=== PATIENT | male | born 1970 | race Two or more races ===

== ENCOUNTER 2020-05-27 14:30 | Outpatient (REF) | payer OTHER, SELFPAY | END 2020-05-27 14:31 | disposition home or self-care (01) | LOC: HO.LAB 14:30 | PROVIDERS: PCP Internal Medicine; Visit Provider Internal Medicine | DX: Z20.828 Contact with and (suspected) exposure to other viral communicable diseases (principal) | CPT/HCPCS: 87635 ==

== ENCOUNTER 2020-06-11 09:21 | Outpatient (REF) | payer OTHER, SELFPAY ==
[2020-06-11 11:00] LABS: Anion Gap 12 (12-20); Blood Urea Nitrogen 12 mg/dL (9-16); Calcium 9.4 mg/dL (8.4-10.2); Carbon Dioxide 33 mmol/L (22-29); Chloride 97 mmol/L (96-108); Estimated Glomerular Filt Rate > 60; Potassium 4.1 mmol/l (3.3-5.1); Sodium 138 mmol/L (135-145)
== END 2020-06-11 09:22 | disposition home or self-care (01) ==
LOC: HO.10HDL 09:21
PROVIDERS: Visit Provider Internal Medicine Hypertension Specialist
DX: I10 Essential (primary) hypertension (principal)
CPT/HCPCS: 80051; 82310; 82565; 84520

== ENCOUNTER 2020-08-17 10:57 | Outpatient (REF) | payer OTHER, SELFPAY | END 2020-08-17 10:58 | disposition home or self-care (01) | LOC: HO.LAB 10:57 | PROVIDERS: PCP Internal Medicine; Visit Provider Internal Medicine | DX: Z20.822 Contact with and (suspected) exposure to COVID-19 (principal) | CPT/HCPCS: 36415; C9803; U0003 ==

== ENCOUNTER 2020-08-29 10:18 | Outpatient (REF) | payer OTHER, SELFPAY | END 2020-08-29 10:19 | disposition home or self-care (01) | LOC: HO.LAB 10:18 | PROVIDERS: Visit Provider Internal Medicine | DX: Z20.822 Contact with and (suspected) exposure to COVID-19 (principal) | CPT/HCPCS: 36415; C9803; U0003 ==

== ENCOUNTER → 2020-10-30 13:47 | Outpatient (BNVA) | payer OTHER, SELFPAY | PROVIDERS: PCP Internal Medicine; Visit Provider Internal Medicine Cardiovascular Disease | DX: I25.10 Atherosclerotic heart disease of native coronary artery without angina pectoris (principal); R07.9 Chest pain, unspecified | CPT/HCPCS: 93005; 99212 ==

== ENCOUNTER 2020-11-08 14:46 | Outpatient (REF) | payer OTHER, SELFPAY ==
--- NOTE | 2020-11-08 16:58 | PFT_ITS ---
Forced vital capacity is slightly decreased. FEV1 also slightly decreased, but FEV1/FVC ratio is normal. [id number] normal. MVV also normal. post-bronchodilator therapy, there is slight improvement in [id number]. No other change. Total lung capacity and residual volume normal. Diffusion capacity normal. CONCLUSION: Normal pulmonary function test. No evidence of obstructive restrictive pulmonary disorder. MD SONJA Chavez/MODL / [id number]
== END 2020-11-08 14:47 | disposition home or self-care (01) ==
LOC: HO.RESP 14:46
PROVIDERS: PCP Internal Medicine; Visit Provider Internal Medicine Cardiovascular Disease
DX: R07.9 Chest pain, unspecified (principal); R05 Cough; R06.2 Wheezing
CPT/HCPCS: 94060; 94727; 94729

== ENCOUNTER → 2020-11-11 10:47 | Outpatient (REF) | payer OTHER, SELFPAY ==
--- NOTE | 2020-11-11 10:50 | CA_ITS ---
Acquisition Time: 2020-11-11 11:01:10 Total Exercise Time: 00:09:05 Test Indications: CP Medications: SEE CHART Protocol: DENI Max HR: 151 BPM 87% of Pred: 172 BPM Max BP: 170/076 mmHG Max Work Load: 10.4 METS Exercise stress ECHO using Deni protocol, total of 9 min 5 sec. METS 10.40and TAPHR up to 87 %. Pt tolerated well, denies any anginal sx. EKG without any arrhythmias, no ischemic changes seen during exercise or in recovery. ECHO images taken at rest and immediately after peak exercise HR achieved. Definity contrast used. Normotensive response to exercise. Test reviewed with Dr. Burns. Exercise echocardiogram was reviewed. At rest, there is normal LVEF and wall motion. With peak exercise, there is appropriate augmentation of wall thickening and contractility. There is normal decrease in end-systolic volumes. Overall, this is a normal study. Referred By: Markus Morrison Overread By: NANETTE BURNS
== END ==
LOC: HO.CARD 10:47
PROVIDERS: Visit Provider Internal Medicine Cardiovascular Disease
DX: I25.10 Atherosclerotic heart disease of native coronary artery without angina pectoris (principal)
CPT/HCPCS: 93350; Q9957

== ENCOUNTER → 2020-11-25 12:39 | Outpatient (BNVA) | payer OTHER, SELFPAY | PROVIDERS: PCP Internal Medicine; Visit Provider Internal Medicine Cardiovascular Disease | DX: I25.10 Atherosclerotic heart disease of native coronary artery without angina pectoris (principal); R07.9 Chest pain, unspecified | CPT/HCPCS: 99212 ==

== ENCOUNTER → 2021-02-17 12:35 | Outpatient (BNVA) | payer OTHER, SELFPAY | PROVIDERS: PCP Internal Medicine; Referring Provider Internal Medicine; Visit Provider Internal Medicine Cardiovascular Disease | DX: I25.10 Atherosclerotic heart disease of native coronary artery without angina pectoris (principal) | CPT/HCPCS: 99212 ==

== ENCOUNTER 2021-04-28 10:18 | Outpatient (REF) | payer OTHER, SELFPAY ==
[2021-04-28 12:24] LABS: Hematocrit 43.7 % (42-52); Hemoglobin 14.7 g/dl (14.0-18.0); Mean Corpuscular HGB Conc 33.6 g/dl (31.0-36.0); Mean Corpuscular Hemoglobin 29.6 pg (27.0-33.0); Mean Corpuscular Volume 88.1 fL (80-98); Mean Platelet Volume 10.9 fL (9.4-12.4); Platelet Count 253 X10*3/uL (160-400); Red Blood Count 4.96 X10*6/uL (4.60-5.80); Red Cell Distribution Width 12.1 % (11.0-16.0); White Blood Count 7.5 X10*3/uL (4.8-10.8)
[2021-04-28 12:31] LABS: Estimated Average Glucose 180 mg/dL; Hemoglobin A1c % 7.9 %
[2021-04-28 12:44] LABS: Alanine Aminotransferase 71 U/L (0-40); Albumin Level 4.5 g/dL (3.5-5.0); Alkaline Phosphatase 65 U/L (39-117); Anion Gap 15 (12-20); Aspartate Amino Transferase 32 U/L (5-37); Bilirubin Total 0.6 mg/dL (0.0-1.0); Blood Urea Nitrogen 13 mg/dL (9-16); Calcium 10.1 mg/dL (8.4-10.2); Carbon Dioxide 30 mmol/L (22-29); Chloride 97 mmol/L (96-108); Estimated Glomerular Filt Rate > 60; Glucose Random 197 mg/dL (60-115); Potassium 4.1 mmol/L (3.3-5.1); Sodium 138 mmol/L (135-145)
[2021-05-07 11:22] LABS: Transglutaminase Ab IgG <1.0 U/mL; Transglutaminase IgA <1.0 U/mL
== END 2021-04-28 10:19 | disposition home or self-care (01) ==
LOC: HO.LAB 10:18
PROVIDERS: PCP Internal Medicine; Referring Provider Internal Medicine; Visit Provider Nurse Practitioner Family
DX: Z12.11 Encounter for screening for malignant neoplasm of colon (principal); R10.11 Right upper quadrant pain; R14.0 Abdominal distension (gaseous); E11.9 Type 2 diabetes mellitus without complications; K59.04 Chronic idiopathic constipation; K21.9 Gastro-esophageal reflux disease without esophagitis
CPT/HCPCS: 36415; 80053; 83036; 83516; 85027; 99202

== ENCOUNTER → 2021-05-27 10:15 | Outpatient (BNVA) | payer OTHER, SELFPAY | PROVIDERS: PCP Internal Medicine; Visit Provider Nurse Practitioner Family | DX: K21.9 Gastro-esophageal reflux disease without esophagitis (principal); K59.04 Chronic idiopathic constipation | CPT/HCPCS: 99212 ==

== ENCOUNTER 2021-05-30 10:26 | Outpatient (REF) | payer OTHER, SELFPAY | END 2021-05-30 10:27 | disposition home or self-care (01) | LOC: HO.LNP 10:26 | PROVIDERS: Visit Provider Nurse Practitioner Family | DX: K21.9 Gastro-esophageal reflux disease without esophagitis (principal) | CPT/HCPCS: 87338 ==

== ENCOUNTER 2021-06-02 10:00 | Outpatient (REF) | payer OTHER, SELFPAY ==
[2021-06-02 10:49] LABS: Alanine Aminotransferase 54 U/L (0-40); Albumin Level 4.5 g/dL (3.5-5.0); Alkaline Phosphatase 75 U/L (39-117); Anion Gap 16 (12-20); Aspartate Amino Transferase 30 U/L (5-37); Bilirubin Total 0.5 mg/dL (0.0-1.0); Blood Urea Nitrogen 14 mg/dL (9-16); Calcium 9.5 mg/dL (8.4-10.2); Carbon Dioxide 30 mmol/L (22-29); Chloride 100 mmol/L (96-108); Estimated Glomerular Filt Rate > 60; Glucose Random 140 mg/dL (60-115); Potassium 4.2 mmol/L (3.3-5.1); Sodium 142 mmol/L (135-145); Total Protein 6.9 g/dL (6.5-8.0)
== END 2021-06-02 10:01 | disposition home or self-care (01) ==
LOC: HO.10HDL 10:00
PROVIDERS: Visit Provider Internal Medicine Hypertension Specialist
DX: I10 Essential (primary) hypertension (principal)
CPT/HCPCS: 36415; 80053

== ENCOUNTER → 2021-07-08 09:18 | Outpatient (BNVA) | payer OTHER, SELFPAY | PROVIDERS: PCP Internal Medicine; Referring Provider Internal Medicine; Visit Provider Nurse Practitioner Family | DX: Z12.11 Encounter for screening for malignant neoplasm of colon (principal); K21.9 Gastro-esophageal reflux disease without esophagitis; K59.04 Chronic idiopathic constipation | CPT/HCPCS: 99212 ==

== ENCOUNTER → 2021-08-18 12:14 | Outpatient (BNVA) | payer OTHER, SELFPAY | PROVIDERS: PCP Internal Medicine; Referring Provider Internal Medicine; Visit Provider Internal Medicine Cardiovascular Disease | DX: Z01.810 Encounter for preprocedural cardiovascular examination (principal); I25.10 Atherosclerotic heart disease of native coronary artery without angina pectoris | CPT/HCPCS: 93005; 99212 ==

== ENCOUNTER → 2021-10-27 10:33 | Outpatient (BNVA) | payer OTHER, SELFPAY | PROVIDERS: PCP Internal Medicine; Visit Provider Nurse Practitioner Family | DX: G47.33 Obstructive sleep apnea (adult) (pediatric) (principal) | CPT/HCPCS: 99202 ==

== ENCOUNTER → 2021-12-15 13:01 | Outpatient (BNVA) | payer OTHER, SELFPAY | PROVIDERS: PCP Internal Medicine; Referring Provider Internal Medicine; Visit Provider Internal Medicine Cardiovascular Disease | DX: I20.8 Other forms of angina pectoris (principal) | CPT/HCPCS: 99212 ==

== ENCOUNTER 2021-12-18 09:14 | Outpatient (REF) | payer OTHER, SELFPAY ==
[2021-12-18 10:18] LABS: Anion Gap 13 (12-20); Blood Urea Nitrogen 14 mg/dL (9-16); Calcium 9.8 mg/dL (8.4-10.2); Carbon Dioxide 30 mmol/L (22-29); Chloride 101 mmol/L (96-108); Estimated Glomerular Filt Rate > 60; Glucose Random 213 mg/dL (60-115); Potassium 4.2 mmol/L (3.3-5.1); Sodium 140 mmol/L (135-145)
[2021-12-18 12:06] LABS: Creatinine Urine 102.74 mg/dL; Protein/Creatinine Ratio, Ur 0.12 (<0.2); Total Protein Urine Random 12 mg/dL (<12)
== END 2021-12-18 09:15 | disposition home or self-care (01) ==
LOC: HO.LAB 09:14
PROVIDERS: PCP Internal Medicine; Visit Provider Internal Medicine Hypertension Specialist
DX: I10 Essential (primary) hypertension (principal)
CPT/HCPCS: 36415; 80048; 84156

== ENCOUNTER → 2022-01-26 09:49 | Outpatient (BNVA) | payer OTHER, MEDICAID, SELFPAY | PROVIDERS: PCP Internal Medicine; Visit Provider Nurse Practitioner Family | DX: G47.33 Obstructive sleep apnea (adult) (pediatric) (principal) | CPT/HCPCS: 99212 ==

== ENCOUNTER 2022-06-19 10:47 | Outpatient (REF) | payer OTHER, MEDICAID, SELFPAY ==
[2022-06-19 13:52] LABS: Anion Gap 15 (12-20); Blood Urea Nitrogen 13 mg/dL (9-16); Calcium 9.7 mg/dL (8.4-10.2); Carbon Dioxide 30 mmol/L (22-29); Chloride 101 mmol/L (96-108); Estimated Glomerular Filt Rate > 60; Potassium 4.2 mmol/L (3.3-5.1); Sodium 142 mmol/L (135-145)
== END 2022-06-19 10:48 | disposition home or self-care (01) ==
LOC: HO.10HDL 10:47
PROVIDERS: Visit Provider Internal Medicine Hypertension Specialist
DX: I10 Essential (primary) hypertension (principal)
CPT/HCPCS: 36415; 80051; 82310; 82565; 84520

== ENCOUNTER → 2022-07-01 13:38 | Outpatient (BNVA) | payer OTHER, MEDICAID, SELFPAY | PROVIDERS: PCP Internal Medicine; Visit Provider Internal Medicine Cardiovascular Disease | DX: I20.8 Other forms of angina pectoris (principal) | CPT/HCPCS: 93005; 99212 ==

== ENCOUNTER → 2022-08-05 10:46 | Outpatient (BNVA) | payer OTHER, SELFPAY | PROVIDERS: PCP Internal Medicine; Visit Provider Nurse Practitioner Family | DX: G47.33 Obstructive sleep apnea (adult) (pediatric) (principal); Z99.89 Dependence on other enabling machines and devices | CPT/HCPCS: 99212 ==

== ENCOUNTER 2022-08-15 10:30 | Emergency (ER) | payer OTHER, SELFPAY ==
--- NOTE | ~2022-08-15 | XR_ITS ---
EXAMINATION: XR CHEST CLINICAL INFORMATION: Shortness of breath COMPARISON: 09/23/2019 TECHNIQUE: 2 views of the chest were obtained. FINDINGS: Lungs are well-inflated and without evidence of acute disease compared to 09/23/2019. There appears to be minimal linear opacity of atelectasis of the inferior lingula. No airspace disease or pleural effusion. Cardiac silhouette is normal in size. Pulmonary vascular pattern is normal. Multilevel osteophyte formation of the spine. XR/XR chest 2V IMPRESSION: No acute pulmonary disease.
[2022-08-15 10:32] VITALS: BP 152/83; PULSE 58; RESP 18; TEMP 35.8; O2SAT 98; BMI 38.0
--- NOTE | 2022-08-15 10:43 | ED.GENADULT ---
HPI - General Adult General Chief complaint: General Medical Stated complaint: not feeling well Time Seen by Provider: 08/15/22 10:42 Source: patient Mode of arrival: ambulatory Limitations: no limitations History of Present Illness HPI narrative: Patient is a 52 year old assigned male at with a history of CAD presenting to the emergency department today with sinus pain, body aches, and fatigue. Patient states that over the last 4 days he has had sinus pain, body aches, and fatigue. Patient denies any dizziness, lightheadedness, abdominal pain, nausea, vomiting, fever, chills, blurry vision, double vision, loss of vision, chest pain, difficulty breathing, shortness of breath, back pain, night sweats, pain with urination, increased urinary frequency, increased urinary urgency, blood in his urine or stool, syncope or a near syncopal episode, recent trauma or falls, bowel incontinence, bladder incontinence, bowel retention, bladder retention, or any other complaints at this time. Onset (ago): day(s) (4) Location: face Radiation: non-radiation Severity: mild Severity scale (1-10): 2 Relieving factors: none Exacerbating factors: none Associated symptoms: denies other symptoms Treatments prior to arrival: none Related Data Home Medications Medication Instructions Recorded Confirmed amlodipine 10 mg tablet 10 mg PO DAILY 10/30/20 07/01/22 atenolol 100 mg tablet 100 mg PO DAILY 10/30/20 07/01/22 atorvastatin 80 mg tablet 80 mg PO DAILY 10/30/20 07/01/22 clopidogrel 75 mg tablet 75 mg PO DAILY 10/30/20 07/01/22 glipizide 2.5 mg tablet, extended 2.5 mg PO DAILY 10/30/20 07/01/22 release 24 hr lisinopril 40 mg tablet 40 mg PO DAILY 10/30/20 07/01/22 metformin 1,000 mg tablet 1,000 mg PO DAILY 10/30/20 07/01/22 oxcarbazepine 150 mg tablet 150 mg PO BID 10/30/20 07/01/22 spironolactone 25 1 tab PO DAILY 10/30/20 07/01/22 mg-hydrochlorothiazide 25 mg tablet [id number]-yjlhbasekujxn-gurymusq 250 1 tab PO Q8H PRN 08/18/21 07/01/22 mg-250 mg-65 mg tablet (Migraine Relief) hydralazine 25 mg tablet 25 mg PO QID 08/18/21 07/01/22 acetaminophen 325 mg capsule 650 mg PO Q6H PRN 10/27/21 07/01/22 omeprazole 20 mg capsule,delayed 20 mg PO BID 10/27/21 07/01/22 release Previous Rx's Medication Instructions Recorded linaclotide 145 mcg capsule 145 mcg PO DAILY #30 caps 05/27/21 (Linzess) methylcellulose (laxative) 500 mg 500 mg PO DAILY #30 tabs 05/27/21 tablet (Citrucel) pantoprazole 40 mg tablet,delayed 40 mg PO DAILY #30 tabs 05/27/21 release bisacodyl 5 mg tablet,delayed 10 mg PO ONCE 1 day #2 tabs 07/08/21 release (Dulcolax (bisacodyl)) ondansetron 4 mg disintegrating 4 mg PO Q8H PRN nausea and 07/08/21 tablet vomiting #30 tabs aspirin 81 mg tablet,delayed 81 mg PO DAILY #90 tabs 08/25/21 release (Adult Low Dose Aspirin) docusate sodium 100 mg capsule 100 mg PO BEDTIME #30 caps 01/13/22 sennosides 8.6 mg tablet (Natural 8.6 mg PO BEDTIME constipation #30 01/13/22 Senna Laxative) tabs isosorbide mononitrate 30 mg 30 mg PO DAILY #90 tabs 02/16/22 tablet,extended release 24 hr doxycycline hyclate 100 mg tablet 100 mg PO BID 7 days #14 tabs 08/15/22 Allergies Allergy/AdvReac Type Severity Reaction Status Date / Time No Known Allergies Allergy Verified 08/05/22 11:14 Review of Systems Constitutional: Constitutional: Reports no additional constitutional complaints, Reports body ache(s), Denies chills, Reports fatigue, Denies fever(s) and Denies night sweats Eyes: Eyes: Reports no additional eye complaints, Denies blurry vision, Denies change in vision, Denies diplopia, Denies eye discharge, Denies loss of vision and Denies eye pain ENT: Denies dizziness and Reports sinus pressure Cardiovascular: Cardiovascular: Reports no additional cardiovascular complaints, Denies chest pain, Denies lightheadedness, Denies Loss of Consciousness and Denies dyspnea Respiratory: Respiratory: Reports no additional respiratory complaints and Denies dyspnea Gastrointestinal: Gastrointestinal: Reports no additional gastrointestinal complaints, Denies abdominal pain, Denies melena, Denies hematochezia, Denies change in bowel habits and Denies change in stool character Genitourinary: Genitourinary: Reports no additional male genitourinary complaints, Denies hematuria, Denies oliguria, Denies difficulty urinating, Denies dysuria, Denies urinary frequency, Denies urinary hesitancy, Denies urinary incontinence and Denies urinary urgency Musculoskeletal: Musculoskeletal: Reports no additional musculoskeletal complaints, Denies numbness and Denies tingling Neurologic: Denies dizziness, Denies loss of vision, Denies numbness and Denies tingling Psychiatric: Psychiatric: Reports no additional psychiatric complaints Endocrine: Endocrine: Reports no additional endocrine complaints and Reports fatigue Hematologic/Lymphatic: Hematologic/Lymphatic: Reports no additional hematologic/lymphatic complaints Allergic/Immunologic: Allergic/Immunologic: Reports no additional allergic/immunologic complaints PMFSH Past Medical History Attestation statement: The following information was validated with the patient. Source: old records reviewed and nursing notes reviewed Surgical History H/O: knee surgery History of cardiac cath History of cataract surgery Family History Family History Father CAD (coronary artery disease) HTN (hypertension) Diabetes Hypercholesteremia Mother CAD (coronary artery disease) Lung disease Diabetes HTN (hypertension) Hypercholesteremia Social History Social History Alcohol intake: never Patient Tobacco Use Status: Never used Tobacco Advance Directives: No Advance Directives Information Provided: Yes Physical Exam ED Vital Signs: Vital Signs - 24 hr 08/15/22 10:32 Temperature 96.5 F L Pulse Rate 58 Respiratory Rate 18 Blood Pressure 152/83 H Pulse Oximetry 98 Oxygen Delivery Method Room Air BMI result Body Mass Index 38.0 Const General: cooperative, no acute distress, alert and awake Nutritional Appearance: well nourished Orientation/consciousness: patient oriented x3 Limitations: no limitations HENMT Head: Yes normal to inspection and Yes atraumatic Ears: hearing grossly normal bilaterally and external ears normal General nose exam: Normal external nose present, no nasal discharge noted and no epistaxis Face and sinus: Yes normal facial exam, No abrasion and No laceration Mouth: Normal oral and palatal mucosa present, no drooling and no muffled voice Eyes General: appearance normal, both eyes and all related structures Periorbital: periorbital findings normal Eyelids: Yes eyelids normal Conjunctivae: conjunctivae normal Pupils: Equal, round and reactive pupils present EOM: EOMs intact bilaterally Neck Neck: Yes normal visual inspection, Yes full ROM and Yes no lymphadenopathy Chest Chest palpation & inspection: normal inspection of the chest Resp Effort & Inspection: normal respiratory effort and able to speak in complete sentences Auscultation: clear to auscultation bilaterally Cardio Rate: regular rate Rhythm: regular rhythm GI Inspection: Yes normal to inspection Palpation (GI): Soft to palpation, not firm, nontender, no guarding and not rigid Neuro General: patient oriented x3 and moves all extremities Cranial nerves: Yes Equal, round and reactive pupils present Cognition (Neuro): normal cognition Motor exam (neuro): 5/5 motor strength present throughout Sensory Exam: Normal double simultaneous stimulation for sensation Coordination: [id number]-ords test normal Extrem General: Yes normal to inspection, Yes full ROM and Yes capillary refill normal Psych Appearance: grossly normal Mental Status: mental status grossly normal Affect: normal affect Attitude: cooperative Thought process: Normal thought process present Thought content: Normal thought content present Insight: Good insight present (Psych) Medical Decision Making Medical Decision Making MDM Narrative: Patient is a 52 year old assigned male at with a history of CAD presenting to the emergency department today with sinus pain, body aches, and fatigue. Patient's physical exam was unremarkable.Patient's chest x-ray showed no acute process. Patient's COVID/RSV/Influenza swab was negative. I explained my physical exam findings as well as all test results to the patient. I answered all questions asked by the patient. I stressed the importance of the patient taking his medication as prescribed. I stressed the importance of the patient following up with his primary care provider. I stressed the importance of the patient returning to the emergency department immediately if his symptoms were to worsen or if he were to develop any dizziness, shortness of breath, difficulty breathing, chest pain, blurry vision, loss of vision, nausea, vomiting, abdominal pain, fever, chills, back pain, or any other complaints. Patient verbalized agreement and understanding with this treatment plan and discharge. Differential Diagnosis Differential Diagnoses: The differential diagnosis associated with the presentation includes sinusitis Lab Data MDM Lab Attestation statement: I reviewed the patient's lab results. Labs: Lab Results 08/15/22 Range/Units 10:54 Influenza Type A (PCR) NEGATIVE (Negative) Influenza Type B (PCR) NEGATIVE (Negative) RSV RNA Qual (PCR) NEGATIVE (Negative) SARS-CoV-2 RNA (RT-PCR) NEGATIVE (Negative) Discharge Plan Discharge Clinical Impression: Sinusitis Patient Disposition: Home, Self-Care Instructions: Sinusitis (ED) Additional Instructions: Follow up with your primary care provider. Return to the emergency department immediately if your symptoms worsen or if you develop any dizziness, shortness of breath, difficulty breathing, chest pain, blurry vision, loss of vision, nausea, vomiting, abdominal pain, fever, chills, back pain, or any other complaints. Prescriptions: New doxycycline hyclate 100 mg tablet 100 mg PO BID 7 Days Qty: 14 0RF No Action aspirin [Adult Low Dose Aspirin] 81 mg tablet,delayed release (DR/EC) 81 mg PO DAILY Qty: 90 3RF docusate sodium 100 mg capsule 100 mg PO BEDTIME Qty: 30 3RF sennosides [Natural Senna Laxative] 8.6 mg tablet 8.6 mg PO BEDTIME Qty: 30 3RF isosorbide mononitrate 30 mg tablet extended release 24 hr 30 mg PO DAILY Qty: 90 3RF metformin 1,000 mg tablet 1,000 mg PO DAILY lisinopril 40 mg tablet 40 mg PO DAILY amlodipine 10 mg tablet 10 mg PO DAILY glipizide 2.5 mg tablet extended release 24hr 2.5 mg PO DAILY atenolol 100 mg tablet 100 mg PO DAILY spironolacton-hydrochlorothiaz 25-25 mg tablet 1 tab PO DAILY atorvastatin 80 mg tablet 80 mg PO DAILY oxcarbazepine 150 mg tablet 150 mg PO BID clopidogrel 75 mg tablet 75 mg PO DAILY Migraine Relief 250-250-65 mg tablet 1 tab PO Q8H PRN hydralazine 25 mg tablet 25 mg PO QID bisacodyl [Dulcolax (bisacodyl)] 5 mg tablet,delayed release (DR/EC) 10 mg PO ONCE 1 Days Qty: 2 0RF Rx Instructions: take 2 tabs at noon the day before your colonoscopy ondansetron 4 mg tablet,disintegrating 4 mg PO Q8H PRN (Reason: nausea and vomiting) Qty: 30 0RF pantoprazole 40 mg tablet,delayed release (DR/EC) 40 mg PO DAILY Qty: 30 3RF Rx Instructions: take one tablet half an hour before breakfast Citrucel 500 mg tablet 500 mg PO DAILY Qty: 30 3RF Rx Instructions: take it with full glass of water Linzess 145 mcg capsule 145 mcg PO DAILY Qty: 30 2RF omeprazole 20 mg capsule,delayed release(DR/EC) 20 mg PO BID acetaminophen 325 mg capsule 650 mg PO Q6H PRN Referrals: Mary Ellen Montague MD [Primary Care Provider] - Interventions: ED Discharge Assessment Last Done: 08/15/22 12:28 Discharge Date/Time: 08/15/22 12:29 Print Language: Bulgarian
--- NOTE | 2022-08-15 11:05 | PC.NURSE ---
patient a&ox3, pt states he hasnt felt well for a few days but worsened this morning, pt also c/o dental pain-notified provider, nasal swab performed, call oh within reach, will continue to monitor.
[2022-08-15 11:36] LABS: Influenza A PCR NEGATIVE (Negative); Influenza B PCR NEGATIVE (Negative); Resp Syncy Virus RNA Qual PCR NEGATIVE (Negative); SARS COV2 PCR INHOUSE NEGATIVE (Negative)
== END 2022-08-15 12:29 | disposition home or self-care (01) ==
PROVIDERS: Physician Assistant Medical; Emergency Provider Emergency Medicine; PCP Internal Medicine
DX: J32.9 Chronic sinusitis, unspecified (principal); M79.10 Myalgia, unspecified site; Z20.822 Contact with and (suspected) exposure to COVID-19; Z20.828 Contact with and (suspected) exposure to other viral communicable diseases; Z79.84 Long term (current) use of oral hypoglycemic drugs; Z79.899 Other long term (current) drug therapy; Z79.02 Long term (current) use of antithrombotics/antiplatelets; Z79.82 Long term (current) use of aspirin
CPT/HCPCS: 0241U; 71046; 99282; 99283

== ENCOUNTER 2022-08-27 09:48 | Emergency (ER) | payer OTHER, SELFPAY ==
[2022-08-27 09:52] VITALS: BP 146/85; PULSE 61; RESP 16; TEMP 36.9; O2SAT 98; BMI 38.0
--- NOTE | 2022-08-27 10:06 | ED_ITS ---
HPI - General Adult General Chief complaint: General Medical Stated complaint: medication refill Time Seen by Provider: 08/27/22 10:05 Source: patient Mode of arrival: ambulatory Limitations: no limitations History of Present Illness HPI narrative: 52 yo male with history of CAD, RADHA, CAD, stable angina who presents to the ER for evaluation of ongoing sinus pressure and headaches for the last couple of weeks. He states he has been on doxycycline for the last 2 weeks with no relief. He reports increased sinus pressure in his frontal and maxillary sinuses along with headache, nasal congestion. He states his headache is pounding and head feels very heavy. He has been taking nlvb-viv-[id number] decongestants with no relief. He denies any history of allergies. He does endorse watery eyes and some eye swelling when he wakes up in the morning. No vision changes or discharge. No fever or chills. No chest pain, shortness of breath, cough, nausea, vomiting, abdominal pain. MD complaint: Sinus pressure & pain Onset (ago): week(s) (2) Location: head and face Radiation: non-radiation Severity: moderate Quality: aching and other (throbbing) Pain Consistency: constant Relieving factors: medication and rest Exacerbating factors: movement Associated symptoms: headaches Treatments prior to arrival: none Related Data Home Medications Medication Instructions Recorded Confirmed amlodipine 10 mg tablet 10 mg PO DAILY 10/30/20 07/01/22 atenolol 100 mg tablet 100 mg PO DAILY 10/30/20 07/01/22 atorvastatin 80 mg tablet 80 mg PO DAILY 10/30/20 07/01/22 clopidogrel 75 mg tablet 75 mg PO DAILY 10/30/20 07/01/22 glipizide 2.5 mg tablet, extended 2.5 mg PO DAILY 10/30/20 07/01/22 release 24 hr lisinopril 40 mg tablet 40 mg PO DAILY 10/30/20 07/01/22 metformin 1,000 mg tablet 1,000 mg PO DAILY 10/30/20 07/01/22 oxcarbazepine 150 mg tablet 150 mg PO BID 10/30/20 07/01/22 spironolactone 25 1 tab PO DAILY 10/30/20 07/01/22 mg-hydrochlorothiazide 25 mg tablet qrctrnx-vxiknosfqznxa-psldnhrc 250 1 tab PO Q8H PRN 08/18/21 07/01/22 mg-250 mg-65 mg tablet (Migraine Relief) hydralazine 25 mg tablet 25 mg PO QID 08/18/21 07/01/22 acetaminophen 325 mg capsule 650 mg PO Q6H PRN 10/27/21 07/01/22 omeprazole 20 mg capsule,delayed 20 mg PO BID 10/27/21 07/01/22 release Previous Rx's Medication Instructions Recorded linaclotide 145 mcg capsule 145 mcg PO DAILY #30 caps 05/27/21 (Linzess) methylcellulose (laxative) 500 mg 500 mg PO DAILY #30 tabs 05/27/21 tablet (Citrucel) pantoprazole 40 mg tablet,delayed 40 mg PO DAILY #30 tabs 05/27/21 release bisacodyl 5 mg tablet,delayed 10 mg PO ONCE 1 day #2 tabs 07/08/21 release (Dulcolax (bisacodyl)) ondansetron 4 mg disintegrating 4 mg PO Q8H PRN nausea and 07/08/21 tablet vomiting #30 tabs aspirin 81 mg tablet,delayed 81 mg PO DAILY #90 tabs 08/25/21 release (Adult Low Dose Aspirin) docusate sodium 100 mg capsule 100 mg PO BEDTIME #30 caps 01/13/22 sennosides 8.6 mg tablet (Natural 8.6 mg PO BEDTIME constipation #30 01/13/22 Senna Laxative) tabs isosorbide mononitrate 30 mg 30 mg PO DAILY #90 tabs 02/16/22 tablet,extended release 24 hr doxycycline hyclate 100 mg tablet 100 mg PO BID 7 days #14 tabs 08/15/22 cetirizine 10 mg capsule (Zyrtec) 10 mg PO DAILY #30 caps 08/27/22 levofloxacin 500 mg tablet 500 mg PO DAILY #10 tabs 08/27/22 triamcinolone acetonide 55 mcg 2 spray intranasal DAILY #16.9 mL 08/27/22 nasal spray aerosol (24 Hour Nasal Allergy) Allergies Allergy/AdvReac Type Severity Reaction Status Date / Time No Known Allergies Allergy Verified 08/05/22 11:14 Review of Systems Review of Systems: Yes all other systems are reviewed and are negative PMFSH Past Medical History Surgical History H/O: knee surgery History of cardiac cath History of cataract surgery Family History Family History Father CAD (coronary artery disease) HTN (hypertension) Diabetes Hypercholesteremia Mother CAD (coronary artery disease) Lung disease Diabetes HTN (hypertension) Hypercholesteremia Social History Social History Alcohol intake: never Patient Tobacco Use Status: Never used Tobacco Advance Directives: No Physical Exam ED Vital Signs: Vital Signs - 24 hr 08/27/22 09:52 Temperature 98.4 F Pulse Rate 61 Respiratory Rate 16 Blood Pressure 146/85 H Pulse Oximetry 98 Oxygen Delivery Method Room Air BMI result Body Mass Index 38.0 Appearance: Alert. Oriented X3. No acute distress. Head/face: Tenderness of the bilateral maxillary and frontal sinuses. Eyes: Pupils equal, round and reactive to light. ENT: Pharynx normal. Nasal turbinates with erythema and bogginess, clear nasal discharge. Septum midline. Normal tympanic membranes bilaterally. Neck: Normal inspection. Neck supple. CVS: Normal heart rate and rhythm. Pulses normal. Respiratory: No respiratory distress. Breath sounds normal. Abdomen: Soft and nontender. +BS x4 Skin: Skin warm and dry. Normal skin color. Normal skin turgor. No rashes. Extremities: Normal inspection x4, normal range of motion. Neuro: Oriented X 3. No motor deficit. No sensory deficit. Cranial nerves 2- 12 intact Course Course Course Narrative: 52-year-old male presenting with ongoing sinus pressure and pain along with headaches for the last 2 weeks, no relief with doxycycline. His viral swab today were negative. Will stop the doxycycline and increased coverage with L evaquin. Will also start intranasal steroid and Zyrtec. Patient was encouraged follow-up with ENT if he has ongoing symptoms, no resolution of his pain. He was also encouraged follow up with his PCP. Patient agrees with plan. Stable for discharge home. Medical Decision Making Differential Diagnosis Differential Diagnoses: The differential diagnosis associated with the presentation includes Sinusitis, migraine headache, tension headache, cluster headache, viral syndrome, COVID, flu, ear infection Lab Data MDM Lab Attestation statement: I reviewed the patient's lab results. Viral swab is negative Labs: Lab Results 08/27/22 Range/Units 10:03 Influenza Type A (PCR) NEGATIVE (Negative) Influenza Type B (PCR) NEGATIVE (Negative) RSV RNA Qual (PCR) NEGATIVE (Negative) SARS-CoV-2 RNA (RT-PCR) NEGATIVE (Negative) External Record Review External record reviewed: Outpatient record, Prior outpatient labs and Prior outpatient radiology Prescription Management I considered prescription management with: Pain Medication and Antibiotic Will treat with new antibiotic, decongestant and Zyrtec. Encouraged Tylenol and Motrin for pain control Critical Care Time Critical Care Time Critical Care Time: No Discharge Plan Discharge Clinical Impression: Sinusitis Patient Disposition: Home, Self-Care Instructions: Sinusitis (ED) Additional Instructions: You tested negative for COVID, flu, RSV. Stop taking the previously prescribed antibiotic. Start taking the new antibiotic, start this today. Use the nasal spray as directed. Take the prescribed allergy medication for at least to the next 2 weeks. Follow-up with your doctor. If you continue having sinus problems, recommend following up with planer offbearer named number below. Call for an appointment. Prescriptions: New levofloxacin 500 mg tablet 500 mg PO DAILY Qty: 10 0RF triamcinolone acetonide [24 Hour Nasal Allergy] 55 mcg aerosol,spray 2 spray intranasal DAILY Qty: 16.9 0RF Rx Instructions: administer into each nostril Zyrtec 10 mg capsule 10 mg PO DAILY Qty: 30 0RF No Action aspirin [Adult Low Dose Aspirin] 81 mg tablet,delayed release (DR/EC) 81 mg PO DAILY Qty: 90 3RF docusate sodium 100 mg capsule 100 mg PO BEDTIME Qty: 30 3RF sennosides [Natural Senna Laxative] 8.6 mg tablet 8.6 mg PO BEDTIME Qty: 30 3RF isosorbide mononitrate 30 mg tablet extended release 24 hr 30 mg PO DAILY Qty: 90 3RF doxycycline hyclate 100 mg tablet 100 mg PO BID 7 Days Qty: 14 0RF metformin 1,000 mg tablet 1,000 mg PO DAILY lisinopril 40 mg tablet 40 mg PO DAILY amlodipine 10 mg tablet 10 mg PO DAILY glipizide 2.5 mg tablet extended release 24hr 2.5 mg PO DAILY atenolol 100 mg tablet 100 mg PO DAILY spironolacton-hydrochlorothiaz 25-25 mg tablet 1 tab PO DAILY atorvastatin 80 mg tablet 80 mg PO DAILY oxcarbazepine 150 mg tablet 150 mg PO BID clopidogrel 75 mg tablet 75 mg PO DAILY Migraine Relief 250-250-65 mg tablet 1 tab PO Q8H PRN hydralazine 25 mg tablet 25 mg PO QID bisacodyl [Dulcolax (bisacodyl)] 5 mg tablet,delayed release (DR/EC) 10 mg PO ONCE 1 Days Qty: 2 0RF Rx Instructions: take 2 tabs at noon the day before your colonoscopy ondansetron 4 mg tablet,disintegrating 4 mg PO Q8H PRN (Reason: nausea and vomiting) Qty: 30 0RF pantoprazole 40 mg tablet,delayed release (DR/EC) 40 mg PO DAILY Qty: 30 3RF Rx Instructions: take one tablet half an hour before breakfast Citrucel 500 mg tablet 500 mg PO DAILY Qty: 30 3RF Rx Instructions: take it with full glass of water Linzess 145 mcg capsule 145 mcg PO DAILY Qty: 30 2RF omeprazole 20 mg capsule,delayed release(DR/EC) 20 mg PO BID acetaminophen 325 mg capsule 650 mg PO Q6H PRN Referrals: Jorge Beltrán [Physician] -
[2022-08-27 10:51] LABS: Influenza A PCR NEGATIVE (Negative); Influenza B PCR NEGATIVE (Negative); Resp Syncy Virus RNA Qual PCR NEGATIVE (Negative); SARS COV2 PCR INHOUSE NEGATIVE (Negative)
== END 2022-08-27 11:22 | disposition home or self-care (01) ==
PROVIDERS: Emergency Provider Student in an Organized Health Care Education/Training Program; PCP Internal Medicine
DX: J32.9 Chronic sinusitis, unspecified (principal); R51.9 Headache, unspecified; Z20.822 Contact with and (suspected) exposure to COVID-19; Z20.828 Contact with and (suspected) exposure to other viral communicable diseases; Z79.899 Other long term (current) drug therapy
CPT/HCPCS: 0241U; 99282; 99283

== ENCOUNTER 2022-09-26 14:07 | Emergency (ER) | payer OTHER, SELFPAY ==
--- NOTE | ~2022-09-26 | CT_ITS ---
EXAMINATION: CT ABDOMEN AND PELVIS WITHOUT CONTRAST CLINICAL INFORMATION: Abdominal pain and diarrhea with question of colitis COMPARISON: CT abdomen pelvis 07/27/2019 TECHNIQUE: Multidetector volumetric imaging was performed from the superior aspect of the liver through the pubic symphysis. Sagittal and coronal reformatted images were obtained on the technologist's workstation. This CT examination was performed using dose optimization techniques as appropriate, variously including the following: *Automated exposure control *Adjustment of mA and/or kV according to patient size (this includes techniques or standardized protocols for targeted exams where dose is matched to indication/reason for exam; i.e. extremities or head) *Use of iterative reconstruction technique DLP: 964 mGy-cm FINDINGS: LUNG BASES: The visualized lung bases are unremarkable. Coronary calcium is present LIVER, GALLBLADDER, AND BILIARY TREE: The liver is enlarged measuring 18.9 cm in cephalocaudad dimension and demonstrates decreased attenuation consistent with hepatic steatosis. Focal fatty sparing is present around the gallbladder. No focal hepatic lesion or biliary ductal dilatation is present. The gallbladder is unremarkable with no evidence of radiopaque gallstones, gallbladder wall thickening, or obvious pericholecystic inflammatory changes. PANCREAS: Unremarkable. SPLEEN: Unremarkable. ADRENAL GLANDS: Unremarkable. KIDNEYS AND URETERS: The kidneys are normal in size, shape, and attenuation. No hydronephrosis, hydroureter, or calculi seen. No perinephric stranding. BLADDER: Unremarkable. GASTROINTESTINAL TRACT: The small and large bowel are unremarkable. The appendix is unremarkable. ABDOMINAL WALL: No significant hernia is appreciated. Small bilateral inguinal hernias are present containing only fat. LYMPH NODES: No retroperitoneal lymphadenopathy. VASCULAR: Calcific atherosclerotic changes are seen in the aorta and iliac. No aneurysm. PELVIC VISCERA: There is mild BPH. Seminal vesicles appear normal. OSSEOUS STRUCTURES: Mild degenerative changes are present in the spine. CT/CT abdomen pelvis wo IV con IMPRESSION: 1. A cause for the patient's abdominal pain and diarrhea has not been found. 2. Incidental note made of an enlarged fatty liver, mild BPH and other findings described above. Fleischner guidelines were followed.
[2022-09-26 14:10] VITALS: BP 136/92; PULSE 82; RESP 20; TEMP 36.1; O2SAT 98; BMI 38.0
--- NOTE | 2022-09-26 14:12 | ED.GENADULT ---
HPI - General Adult General Chief complaint: Abdominal Pain <STEPHANE Rodríguez - Last Filed: 09/26/22 14:12> Stated complaint: Abd pain/bloated/Dizzy <STEPHANE Rodríguez - Last Filed: 09/26/22 14:12> Time Seen by Provider: 09/26/22 16:36 <STEPHANE Rodríguez - Last Filed: 09/26/22 14:12> Source: patient <STEPHANE Haile - Last Filed: 09/27/22 01:21> Mode of arrival: ambulatory <STEPHANE Haile - Last Filed: 09/27/22 01:21> Limitations: no limitations <STEPHANE Haile Last Filed: 09/27/22 01:21> History of Present Illness HPI narrative: 52-year-old male past med history of diabetes, coronary artery disease, presents to the ED for abdominal pain, diarrhea since last night, and vomiting this morning. Patient states epigastric mid abdominal pain with acid burning sensation also some left lower quadrant abdominal pain. Patient states no fever, chills, night sweats, chest pain, or shortness of breath. Patient denies any leg swelling, calf pain, pleurisy, patient will travel, recent surgery, recent surgery, recent trauma, or any history of blood clots. Denies any history of estrogen use. <STEPHANE Haile - Last Filed: 09/27/22 01:21> Related Data Home medications: Home Medications Medication Instructions Recorded Confirmed amlodipine 10 mg tablet 10 mg PO DAILY 10/30/20 07/01/22 atenolol 100 mg tablet 100 mg PO DAILY 10/30/20 07/01/22 atorvastatin 80 mg tablet 80 mg PO DAILY 10/30/20 07/01/22 clopidogrel 75 mg tablet 75 mg PO DAILY 10/30/20 07/01/22 glipizide 2.5 mg tablet, extended 2.5 mg PO DAILY 10/30/20 07/01/22 release 24 hr lisinopril 40 mg tablet 40 mg PO DAILY 10/30/20 07/01/22 metformin 1,000 mg tablet 1,000 mg PO DAILY 10/30/20 07/01/22 oxcarbazepine 150 mg tablet 150 mg PO BID 10/30/20 07/01/22 spironolactone 25 1 tab PO DAILY 10/30/20 07/01/22 mg-hydrochlorothiazide 25 mg tablet zmbedui-oreemjbeotros-njlhyydr 250 1 tab PO Q8H PRN 08/18/21 07/01/22 mg-250 mg-65 mg tablet (Migraine Relief) hydralazine 25 mg tablet 25 mg PO QID 08/18/21 07/01/22 acetaminophen 325 mg capsule 650 mg PO Q6H PRN 10/27/21 07/01/22 omeprazole 20 mg capsule,delayed 20 mg PO BID 10/27/21 07/01/22 release Previous Rx's Medication Instructions Recorded linaclotide 145 mcg capsule 145 mcg PO DAILY #30 caps 05/27/21 (Linzess) methylcellulose (laxative) 500 mg 500 mg PO DAILY #30 tabs 05/27/21 tablet (Citrucel) pantoprazole 40 mg tablet,delayed 40 mg PO DAILY #30 tabs 05/27/21 release bisacodyl 5 mg tablet,delayed 10 mg PO ONCE 1 day #2 tabs 07/08/21 release (Dulcolax (bisacodyl)) ondansetron 4 mg disintegrating 4 mg PO Q8H PRN nausea and 07/08/21 tablet vomiting #30 tabs aspirin 81 mg tablet,delayed 81 mg PO DAILY #90 tabs 08/25/21 release (Adult Low Dose Aspirin) docusate sodium 100 mg capsule 100 mg PO BEDTIME #30 caps 01/13/22 sennosides 8.6 mg tablet (Natural 8.6 mg PO BEDTIME constipation #30 01/13/22 Senna Laxative) tabs isosorbide mononitrate 30 mg 30 mg PO DAILY #90 tabs 02/16/22 tablet,extended release 24 hr doxycycline hyclate 100 mg tablet 100 mg PO BID 7 days #14 tabs 08/15/22 cetirizine 10 mg capsule (Zyrtec) 10 mg PO DAILY #30 caps 08/27/22 levofloxacin 500 mg tablet 500 mg PO DAILY #10 tabs 08/27/22 triamcinolone acetonide 55 mcg 2 spray intranasal DAILY #16.9 mL 08/27/22 nasal spray aerosol (24 Hour Nasal Allergy) famotidine 20 mg tablet (Pepcid) 20 mg PO BID 10 days #20 tabs 09/26/22 <STEPHANE Rodríguez - Last Filed: 09/26/22 14:12> Allergies/adverse reactions: Allergies Allergy/AdvReac Type Severity Reaction Status Date / Time No Known Allergies Allergy Verified 08/05/22 11:14 <STEPHANE Rodríguez - Last Filed: 09/26/22 14:12> Review of Systems Review of Systems: Abdominal pain, diarrhea, vomitting, <STEPHANE Haile - Last Filed: 09/27/22 01:21> [facility] Past Medical History Surgical History: Surgical History H/O: knee surgery History of cardiac cath History of cataract surgery <STEPHANE Rodríguez - Last Filed: 09/26/22 14:12> Family History Family History: Family History Father CAD (coronary artery disease) HTN (hypertension) Diabetes Hypercholesteremia Mother CAD (coronary artery disease) Lung disease Diabetes HTN (hypertension) Hypercholesteremia <STEPHANE Rodríguez - Last Filed: 09/26/22 14:12> Social History Social History: Social History Alcohol intake: never Patient Tobacco Use Status: Never used Tobacco Advance Directives: No Advance Directives Information Provided: Yes <STEPHANE Rodríguez - Last Filed: 09/26/22 14:12> Physical Exam ED Vital Signs: Vital Signs - 24 hr 09/26/22 14:10 09/26/22 17:33 09/26/22 21:33 Temperature 97 F 97.7 F Pulse Rate 82 89 88 Respiratory Rate 20 16 16 Blood Pressure 136/92 H 143/85 H 130/74 Pulse Oximetry 98 98 96 Oxygen Delivery Method Room Air Room Air Nasal Cannula Oxygen Flow Rate 6 BMI result Body Mass Index 38.0 <STEPHANE Rodríguez - Last Filed: 09/26/22 14:12> Vital Signs - 24 hr 09/26/22 14:10 09/26/22 17:33 09/26/22 21:33 Temperature 97 F 97.7 F Pulse Rate 82 89 88 Respiratory Rate 20 16 16 Blood Pressure 136/92 H 143/85 H 130/74 Pulse Oximetry 98 98 96 Oxygen Delivery Method Room Air Room Air Nasal Cannula Oxygen Flow Rate 6 BMI result Body Mass Index 38.0 <STEPHANE Haile Last Filed: 09/27/22 01:21> Const General: cooperative, healthy appearing, comfortable, no acute distress, well developed, alert and awake <STEPHANE Haile Last Filed: 09/27/22 01:21> Orientation/consciousness: oriented to person, oriented to place, oriented to time and patient oriented x3 <STEPHANE Haile Kathleen Last Filed: 09/27/22 01:21> HENMA Head: Yes normal to inspection, Yes No palpable skull fracture present, Yes normocephalic, Yes atraumatic and No abrasion <STEPHANE Haile Last Filed: 09/27/22 01:21> Eyes General: appearance normal, both eyes and all related structures <STEPHANE Haile Kathleen Last Filed: 09/27/22 01:21> Neck Neck: Yes normal visual inspection, Yes full ROM, Yes no lymphadenopathy, Yes no meningeal signs, Yes trachea midline, Yes supple, No anterior neck swelling and No tender <STEPHANE Haile Kathleen Last Filed: 09/27/22 01:21> Chest Chest palpation & inspection: normal inspection of the chest and normal palpation of entire chest wall <STEPHANE Haile Kathleen Last Filed: 09/27/22 01:21> Resp Effort & Inspection: normal respiratory effort and able to speak in complete sentences <STEPHANE Haile Kathleen Last Filed: 09/27/22 01:21> Cardio Jugular venous distension: no JVD <STEPHANE Haile Kathleen Last Filed: 09/27/22 01:21> Heart sounds: S1 normal heart sound present and S2 normal heart sound present <STEPHANE Haile Kathleen Last Filed: 09/27/22 01:21> GI Inspection: Yes normal to inspection and No abdominal wall ecchymosis <STEPHANE Haile Kathleen Last Filed: 09/27/22 01:21> Palpation (GI): Soft to palpation, not firm, Tenderness to palpation present (GI) in the epigastrum and in the LLQ, no guarding and not rigid <STEPHANE Haile Kathleen Last Filed: 09/27/22 01:21> General: No CVA tenderness and Yes no CVA tenderness <STEPHANE Haile Last Filed: 09/27/22 01:21> Back/Spine/Pelvis Back: no CVA tenderness, No CVA tenderness and No back tenderness <STEPHANE Haile Last Filed: 09/27/22 01:21> Skin General skin exam: no rashes or lesions noted and elasticity normal <STEPHANE Haile Last Filed: 09/27/22 01:21> Neuro General: oriented to person, oriented to place, oriented to time, patient oriented x3, gait normal, moves all extremities, no meningeal signs, no focal motor deficits, CN's II-XI intact bilaterally and normal sensation to monofilament <STEPHANE Haile Last Filed: 09/27/22 01:21> Extrem Other: Bilateral lower extremities negative for any swelling, pitting edema, or calf tenderness <STEPHANE Haile Last Filed: 09/27/22 01:21> Psych Appearance: grossly normal, well kempt and not disheveled <STEPHANE Haile Last Filed: 09/27/22 01:21> Course Course Course Narrative: RME performed by Bhavna Domínguez PA-C. Patient is a 52 year old male presenting to the emergency department with abdominal pain. Labs ordered. Patient placed back in the waiting room pending results and room availability. <STEPHANE Rodríguez Last Filed: 09/26/22 14:12> Reevaluation(s) Reevaluation #1: Due to patient history of diabetes and coronary artery disease obesity and epigastric tenderness we will do EKG and 1 troponin. GI cocktail added. Rapid COVID flu ordered. <STEPHANE Haile Last Filed: 09/27/22 01:21> Time: 17:04 <STEPHANE Haile Last Filed: 09/27/22 01:21> Reevaluation #2: EKG negative STEMI. Troponin negative. COVID influenza negative. Labs are normal. Urine negative for UTI. Diagnosis GERD gastroenteritis. Patient is safe for discharge <STEPHANE Haile Last Filed: 09/27/22 01:21> Time: 21:17 <STEPHANE Haile Last Filed: 09/27/22 01:21> Medications Administered Discontinued Medications Generic Name Dose Route Start Last Admin Trade Name Freq PRN Reason Stop Dose Admin Al Hydroxide/Mg Hydroxide 30 ml 09/26/22 16:50 09/26/22 18:07 Magnesium Hydrox/Alum Hydrox 30 Ml Oral.Susp PO 09/26/22 16:51 30 ml ONCE ONE Administration Belladonna Alkaloids/Phenobarbital 10 ml 09/26/22 16:50 09/26/22 18:07 Phenobarb/Hyoscy/Atropine/Scop 10 Ml Elixir PO 09/26/22 16:51 10 ml ONCE ONE Administration Lidocaine HCl 15 ml 09/26/22 16:50 09/26/22 18:07 Lidocaine Hcl Viscous 2 % 15 Ml Solution MUCOUS MEM 09/26/22 16:51 15 ml ONCE ONE Administration Ondansetron HCl 4 mg 09/26/22 16:50 09/26/22 18:07 Ondansetron Odt 4 Mg Tab.Rapdis TRANSLINGU 09/26/22 16:51 4 mg ONCE ONE Administration <STEPHANE Rodríguez - Last Filed: 09/26/22 14:12> Medications Administered Discontinued Medications Generic Name Dose Route Start Last Admin Trade Name Freq PRN Reason Stop Dose Admin Al Hydroxide/Mg Hydroxide 30 ml 09/26/22 16:50 09/26/22 18:07 Magnesium Hydrox/Alum Hydrox 30 Ml Oral.Susp PO 09/26/22 16:51 30 ml ONCE ONE Administration Belladonna Alkaloids/Phenobarbital 10 ml 09/26/22 16:50 09/26/22 18:07 Phenobarb/Hyoscy/Atropine/Scop 10 Ml Elixir PO 09/26/22 16:51 10 ml ONCE ONE Administration Lidocaine HCl 15 ml 09/26/22 16:50 09/26/22 18:07 Lidocaine Hcl Viscous 2 % 15 Ml Solution MUCOUS MEM 09/26/22 16:51 15 ml ONCE ONE Administration Ondansetron HCl 4 mg 09/26/22 16:50 09/26/22 18:07 Ondansetron Odt 4 Mg Tab.Rapdis TRANSLINGU 09/26/22 16:51 4 mg ONCE ONE Administration <STEPHANE Haile - Last Filed: 09/27/22 01:21> Medical Decision Making Medical Decision Making MDM Narrative: 52-year-old male with epigastric and left lower quadrant abdominal pain. Patient had a medical workup which included cardiac labs, basic labs, urine, COVID, SARS, and imaging of abdomen. Everything was negative. Patient improved with GI cocktail and fluids. <STEPHANE Haile - Last Filed: 09/27/22 01:21> Differential Diagnosis Differential Diagnoses: The differential diagnosis associated with the presentation includes (TX, pancreatitis, colitis, small-bowel obstruction, gallstones, appendicitis,) <STEPHANE Haile - Last Filed: 09/27/22 01:21> Admission/Observation Consideration of admission/observation: Escalation of care including admission/observation considered <STEPHANE Haile - Last Filed: 09/27/22 01:21> Lab Data MDM Lab Attestation statement: I reviewed the patient's lab results. <STEPHANE Haile - Last Filed: 09/27/22 01:21> Result Diagrams: 09/26/22 14:21 09/26/22 14:21 <STEPHANE Rodríguez - Last Filed: 09/26/22 14:12> Labs: Lab Results 09/26/22 09/26/22 09/26/22 Range/Units 14:21 14:21 17:49 WBC 8.4 (4.8-10.8) X10*3/uL RBC 5.34 (4.60-5.80) X10*6/uL Hgb 16.1 (14.0-18.0) g/dl Hct 48.8 (42.0-52.0) % MCV 91.4 (80.0-98.0) fL MCH 30.1 (27.0-33.0) pg MCHC 33.0 (31.0-36.0) g/dl RDW 12.3 (11.0-16.0) % Plt Count 249 (160-400) X10*3/uL MPV 10.4 (9.4-12.4) fL Immature Gran % (Auto) 0.2 (0.0-0.4) % Neut % (Auto) 83.9 H (45-73) % Lymph % (Auto) 10.0 L (20-40) % [place] % (Auto) 5.3 (2-11) % Eos % (Auto) 0.5 (0-4) % Baso % (Auto) 0.1 (0-2) % Lymph # (Auto) 0.8 L (1.2-4.9) X10*3/uL [place] # (Auto) 0.4 (0.1-1.2) X10*3/uL Eos # (Auto) 0.0 (0.0-0.4) X10*3/uL Baso # (Auto) 0.0 (0.0-0.2) X10*3/uL Abs Immat Gran (auto) 0.02 (0.00-0.03) X10*3/uL Absolute Neuts (auto) 7.0 (2.0-8.3) x10*3/uL Absolute Nucleated RBC 0.000 (0.0-0.012) X10*3/uL Nucleated RBC % (auto) 0.0 (0.0-0.2) /100WBC PT 12.8 (10.0-13.1) SEC INR 1.1 (0.9-1.1) APTT 31.9 (26.0-36.4) SEC Sodium 143 (135-145) mmol/L Potassium 4.2 (3.3-5.1) mmol/L Chloride 104 (96-108) mmol/L Carbon Dioxide 29 (22-29) mmol/L Anion Gap 14 (12-20) BUN 20 H (9-16) mg/dL Creatinine 0.91 (0.5-1.4) mg/dL Estim Creat Clear Calc 126.2 Estimated GFR > 60 Random Glucose 143 H (60-115) mg/dL Calcium 9.0 D (8.4-10.2) mg/dL Magnesium 1.9 (1.6-2.6) mg/dL Total Bilirubin 0.6 (0.0-1.0) mg/dL AST 32 (5-37) U/L ALT 69 H (0-40) U/L Alkaline Phosphatase 55 (39-117) U/L Troponin I High Sens (<3.5-35.0) ng/L Total Protein 6.6 (6.5-8.0) g/dL Albumin 4.3 (3.5-5.0) g/dL Lipase 16 (8-78) U/L Urine Color Urine Appearance Urine pH (5.0-9.0) Ur Specific [place] (1.005-1.025) Urine Protein (Neg-Trace) mg/dL Urine Glucose (UA) (Negative) mg/dL Urine Ketones (Negative) mg/dL Urine Blood (Negative) Urine Nitrite (Negative) Ur Leukocyte Esterase (Negative) COVID-19 (ALEKS) (Negative) COVID-19 Clin Com Influenza Type A (LAZARA) (Negative) Influenza Type B (LAZARA) (Negative) Influenza A & B Note 09/26/22 09/26/22 09/26/22 Range/Units 17:49 17:50 17:50 WBC (4.8-10.8) X10*3/uL RBC (4.60-5.80) X10*6/uL Hgb (14.0-18.0) g/dl Hct (42.0-52.0) % MCV (80.0-98.0) fL MCH (27.0-33.0) pg MCHC (31.0-36.0) g/dl RDW (11.0-16.0) % Plt Count (160-400) X10*3/uL MPV (9.4-12.4) fL Immature Gran % (Auto) (0.0-0.4) % Neut % (Auto) (45-73) % Lymph % (Auto) (20-40) % [place] % (Auto) (2-11) % Eos % (Auto) (0-4) % Baso % (Auto) (0-2) % Lymph # (Auto) (1.2-4.9) X10*3/uL [place] # (Auto) (0.1-1.2) X10*3/uL Eos # (Auto) (0.0-0.4) X10*3/uL Baso # (Auto) (0.0-0.2) X10*3/uL Abs Immat Gran (auto) (0.00-0.03) X10*3/uL Absolute Neuts (auto) (2.0-8.3) x10*3/uL Absolute Nucleated RBC (0.0-0.012) X10*3/uL Nucleated RBC % (auto) (0.0-0.2) /100WBC PT (10.0-13.1) SEC INR (0.9-1.1) APTT (26.0-36.4) SEC Sodium (135-145) mmol/L Potassium (3.3-5.1) mmol/L Chloride (96-108) mmol/L Carbon Dioxide (22-29) mmol/L Anion Gap (12-20) BUN (9-16) mg/dL Creatinine (0.5-1.4) mg/dL Estim Creat Clear Calc Estimated GFR Random Glucose (60-115) mg/dL Calcium (8.4-10.2) mg/dL Magnesium (1.6-2.6) mg/dL Total Bilirubin (0.0-1.0) mg/dL AST (5-37) U/L ALT (0-40) U/L Alkaline Phosphatase (39-117) U/L Troponin I High Sens < 3.5 (<3.5-35.0) ng/L Total Protein (6.5-8.0) g/dL Albumin (3.5-5.0) g/dL Lipase (8-78) U/L Urine Color Urine Appearance Urine pH (5.0-9.0) Ur Specific [place] (1.005-1.025) Urine Protein (Neg-Trace) mg/dL Urine Glucose (UA) (Negative) mg/dL Urine Ketones (Negative) mg/dL Urine Blood (Negative) Urine Nitrite (Negative) Ur Leukocyte Esterase (Negative) COVID-19 (ALEKS) Negative (Negative) COVID-19 Clin Com See Note Influenza Type A (LAZARA) Negative (Negative) Influenza Type B (LAZARA) Negative (Negative) Influenza A & B Note See Note 09/26/22 Range/Units 18:06 WBC (4.8-10.8) X10*3/uL RBC (4.60-5.80) X10*6/uL Hgb (14.0-18.0) g/dl Hct (42.0-52.0) % MCV (80.0-98.0) fL MCH (27.0-33.0) pg MCHC (31.0-36.0) g/dl RDW (11.0-16.0) % Plt Count (160-400) X10*3/uL MPV (9.4-12.4) fL Immature Gran % (Auto) (0.0-0.4) % Neut % (Auto) (45-73) % Lymph % (Auto) (20-40) % [place] % (Auto) (2-11) % Eos % (Auto) (0-4) % Baso % (Auto) (0-2) % Lymph # (Auto) (1.2-4.9) X10*3/uL [place] # (Auto) (0.1-1.2) X10*3/uL Eos # (Auto) (0.0-0.4) X10*3/uL Baso # (Auto) (0.0-0.2) X10*3/uL Abs Immat Gran (auto) (0.00-0.03) X10*3/uL Absolute Neuts (auto) (2.0-8.3) x10*3/uL Absolute Nucleated RBC (0.0-0.012) X10*3/uL Nucleated RBC % (auto) (0.0-0.2) /100WBC PT (10.0-13.1) SEC INR (0.9-1.1) APTT (26.0-36.4) SEC Sodium (135-145) mmol/L Potassium (3.3-5.1) mmol/L Chloride (96-108) mmol/L Carbon Dioxide (22-29) mmol/L Anion Gap (12-20) BUN (9-16) mg/dL Creatinine (0.5-1.4) mg/dL Estim Creat Clear Calc Estimated GFR Random Glucose (60-115) mg/dL Calcium (8.4-10.2) mg/dL Magnesium (1.6-2.6) mg/dL Total Bilirubin (0.0-1.0) mg/dL AST (5-37) U/L ALT (0-40) U/L Alkaline Phosphatase (39-117) U/L Troponin I High Sens (<3.5-35.0) ng/L Total Protein (6.5-8.0) g/dL Albumin (3.5-5.0) g/dL Lipase (8-78) U/L Urine Color Yellow Urine Appearance Clear Urine pH 5.0 (5.0-9.0) Ur Specific [place] >= 1.030 H (1.005-1.025) Urine Protein Negative (Neg-Trace) mg/dL Urine Glucose (UA) Negative (Negative) mg/dL Urine Ketones Trace (Negative) mg/dL Urine Blood Negative (Negative) Urine Nitrite Negative (Negative) Ur Leukocyte Esterase Negative (Negative) COVID-19 ([facility]KS) (Negative) COVID-19 Clin Com Influenza Type A (LAZARA) (Negative) Influenza Type B (LAZARA) (Negative) Influenza A & B Note <STEPHANE Rodríguez - Last Filed: 09/26/22 14:12> Lab Results 09/26/22 09/26/22 09/26/22 Range/Units 14:21 14:21 17:49 WBC 8.4 (4.8-10.8) X10*3/uL RBC 5.34 (4.60-5.80) X10*6/uL Hgb 16.1 (14.0-18.0) g/dl Hct 48.8 (42.0-52.0) % MCV 91.4 (80.0-98.0) fL MCH 30.1 (27.0-33.0) pg MCHC 33.0 (31.0-36.0) g/dl RDW 12.3 (11.0-16.0) % Plt Count 249 (160-400) X10*3/uL MPV 10.4 (9.4-12.4) fL Immature Gran % (Auto) 0.2 (0.0-0.4) % Neut % (Auto) 83.9 H (45-73) % Lymph % (Auto) 10.0 L (20-40) % [place] % (Auto) 5.3 (2-11) % Eos % (Auto) 0.5 (0-4) % Baso % (Auto) 0.1 (0-2) % Lymph # (Auto) 0.8 L (1.2-4.9) X10*3/uL [place] # (Auto) 0.4 (0.1-1.2) X10*3/uL Eos # (Auto) 0.0 (0.0-0.4) X10*3/uL Baso # (Auto) 0.0 (0.0-0.2) X10*3/uL Abs Immat Gran (auto) 0.02 (0.00-0.03) X10*3/uL Absolute Neuts (auto) 7.0 (2.0-8.3) x10*3/uL Absolute Nucleated RBC 0.000 (0.0-0.012) X10*3/uL Nucleated RBC % (auto) 0.0 (0.0-0.2) /100WBC PT 12.8 (10.0-13.1) SEC INR 1.1 (0.9-1.1) APTT 31.9 (26.0-36.4) SEC Sodium 143 (135-145) mmol/L Potassium 4.2 (3.3-5.1) mmol/L Chloride 104 (96-108) mmol/L Carbon Dioxide 29 (22-29) mmol/L Anion Gap 14 (12-20) BUN 20 H (9-16) mg/dL Creatinine 0.91 (0.5-1.4) mg/dL Estim Creat Clear Calc 126.2 Estimated GFR > 60 Random Glucose 143 H (60-115) mg/dL Calcium 9.0 D (8.4-10.2) mg/dL Magnesium 1.9 (1.6-2.6) mg/dL Total Bilirubin 0.6 (0.0-1.0) mg/dL AST 32 (5-37) U/L ALT 69 H (0-40) U/L Alkaline Phosphatase 55 (39-117) U/L Troponin I High Sens (<3.5-35.0) ng/L Total Protein 6.6 (6.5-8.0) g/dL Albumin 4.3 (3.5-5.0) g/dL Lipase 16 (8-78) U/L Urine Color Urine Appearance Urine pH (5.0-9.0) Ur Specific [place] (1.005-1.025) Urine Protein (Neg-Trace) mg/dL Urine Glucose (UA) (Negative) mg/dL Urine Ketones (Negative) mg/dL Urine Blood (Negative) Urine Nitrite (Negative) Ur Leukocyte Esterase (Negative) COVID-19 ([facility]KS) (Negative) COVID-19 Clin Com Influenza Type A ([facility]ARA) (Negative) Influenza Type B ([facility]ARA) (Negative) Influenza A & B Note 09/26/22 09/26/2209/26/23 Range/Units 17:49 17:50 17:50 WBC (4.8-10.8) X10*3/uL RBC (4.60-5.80) X10*6/uL Hgb (14.0-18.0) g/dl Hct (42.0-52.0) % MCV (80.0-98.0) fL MCH (27.0-33.0) pg MCHC (31.0-36.0) g/dl RDW (11.0-16.0) % Plt Count (160-400) X10*3/uL MPV (9.4-12.4) fL Immature Gran % (Auto) (0.0-0.4) % Neut % (Auto) (45-73) % Lymph % (Auto) (20-40) % [place] % (Auto) (2-11) % Eos % (Auto) (0-4) % Baso % (Auto) (0-2) % Lymph # (Auto) (1.2-4.9) X10*3/uL [place] # (Auto) (0.1-1.2) X10*3/uL Eos # (Auto) (0.0-0.4) X10*3/uL Baso # (Auto) (0.0-0.2) X10*3/uL Abs Immat Gran (auto) (0.00-0.03) X10*3/uL Absolute Neuts (auto) (2.0-8.3) x10*3/uL Absolute Nucleated RBC (0.0-0.012) X10*3/uL Nucleated RBC % (auto) (0.0-0.2) /100WBC PT (10.0-13.1) SEC INR (0.9-1.1) APTT (26.0-36.4) SEC Sodium (135-145) mmol/L Potassium (3.3-5.1) mmol/L Chloride (96-108) mmol/L Carbon Dioxide (22-29) mmol/L Anion Gap (12-20) BUN (9-16) mg/dL Creatinine (0.5-1.4) mg/dL Estim Creat Clear Calc Estimated GFR Random Glucose (60-115) mg/dL Calcium (8.4-10.2) mg/dL Magnesium (1.6-2.6) mg/dL Total Bilirubin (0.0-1.0) mg/dL AST (5-37) U/L ALT (0-40) U/L Alkaline Phosphatase (39-117) U/L Troponin I High Sens < 3.5 (<3.5-35.0) ng/L Total Protein (6.5-8.0) g/dL Albumin (3.5-5.0) g/dL Lipase (8-78) U/L Urine Color Urine Appearance Urine pH (5.0-9.0) Ur Specific [place] (1.005-1.025) Urine Protein (Neg-Trace) mg/dL Urine Glucose (UA) (Negative) mg/dL Urine Ketones (Negative) mg/dL Urine Blood (Negative) Urine Nitrite (Negative) Ur Leukocyte Esterase (Negative) COVID-19 ([facility]KS) Negative (Negative) COVID-19 Clin Com See Note Influenza Type A (LAZARA) Negative (Negative) Influenza Type B ([facility]ZARA) Negative (Negative) Influenza A & B Note See Note 09/26/22 Range/Units 18:06 WBC (4.8-10.8) X10*3/uL RBC (4.60-5.80) X10*6/uL Hgb (14.0-18.0) g/dl Hct (42.0-52.0) % MCV (80.0-98.0) fL MCH (27.0-33.0) pg MCHC (31.0-36.0) g/dl RDW (11.0-16.0) % Plt Count (160-400) X10*3/uL MPV (9.4-12.4) fL Immature Gran % (Auto) (0.0-0.4) % Neut % (Auto) (45-73) % Lymph % (Auto) (20-40) % [place] % (Auto) (2-11) % Eos % (Auto) (0-4) % Baso % (Auto) (0-2) % Lymph # (Auto) (1.2-4.9) X10*3/uL [place] # (Auto) (0.1-1.2) X10*3/uL Eos # (Auto) (0.0-0.4) X10*3/uL Baso # (Auto) (0.0-0.2) X10*3/uL Abs Immat Gran (auto) (0.00-0.03) X10*3/uL Absolute Neuts (auto) (2.0-8.3) x10*3/uL Absolute Nucleated RBC (0.0-0.012) X10*3/uL Nucleated RBC % (auto) (0.0-0.2) /100WBC PT (10.0-13.1) SEC INR (0.9-1.1) APTT (26.0-36.4) SEC Sodium (135-145) mmol/L Potassium (3.3-5.1) mmol/L Chloride (96-108) mmol/L Carbon Dioxide (22-29) mmol/L Anion Gap (12-20) BUN (9-16) mg/dL Creatinine (0.5-1.4) mg/dL Estim Creat Clear Calc Estimated GFR Random Glucose (60-115) mg/dL Calcium (8.4-10.2) mg/dL Magnesium (1.6-2.6) mg/dL Total Bilirubin (0.0-1.0) mg/dL AST (5-37) U/L ALT (0-40) U/L Alkaline Phosphatase (39-117) U/L Troponin I High Sens (<3.5-35.0) ng/L Total Protein (6.5-8.0) g/dL Albumin (3.5-5.0) g/dL Lipase (8-78) U/L Urine Color Yellow Urine Appearance Clear Urine pH 5.0 (5.0-9.0) Ur Specific [place] >= 1.030 H (1.005-1.025) Urine Protein Negative (Neg-Trace) mg/dL Urine Glucose (UA) Negative (Negative) mg/dL Urine Ketones Trace (Negative) mg/dL Urine Blood Negative (Negative) Urine Nitrite Negative (Negative) Ur Leukocyte Esterase Negative (Negative) COVID-19 (ALEKS) (Negative) COVID-19 Clin Com Influenza Type A (LAZARA) (Negative) Influenza Type B (LAZARA) (Negative) Influenza A & B Note <STEPHANE Haile - Last Filed: 09/27/22 01:21> Independent Interpretation I performed an independent interpretation of an: EKG and CT Scan <STEPHANE Halie - Last Filed: 09/27/22 01:21> Interpretation: Normal sinus rhythm. Ventricular rate 86. Pr interval 148. QRS 84. QTC 442. Negative STEMI <STEPHANE Haile - Last Filed: 09/27/22 01:21> Radiology Impression Discussion of test interpretation with radiology: I have reviewed the radiologist's reading. <STEPHANE Haile - Last Filed: 09/27/22 01:21> Radiologist Impression: [address] [address] [address] Scan Report Signed Patient: Rodrick Mayen MR#: [id number] : 1970 Acct:[id number] Age/Sex: 52 / M ADM Date: 09/26/22 Loc: .ED Attending Dr: Ordering Physician: Donis Ng Date of Service: 09/26/22 Procedure(s): CT abdomen pelvis wo IV con Accession Number(s): [id number] cc: Donis Ng~ EXAMINATION: CT ABDOMEN AND PELVIS WITHOUT CONTRAST? CLINICAL INFORMATION: Abdominal pain and diarrhea with question of colitis? COMPARISON: CT abdomen pelvis 07/27/2019? TECHNIQUE: Multidetector volumetric imaging was performed from the superior aspect of the liver through the pubic symphysis. Sagittal and coronal reformatted images were obtained on the technologist's workstation.? This CT examination was performed using dose optimization techniques as appropriate, variously including the following: *Automated exposure control *Adjustment of mA and/or kV according to patient size (this includes techniques or standardized protocols for targeted exams where dose is matched to indication/reason for exam; i.e. extremities or head) *Use of iterative reconstruction technique DLP: 964 mGy-cm FINDINGS: LUNG BASES: The visualized lung bases are unremarkable. Coronary calcium is present LIVER, GALLBLADDER, AND BILIARY TREE: The liver is enlarged measuring 18.9 cm in cephalocaudad dimension and demonstrates decreased attenuation consistent with hepatic steatosis. Focal fatty sparing is present around the gallbladder. No focal hepatic lesion or biliary ductal dilatation is present. The gallbladder is unremarkable with no evidence of radiopaque gallstones, gallbladder wall thickening, or obvious pericholecystic inflammatory changes.? PANCREAS: Unremarkable.? SPLEEN: Unremarkable.? ADRENAL GLANDS: Unremarkable.? KIDNEYS AND URETERS: The kidneys are normal in size, shape, and attenuation. No hydronephrosis, hydroureter, or calculi seen. No perinephric stranding. ? BLADDER: Unremarkable.? GASTROINTESTINAL TRACT: The small and large bowel are unremarkable. The appendix is unremarkable.? ABDOMINAL WALL: No significant hernia is appreciated. Small bilateral inguinal hernias are present containing only fat. LYMPH NODES: No retroperitoneal lymphadenopathy. VASCULAR: Calcific atherosclerotic changes are seen in the aorta and iliac. No aneurysm. PELVIC VISCERA: There is mild BPH. Seminal vesicles appear normal.? OSSEOUS STRUCTURES: Mild degenerative changes are present in the spine. ? CT/CT abdomen pelvis wo IV con IMPRESSION: 1.? A cause for the patient's abdominal pain and diarrhea has not been found. 2.? Incidental note made of an enlarged fatty liver, mild BPH and other findings described above. ? Fleischner guidelines were followed. Dictated By: Wagner Pinto MD Signed By: <Electronically signed by Wagner Pinto MD in OV> 09/26/22 1836 DD/ 1809 TD/TT:? Safety Compliance Specialist: SS <STEPHANE Haile - Last Filed: 09/27/22 01:21> Prescription Management I considered prescription management with: Other (GI cocktail) <STEPHANE Haile - Last Filed: 09/27/22 01:21> Discharge Plan Discharge Clinical Impression: GERD (gastroesophageal reflux disease), Gastroenteritis <STEPHANE Rodríguez - Last Filed: 09/26/22 14:12> Patient Disposition: Home, Self-Care <STEPHANE Rodríguez - Last Filed: 09/26/22 14:12> Instructions: Gastroenteritis (ED), Gastroesophageal Reflux Disease (ED) <STEPHANE Rodríguez - Last Filed: 09/26/22 14:12> Additional Instructions: Blood work, imaging, and EKG and urine came back normal. You will be discharged with antacid medication. Recommend oral hydration and BRAT diet ( Bananna, Rice, Apple sauce, and toast). Return to the ED for any chest pain, shortness of breath, abdominal pain, diarrhea with blood, fever, chills, vomiting blood, rash, or any other concerning symptoms. <STEPHANE Rodríguez - Last Filed: 09/26/22 14:12> Prescriptions: New famotidine [Pepcid] 20 mg tablet 20 mg PO BID 10 Days Qty: 20 0RF No Action aspirin [Adult Low Dose Aspirin] 81 mg tablet,delayed release (DR/EC) 81 mg PO DAILY Qty: 90 3RF docusate sodium 100 mg capsule 100 mg PO BEDTIME Qty: 30 3RF sennosides [Natural Senna Laxative] 8.6 mg tablet 8.6 mg PO BEDTIME Qty: 30 3RF isosorbide mononitrate 30 mg tablet extended release 24 hr 30 mg PO DAILY Qty: 90 3RF doxycycline hyclate 100 mg tablet 100 mg PO BID 7 Days Qty: 14 0RF levofloxacin 500 mg tablet 500 mg PO DAILY Qty: 10 0RF triamcinolone acetonide [24 Hour Nasal Allergy] 55 mcg aerosol,spray 2 spray intranasal DAILY Qty: 16.9 0RF Rx Instructions: administer into each nostril Zyrtec 10 mg capsule 10 mg PO DAILY Qty: 30 0RF metformin 1,000 mg tablet 1,000 mg PO DAILY lisinopril 40 mg tablet 40 mg PO DAILY amlodipine 10 mg tablet 10 mg PO DAILY glipizide 2.5 mg tablet extended release 24hr 2.5 mg PO DAILY atenolol 100 mg tablet 100 mg PO DAILY spironolacton-hydrochlorothiaz 25-25 mg tablet 1 tab PO DAILY atorvastatin 80 mg tablet 80 mg PO DAILY oxcarbazepine 150 mg tablet 150 mg PO BID clopidogrel 75 mg tablet 75 mg PO DAILY Migraine Relief 250-250-65 mg tablet 1 tab PO Q8H PRN hydralazine 25 mg tablet 25 mg PO QID bisacodyl [Dulcolax (bisacodyl)] 5 mg tablet,delayed release (DR/EC) 10 mg PO ONCE 1 Days Qty: 2 0RF Rx Instructions: take 2 tabs at noon the day before your colonoscopy ondansetron 4 mg tablet,disintegrating 4 mg PO Q8H PRN (Reason: nausea and vomiting) Qty: 30 0RF pantoprazole 40 mg tablet,delayed release (DR/EC) 40 mg PO DAILY Qty: 30 3RF Rx Instructions: take one tablet half an hour before breakfast Citrucel 500 mg tablet 500 mg PO DAILY Qty: 30 3RF Rx Instructions: take it with full glass of water Linzess 145 mcg capsule 145 mcg PO DAILY Qty: 30 2RF omeprazole 20 mg capsule,delayed release(DR/EC) 20 mg PO BID acetaminophen 325 mg capsule 650 mg PO Q6H PRN <STEPHANE Rodríguez - Last Filed: 09/26/22 14:12> Stand Alone Forms: Work/School Release <STEPHANE Rodríguez - Last Filed: 09/26/22 14:12> Interventions: ED Discharge Assessment Last Done: 09/26/22 21:40 <STEPHANE Rodríguez - Last Filed: 09/26/22 14:12> Discharge Date/Time: 09/26/22 21:45 <STEPHANE Rodríguez - Last Filed: 09/26/22 14:12> Print Language: Citizen Of [place] <STEPHANE Rodríguez - Last Filed: 09/26/22 14:12>
[2022-09-26 14:29] LABS: MANUAL DIFF FLAG NO
[2022-09-26 14:30] LABS: Basophils Percent Auto 0.1 % (0-2); Eosinophils Percent Auto 0.5 % (0-4); Hematocrit 48.8 % (42.0-52.0); Hemoglobin 16.1 g/dl (14.0-18.0); Imm Gran Abs Auto 0.02 X10*3/uL (0.00-0.03); Imm Gran Pct Auto 0.2 % (0.0-0.4); Lymphocytes Absolute Auto 0.8 X10*3/uL (1.2-4.9); Mean Corpuscular Hemoglobin 30.1 pg (27.0-33.0); Mean Corpuscular Volume 91.4 fL (80.0-98.0); Mean Platelet Volume 10.4 fL (9.4-12.4); Monocytes Absolute Auto 0.4 X10*3/uL (0.1-1.2); Monocytes Percent Auto 5.3 % (2-11); Neutrophils Percent Auto 83.9 % (45-73); Platelet Count 249 X10*3/uL (160-400); Red Blood Count 5.34 X10*6/uL (4.60-5.80); Red Cell Distribution Width 12.3 % (11.0-16.0); White Blood Count 8.4 X10*3/uL (4.8-10.8)
[2022-09-26 14:46] LABS: Alanine Aminotransferase 69 U/L (0-40); Albumin Level 4.3 g/dL (3.5-5.0); Alkaline Phosphatase 55 U/L (39-117); Anion Gap 14 (12-20); Aspartate Amino Transferase 32 U/L (5-37); Bilirubin Total 0.6 mg/dL (0.0-1.0); Blood Urea Nitrogen 20 mg/dL (9-16); Carbon Dioxide 29 mmol/L (22-29); Chloride 104 mmol/L (96-108); Creatinine Clr Calc Pharmacy 126.2; Estimated Glomerular Filt Rate > 60; Glucose Random 143 mg/dL (60-115); Lipase 16 U/L (8-78); Magnesium 1.9 mg/dL (1.6-2.6); Potassium 4.2 mmol/L (3.3-5.1); Sodium 143 mmol/L (135-145); Total Protein 6.6 g/dL (6.5-8.0)
--- NOTE | 2022-09-26 16:40 | PC.NURSE ---
52 y/o M pw abdominal pain, nausea and diarrhea. all labs drawn and sent, awaiting final plan. VSS
--- NOTE | 2022-09-26 16:50 | ECG_ITS ---
Test Reason : ABD PAIN Blood Pressure : / mmHG Vent. Rate : 086 BPM Atrial Rate : 086 BPM P-R Int : 148 ms QRS Dur : 084 ms QT Int : 370 ms P-R-T Axes : 057 057 032 degrees QTc Int : 442 ms Normal sinus rhythm Nonspecific T wave abnormality Abnormal ECG When compared with ECG of 23-SEP-2019 10:45, Nonspecific T wave abnormality now evident in Inferior leads Referred By: Donis Ng Electronically Signed By:NANETTE BRANTLEY
[2022-09-26 17:33] VITALS: BP 143/85; PULSE 89; RESP 16; TEMP 36.5; O2SAT 98
--- NOTE | 2022-09-26 18:02 | MHC.EDTECH ---
pt 1800 rounding done ,vitals sign taken ,pt blood work drawn ,covid and flu swab collected all sent to lab ,ekg done ,urine sample collected and sent to lab .
[2022-09-26 18:03] LABS: INTERNATIONAL NORM RATIO 1.1 (0.9-1.1); Prothrombin Time 12.8 SEC (10.0-13.1)
[2022-09-26 18:05] LABS: Partial Thromboplastin Time 31.9 SEC (26.0-36.4)
[2022-09-26] MEDS: Magnesium Hydrox/Alum Hydrox 30 ML ORAL.SUSP PO (18:07)
[2022-09-26] MEDS: Lidocaine HCl Viscous 2 % 15 ML SOLUTION MUCOUS MEM (18:07)
[2022-09-26] MEDS: PHENobarb/Hyoscy/Atropine/Scop 10 ML ELIXIR PO (18:07)
[2022-09-26] MEDS: Ondansetron ODT 4 MG TAB.RAPDIS TRANSLINGU (18:07)
[2022-09-26 18:15] LABS: Appearance Urine Clear; Color Urine Yellow; Glucose Urine UA Negative (Negative); Leukocyte Esterase Urine Negative (Negative); Nitrite Urine Negative (Negative); Specific Gravity - Urine >= 1.030 (1.005-1.025); Urine Blood Negative (Negative); Urine Ketones Trace mg/dL (Negative); Urine Protein Negative (Neg-Trace)
[2022-09-26 18:16] LABS: Troponin-I High Sensitivity < 3.5 ng/L (<3.5-35.0)
[2022-09-26 18:23] LABS: COVID-19 Test Negative (Negative); IDNOW Serial# 16C4AD1C; IDNOW Serial# BCCEAD1C; Influenza A Negative (Negative); Influenza B2 Negative (Negative)
--- NOTE | 2022-09-26 20:29 | PC.NURSE ---
pt resting on stretcher reports decreased pain since drinking GI cocktail. Awaiting new MD orders at this time
[2022-09-26 21:33] VITALS: BP 130/74; PULSE 88; RESP 16; O2SAT 96
== END 2022-09-26 21:45 | disposition home or self-care (01) ==
PROVIDERS: Physician Assistant; Physician Assistant Medical; Emergency Provider Emergency Medicine Emergency Medical Services
DX: K52.9 Noninfective gastroenteritis and colitis, unspecified (principal); K21.9 Gastro-esophageal reflux disease without esophagitis; Z20.822 Contact with and (suspected) exposure to COVID-19; E11.9 Type 2 diabetes mellitus without complications; Z79.02 Long term (current) use of antithrombotics/antiplatelets; Z79.84 Long term (current) use of oral hypoglycemic drugs; Z79.82 Long term (current) use of aspirin
CPT/HCPCS: 36415; 74176; 80053; 81003; 83690; 83735; 84484; 85025; 85610; 85730; 87502; 87635; 93005; 99284; 99285

== ENCOUNTER 2022-09-30 23:58 | Emergency (ER) | payer OTHER, SELFPAY ==
[2022-10-01 00:27] VITALS: BP 120/75; PULSE 80; O2SAT 95
[2022-10-01 00:29] VITALS: BP 116/71; PULSE 94; RESP 16; TEMP 36.4; O2SAT 93; BMI 37.3
[2022-10-01 01:15] VITALS: BP 96/72; PULSE 99; RESP 16; TEMP 36.4; O2SAT 97
[2022-10-01 01:16] LABS: MANUAL DIFF FLAG NO
--- NOTE | 2022-10-01 01:16 | MHC.EDTECH ---
pt was called back to [facility] to draw labs and re check vitals sign .
[2022-10-01 01:17] LABS: Basophils Percent Auto 0.1 % (0-2); Eosinophils Absolute Auto 0.2 X10*3/uL (0.0-0.4); Eosinophils Percent Auto 1.5 % (0-4); Hematocrit 51.5 % (42.0-52.0); Hemoglobin 17.3 g/dl (14.0-18.0); Imm Gran Abs Auto 0.11 X10*3/uL (0.00-0.03); Imm Gran Pct Auto 0.7 % (0.0-0.4); Lymphocytes Absolute Auto 1.8 X10*3/uL (1.2-4.9); Lymphocytes Percent Auto 11.4 % (20-40); Mean Corpuscular HGB Conc 33.6 g/dl (31.0-36.0); Mean Corpuscular Hemoglobin 29.8 pg (27.0-33.0); Mean Corpuscular Volume 88.8 fL (80.0-98.0); Mean Platelet Volume 10.1 fL (9.4-12.4); Monocytes Absolute Auto 1.1 X10*3/uL (0.1-1.2); Monocytes Percent Auto 7.1 % (2-11); Neutrophils Absolute Auto 12.6 x10*3/uL (2.0-8.3); Neutrophils Percent Auto 79.2 % (45-73); Platelet Count 320 X10*3/uL (160-400); Red Cell Distribution Width 12.2 % (11.0-16.0)
[2022-10-01 01:50] LABS: Alanine Aminotransferase 46 U/L (0-40); Albumin Level 3.7 g/dL (3.5-5.0); Alkaline Phosphatase 50 U/L (39-117); Anion Gap 16 (12-20); Aspartate Amino Transferase 23 U/L (5-37); Bilirubin Total 0.7 mg/dL (0.0-1.0); Blood Urea Nitrogen 16 mg/dL (9-16); Calcium 8.7 mg/dL (8.4-10.2); Carbon Dioxide 29 mmol/L (22-29); Chloride 99 mmol/L (96-108); Creatinine Clr Calc Pharmacy 106.2; Estimated Glomerular Filt Rate > 60; Glucose Random 250 mg/dL (60-115); Lipase 15 U/L (8-78); Potassium 4.2 mmol/L (3.3-5.1); Sodium 140 mmol/L (135-145); Total Protein 5.9 g/dL (6.5-8.0)
[2022-10-01 01:54] LABS: Influenza A PCR NEGATIVE (Negative); Influenza B PCR NEGATIVE (Negative); Resp Syncy Virus RNA Qual PCR NEGATIVE (Negative); SARS COV2 PCR INHOUSE NEGATIVE (Negative)
--- NOTE | 2022-10-01 02:26 | ED_ITS ---
HPI - Nausea/Vomiting/Diarrhea General Chief complaint: Nausea/Vomiting/Diarrhea Stated complaint: stomach flu/vomiting Time Seen by Provider: 10/01/22 02:26 Source: patient Mode of arrival: ambulatory Limitations: no limitations History of Present Illness HPI Narrative: Patient history of achalasia with history of multiple episodes of choking and vomiting had the chicken nuggets few days ago since then patient has been vomiting with epigastric pain patient was seen here on 09/26 CT scan of the abdomen was negative feel abdomen bloated patient able to drink liquids as such Related Data Home Medications Medication Instructions Recorded Confirmed amlodipine 10 mg tablet 10 mg PO DAILY 10/30/20 07/01/22 atenolol 100 mg tablet 100 mg PO DAILY 10/30/20 07/01/22 atorvastatin 80 mg tablet 80 mg PO DAILY 10/30/20 07/01/22 clopidogrel 75 mg tablet 75 mg PO DAILY 10/30/20 07/01/22 glipizide 2.5 mg tablet, extended 2.5 mg PO DAILY 10/30/20 07/01/22 release 24 hr lisinopril 40 mg tablet 40 mg PO DAILY 10/30/20 07/01/22 metformin 1,000 mg tablet 1,000 mg PO DAILY 10/30/20 07/01/22 oxcarbazepine 150 mg tablet 150 mg PO BID 10/30/20 07/01/22 spironolactone 25 1 tab PO DAILY 10/30/20 07/01/22 mg-hydrochlorothiazide 25 mg tablet twzpora-naprcnhupikab-cbupgclg 250 1 tab PO Q8H PRN 08/18/21 07/01/22 mg-250 mg-65 mg tablet (Migraine Relief) hydralazine 25 mg tablet 25 mg PO QID 08/18/21 07/01/22 acetaminophen 325 mg capsule 650 mg PO Q6H PRN 10/27/21 07/01/22 omeprazole 20 mg capsule,delayed 20 mg PO BID 10/27/21 07/01/22 release Previous Rx's Medication Instructions Recorded linaclotide 145 mcg capsule 145 mcg PO DAILY #30 caps 05/27/21 (Linzess) methylcellulose (laxative) 500 mg 500 mg PO DAILY #30 tabs 05/27/21 tablet (Citrucel) pantoprazole 40 mg tablet,delayed 40 mg PO DAILY #30 tabs 05/27/21 release bisacodyl 5 mg tablet,delayed 10 mg PO ONCE 1 day #2 tabs 07/08/21 release (Dulcolax (bisacodyl)) ondansetron 4 mg disintegrating 4 mg PO Q8H PRN nausea and 07/08/21 tablet vomiting #30 tabs aspirin 81 mg tablet,delayed 81 mg PO DAILY #90 tabs 08/25/21 release (Adult Low Dose Aspirin) docusate sodium 100 mg capsule 100 mg PO BEDTIME #30 caps 01/13/22 sennosides 8.6 mg tablet (Natural 8.6 mg PO BEDTIME constipation #30 01/13/22 Senna Laxative) tabs isosorbide mononitrate 30 mg 30 mg PO DAILY #90 tabs 02/16/22 tablet,extended release 24 hr doxycycline hyclate 100 mg tablet 100 mg PO BID 7 days #14 tabs 08/15/22 cetirizine 10 mg capsule (Zyrtec) 10 mg PO DAILY #30 caps 08/27/22 levofloxacin 500 mg tablet 500 mg PO DAILY #10 tabs 08/27/22 triamcinolone acetonide 55 mcg 2 spray intranasal DAILY #16.9 mL 08/27/22 nasal spray aerosol (24 Hour Nasal Allergy) famotidine 20 mg tablet (Pepcid) 20 mg PO BID 10 days #20 tabs 09/26/22 ondansetron 4 mg disintegrating 4 mg PO Q6-8H PRN nausea and 10/01/22 tablet vomiting #14 tabs pantoprazole 40 mg tablet,delayed 40 mg PO DAILY #30 tabs 10/01/22 release (Protonix) Allergies Allergy/AdvReac Type Severity Reaction Status Date / Time No Known Allergies Allergy Verified 08/05/22 11:14 Review of Systems Review of Systems: Yes all other systems are reviewed and are negative COUNTS INCLUDE 234 BEDS AT THE [facility] Past Medical History Surgical History H/O: knee surgery History of cardiac cath History of cataract surgery Family History Family History Father CAD (coronary artery disease) HTN (hypertension) Diabetes Hypercholesteremia Mother CAD (coronary artery disease) Lung disease Diabetes HTN (hypertension) Hypercholesteremia Social History Social History Alcohol intake: never Patient Tobacco Use Status: Never used Tobacco Advance Directives: No Physical Exam Vital Signs: Vital Signs: Last Vital Signs Temp 97.8 F 10/01/22 04:25 Pulse 90 10/01/22 04:25 Resp 18 10/01/22 04:25 BP 105/69 10/01/22 04:25 Pulse Ox 95 10/01/22 04:25 O2 Del Method 10/01/22 04:25 BMI result Body Mass Index 37.3 ENT: Pharynx normal. Oral Mucosa moist Neck: Normal inspection. Neck supple. CVS: Normal heart rate and rhythm. Pulses normal. Respiratory: No respiratory distress. Equal air entry bilateral, no wheezing/rales/rhonchi Abdomen: Soft and epigastric tenderness+ Bowel sounds are present, no mass palpable, no CVA tenderness Skin: Skin warm and dry. Normal skin color. Normal skin turgor. Extremities: No lower extremity edema. No calf tenderness Neuro: Oriented X 3. No motor deficit. No sensory deficit.No cerebellar signs , cranial nerves II-XII intact Medications Administered Discontinued Medications Generic Name Dose Route Start Last Admin Trade Name Freq PRN Reason Stop Dose Admin Glucagon 1 mg 10/01/22 02:50 10/01/22 04:13 Glucagon,Human Recombinant 1 Mg/Ml Vial IVPUSH 10/01/22 02:51 1 mg ONCE ONE Administration Sodium Chloride 1,000 mls @ 999 mls/hr 10/01/22 02:50 10/01/22 04:10 Ns IV 10/01/22 03:50 999 mls/hr .Q1H1M ONE Administration Metoclopramide HCl 10 mg 10/01/22 02:50 10/01/22 04:13 Metoclopramide Hcl 10 Mg/2 Ml Vial IVPUSH 10/01/22 02:51 10 mg ONCE ONE Administration Ondansetron HCl 4 mg 10/01/22 00:17 10/01/22 04:12 Ondansetron Odt 4 Mg Tab.Rapdis TRANSLINGU 10/01/22 00:18 4 mg ONCE ONE Administration Pantoprazole Sodium 40 mg 10/01/22 02:50 10/01/22 04:13 Pantoprazole Sodium 40 Mg/10 Ml Vial IVPUSH 10/01/22 02:51 40 mg ONCE ONE Administration Medical Decision Making Differential Diagnosis Patient likely is ER/dysphagia improved after glucagon PPI feeling much better now advised to follow with rotary drum dyer have small meals Lab Data MDM Lab Attestation statement: I reviewed the patient's lab results. 10/01/22 01:11 10/01/22 01:11 Labs: Lab Results 10/01/22 10/01/22 10/01/22 Range/Units 01:05 01:11 01:11 WBC 16.0 H (4.8-10.8) X10*3/uL RBC 5.80 (4.60-5.80) X10*6/uL Hgb 17.3 (14.0-18.0) g/dl Hct 51.5 (42.0-52.0) % MCV 88.8 (80.0-98.0) fL MCH 29.8 (27.0-33.0) pg MCHC 33.6 (31.0-36.0) g/dl RDW 12.2 (11.0-16.0) % Plt Count 320 D (160-400) X10*3/uL MPV 10.1 (9.4-12.4) fL Immature Gran % (Auto) 0.7 H (0.0-0.4) % Neut % (Auto) 79.2 H (45-73) % Lymph % (Auto) 11.4 L (20-40) % [place] % (Auto) 7.1 (2-11) % Eos % (Auto) 1.5 (0-4) % Baso % (Auto) 0.1 (0-2) % Lymph # (Auto) 1.8 (1.2-4.9) X10*3/uL [place] # (Auto) 1.1 (0.1-1.2) X10*3/uL Eos # (Auto) 0.2 (0.0-0.4) X10*3/uL Baso # (Auto) 0.0 (0.0-0.2) X10*3/uL Abs Immat Gran (auto) 0.11 H (0.00-0.03) X10*3/uL Absolute Neuts (auto) 12.6 H (2.0-8.3) x10*3/uL Absolute Nucleated RBC 0.000 (0.0-0.012) X10*3/uL Nucleated RBC % (auto) 0.0 (0.0-0.2) /100WBC Sodium 140 (135-145) mmol/L Potassium 4.2 (3.3-5.1) mmol/L Chloride 99 (96-108) mmol/L Carbon Dioxide 29 (22-29) mmol/L Anion Gap 16 (12-20) BUN 16 (9-16) mg/dL Creatinine 1.07 (0.5-1.4) mg/dL Estim Creat Clear Calc 106.2 Estimated GFR > 60 Random Glucose 250 H (60-115) mg/dL Calcium 8.7 (8.4-10.2) mg/dL Total Bilirubin 0.7 (0.0-1.0) mg/dL AST 23 (5-37) U/L ALT 46 H (0-40) U/L Alkaline Phosphatase 50 (39-117) U/L Total Protein 5.9 L (6.5-8.0) g/dL Albumin 3.7 (3.5-5.0) g/dL Lipase 15 (8-78) U/L Influenza Type A (PCR) NEGATIVE (Negative) Influenza Type B (PCR) NEGATIVE (Negative) RSV RNA Qual (PCR) NEGATIVE (Negative) SARS-CoV-2 RNA (RT-PCR) NEGATIVE (Negative) Discharge Plan Discharge Clinical Impression: Achalasia of esophagus Patient Disposition: Home, Self-Care Instructions: Esophageal Spasm (ED), Dysphagia (ED) Additional Instructions: Have frequent small amount of meals with lot of fluid Do not eat big pieces of meat, chew well when you eat Follow-up with your rotary drum dyer as scheduled Prescriptions: New ondansetron 4 mg tablet,disintegrating 4 mg PO Q6-8H PRN (Reason: nausea and vomiting) Qty: 14 0RF pantoprazole [Protonix] 40 mg tablet,delayed release (DR/EC) 40 mg PO DAILY Qty: 30 0RF No Action aspirin [Adult Low Dose Aspirin] 81 mg tablet,delayed release (DR/EC) 81 mg PO DAILY Qty: 90 3RF docusate sodium 100 mg capsule 100 mg PO BEDTIME Qty: 30 3RF sennosides [Natural Senna Laxative] 8.6 mg tablet 8.6 mg PO BEDTIME Qty: 30 3RF isosorbide mononitrate 30 mg tablet extended release 24 hr 30 mg PO DAILY Qty: 90 3RF famotidine [Pepcid] 20 mg tablet 20 mg PO BID 10 Days Qty: 20 0RF doxycycline hyclate 100 mg tablet 100 mg PO BID 7 Days Qty: 14 0RF levofloxacin 500 mg tablet 500 mg PO DAILY Qty: 10 0RF triamcinolone acetonide [24 Hour Nasal Allergy] 55 mcg aerosol,spray 2 spray intranasal DAILY Qty: 16.9 0RF Rx Instructions: administer into each nostril Zyrtec 10 mg capsule 10 mg PO DAILY Qty: 30 0RF metformin 1,000 mg tablet 1,000 mg PO DAILY lisinopril 40 mg tablet 40 mg PO DAILY amlodipine 10 mg tablet 10 mg PO DAILY glipizide 2.5 mg tablet extended release 24hr 2.5 mg PO DAILY atenolol 100 mg tablet 100 mg PO DAILY spironolacton-hydrochlorothiaz 25-25 mg tablet 1 tab PO DAILY atorvastatin 80 mg tablet 80 mg PO DAILY oxcarbazepine 150 mg tablet 150 mg PO BID clopidogrel 75 mg tablet 75 mg PO DAILY Migraine Relief 250-250-65 mg tablet 1 tab PO Q8H PRN hydralazine 25 mg tablet 25 mg PO QID bisacodyl [Dulcolax (bisacodyl)] 5 mg tablet,delayed release (DR/EC) 10 mg PO ONCE 1 Days Qty: 2 0RF Rx Instructions: take 2 tabs at noon the day before your colonoscopy ondansetron 4 mg tablet,disintegrating 4 mg PO Q8H PRN (Reason: nausea and vomiting) Qty: 30 0RF pantoprazole 40 mg tablet,delayed release (DR/EC) 40 mg PO DAILY Qty: 30 3RF Rx Instructions: take one tablet half an hour before breakfast Citrucel 500 mg tablet 500 mg PO DAILY Qty: 30 3RF Rx Instructions: take it with full glass of water Linzess 145 mcg capsule 145 mcg PO DAILY Qty: 30 2RF omeprazole 20 mg capsule,delayed release(DR/EC) 20 mg PO BID acetaminophen 325 mg capsule 650 mg PO Q6H PRN
[2022-10-01] MEDS: 0.9 % Sodium Chloride 1,000 ML 999 ML IV (04:10)
[2022-10-01] MEDS: Ondansetron ODT 4 MG TAB.RAPDIS TRANSLINGU (04:12)
[2022-10-01] MEDS: Pantoprazole Sodium 40 MG/10 ML VIAL IVPUSH (04:13)
[2022-10-01] MEDS: Metoclopramide HCl 10 MG/2 ML VIAL IVPUSH (04:13)
[2022-10-01 04:25] VITALS: BP 105/69; PULSE 90; RESP 18; TEMP 36.6; O2SAT 95
== END 2022-10-01 06:50 | disposition home or self-care (01) ==
PROVIDERS: Emergency Provider Internal Medicine; PCP Internal Medicine
DX: K22.0 Achalasia of cardia (principal); R11.2 Nausea with vomiting, unspecified; Z20.822 Contact with and (suspected) exposure to COVID-19; Z20.828 Contact with and (suspected) exposure to other viral communicable diseases; Z79.899 Other long term (current) drug therapy
CPT/HCPCS: 0241U; 36415; 80053; 83690; 85025; 96374; 96375; 99284; J1610; J2765

== ENCOUNTER 2022-10-14 09:05 | Day surgery (SDC) | payer OTHER, SELFPAY ==
[2022-10-08 21:42] VITALS: BMI 38.0
--- NOTE | 2022-10-13 12:20 | P.CONAN_ITS ---
Documented by User: Karen Hebert NP 10/13/22 12:22 HPI - Anesthesia Eval Consult details Narrative: 52yo M for Colonoscopy Stable at 06/2022 cardiology office visit [facility] Active Problems Active Problems: All Active Problems (Updated 10/09/22 @ 09:55 by Pita Flores RN) CAD (coronary artery disease) (Acute) Chest pain (Acute) Preop cardiovascular exam (Acute) RADHA (obstructive sleep apnea) (Acute) Stable angina (Acute) Past Medical History Medical History (Updated 10/09/22 @ 09:55 by Pita Flores RN) CAD (coronary artery disease) Diabetes GERD (gastroesophageal reflux disease) History of COVID-19 Hyperlipidemia Hypertension Sleep apnea treated with continuous positive airway pressure (CPAP) Family History Family History Father CAD (coronary artery disease) HTN (hypertension) Diabetes Hypercholesteremia Mother CAD (coronary artery disease) Lung disease Diabetes HTN (hypertension) Hypercholesteremia Surgical History Surgical History (Updated 10/09/22 @ 09:50 by Pita Flores RN) H/O: knee surgery History of cardiac cath History of cataract surgery History of colonoscopy Social History Social History Alcohol intake: never Patient Tobacco Use Status: Never used Tobacco Meds Allergies Allergy/AdvReac Type Severity Reaction Status Date / Time No Known Allergies Allergy Verified 08/05/22 11:14 Home Medications Medication Instructions Recorded Confirmed Last Taken Type amlodipine 10 mg tablet 10 mg PO DAILY 10/30/20 10/08/22 Unknown History atenolol 100 mg tablet 100 mg PO DAILY 10/30/20 10/08/22 Unknown History atorvastatin 80 mg tablet 80 mg PO DAILY 10/30/20 10/08/22 Unknown History clopidogrel 75 mg tablet 75 mg PO DAILY 10/30/20 10/08/22 Unknown History glipizide 2.5 mg tablet, extended 2.5 mg PO DAILY 10/30/20 10/08/22 Unknown History release 24 hr lisinopril 40 mg tablet 40 mg PO DAILY 10/30/20 10/08/22 Unknown History metformin 1,000 mg tablet 1,000 mg PO DAILY 10/30/20 10/08/22 Unknown History spironolactone 25 1 tab PO DAILY 10/30/20 10/08/22 Unknown History mg-hydrochlorothiazide 25 mg tablet vucqngs-fehevzlgnkjxp-hzvxbduf 250 1 tab PO Q8H PRN Pain (Scale Score 08/18/21 10/08/22 Unknown History mg-250 mg-65 mg tablet (Migraine 4-6) Relief) hydralazine 25 mg tablet 25 mg PO QID 08/18/21 10/08/22 Unknown History acetaminophen 325 mg capsule 650 mg PO Q6H PRN Pain 10/27/21 10/08/22 Unknown History omeprazole 20 mg capsule,delayed 20 mg PO BID 10/27/21 10/08/22 Unknown History release dulaglutide 0.75 mg/0.5 mL 0.75 mg subcut QWEEK 10/08/22 10/08/22 Unknown History subcutaneous pen injector (Trulicity) Exam Exam Date and Time: October 13, 2022 1220 Height,Weight and Vital Signs: Height 5 ft 10 in Weight 120.202 kg Pertinent Lab Results Pertinent Lab Results: Laboratory Tests 10/01/22 10/01/22 01:11 01:11 WBC 16.0 H Hgb 17.3 Hct 51.5 Plt Count 320 D Sodium 140 Potassium 4.2 Chloride 99 Carbon Dioxide 29 BUN 16 Creatinine 1.07 Narrative Narrative: EKG 09/2022 Vent. Rate : 086 BPM ? ? Atrial Rate : 086 BPM ?? P-R Int : 148 ms? QRS Dur : 084 ms ? ? QT Int : 370 ms ? ? ? P-R-T Axes : 057 057 032 degrees ?? QTc Int : 442 ms ? Normal sinus rhythm Nonspecific T wave abnormality Abnormal ECG When compared with ECG of 23-SEP-2019 10:45, Nonspecific T wave abnormality now evident in Inferior leads Stress ECHO 2020 Protocol: GERA ? Max HR: 151 BPM? 87% of? Pred: 172 BPM Max BP: 170/076 mmHG Max Work Load: 10.4 METS ? Exercise stress? ECHO using Gera protocol, total of 9 min 5 sec.? METS 10.40and ?TAPHR up to 87 %.? Pt tolerated well, denies any anginal sx.? EKG without any ?arrhythmias, no ischemic changes seen during exercise or in recovery.? ECHO ?images taken at rest and immediately after peak exercise HR achieved. Definity ?contrast used.? Normotensive response to exercise.? Test reviewed with ?Grant.? Exercise echocardiogram was reviewed. At rest, there is normal LVEF and wall motion. With peak exercise, there is appropriate? augmentation of wall thickening and contractility. There is normal decrease in end-systolic volumes. Overall, this is a? normal study.? Assessment and Plan Assessment Anesthesia Assessment: Chart Reviewed Documented by User: Ruperto Messina MD 10/14/22 16:52 [facility] Past Medical History Medical History (Updated 10/09/22 @ 09:55 by Pita Flores RN) CAD (coronary artery disease) Diabetes GERD (gastroesophageal reflux disease) History of COVID-19 Hyperlipidemia Hypertension Sleep apnea treated with continuous positive airway pressure (CPAP) Functional capacity: independent ambulation Family History Family History Father CAD (coronary artery disease) HTN (hypertension) Diabetes Hypercholesteremia Mother CAD (coronary artery disease) Lung disease Diabetes HTN (hypertension) Hypercholesteremia Family history of problems with anesthesia: Yes (Ponv ) Surgical History Surgical History (Updated 10/09/22 @ 09:50 by Pita Flores RN) H/O: knee surgery History of cardiac cath History of cataract surgery History of colonoscopy History of Problems with Anesthesia: No Social History Social History Alcohol intake: never Patient Tobacco Use Status: Never used Tobacco Meds Allergies Allergy/AdvReac Type Severity Reaction Status Date / Time No Known Allergies Allergy Verified 08/05/22 11:14 Home Medications Medication Instructions Recorded Confirmed Last Taken Type amlodipine 10 mg tablet 10 mg PO DAILY 10/30/20 10/08/22 Unknown History atenolol 100 mg tablet 100 mg PO DAILY 10/30/20 10/08/22 Unknown History atorvastatin 80 mg tablet 80 mg PO DAILY 10/30/20 10/08/22 Unknown History clopidogrel 75 mg tablet 75 mg PO DAILY 10/30/20 10/08/22 Unknown History glipizide 2.5 mg tablet, extended 2.5 mg PO DAILY 10/30/20 10/08/22 Unknown History release 24 hr lisinopril 40 mg tablet 40 mg PO DAILY 10/30/20 10/08/22 Unknown History metformin 1,000 mg tablet 1,000 mg PO DAILY 10/30/20 10/08/22 Unknown History spironolactone 25 1 tab PO DAILY 10/30/20 10/08/22 Unknown History mg-hydrochlorothiazide 25 mg tablet czolljc-tpajfwhzlzhex-mvegsmxo 250 1 tab PO Q8H PRN Pain (Scale Score 08/18/21 10/08/22 Unknown History mg-250 mg-65 mg tablet (Migraine 4-6) Relief) hydralazine 25 mg tablet 25 mg PO QID 08/18/21 10/08/22 Unknown History acetaminophen 325 mg capsule 650 mg PO Q6H PRN Pain 10/27/21 10/08/22 Unknown History omeprazole 20 mg capsule,delayed 20 mg PO BID 10/27/21 10/08/22 Unknown History release dulaglutide 0.75 mg/0.5 mL 0.75 mg subcut QWEEK 10/08/22 10/08/22 Unknown History subcutaneous pen injector (Trulicity) Exam Airway Mallampati Class: IV TM Dist: >3cm Neck ROM: Full Loose/Missing/Broken Teeth: Yes (Chipped front upper ) Heart: S1,S2 Lungs: distant breath sounds Assessment and Plan Assessment Anesthesia Assessment: Anesthesia Plan Discussed Final Anesthetic Review Family History of Problems with Anesthesia: Yes (Ponv ) History of Problems with Anesthesia: No NPO: Yes ASA Class: III Final Preanesthetic Review: Meds/Allgs Chart Reviewed, Consent Obtained/Reviewed and Anes Risks/Benef Reviewed Patient Risk: Intermediate Procedure Risk: Intermediate Anesthetic Plan Anesthetic Plan: MAC: Disposition: Standard PACU
--- NOTE | 2022-10-14 10:57 | P.HPSUR_ITS ---
Pre-Procedural Eval Section A Date of Service: 10/14/22 Section B Chief Complaint: screening Relevant Family History (Specify if Yes): No Relevant Social History: None Present Medications: see Short Stay Collaborative assessment Medical History: Significant History (CAD (coronary artery disease) Diabetes GERD (gastroesophageal reflux disease) History of COVID-19 Hyperlipidemia Hypertension Sleep apnea treated with continuous positive airway pressure (CPAP)) History of Previous Operations: Relevant previous surgery/procedure and date(s) (H/O: knee surgery History of cardiac cath History of cataract surgery History of colonoscopy) Allergies: Allergies Allergy/AdvReac Type Severity Reaction Status Date / Time No Known Allergies Allergy Verified 08/05/22 11:14 Review of Systems Sugical H&P ROS: Negative: Constitution, Cardiovascular, Respiratory, Neur ological, Psychiatric, Hem-Onc, Allergic/Immunologic, Gastrointestinal, Genitourinary, Musculoskeletal, Integumentary, Endocrine and Eyes/Ears/Nose/Throat Exam Surgical H&P Exam: Normal: HEENT, Normal: Heart, Normal: Lungs, Normal: Extremities, Normal: Abdomen, Normal: Skin and Normal: Neurological Plan Diagnosis/Plan: Unchanged I have reviewed the history and physical and performed a pertinent physical examination on my patient. No changes have occurred unless specified. Time Spent With Patient Time: Total time managing care of this patient today ____ minutes.
--- NOTE | 2022-10-14 11:29 | W.PM.OPN ---
Operative Note Operative Note Date of Service: 10/14/22 Narrative: Operative Information Procedure Description: Colonoscopy Indication: screening Anesthesia: MAC COLONOSCOPY Instrument: Olympus variable stiffness adult scope 190L Colonoscopy Monitoring: Vital signs and clinical assessment, continuous EKG monitoring, Pulse oximetry, Carbon Dioxide monitoring and blood pressure monitoring were done throughout the procedure. Colon withdrawal time was 7 minutes. Procedure: The patient was placed in the left lateral decubitis position and pre-procedure medications were administered. After a digital rectal examination of the ano-rectum, the video colonoscope was inserted into the rectum and advanced through the colon to the cecum/TI. The colonoscope was slowly withdrawn in a retrograde panoramic fashion and the colon mucosa was carefully examined including a retroflexed view of the rectum. Findings and interventions are described below. Procedure Difficulty: easy Findings: Terminal Ileum-not intubated Cecum:normal Ascending Colon: normal Transverse Colon -normal Descending Colon:normal Sigmoid Colon: moderate diverticulosis Rectum: Retroflexion with small internal hemorrhoids, grade I Anorectum - normal Colon preparation: Bushnell Bowel Preparation Scale Right colon; 1 Transverse colon: 2 Left colon; 1 (0 = Unprepared colon segment with mucosa not seen due to solid stool that cannot be cleared. 1 = Portion of mucosa of the colon segment seen, but other areas of the colon segment not well seen due to staining, residual stool and/or opaque liquid. 2 = Minor amount of residual staining, small fragments of stool and/or opaque liquid, but mucosa of colon segment seen well. 3 = Entire mucosa of colon segment seen well with no residual staining, small fragments of stool or opaque liquid) Impression and Post Procedure Diagnosis: internal hemorrhoids diverticular disease Plan: High fiber diet leaflet Avoid straining at stool, epsom salts and sitz bath, anusol supps or cream Repeat Colonoscopy in 6-12 month with prep compliance or earlier if clinically indicated Above findings were reviewed with the patient and relevant handouts were provided if indicated.
[2022-10-14 11:33] LABS: Glucose, Whole Blood 137 mg/dL (60-115)
[2022-10-14 11:34] VITALS: BP 110/79; PULSE 74; RESP 18; TEMP 36.1; O2SAT 99
[2022-10-14] MEDS: Lactated Ringers 1,000 ML 100 ML IVCONT (11:36)
[2022-10-14 12:19] VITALS: BP 107/69; PULSE 84; RESP 17; TEMP 36.6; O2SAT 97
[2022-10-14 12:34] VITALS: BP 105/71; PULSE 76; RESP 18; TEMP 36.6; O2SAT 98
== END 2022-10-14 12:50 | disposition home or self-care (01) ==
PROVIDERS: PCP Internal Medicine; Visit Provider Internal Medicine Gastroenterology
PROC: 0DJD8ZZ Inspection of Lower Intestinal Tract, Via Natural or Artificial Opening Endoscopic (ICD-10-PCS; CPT 45378; principal; 2022-10-14 11:30)
DX: Z12.11 Encounter for screening for malignant neoplasm of colon (principal); K57.30 Diverticulosis of large intestine without perforation or abscess without bleeding; K64.0 First degree hemorrhoids; K21.9 Gastro-esophageal reflux disease without esophagitis; I25.10 Atherosclerotic heart disease of native coronary artery without angina pectoris; Z95.5 Presence of coronary angioplasty implant and graft; I10 Essential (primary) hypertension; E78.5 Hyperlipidemia, unspecified; E11.9 Type 2 diabetes mellitus without complications; G47.33 Obstructive sleep apnea (adult) (pediatric); Z99.89 Dependence on other enabling machines and devices; Z79.82 Long term (current) use of aspirin; Z79.84 Long term (current) use of oral hypoglycemic drugs; Z79.899 Other long term (current) drug therapy; Z86.16 Personal history of COVID-19
CPT/HCPCS: 45378; 82947

== ENCOUNTER → 2022-11-04 09:19 | Outpatient (BNVA) | payer OTHER, SELFPAY | PROVIDERS: PCP Internal Medicine; Visit Provider Nurse Practitioner Family | DX: G47.33 Obstructive sleep apnea (adult) (pediatric) (principal) | CPT/HCPCS: 99212 ==

== ENCOUNTER → 2022-11-06 09:16 | Outpatient (BNVA) | payer OTHER, SELFPAY | PROVIDERS: PCP Internal Medicine; Visit Provider Nurse Practitioner Family ==

== ENCOUNTER 2022-11-20 12:32 | Emergency (ER) | payer OTHER, SELFPAY ==
--- NOTE | ~2022-11-20 | US_ITS ---
EXAMINATION: US VENOUS ULTRASOUND WITH DOPPLER LOWER EXTREMITY, RIGHT CLINICAL INFORMATION: Right leg pain. COMPARISON: None available. TECHNIQUE: Ultrasound of the deep veins is performed from the hip to the calf with compression sonography and color and pulse Doppler assessment. Spectral analysis with color-flow imaging is performed. FINDINGS: There is normal venous compression and respiratory variation and augmented flow. The visualized common femoral vein, superficial femoral vein, profunda femoral vein, popliteal vein, and the trifurcation region shows no evidence of deep venous thrombosis. There is no significant popliteal fossa cyst. If the patient's symptoms persist, followup ultrasound in 5 days 7 days might be of value to exclude proximal propagation from a non-visualized calf vein. US/US venous duplex LE RT IMPRESSION: No DVT demonstrated in the right lower extremity.
--- NOTE | ~2022-11-20 | XR_ITS ---
EXAMINATION: XR KNEE, RIGHT CLINICAL INFORMATION: Right knee pain. COMPARISON: None available. TECHNIQUE: Four views of the right knee. FINDINGS: Small tricompartmental osteophytes. Minimal medial and patellofemoral compartment joint space narrowing. No joint effusion. No fracture or malalignment. Enthesopathic spurring is present at the patellar tendon origin and insertion. No acute osseous findings. Calcific atherosclerosis is present in the popliteal and runoff arteries. XR/XR knee RT 4V IMPRESSION: Mild tricompartmental osteoarthritis in the right knee. No acute osseous findings.
[2022-11-20 12:38] VITALS: BP 143/80; PULSE 88; RESP 18; TEMP 36.8; O2SAT 98; BMI 37.3
--- NOTE | 2022-11-20 12:40 | ED_ITS ---
HPI - General Adult General Chief complaint: Extremity Problem <Richie Vargas - Last Filed: 11/20/22 12:42> Stated complaint: R Knee Pain No Injury <Richie Vargas - Last Filed: 11/20/22 12:42> Time Seen by Provider: 11/20/22 13:08 <Richie Vargas - Last Filed: 11/20/22 12:42> History of Present Illness HPI narrative: Patient complains of pain in the right knee with no injury, pain began about a week ago, he has had similar episodes in the past and knows he has arthritis in the knee He denies fever chills redness, no other joint pains no numbness weakness or tingling no rashes <STEPHANE Conroy - Last Filed: 11/20/22 16:04> Related Data Home medications: Home Medications Medication Instructions Recorded Confirmed amlodipine 10 mg tablet 10 mg PO DAILY 10/30/20 10/08/22 atenolol 100 mg tablet 100 mg PO DAILY 10/30/20 10/08/22 atorvastatin 80 mg tablet 80 mg PO DAILY 10/30/20 10/08/22 clopidogrel 75 mg tablet 75 mg PO DAILY 10/30/20 10/08/22 glipizide 2.5 mg tablet, extended 2.5 mg PO DAILY 10/30/20 10/08/22 release 24 hr lisinopril 40 mg tablet 40 mg PO DAILY 10/30/20 10/08/22 metformin 1,000 mg tablet 1,000 mg PO DAILY 10/30/20 10/08/22 spironolactone 25 1 tab PO DAILY 10/30/20 10/08/22 mg-hydrochlorothiazide 25 mg tablet lfqmwzt-ekiwbbwjfthdb-pfvwwhyh 250 1 tab PO Q8H PRN Pain (Scale Score 08/18/21 10/08/22 mg-250 mg-65 mg tablet (Migraine 4-6) Relief) hydralazine 25 mg tablet 25 mg PO QID 08/18/21 10/08/22 acetaminophen 325 mg capsule 650 mg PO Q6H PRN Pain 10/27/21 10/08/22 omeprazole 20 mg capsule,delayed 20 mg PO BID 10/27/21 10/08/22 release dulaglutide 0.75 mg/0.5 mL 0.75 mg subcut QWEEK 10/08/22 10/08/22 subcutaneous pen injector (Trulicity) Previous Rx's Medication Instructions Recorded linaclotide 145 mcg capsule 145 mcg PO DAILY #30 caps 05/27/21 (Linzess) methylcellulose (laxative) 500 mg 500 mg PO DAILY #30 tabs 05/27/21 tablet (Citrucel) pantoprazole 40 mg tablet,delayed 40 mg PO DAILY #30 tabs 05/27/21 release ondansetron 4 mg disintegrating 4 mg PO Q8H PRN nausea and 07/08/21 tablet vomiting #30 tabs aspirin 81 mg tablet,delayed 81 mg PO DAILY #90 tabs 08/25/21 release (Adult Low Dose Aspirin) docusate sodium 100 mg capsule 100 mg PO BEDTIME #30 caps 01/13/22 sennosides 8.6 mg tablet (Natural 8.6 mg PO BEDTIME constipation #30 01/13/22 Senna Laxative) tabs isosorbide mononitrate 30 mg 30 mg PO DAILY #90 tabs 02/16/22 tablet,extended release 24 hr doxycycline hyclate 100 mg tablet 100 mg PO BID 7 days #14 tabs 08/15/22 cetirizine 10 mg capsule (Zyrtec) 10 mg PO DAILY #30 caps 08/27/22 triamcinolone acetonide 55 mcg 2 spray intranasal DAILY #16.9 mL 08/27/22 nasal spray aerosol (24 Hour Nasal Allergy) famotidine 20 mg tablet (Pepcid) 20 mg PO BID 10 days #20 tabs 09/26/22 ondansetron 4 mg disintegrating 4 mg PO Q6-8H PRN nausea and 10/01/22 tablet vomiting #14 tabs pantoprazole 40 mg tablet,delayed 40 mg PO DAILY #30 tabs 10/01/22 release (Protonix) acetaminophen 500 mg capsule 1,000 mg PO TID PRN pain #30 caps 11/20/22 oxycodone 5 mg tablet 5 mg PO Q6H PRN pain #14 tabs 11/20/22 <Richie Vargas - Last Filed: 11/20/22 12:42> Allergies/adverse reactions: Allergies Allergy/AdvReac Type Severity Reaction Status Date / Time No Known Allergies Allergy Verified 11/06/22 09:56 <Richie Vargas - Last Filed: 11/20/22 12:42> COUNT INCLUDES THE [facility] Past Medical History Source: nursing notes reviewed <STEPHANE Conroy - Last Filed: 11/20/22 16:04> Medical History: Medical History CAD (coronary artery disease) Diabetes GERD (gastroesophageal reflux disease) History of COVID-19 Hyperlipidemia Hypertension Sleep apnea treated with continuous positive airway pressure (CPAP) <Richie Vargas - Last Filed: 11/20/22 12:42> Surgical History: Surgical History H/O: knee surgery History of cardiac cath History of cataract surgery History of colonoscopy <Richie Vargas - Last Filed: 11/20/22 12:42> Family History Family History: Family History Father CAD (coronary artery disease) HTN (hypertension) Diabetes Hypercholesteremia Mother CAD (coronary artery disease) Lung disease Diabetes HTN (hypertension) Hypercholesteremia <Richie Vargas - Last Filed: 11/20/22 12:42> Social History Social History: Social History Alcohol intake: never Patient Tobacco Use Status: Never used Tobacco Advance Directives: No Advance Directives Information Provided: Yes <Richie Vargas - Last Filed: 11/20/22 12:42> Physical Exam ED Vital Signs: Vital Signs - 24 hr 11/20/22 12:38 Temperature 98.3 F Pulse Rate 88 Respiratory Rate 18 Blood Pressure 143/80 H Pulse Oximetry 98 Oxygen Delivery Method Room Air BMI result Body Mass Index 37.3 <Richie Vargas - Last Filed: 11/20/22 12:42> Vital Signs - 24 hr 11/20/22 12:38 Temperature 98.3 F Pulse Rate 88 Respiratory Rate 18 Blood Pressure 143/80 H Pulse Oximetry 98 Oxygen Delivery Method Room Air BMI result Body Mass Index 37.3 <STEPHANE Conroy - Last Filed: 11/20/22 16:04> General appearance is no distress Head is normocephalic atraumatic Neck is supple Respiratory no distress Extremities range of motion x4 Right knee exam is normal in color in appearance there is no redness no warmth no effusion no swelling, extends to 180 flexes past 90, no obvious ligamentous laxity, there is tenderness around both front and back of knee as well as the upper calf There is no calf swelling, no redness or warmth Neurovascular intact distal <STEPHANE Conroy - Last Filed: 11/20/22 16:04> Course Course Course Narrative: NELIDA- 52-year-old male presents for evaluation of atraumatic right knee pain. Reports he takes clopidogrel but no anticoagulation. Denies any history of DVT or PE. Plan for x-ray and ultrasound of the right lower extremity <Richie Vargas - Last Filed: 11/20/22 12:42> NELIDA- 52-year-old male presents for evaluation of atraumatic right knee pain. Reports he takes clopidogrel but no anticoagulation. Denies any history of DVT or PE. Plan for x-ray and ultrasound of the right lower extremity X-ray showed arthritis, ultrasound was negative for clot On exam there is no evidence of any infection in the knee it is not red or warm it extends to 180 and is normal in appearance and he can bear weight on it Patient is referred to orthopedist <STEPHANE oCnroy - Last Filed: 11/20/22 16:04> Medications Administered Discontinued Medications Generic Name Dose Route Start Last Admin Trade Name Freq PRN Reason Stop Dose Admin Acetaminophen 975 mg 11/20/22 14:49 11/20/22 15:14 Acetaminophen 325 Mg Tablet PO 11/20/22 14:50 975 mg ONCE ONE Administration <Richie Vargas - Last Filed: 11/20/22 12:42> Medications Administered Discontinued Medications Generic Name Dose Route Start Last Admin Trade Name Freq PRN Reason Stop Dose Admin Acetaminophen 975 mg 11/20/22 14:49 11/20/22 15:14 Acetaminophen 325 Mg Tablet PO 11/20/22 14:50 975 mg ONCE ONE Administration <STEPHANE Conroy - Last Filed: 11/20/22 16:04> Discharge Plan Discharge Clinical Impression: Osteoarthritis of right knee <Richie Vargas - Last Filed: 11/20/22 12:42> Patient Disposition: Home, Self-Care <Richie Vargas - Last Filed: 11/20/22 12:42> Additional Instructions: You can use Tylenol or oxycodone as needed for pain Follow with orthopedist Return any time any concerns time any concerns <Richie [place] - Last Filed: 11/20/22 12:42> Prescriptions: New acetaminophen 500 mg capsule 1,000 mg PO TID PRN (Reason: pain) Qty: 30 0RF oxycodone 5 mg tablet 5 mg PO Q6H PRN (Reason: pain) Qty: 14 0RF Rx Instructions: Partial Fill upon patient request. No Action aspirin [Adult Low Dose Aspirin] 81 mg tablet,delayed release (DR/EC) 81 mg PO DAILY Qty: 90 3RF docusate sodium 100 mg capsule 100 mg PO BEDTIME Qty: 30 3RF sennosides [Natural Senna Laxative] 8.6 mg tablet 8.6 mg PO BEDTIME Qty: 30 3RF isosorbide mononitrate 30 mg tablet extended release 24 hr 30 mg PO DAILY Qty: 90 3RF famotidine [Pepcid] 20 mg tablet 20 mg PO BID 10 Days Qty: 20 0RF doxycycline hyclate 100 mg tablet 100 mg PO BID 7 Days Qty: 14 0RF triamcinolone acetonide [24 Hour Nasal Allergy] 55 mcg aerosol,spray 2 spray intranasal DAILY Qty: 16.9 0RF Rx Instructions: administer into each nostril Zyrtec 10 mg capsule 10 mg PO DAILY Qty: 30 0RF Trulicity 0.75 mg/0.5 mL Pen Injector 0.75 mg SUBCUT QWEEK ondansetron 4 mg tablet,disintegrating 4 mg PO Q6-8H PRN (Reason: nausea and vomiting) Qty: 14 0RF pantoprazole [Protonix] 40 mg tablet,delayed release (DR/EC) 40 mg PO DAILY Qty: 30 0RF metformin 1,000 mg tablet 1,000 mg PO DAILY lisinopril 40 mg tablet 40 mg PO DAILY amlodipine 10 mg tablet 10 mg PO DAILY glipizide 2.5 mg tablet extended release 24hr 2.5 mg PO DAILY atenolol 100 mg tablet 100 mg PO DAILY spironolacton-hydrochlorothiaz 25-25 mg tablet 1 tab PO DAILY atorvastatin 80 mg tablet 80 mg PO DAILY clopidogrel 75 mg tablet 75 mg PO DAILY Migraine Relief 250-250-65 mg tablet 1 tab PO Q8H PRN (Reason: Pain (Scale Score 4-6)) hydralazine 25 mg tablet 25 mg PO QID ondansetron 4 mg tablet,disintegrating 4 mg PO Q8H PRN (Reason: nausea and vomiting) Qty: 30 0RF pantoprazole 40 mg tablet,delayed release (DR/EC) 40 mg PO DAILY Qty: 30 3RF Rx Instructions: take one tablet half an hour before breakfast Citrucel 500 mg tablet 500 mg PO DAILY Qty: 30 3RF Rx Instructions: take it with full glass of water Linzess 145 mcg capsule 145 mcg PO DAILY Qty: 30 2RF omeprazole 20 mg capsule,delayed release(DR/EC) 20 mg PO BID acetaminophen 325 mg capsule 650 mg PO Q6H PRN (Reason: Pain) <Richie Vargas - Last Filed: 11/20/22 12:42> Referrals: Terrell Plascencia MD [Physician] - (Right knee osteoarthritis) <Richie Vargas - Last Filed: 11/20/22 12:42>
[2022-11-20] MEDS: Acetaminophen 325 MG TABLET 975 MG PO (15:14)
== END 2022-11-20 16:07 | disposition home or self-care (01) ==
PROVIDERS: Emergency Provider Emergency Medicine Emergency Medical Services; PCP Internal Medicine
DX: M17.11 Unilateral primary osteoarthritis, right knee (principal); R60.0 Localized edema; Z79.899 Other long term (current) drug therapy
CPT/HCPCS: 73564; 93971; 99283; 99284

== ENCOUNTER 2022-12-10 09:36 | Outpatient (REF) | payer OTHER, SELFPAY ==
--- NOTE | ~2022-12-10 | XR_ITS ---
EXAMINATION: XR KNEE STANDING, BILATERAL XR KNEE, RIGHT CLINICAL INFORMATION: Pain. TECHNIQUE: AP bilateral knee standing. Right knee 2 views. FINDINGS: AP Bilateral Knee: There is moderate loss of medial and lateral compartment joint space with moderate periarticular spurring in the lateral compartment. No visible fracture, dislocation or subluxation seen. No bony erosive changes. Right Knee: Mild loss of patellofemoral compartment joint space with lateral patellar and posterior tibial periarticular enthesophytes. No loose bodies or joint effusion seen. The soft tissues are unremarkable. XR/XR knee standing BI IMPRESSION: Degenerative arthritic changes bilateral knee medial and lateral compartments. Degenerative periarticular enthesophytes along the patella and the posterior tibia. No abnormal suprapatellar joint effusion seen.
--- NOTE | ~2022-12-10 | XR_ITS ---
EXAMINATION: XR KNEE STANDING, BILATERAL XR KNEE, RIGHT CLINICAL INFORMATION: Pain. TECHNIQUE: AP bilateral knee standing. Right knee 2 views. FINDINGS: AP Bilateral Knee: There is moderate loss of medial and lateral compartment joint space with moderate periarticular spurring in the lateral compartment. No visible fracture, dislocation or subluxation seen. No bony erosive changes. Right Knee: Mild loss of patellofemoral compartment joint space with lateral patellar and posterior tibial periarticular enthesophytes. No loose bodies or joint effusion seen. The soft tissues are unremarkable. XR/XR knee RT 2V IMPRESSION: Degenerative arthritic changes bilateral knee medial and lateral compartments. Degenerative periarticular enthesophytes along the patella and the posterior tibia. No abnormal suprapatellar joint effusion seen.
== END 2022-12-10 09:37 | disposition home or self-care (01) ==
LOC: HO.HOSX 09:36
PROVIDERS: Visit Provider Orthopaedic Surgery
DX: M17.11 Unilateral primary osteoarthritis, right knee (principal)
CPT/HCPCS: 20610; 73560; 73565; 99202; J1100

== ENCOUNTER → 2022-12-23 13:28 | Outpatient (BNVA) | payer OTHER, SELFPAY | PROVIDERS: PCP Internal Medicine; Referring Provider Internal Medicine; Visit Provider Internal Medicine Cardiovascular Disease | DX: I20.8 Other forms of angina pectoris (principal); I10 Essential (primary) hypertension | CPT/HCPCS: 99212 ==

== ENCOUNTER 2023-01-20 10:11 | Outpatient (REF) | payer OTHER, SELFPAY ==
[2023-01-20 12:07] LABS: Anion Gap 17 (12-20); Blood Urea Nitrogen 17 mg/dL (9-16); Calcium 9.9 mg/dL (8.4-10.2); Carbon Dioxide 32 mmol/L (22-29); Chloride 101 mmol/L (96-108); Estimated Glomerular Filt Rate > 60; Glucose Random 112 mg/dL (60-115); Potassium 4.5 mmol/L (3.3-5.1); Sodium 145 mmol/L (135-145)
[2023-01-20 14:18] LABS: Microalbum/Creatinine Ratio Ur 15.5 ug/mg cr
== END 2023-01-20 10:12 | disposition home or self-care (01) ==
LOC: HO.LAB 10:11
PROVIDERS: PCP Internal Medicine; Visit Provider Internal Medicine Hypertension Specialist
DX: I10 Essential (primary) hypertension (principal)
CPT/HCPCS: 36415; 80048; 82043

== ENCOUNTER 2023-02-04 13:44 | Outpatient (AMB) | payer OTHER, SELFPAY ==
[2023-02-04 13:59] VITALS: BP 124/88; PULSE 87; O2SAT 97; BMI 38.2
--- NOTE | 2023-02-04 13:59 | MHC.OFFVIS ---
Intake Vital Signs 02/04/23 13:59 Height 5 ft 10 in Weight 266 lb 8 oz BMI 38.2 BP 124/88 Blood Pressure Location Rt brachial Position Sitting Pulse 87 Pulse Source Pulse Oximeter Pulse Oximetry (%) 97 Oxygen Delivery Method Room Air Intake Visit Reasons: 3M follow up sleep-VM not set up Intake Note: Pt presents as a 3 month f/u for sleep. 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 Pt reports that he has received a new CPAP. He had a Dream Station. SN [id number]. CPAP compliance and therapy response (08/18/22-11/15/22) reviewed. No new CPAP compliance unavailable. He is on CPAP at [id number]. The usage days 100% and the average usage hours 10 hrs 40 min. The AHI was 1.9/hr. Pt takes melatonin gummy 30 mg to help him fall asleep. He practice sleep hygiene and sleeps better. Daytime sleepiness has resolved. Pt reports he walks 3.5 miles daily and tries to lose wt. ? ? PFSH Medical History CAD (coronary artery disease) Diabetes GERD (gastroesophageal reflux disease) History of COVID-19 Hyperlipidemia Hypertension Sleep apnea treated with continuous positive airway pressure (CPAP) Surgical History H/O left knee surgery (~06/20/15) History of cardiac cath History of cataract surgery History of colonoscopy Family History Father CAD (coronary artery disease) HTN (hypertension) Diabetes Hypercholesteremia Mother CAD (coronary artery disease) Lung disease Diabetes HTN (hypertension) Hypercholesteremia Social History (Updated 02/04/23 @ 14:09 by Leonora Roca CMA) Alcohol intake: current Alcohol intake frequency: does not drink Patient Tobacco Use Status: Never used Tobacco Review of Systems Const All systems reviewed & are unremarkable except as noted in HPI and below ENT Reports Normal hearing present Neuro Reports Normal hearing present Physical Exam Vital Signs: Last Vital Signs Pulse 87 02/04/23 13:59 BP 124/88 02/04/23 13:59 Pulse Ox 97 02/04/23 13:59 Oxygen Delivery Method Room Air 02/04/23 13:59 BMI result Body Mass Index 38.2 Const General: cooperative, comfortable and no acute distress Nutritional Appearance: obese Orientation/consciousness: patient oriented x3 Limitations: no limitations Resp Effort & Inspection: normal respiratory effort and able to speak in complete sentences Neuro General: patient oriented x3 and gait normal Cranial nerves: Yes Bilaterally intact EOM present, Yes Normal facial strength present, Yes Midline tongue present, Yes Symmetric palate elevation present, Yes Normal hearing present, Yes Ability to bilaterally rotate head present and Yes Ability to bilaterally elevate shoulders present Cognition (Neuro): normal cognition Gait exam (Neuro): Normal gait present Motor exam (neuro): 5/5 motor strength present throughout, Pronator motor function not present and no tremor noted Psych Appearance: grossly normal Mental Status: mental status grossly normal Speech and movement: Normal speech and movement present Affect: normal affect Assessment & Plan Assessment & Plan (1) RADHA (obstructive sleep apnea): Code(s): G47.33 - Obstructive sleep apnea (adult) (pediatric) (2) Insomnia: Code(s): G47.00 - Insomnia, unspecified Plan Continue to use CPAP nightly and more than 4 hours. Encouraged patient to continue to do daily exercise and well balanced diet to mange wt. Advised patient to try trazodone 25 mg qHS and magnesium 400 mg qHS. Reduce melatonin to 10 mg qHS. Medications: New magnesium oxide 400 mg PO DAILY 30 tabs 3RF 30 days trazodone 25 mg (1/2 x 50 mg) PO DAILY 15 tabs 3RF 30 days Coding Level of Care Code Est Pt Level 4 (13404) Diagnoses RADHA (obstructive sleep apnea) G47.33 Insomnia G47.00
== END 2023-02-04 14:33 | disposition home or self-care (01) ==
LOC: HO.HSMS 13:44
PROVIDERS: PCP Internal Medicine; Visit Provider Nurse Practitioner Family
DX: G47.33 Obstructive sleep apnea (adult) (pediatric) (principal); G47.00 Insomnia, unspecified
CPT/HCPCS: 99214

== ENCOUNTER → 2023-02-04 13:44 | Outpatient (BNVA) | payer OTHER, SELFPAY | PROVIDERS: PCP Internal Medicine; Visit Provider Nurse Practitioner Family | DX: G47.33 Obstructive sleep apnea (adult) (pediatric) (principal); G47.00 Insomnia, unspecified | CPT/HCPCS: 99212 ==

== ENCOUNTER 2023-03-24 13:13 | Outpatient (REF) | payer OTHER, SELFPAY ==
[2023-03-24 14:09] LABS: Hemoglobin 14.5 g/dl (14.0-18.0); Mean Corpuscular Hemoglobin 30.1 pg (27.0-33.0); Mean Corpuscular Volume 91.3 fL (80.0-98.0); Mean Platelet Volume 10.9 fL (9.4-12.4); Platelet Count 259 X10*3/uL (160-400); Red Blood Count 4.82 X10*6/uL (4.60-5.80); Red Cell Distribution Width 12.4 % (11.0-16.0); White Blood Count 7.7 X10*3/uL (4.8-10.8)
[2023-03-24 14:42] LABS: Anion Gap 13 (12-20); Blood Urea Nitrogen 13 mg/dL (9-16); Calcium 10.1 mg/dL (8.4-10.2); Carbon Dioxide 31 mmol/L (22-29); Chloride 103 mmol/L (96-108); Estimated Glomerular Filt Rate > 60; Glucose Random 112 mg/dL (60-115); Potassium 4.2 mmol/L (3.3-5.1); Sodium 143 mmol/L (135-145)
[2023-03-24 16:08] LABS: Creatinine Urine 379.54 mg/dL; Protein/Creatinine Ratio, Ur 0.07 (<0.2); Total Protein Urine Random 27 mg/dL (<12)
== END 2023-03-24 13:14 | disposition home or self-care (01) ==
LOC: HO.LAB 13:13
PROVIDERS: PCP Internal Medicine; Visit Provider Internal Medicine Hypertension Specialist
DX: R80.9 Proteinuria, unspecified (principal); I10 Essential (primary) hypertension
CPT/HCPCS: 36415; 80048; 84156; 85027

== ENCOUNTER 2023-04-23 13:17 | Outpatient (AMB) | payer OTHER, SELFPAY ==
--- NOTE | 2023-04-23 13:20 | A.OFFVIS_ITS ---
Intake Vital Signs 04/23/23 13:22 Weight 263 lb BP 130/78 Blood Pressure Location Rt brachial Position Sitting Pulse 83 Pulse Source Pulse Oximeter Pulse Oximetry (%) 97 Oxygen Delivery Method Room Air Intake Visit Reasons: 2M follow up sleep - Unable to conf Intake Note: RADHA fup Allergies No Known Allergies Allergy (Verified 04/23/23 13:27) HPI HPI Comments History of Present Illness Details 52 y/o male patient presents for follow up of RADHA on CPAP. Pt reports that he has received a new CPAP. He had a Dream Station. SN [id number]. However, his CPAP stopped transmitting since October,. Called [employer] and request new SD card, but he still did not have new SD card and can't get compliance. He is on CPAP at [id number]. Pt states that he uses every night and sleeps well with CPAP. Pt uses melatonin gummy, 20-40 mg and it help him fall asleep. He practice sleep hygiene and sleeps better from 9 pm to 6-7 am. Pt reports he walks 3.5 miles daily and tries to lose wt. ? ? PFSH Medical History History of COVID-19 CAD (coronary artery disease) GERD (gastroesophageal reflux disease) Diabetes Sleep apnea treated with continuous positive airway pressure (CPAP) Hyperlipidemia Hypertension Surgical History H/O left knee surgery (~06/20/15) History of colonoscopy History of cardiac cath History of cataract surgery Family History Father CAD (coronary artery disease) HTN (hypertension) Diabetes Hypercholesteremia Mother CAD (coronary artery disease) Lung disease Diabetes HTN (hypertension) Hypercholesteremia Social History Alcohol intake: current Alcohol intake frequency: does not drink Patient Tobacco Use Status: Never used Tobacco Review of Systems Const All systems reviewed & are unremarkable except as noted in HPI and below ENT Reports Normal hearing present Neuro Reports Normal hearing present Physical Exam Vital Signs: Last Vital Signs Pulse 83 04/23/23 13:22 BP 130/78 04/23/23 13:22 Pulse Ox 97 04/23/23 13:22 Oxygen Delivery Method Room Air 04/23/23 13:22 Const General: cooperative, comfortable and no acute distress Nutritional Appearance: obese Orientation/consciousness: patient oriented x3 Limitations: no limitations Resp Effort & Inspection: normal respiratory effort and able to speak in complete sentences Neuro General: patient oriented x3 and gait normal Cranial nerves: Yes Bilaterally intact EOM present, Yes Normal facial strength present, Yes Midline tongue present, Yes Symmetric palate elevation present, Yes Normal hearing present, Yes Ability to bilaterally rotate head present and Yes Ability to bilaterally elevate shoulders present Cognition (Neuro): normal cognition Gait exam (Neuro): Normal gait present Motor exam (neuro): 5/5 motor strength present throughout, Pronator motor function not present and no tremor noted Psych Appearance: grossly normal Mental Status: mental status grossly normal Speech and movement: Normal speech and movement present Affect: normal affect Assessment & Plan Assessment & Plan (1) RADHA (obstructive sleep apnea): Code(s): G47.33 - Obstructive sleep apnea (adult) (pediatric) (2) Insomnia: Code(s): G47.00 - Insomnia, unspecified Plan Continue to use CPAP nightly and more than 4 hours. Encouraged patient to continue to do daily exercise and well balanced diet to mange wt. Advised patient to try trazodone 25 mg qHS and magnesium 400 mg qHS. Reduce melatonin to 10 mg qHS. Advised patient to call [employer] and request new SD card for compliance data. Coding Level of Care Code Est Pt Level 3 (68628) Diagnoses RADHA (obstructive sleep apnea) G47.33 Insomnia G47.00
[2023-04-23 13:22] VITALS: BP 130/78; PULSE 83; O2SAT 97
== END 2023-04-23 13:40 | disposition home or self-care (01) ==
PROVIDERS: PCP Internal Medicine; Visit Provider Nurse Practitioner Family
DX: G47.33 Obstructive sleep apnea (adult) (pediatric) (principal); G47.00 Insomnia, unspecified
CPT/HCPCS: 99213

== ENCOUNTER → 2023-04-23 13:17 | Outpatient (BNVA) | payer OTHER, SELFPAY | PROVIDERS: PCP Internal Medicine; Visit Provider Nurse Practitioner Family | DX: G47.33 Obstructive sleep apnea (adult) (pediatric) (principal); G47.00 Insomnia, unspecified; Z99.89 Dependence on other enabling machines and devices | CPT/HCPCS: 99212 ==

== ENCOUNTER 2023-06-04 10:57 | Outpatient (AMB) | payer OTHER, SELFPAY ==
--- NOTE | 2023-06-04 11:10 | A.OFFVIS_ITS ---
Intake Vital Signs 06/04/23 11:14 Height 5 ft 10 in Weight 263 lb BMI 37.7 BP 122/65 Blood Pressure Location Lt brachial Position Sitting Pulse 71 Intake Visit Reasons: follow up Intake Note: Rodrick presents as a follow up today with Mildred. CC: He always has his pains in his stomach - he had a colo in september. Ring Facer Required: No Allergies No Known Allergies Allergy (Verified 06/04/23 11:30) HPI follow up HPI Details 53 yr old m here for f/u He had poor prep for screening colonoscopy and noted to have diverticulosis, needs repeat he has heartburn and is controlled with medication incl PPI and H2B he denies nausea or vomiting he does have distention and bloating he had neg H pylori stool in past he had pyloric pylorplasty for congenital pyloric stenosis EXAM: GENERAL: The patient is well developed and nontoxic. VITAL SIGNS:see workflow HEENT: Nonicteric sclerae, PERRLA, EOMI. Oropharynx clear. Moist mucous membranes. Conjunctivae appear well perfused. No thyroid mass. CHEST: Chest wall is nontender. HEART: Regular rate and rhythm without murmurs. LUNGS: Clear to auscultation bilaterally. ABDOMEN: Soft, positive bowel sounds, nontender, no organomegaly.no flank tenderness SKIN: No rash, no excessive bruising, petechiae, or purpura. NEUROLOGIC: Cranial nerves II-XII intact without motor/sensory deficit. A/P: 1/ Poor prep, 2/ GERD controlled PLAN: 1/ hold trulicity for week before, hold glipizide on day of procedure, can use russ tania or sprite if needed for low sugars--will use suprep and dulcolax combo 2/ EGD for evaluation of GERD and r/o ba rretts [facility] Medical History (Updated 06/04/23 @ 11:53 by Justin Levy MD) History of COVID-19 CAD (coronary artery disease) GERD (gastroesophageal reflux disease) Diabetes Sleep apnea treated with continuous positive airway pressure (CPAP) Hyperlipidemia Hypertension Surgical History H/O left knee surgery (~06/20/15) History of colonoscopy History of cardiac cath History of cataract surgery Family History Father CAD (coronary artery disease) HTN (hypertension) Diabetes Hypercholesteremia Mother CAD (coronary artery disease) Lung disease Diabetes HTN (hypertension) Hypercholesteremia Social History Alcohol intake: current Alcohol intake frequency: does not drink Patient Tobacco Use Status: Never used Tobacco Physical Exam Vital Signs: Last Vital Signs Pulse 71 06/04/23 11:14 BP 122/65 06/04/23 11:14 BMI result Body Mass Index 37.7 Assessment & Plan Assessment & Plan (1) Screening for colon cancer: Code(s): Z12.11 - Encounter for screening for malignant neoplasm of colon (2) GERD (gastroesophageal reflux disease): Code(s): K21.9 - Gastro-esophageal reflux disease without esophagitis Medications: New ondansetron 4 mg PO Q8H PRN 7 tabs 0RF nausea and vomiting sodium,potassium,mag sulfates 17.5-3.13-1.6 gram (Suprep Bowel Prep Kit) DILUTE; drink 1/2 at 6-8 pm and half at 11 PM- 1AM 354 mL 0RF bisacodyl (Dulcolax (bisacodyl)) take at 6 pm day before colonoscopy 20 mg (4 x 5 mg) PO ONCE 1 day 4 tabs 0RF Coding Level of Care Code Est Pt Level 3 (26153) Diagnoses Screening for colon cancer Z12.11 GERD (gastroesophageal reflux disease) K21.9
[2023-06-04 11:14] VITALS: BP 122/65; PULSE 71; BMI 37.7
== END 2023-06-04 12:11 | disposition home or self-care (01) ==
PROVIDERS: PCP Internal Medicine; Visit Provider Internal Medicine Gastroenterology
DX: Z12.11 Encounter for screening for malignant neoplasm of colon (principal); K21.9 Gastro-esophageal reflux disease without esophagitis; Z01.818 Encounter for other preprocedural examination
CPT/HCPCS: 99213

== ENCOUNTER → 2023-06-04 10:57 | Outpatient (BNVA) | payer OTHER, SELFPAY | PROVIDERS: PCP Internal Medicine; Visit Provider Internal Medicine Gastroenterology | DX: Z12.11 Encounter for screening for malignant neoplasm of colon (principal); K21.9 Gastro-esophageal reflux disease without esophagitis | CPT/HCPCS: 99212 ==

== ENCOUNTER 2023-06-14 11:31 | Outpatient (AMB) | payer OTHER, SELFPAY ==
[2023-06-14 11:36] VITALS: BP 124/82; O2SAT 98; BMI 37.6
--- NOTE | 2023-06-14 11:36 | HO.NEPHOV ---
HPI HPI Comments History of Present Illness Details Elan has HTN in a setting of obesity Overall doing well. No new issues [facility] Medical History (Updated 06/04/23 @ 11:53 by Justin Levy MD) History of COVID-19 CAD (coronary artery disease) GERD (gastroesophageal reflux disease) Diabetes Sleep apnea treated with continuous positive airway pressure (CPAP) Hyperlipidemia Hypertension Surgical History H/O left knee surgery (~06/20/15) History of colonoscopy History of cardiac cath History of cataract surgery Family History Father CAD (coronary artery disease) HTN (hypertension) Diabetes Hypercholesteremia Mother CAD (coronary artery disease) Lung disease Diabetes HTN (hypertension) Hypercholesteremia Social History Alcohol intake: current Alcohol intake frequency: does not drink Patient Tobacco Use Status: Never used Tobacco Vital Signs 06/14/23 11:36 Height 5 ft 10 in Weight 262 lb 4 oz BMI 37.6 BP 124/82 Blood Pressure Location Lt brachial Position Sitting Pulse Source Pulse Oximeter Pulse Oximetry (%) 98 Oxygen Delivery Method Room Air Physical Exam Vital Signs: Last Vital Signs BP 124/82 06/14/23 11:36 Pulse Ox 98 06/14/23 11:36 Oxygen Delivery Method Room Air 06/14/23 11:36 BMI result Body Mass Index 37.6 Const General: comfortable Nutritional Appearance: well nourished Orientation/consciousness: patient oriented x3 HEENT Head: No normal to inspection Mouth: moist mucous membranes Neck Neck: Yes supple and Yes no JVD Resp Auscultation: clear to auscultation bilaterally, no rales and rub present Cardio Jugular venous distension: no JVD Palpation: no palpable S3 and no palpable S4 Heart sounds: no rubs GI Palpation (GI): Soft to palpation and nontender Percussion: No Fluid wave present General: Yes no CVA tenderness Back/Spine/Pelvis Back: no CVA tenderness Skin General skin exam: no rashes or lesions noted Neuro General: patient oriented x3 Extrem General: Yes no pedal edema and No clubbing Assessment & Plan Assessment & Plan (1) Hypertension: Code(s): I10 - Essential (primary) hypertension Plan: BP is well controlled Low salt diet Prescribes Aldactazide 25-25 QD Needs weight loss Renal function is stable. (2) Diabetes: Code(s): E11.9 - Type 2 diabetes mellitus without complications Plan: Goal A1C < 7% Orders: Orders Blood Urea Nitrogen 6 Months E11.9 - Type 2 diabetes mellitus without complications, I10 - Essential (primary) hypertension Creatinine 6 Months E11.9 - Type 2 diabetes mellitus without complications, I10 - Essential (primary) hypertension Calcium 6 Months E11.9 - Type 2 diabetes mellitus without complications, I10 - Essential (primary) hypertension Electrolytes 6 Months E11.9 - Type 2 diabetes mellitus without complications, I10 - Essential (primary) hypertension Medications: New spironolacton-hydrochlorothiaz 25-25 mg 1 tab PO DAILY 30 tabs 6RF Coding Level of Care Code Est Pt Level 3 (91817) Diagnoses Hypertension I10 Diabetes E11.9
== END 2023-06-14 11:51 | disposition home or self-care (01) ==
PROVIDERS: PCP Internal Medicine; Visit Provider Internal Medicine Hypertension Specialist
DX: I10 Essential (primary) hypertension (principal); E11.9 Type 2 diabetes mellitus without complications
CPT/HCPCS: 99214

== ENCOUNTER → 2023-06-14 11:31 | Outpatient (BNVA) | payer OTHER, SELFPAY | PROVIDERS: PCP Internal Medicine; Visit Provider Internal Medicine Hypertension Specialist | DX: E11.9 Type 2 diabetes mellitus without complications (principal); I10 Essential (primary) hypertension | CPT/HCPCS: 99212 ==

== ENCOUNTER 2023-06-28 14:03 | Outpatient (AMB) | payer OTHER, SELFPAY ==
[2023-06-28 14:06] VITALS: BP 130/82; PULSE 95; O2SAT 96; BMI 37.8
--- NOTE | 2023-06-28 14:06 | A.OFFVIS_ITS ---
Intake Vital Signs 06/28/23 14:06 Height 5 ft 10 in Weight 263 lb 3.711 oz BMI 37.8 BP 130/82 Blood Pressure Location Lt brachial Position Sitting Pulse 95 Pulse Source Pulse Oximeter Pulse Oximetry (%) 96 Oxygen Delivery Method Room Air Intake Visit Reasons: 6 mth f/up Intake Note: Pt presents to the office today for a 6 month follow up. Pt states he is feeling well and denies any cardiac symptoms at this time. Allergies No Known Allergies Allergy (Verified 06/28/23 14:09) Medication List - Last Reconciled 06/28/23 by Markus Morrison MD acetaminophen 1,000 mg (2 x 500 mg) PO TID PRN acetaminophen 650 mg PO Q6H PRN amlodipine 10 mg PO DAILY aspirin (Adult Low Dose Aspirin) 81 mg PO DAILY swpcslk-xjjhobwsbzcra-iiqnjodx 250-250-65 mg (Migraine Relief) 1 tab PO Q8H PRN atenolol 100 mg PO DAILY atorvastatin 80 mg PO DAILY bisacodyl (Dulcolax (bisacodyl)) 20 mg (4 x 5 mg) PO ONCE 1 day cetirizine (Zyrtec) 10 mg PO DAILY clopidogrel 75 mg PO DAILY docusate sodium 100 mg PO BEDTIME dulaglutide (Trulicity) 0.75 mg subcut QWEEK glipizide ER 2.5 mg PO DAILY hydralazine 25 mg PO QID isosorbide mononitrate ER 30 mg PO DAILY lisinopril 40 mg PO DAILY metformin 1,000 mg PO DAILY methylcellulose (laxative) (Citrucel) 500 mg PO DAILY ondansetron 4 mg PO Q8H PRN pantoprazole 40 mg PO DAILY sodium,potassium,mag sulfates 17.5-3.13-1.6 gram (Suprep Bowel Prep Kit) DILUTE; drink 1/2 at 6-8 pm and half at 11 PM- 1AM spironolacton-hydrochlorothiaz 25-25 mg 1 tab PO DAILY trazodone 25 mg (1/2 x 50 mg) PO DAILY 30 days triamcinolone acetonide sprays intranasal HPI HPI Comments History of Present Illness Details 53-year-old gentleman here for follow-up . He has known history of coronary artery disease and previously underwent RCA and left circumflex PCI. He had mid LAD stenosis which was moderate and was medically managed. He had stress testing done which was normal. He has been walking and exercising without any symptoms. No bleeding issues. Taking medications regularly. Blood pressure control is good. Physically active and has been walking around the otherwise without any issues. Stable on follow-up. 06/28/2023: He returns for follow-up. Evans morales has been active and has no symptoms. Blood pressure control is good. Taking medications regularly. [facility] Medical History History of COVID-19 CAD (coronary artery disease) GERD (gastroesophageal reflux disease) Diabetes Sleep apnea treated with continuous positive airway pressure (CPAP) Hyperlipidemia Hypertension Surgical History H/O left knee surgery (~06/20/15) History of colonoscopy History of cardiac cath History of cataract surgery Family History Father CAD (coronary artery disease) HTN (hypertension) Diabetes Hypercholesteremia Mother CAD (coronary artery disease) Lung disease Diabetes HTN (hypertension) Hypercholesteremia Alcohol intake: current Alcohol intake frequency: does not drink Patient Tobacco Use Status: Never used Tobacco Physical Exam Vital Signs: Last Vital Signs Pulse 95 06/28/23 14:06 BP 130/82 06/28/23 14:06 Pulse Ox 96 06/28/23 14:06 Oxygen Delivery Method Room Air 06/28/23 14:06 BMI result Body Mass Index 37.8 GENERAL APPEARANCE: in no acute distress, pleasant. NECK: no carotid bruit, no jugular venous distention. SKIN: no suspicious lesions, warm and dry. HEART: no murmurs, regular rate and rhythm. LUNGS: clear to auscultation bilaterally. ABDOMEN: soft, nontender. EXTREMITIES: no edema. PERIPHERAL PULSES: equal. NEUROLOGIC: No gross deficits, AAO X 3 Assessment & Plan Assessment & Plan (1) Hypertension: Code(s): I10 - Essential (primary) hypertension (2) Stable angina: Code(s): I20.8 - Other forms of angina pectoris Plan Pleasant 53 gentleman is here for follow-up. He has known history of coronary artery disease with previous PCI. He had residual disease in LAD which was moderate. He had stress testing in the past which was normal. He continues to be asymptomatic. I have advised him that we should continue to medically treat him for now. Blood pressure control is good and he has been following regularly with Nephrology. He will see us back in 6 months. Thank you for allowing me to participate in the care of your patient. Please feel free to contact me if you have any questions. Coding Level of Care Code Est Pt Level 3 (39685) Diagnoses Hypertension I10 Stable angina I20.8
== END 2023-06-28 14:40 | disposition home or self-care (01) ==
PROVIDERS: Visit Provider Internal Medicine Cardiovascular Disease
DX: I10 Essential (primary) hypertension (principal); I20.8 Other forms of angina pectoris
CPT/HCPCS: 99213

== ENCOUNTER → 2023-06-28 14:03 | Outpatient (BNVA) | payer OTHER, SELFPAY | PROVIDERS: Visit Provider Internal Medicine Cardiovascular Disease | DX: I20.89 Other forms of angina pectoris (principal); I10 Essential (primary) hypertension; Z98.61 Coronary angioplasty status; Z98.890 Other specified postprocedural states; Z82.49 Family history of ischemic heart disease and other diseases of the circulatory system; Z83.3 Family history of diabetes mellitus | CPT/HCPCS: 99212 ==

== ENCOUNTER 2023-08-31 19:08 | Emergency (ER) | payer OTHER, SELFPAY | END 2023-08-31 20:37 | disposition left against medical advice (07) | PROVIDERS: Emergency Provider Emergency Medicine; PCP Internal Medicine | DX: K08.89 Other specified disorders of teeth and supporting structures (principal) ==

== ENCOUNTER 2023-09-21 09:56 | Day surgery (SDC) | payer OTHER, SELFPAY ==
[2023-09-16 16:23] VITALS: BMI 37.7
[2023-09-17 09:01] VITALS: BMI 35.9
[2023-09-21 10:18] VITALS: BP 137/88; PULSE 78; RESP 18; TEMP 36.8; O2SAT 96; BMI 36.1
[2023-09-21 10:28] LABS: Glucose, Whole Blood 167 mg/dL (60-115)
--- NOTE | 2023-09-21 11:01 | P.HPSUR_ITS ---
Pre-Procedural Eval Section A - 24 Hr Update-Section A only Date of Service: 09/21/23 Section B - Complete if H&P > 30 days Chief Complaint: screening,gerd, Relevant Family History (Specify if Yes): No Relevant Social History: None Present Medications: see Short Stay Collaborative assessment Medical History: Significant History (CAD (coronary artery disease) Diabetes GERD (gastroesophageal reflux disease) History of COVID-19 Hyperlipidemia Hypertension Sleep apnea treated with continuous positive airway pressure (CPAP)) History of Previous Operations: Relevant previous surgery/procedure and date(s) (H/O: knee surgery History of cardiac cath History of cataract surgery History of colonoscopy) Allergies: Allergies Allergy/AdvReac Type Severity Reaction Status Date / Time No Known Allergies Allergy Verified 09/17/23 09:00 Review of Systems Sugical H&P ROS: Negative: Constitution, Cardiovascular, Respiratory, Neurological, Psychiatric, Hem-Onc, Allergic/Immunologic, Gastrointestinal, Genitourinary, Musculoskeletal, Integumentary, Endocrine and Eye s/Ears/Nose/Throat Exam Surgical H&P Exam: Normal: HEENT, Normal: Heart, Normal: Lungs, Normal: Extremities, Normal: Abdomen, Normal: Skin and Normal: Neurological Plan Diagnosis/Plan: Unchanged I have reviewed the history and physical and performed a pertinent physical examination on my patient. No changes have occurred unless specified. Time Spent With Patient Time: Total time managing care of this patient today ____ minutes.
--- NOTE | 2023-09-21 11:48 | W.PM.OPN ---
Operative Note Operative Note Date of Service: 09/21/23 Narrative: Operative Information Procedure Description: EGD, Colonoscopy Indication: GERD< colo screening Anesthesia: MAC FLEXIBLE TRANSORAL UPPER GASTROINTESTINAL ENDOSCOPY AND COLONOSCOPY PROCEDURE NOTE UPPER ENDOSCOPY Consent: Indications for the procedure and potential complications of bleeding, perforation, reaction to medications and missed diagnosis were discussed with the patient and informed consent was obtained. Instrument: Olympus GIF H 190 J mid size upper endoscope Monitoring: Vital signs and clinical assessment, continuous EKG monitoring, Pulse oximetry, Carbon Dioxide monitoring and blood pressure monitoring were done throughout the procedure. Procedure: The patient was placed in the left lateral decubitis position and pre-procedure medications were administered and a bite block was placed. The endoscope was inserted into the mouth and advanced under direct vision to the third part of duodenum. A careful inspection was made as the upper endoscope was withdrawn including a retroflexed examination of the proximal stomach; Findings and interventions are described below. Findings: Larynx:normal Esophagus: GE junction at 40 cm, diaphragm hiatus at 40 cm, bogginess and erythema at GEJ, bx taken also from distal and proximal esophagus Stomach: Scattered linear erosions - few with eschar. Biopsies were obtained. Grade 3 flap valve on retroflexed examination of the cardia with lax LES Duodenum: Erosive duodenitis, moderate severe especially in the bulb and proximal descending duodenum, bx taken Intervention: Biopsies as noted above COLONOSCOPY Instrument: Olympus variable stiffness ADULT scope 190L Colonoscopy Monitoring: Vital signs and clinical assessment, continuous EKG monitoring, Pulse oximetry, Carbon Dioxide monitoring and blood pressure monitoring were done throughout the procedure. Colon withdrawal time was 10 minutes. Procedure: The patient was placed in the left lateral decubitis position and pre-procedure medications were administered. After a digital rectal examination of the ano-rectum, the video colonoscope was inserted into the rectum and advanced through the colon to the cecum/TI. The colonoscope was slowly withdrawn in a retrograde panoramic fashion and the colon mucosa was carefully examined including a retroflexed view of the rectum. Findings and interventions are described below. Procedure Difficulty: easy Findings: Terminal Ileum-normal Cecum:normal Right sided retroflexion- normal Ascending Colon: normal Transverse Colon -normal Descending Colon:normal Sigmoid Colon: normal Rectum: Retroflexion with medium sized internal hemorrhoids, grade I, 4-6 mm sessile polyp removed with cold forceps, x2 sessile polyps 8-9 mm removed with cold snare Anorectum - normal Colon preparation: [place] Bowel Preparation Scale Right colon; 2 Transverse colon: 2 Left colon; 2 (0 = Unprepared colon segment with mucosa not seen due to solid stool that cannot be cleared. 1 = Portion of mucosa of the colon segment seen, but other areas of the colon segment not well seen due to staining, residual stool and/or opaque liquid. 2 = Minor amount of residual staining, small fragments of stool and/or opaque liquid, but mucosa of colon segment seen well. 3 = Entire mucosa of colon segment seen well with no residual staining, small fragments of stool or opaque liquid) Impression and Post Procedure Diagnosis: Endoscopy Findings: erosive duodenitis erosive gastritis esophagitis Colonoscopy Findings: polyps internal hemorrhoids diverticular disease Plan: Await Pathology results Repeat Colonoscopy in 5 years if adenomatous polyps, 10 yrs if hyperplastc or earlier if clinically indicated High fiber diet leaflet avoid straining at stool, epsom salts and sitz bath, anusol supps or cream if H pylori pos treat, check nsaid use, check ppi compliance Above findings were reviewed with the patient and relevant handouts were provided if indicated.
[2023-09-21 12:30] VITALS: BP 114/68; PULSE 73; RESP 18; TEMP 37.3; O2SAT 99
[2023-09-21 12:45] VITALS: BP 126/75; PULSE 70; RESP 16; O2SAT 94
[2023-09-21 12:59] VITALS: BP 118/87; PULSE 67; RESP 16; TEMP 36.2; O2SAT 95
== END 2023-09-21 13:46 | disposition home or self-care (01) ==
PROVIDERS: PCP Internal Medicine; Visit Provider Internal Medicine Gastroenterology
PROC: (CPT 45385; principal; 2023-09-21 12:40)
DX: Z12.11 Encounter for screening for malignant neoplasm of colon (principal); K62.1 Rectal polyp; K57.30 Diverticulosis of large intestine without perforation or abscess without bleeding; K64.0 First degree hemorrhoids; K21.9 Gastro-esophageal reflux disease without esophagitis; K20.80 Other esophagitis without bleeding; K29.80 Duodenitis without bleeding; K29.60 Other gastritis without bleeding; K44.9 Diaphragmatic hernia without obstruction or gangrene; K22.4 Dyskinesia of esophagus; G47.33 Obstructive sleep apnea (adult) (pediatric); I25.10 Atherosclerotic heart disease of native coronary artery without angina pectoris; Z95.5 Presence of coronary angioplasty implant and graft; I10 Essential (primary) hypertension; E78.5 Hyperlipidemia, unspecified; E11.9 Type 2 diabetes mellitus without complications; Z99.89 Dependence on other enabling machines and devices; Z79.85 Long-term (current) use of injectable non-insulin antidiabetic drugs; Z79.899 Other long term (current) drug therapy; Z86.16 Personal history of COVID-19
CPT/HCPCS: 45385; 45380; 43239; 82947; 88305; 88313; 88342; J2704

== ENCOUNTER → 2023-09-21 09:56 | Outpatient (BNV) | payer OTHER, SELFPAY | PROVIDERS: PCP Internal Medicine; Visit Provider Internal Medicine Gastroenterology | DX: Z12.11 Encounter for screening for malignant neoplasm of colon (principal); K63.5 Polyp of colon; K57.90 Diverticulosis of intestine, part unspecified, without perforation or abscess without bleeding; K64.8 Other hemorrhoids; K29.90 Gastroduodenitis, unspecified, without bleeding; K20.90 Esophagitis, unspecified without bleeding | CPT/HCPCS: 43239; 45380; 45385 ==

== ENCOUNTER 2023-10-08 09:58 | Outpatient (AMB) | payer OTHER, SELFPAY ==
--- NOTE | 2023-10-08 10:10 | MHC.OFFVIS ---
Intake Vital Signs 10/08/23 10:14 Height 5 ft 10 in Weight 260 lb BMI 37.3 BP 104/62 Blood Pressure Location Lt brachial Position Sitting Pulse 78 Intake Visit Reasons: s/P Intake Note: Rodrick presents in as a follow up to his procedure. CC: HE is requesting the senna pills - he states that you will know which medication he is referring too. He states when he takes it it helps his stomach - if he does not take it he ends up in the hospital. Allergies No Known Allergies Allergy (Verified 10/08/23 10:15) HPI s/P HPI Details 53 yr old m here for f/u RECAP: He had poor prep for screening colonoscopy and noted to have diverticulosis, needed repeat as below he has heartburn and is controlled with medication incl PPI and H2B he does have distention and bloating he had neg H pylori stool in past he had pyloric pylorplasty for congenital pyloric stenosis He had EGD and colo as below: EGD/colo: EGD/colo: Endoscopy Findings: erosive duodenitis erosive gastritis esophagitis Colonoscopy Findings: polyps internal hemorrhoids diverticular disease path: erosive duodenitis, hyperplastic polyps INTERIM: doing wlel with PPI needs zofran prn but not covered by insurance--on trulicity prob playing a role in nausea along with duodenitis no melena, no abdominal pain good appetite EXAM: GENERAL: The patient is well developed and nontoxic. VITAL SIGNS:see workflow HEENT: Nonicteric sclerae, PERRLA, EOMI. Oropharynx clear. Moist mucous membranes. Conjunctivae appear well perfused. No thyroid mass. CHEST: Chest wall is nontender. HEART: Regular rate and rhythm without murmurs. LUNGS: Clear to auscultation bilaterally. ABDOMEN: Soft, positive bowel sounds, nontender, no organomegaly.no flank tenderness SKIN: No rash, no excessive bruising, petechiae, or purpura. NEUROLOGIC: Cranial nerves II-XII intact without motor/sensory deficit. A/P: 1/ eroeive gastritis, duodenitis, related prob to meds --prior h pylori neg 2020 2/ GERD controlled PLAN: 1/ can try tigan for nausea, 2/ cont with pantoprazole, if worsening sx then can add carafate and rescope --might consider repeat H pylori breath test [facility] Medical History History of COVID-19 CAD (coronary artery disease) GERD (gastroesophageal reflux disease) Diabetes Sleep apnea treated with continuous positive airway pressure (CPAP) Hyperlipidemia Hypertension Surgical History History of heart artery stent H/O left knee surgery (~06/20/15) History of colonoscopy History of cardiac cath History of cataract surgery Family History Father CAD (coronary artery disease) HTN (hypertension) Diabetes Hypercholesteremia Mother CAD (coronary artery disease) Lung disease Diabetes HTN (hypertension) Hypercholesteremia Social History Are you a primary day care center director to a significant other at home: No Do you presently have visiting nurse or other home services: No Alcohol intake: current Alcohol intake frequency: does not drink Patient Tobacco Use Status: Never used Tobacco Physical Exam Vital Signs: Last Vital Signs Pulse 78 10/08/23 10:14 BP 104/62 10/08/23 10:14 BMI result Body Mass Index 37.3 Assessment & Plan Assessment & Plan (1) GERD (gastroesophageal reflux disease): Code(s): K21.9 - Gastro-esophageal reflux disease without esophagitis Plan: see above Coding Level of Care Code Est Pt Level 3 (75749) Diagnoses GERD (gastroesophageal reflux disease) K21.9
[2023-10-08 10:14] VITALS: BP 104/62; PULSE 78; BMI 37.3
== END 2023-10-08 10:52 | disposition home or self-care (01) ==
PROVIDERS: PCP Internal Medicine; Visit Provider Internal Medicine Gastroenterology
DX: K21.9 Gastro-esophageal reflux disease without esophagitis (principal)
CPT/HCPCS: 99213

== ENCOUNTER → 2023-10-08 09:58 | Outpatient (BNVA) | payer OTHER, SELFPAY | PROVIDERS: PCP Internal Medicine; Visit Provider Internal Medicine Gastroenterology | DX: K21.9 Gastro-esophageal reflux disease without esophagitis (principal) | CPT/HCPCS: 99212 ==

== ENCOUNTER 2023-11-11 15:14 | Outpatient (AMB) | payer OTHER, SELFPAY ==
--- NOTE | 2023-11-11 15:33 | MHC.OFFVIS ---
Intake Vital Signs 11/11/23 15:40 Height 5 ft 10 in Weight 258 lb BMI 37.0 BP 115/64 Blood Pressure Location Lt brachial Position Sitting Pulse 71 Pulse Source Pulse Oximeter Pulse Oximetry (%) 96 Oxygen Delivery Method Room Air Intake Visit Reasons: 6 mnts f/u for Sleep - CONF w/address Intake Note: Patient presents for 6 months F/U. Allergies No Known Allergies Allergy (Verified 11/11/23 15:38) HPI HPI Comments History of Present Illness Details 53 y/o male patient presents for follow up of RADHA on CPAP. Pt reports he uses CPAP at nightly and also uses it when he takes a nap. He is on CPAP at [id number]. Pt sleeps well with CPAP. The CPAP compliance and therapy response (08/11/23-11/08/23) reviewed. The usage days 100% and the average usage hours 12 hrs. The residual AHI was 1.6/hr. Pt uses melatonin gummy, reduced to 10 mg and it help him fall asleep. He stopped taking trazodone, it made him groggy. He practice sleep hygiene and sleeps better from 9 pm to 6-7 am. Pt reports he walks 3.5 miles daily and tries to lose wt. ? ? PFSH Medical History History of COVID-19 CAD (coronary artery disease) GERD (gastroesophageal reflux disease) Diabetes Sleep apnea treated with continuous positive airway pressure (CPAP) Hyperlipidemia Hypertension Surgical History History of heart artery stent H/O left knee surgery (~06/20/15) History of colonoscopy History of cardiac cath History of cataract surgery Family History Father CAD (coronary artery disease) HTN (hypertension) Diabetes Hypercholesteremia Mother CAD (coronary artery disease) Lung disease Diabetes HTN (hypertension) Hypercholesteremia Social History Are you a primary wild animal caretaker to a significant other at home: No Do you presently have visiting nurse or other home services: No Alcohol intake: current Alcohol intake frequency: does not drink Patient Tobacco Use Status: Never used Tobacco Review of Systems Const All systems reviewed & are unremarkable except as noted in HPI and below ENT Reports Normal hearing present Neuro Reports Normal hearing present Physical Exam Vital Signs: Last Vital Signs Pulse 71 11/11/23 15:40 BP 115/64 11/11/23 15:40 Pulse Ox 96 11/11/23 15:40 Oxygen Delivery Method Room Air 11/11/23 15:40 BMI result Body Mass Index 37.0 Const General: cooperative, comfortable and no acute distress Nutritional Appearance: obese Orientation/consciousness: patient oriented x3 Limitations: no limitations Resp Effort & Inspection: normal respiratory effort and able to speak in complete sentences Neuro General: patient oriented x3 and gait normal Cranial nerves: Yes Bilaterally intact EOM present, Yes Normal facial strength present, Yes Midline tongue present, Yes Symmetric palate elevation present, Yes Normal hearing present, Yes Ability to bilaterally rotate head present and Yes Ability to bilaterally elevate shoulders present Cognition (Neuro): normal cognition Gait exam (Neuro): Normal gait present Motor exam (neuro): 5/5 motor strength present throughout, Pronator motor function not present and no tremor noted Psych Appearance: grossly normal Mental Status: mental status grossly normal Speech and movement: Normal speech and movement present Affect: normal affect Assessment & Plan Assessment & Plan (1) RADHA (obstructive sleep apnea): Code(s): G47.33 - Obstructive sleep apnea (adult) (pediatric) (2) Insomnia: Code(s): G47.00 - Insomnia, unspecified Plan Continue to use CPAP at 11 cmH2O nightly as patient experiences good clinical effects. Encouraged patient to continue to do daily exercise and well balanced diet to mange wt. Continue to take melatonin 10 mg, and magnesium 400 mg qHS. Advised patient to call [employer] and request new SD card for compliance data. Coding Level of Care Code Est Pt Level 3 (04274) Diagnoses RADHA (obstructive sleep apnea) G47.33 Insomnia G47.00
[2023-11-11 15:40] VITALS: BP 115/64; PULSE 71; O2SAT 96; BMI 37.0
== END 2023-11-11 15:53 | disposition home or self-care (01) ==
PROVIDERS: PCP Internal Medicine; Visit Provider Nurse Practitioner Family
DX: G47.33 Obstructive sleep apnea (adult) (pediatric) (principal); G47.00 Insomnia, unspecified
CPT/HCPCS: 99213

== ENCOUNTER → 2023-11-11 15:14 | Outpatient (BNVA) | payer OTHER, SELFPAY | PROVIDERS: PCP Internal Medicine; Visit Provider Nurse Practitioner Family | DX: G47.33 Obstructive sleep apnea (adult) (pediatric) (principal); G47.00 Insomnia, unspecified | CPT/HCPCS: 99212 ==

== ENCOUNTER 2023-12-03 07:48 | Emergency (ER) | payer OTHER, SELFPAY ==
--- NOTE | ~2023-12-03 | US_ITS ---
EXAMINATION: US VENOUS ULTRASOUND WITH DOPPLER LOWER EXTREMITY, BILATERAL CLINICAL INFORMATION: Bilateral lower extremity pain. COMPARISON: Right lower extremity ultrasound 11/20/2022. TECHNIQUE: Ultrasound of the deep veins is performed from the hip to the calf with compression sonography and color and pulse Doppler assessment. Spectral analysis with color-flow imaging is performed. FINDINGS: RIGHT: There is normal venous compression and respiratory variation and augmented flow. The visualized common femoral vein, superficial femoral vein, profunda femoral vein, popliteal vein, and the trifurcation region shows no evidence of deep venous thrombosis. There is no significant popliteal fossa cyst. LEFT: There is normal venous compression and respiratory variation and augmented flow. The visualized common femoral vein, superficial femoral vein, profunda femoral vein, popliteal vein, and the trifurcation region shows no evidence of deep venous thrombosis. There is no significant popliteal fossa cyst. If the patient's symptoms persist, followup ultrasound in 5 days 7 days might be of value to exclude proximal propagation from a non-visualized calf vein. US/US venous duplex LE BI IMPRESSION: No DVT demonstrated in the bilateral lower extremities.
[2023-12-03 07:52] VITALS: BP 131/81; PULSE 70; RESP 18; TEMP 36.6; O2SAT 98; BMI 37.0
--- NOTE | 2023-12-03 08:11 | PC.NURSE ---
Patient reports pain x 3 weeks to bilateral lower extremities. Reports has tried pain patches and cream with no relief. Reports has diabetes and high blood pressure, states pain feels like sharp shooting pains like an electrical current. Denies trauma, no swelling noted.
--- NOTE | 2023-12-03 10:16 | ED_ITS ---
HPI - General Adult General Chief complaint: Extremity Injury, Lower Stated complaint: pain in both legs Time Seen by Provider: 12/03/23 09:15 Source: patient Mode of arrival: ambulatory Limitations: no limitations History of Present Illness HPI narrative: 53-year-old male with history of diabetes, sleep apnea, coronary artery disease, and GERD presents to the ED for bilateral lower extremity pain described as sharp tingling and also bilateral calf pain. Patient denies any swelling of lower extremity, bluish black discoloration, redness, hotness, paralysis, weakness, fever, chills, chest pain, shortness of breath, or coughing up blood Related Data Home Medications ?Medication ?Instructions ?Recorded ?Confirmed amlodipine 10 mg tablet 10 mg PO DAILY 10/30/20 09/17/23 atenolol 100 mg tablet 100 mg PO DAILY 10/30/20 09/17/23 atorvastatin 80 mg tablet 80 mg PO DAILY 10/30/20 09/17/23 clopidogrel 75 mg tablet 75 mg PO DAILY 10/30/20 09/17/23 glipizide 2.5 mg tablet, extended 2.5 mg PO DAILY 10/30/20 09/17/23 release 24 hr lisinopril 40 mg tablet 40 mg PO DAILY 10/30/20 09/17/23 metformin 1,000 mg tablet 1,000 mg PO DAILY 10/30/20 09/17/23 [id number] 250 1 tab PO Q8H PRN Pain (Scale Score 08/18/21 06/28/23 mg-250 mg-65 mg tablet (Migraine 4-6) Relief) hydralazine 25 mg tablet 25 mg PO QID 08/18/21 09/17/23 acetaminophen 325 mg capsule 650 mg PO Q6H PRN Pain 10/27/21 06/28/23 dulaglutide 0.75 mg/0.5 mL 0.75 mg subcut .QSUNDAY 10/08/22 09/17/23 subcutaneous pen injector (Trulicity) pantoprazole 40 mg tablet,delayed 40 mg PO DAILY 06/04/23 09/17/23 release triamcinolone acetonide 55 mcg spray intranasal 06/04/23 06/28/23 nasal spray aerosol Previous Rx's ?Medication ?Instructions ?Recorded methylcellulose (laxative) 500 mg 500 mg PO DAILY #30 tabs 05/27/21 tablet (Citrucel) aspirin 81 mg tablet,delayed 81 mg PO DAILY #90 tabs 08/25/21 release (Adult Low Dose Aspirin) docusate sodium 100 mg capsule 100 mg PO BEDTIME #30 caps 01/13/22 cetirizine 10 mg capsule (Zyrtec) 10 mg PO DAILY #30 caps 08/27/22 acetaminophen 500 mg capsule 1,000 mg (2 x 500 mg) PO TID PRN 11/20/22 pain #30 caps trazodone 50 mg tablet 25 mg (1/2 x 50 mg) PO DAILY 30 02/04/23 days #15 tabs isosorbide mononitrate 30 mg 30 mg PO DAILY #90 tabs 02/12/23 tablet,extended release 24 hr ondansetron 4 mg disintegrating 4 mg PO Q8H PRN nausea and 06/04/23 tablet vomiting #7 tabs spironolactone 25 1 tab PO DAILY #30 tabs 06/14/23 mg-hydrochlorothiazide 25 mg tablet gabapentin 100 mg capsule 100 mg PO TID 10 days #30 caps 12/03/23 Allergies Allergy/AdvReac Type Severity Reaction Status Date / Time No Known Allergies Allergy Verified 12/03/23 07:55 Review of Systems 2 Review of Systems: bilateral lower extremity pain, calf pain Yes all other systems are reviewed and are negative PMFSH Past Medical History Medical History History of COVID-19 CAD (coronary artery disease) GERD (gastroesophageal reflux disease) Diabetes Sleep apnea treated with continuous positive airway pressure (CPAP) Hyperlipidemia Hypertension Surgical History History of heart artery stent H/O left knee surgery (~06/20/15) History of colonoscopy History of cardiac cath History of cataract surgery Family History Family History Father CAD (coronary artery disease) HTN (hypertension) Diabetes Hypercholesteremia Mother CAD (coronary artery disease) Lung disease Diabetes HTN (hypertension) Hypercholesteremia Social History Social History Are you a primary critical care physician assistant to a significant other at home: No Do you presently have visiting nurse or other home services: No Alcohol intake: current Alcohol intake frequency: does not drink Patient Tobacco Use Status: Never used Tobacco Advance Directives: No Advance Directives Information Provided: No Physical Exam ED Vital Signs: Vital Signs - 24 hr 12/03/23 07:52 12/03/23 11:48 Temperature 98 F 98 F Pulse Rate 70 70 Respiratory Rate 18 18 Blood Pressure 131/81 131/81 Pulse Oximetry 98 97 Oxygen Delivery Method Room Air Room Air BMI result Body Mass Index 37.0 Const General: cooperative, healthy appearing, comfortable, no acute distress, well developed, alert, awake and Physically active Orientation/consciousness: oriented to person, oriented to place, oriented to time and patient oriented x3 HENMT Head: Yes normal to inspection, Yes No palpable skull fracture present, Yes normocephalic, Yes atraumatic and No abrasion Eyes General: appearance normal, both eyes and all related structures Neck Neck: Yes normal visual inspection, Yes full ROM, Yes no lymphadenopathy, Yes no meningeal signs, Yes trachea midline, Yes supple, No anterior neck swelling and No tender Chest Chest palpation & inspection: normal inspection of the chest and normal palpation of entire chest wall Resp Effort & Inspection: normal respiratory effort and able to speak in complete sentences Auscultation: clear to auscultation bilaterally Cardio Jugular venous distension: no JVD Heart sounds: S1 normal heart sound present and S2 normal heart sound present GI Inspection: Yes normal to inspection Palpation (GI): Soft to palpation, not firm, nontender, no guarding and not rigid General: No CVA tenderness and Yes no CVA tenderness Back/Spine/Pelvis Back: no CVA tenderness, No CVA tenderness and No back tenderness Skin General skin exam: no rashes or lesions noted, elasticity normal and turgor normal Neuro General: oriented to person, oriented to place, oriented to time, patient oriented x3, gait normal, tone normal, moves all extremities, Normal light touch and pain sensation, no meningeal signs, no focal motor deficits, CN's II-XI intact bilaterally and normal sensation to monofilament Extrem Other: Bilateral knee test normal and negative for erythema, ecchymosis, crepitus, deformity, or tenderness. General: Yes normal to inspection, Yes full ROM and Yes capillary refill normal Upper/lower leg/hip images: 2 1. positive for calf tenderness on palpation. Negative for any erythema, swelling of extremity, red streaks, bluish black discoloration, ecchymosis, deformity, or crepitus. Lower extremity motor/neuro/ vascular exam intact. 2. positive for calf tenderness on palpation. Negative for any erythema, swelling of extremity, red streaks, bluish black discoloration, ecchymosis, deformity, or crepitus. Lower extremity motor/neuro/ vascular exam intact. Psych Appearance: grossly normal and well kempt Medical Decision Making Medical Decision Making MDM Narrative: 53-year-old male history of diabetes presents to ED for bilateral lower extremity sharp tingling burning pain also with calf pain. Patient denies any recent trauma, fever, chills, chest pain, or shortness of breath. History of diabetes most likely diabetic neuropathy but will do ultrasound to make sure there is no DVTs. Not suspecting any arterial occlusion. No need for x-ray negative for ecchymosis, crepitus, deformity, or signs of fracture. 11:39pm: ultrasound of bilateral lower extremities negative for DVT. No need for any further imaging not suspecting any fracture, arterial occlusion, cellulitis, or compartment syndrome. Not suspecting septic joint. Patient will be discharged with gabapentin informed to follow up with primary care provider. Differential Diagnosis Differential Diagnoses: The differential diagnosis associated with the presentation includes ( Diabetic neuropathy, DVT,) Admission/Observation Consideration of admission/observation: Escalation of care including admission/observation considered Independent Historian Clinical information obtained from an independent historian. History obtained from or confirmed by: Other ( patient) External Record Review External record reviewed: Other ( prior visits) Prescription Management I considered prescription management with: Other ( gabapentin) Discharge Plan Discharge Clinical Impression: Diabetic neuropathy, Bilateral leg pain Patient Disposition: Home, Self-Care Instructions: Diabetic Peripheral Neuropathy (ED), Leg Pain (ED) Additional Instructions: recommend follow-up with your primary care provider. Bilateral lower extremity ultrasounds negative for DVT. return to the ED for any redness, swelling, bluish black discoloration, severe pain, fever, chills, calf pain, chest pain, shortness of breath, red streaks, or any other concerning symptoms. Prescriptions: New gabapentin 100 mg capsule 100 mg PO TID 10 Days Qty: 30 0RF No Action aspirin [Adult Low Dose Aspirin] 81 mg tablet,delayed release (DR/EC) 81 mg PO DAILY Qty: 90 3RF docusate sodium 100 mg capsule 100 mg PO BEDTIME Qty: 30 3RF isosorbide mononitrate 30 mg tablet extended release 24 hr 30 mg PO DAILY Qty: 90 3RF Zyrtec 10 mg capsule 10 mg PO DAILY Qty: 30 0RF Trulicity 0.75 mg/0.5 mL Pen Injector 0.75 mg SUBCUT .QSUNDAY acetaminophen 500 mg capsule 1,000 mg PO TID PRN (Reason: pain) Qty: 30 0RF metformin 1,000 mg tablet 1,000 mg PO DAILY lisinopril 40 mg tablet 40 mg PO DAILY amlodipine 10 mg tablet 10 mg PO DAILY glipizide 2.5 mg tablet extended release 24hr 2.5 mg PO DAILY atenolol 100 mg tablet 100 mg PO DAILY atorvastatin 80 mg tablet 80 mg PO DAILY clopidogrel 75 mg tablet 75 mg PO DAILY Migraine Relief 250-250-65 mg tablet 1 tab PO Q8H PRN (Reason: Pain (Scale Score 4-6)) hydralazine 25 mg tablet 25 mg PO QID Citrucel 500 mg tablet 500 mg PO DAILY Qty: 30 3RF Rx Instructions: take it with full glass of water acetaminophen 325 mg capsule 650 mg PO Q6H PRN (Reason: Pain) trazodone 50 mg tablet 25 mg PO DAILY 30 Days Qty: 15 3RF pantoprazole 40 mg tablet,delayed release (DR/EC) 40 mg PO DAILY triamcinolone acetonide 55 mcg aerosol,spray intranasal ondansetron 4 mg tablet,disintegrating 4 mg PO Q8H PRN (Reason: nausea and vomiting) Qty: 7 0RF spironolacton-hydrochlorothiaz 25-25 mg tablet 1 tab PO DAILY Qty: 30 6RF Interventions: ED Discharge Assessment Last Done: 12/03/23 11:48 Discharge Date/Time: 12/03/23 11:51 Print Language: Occitan
[2023-12-03 11:48] VITALS: BP 131/81; PULSE 70; RESP 18; TEMP 36.6; O2SAT 97
== END 2023-12-03 11:51 | disposition home or self-care (01) ==
PROVIDERS: Emergency Provider Emergency Medicine; PCP Internal Medicine
DX: E11.40 Type 2 diabetes mellitus with diabetic neuropathy, unspecified (principal); M79.604 Pain in right leg; M79.605 Pain in left leg; I10 Essential (primary) hypertension
CPT/HCPCS: 93970; 99282; 99284

== ENCOUNTER 2023-12-10 08:39 | Outpatient (REF) | payer OTHER, SELFPAY ==
[2023-12-10 10:06] LABS: Anion Gap 14 (12-20); Blood Urea Nitrogen 10 mg/dL (9-16); Carbon Dioxide 30 mmol/L (22-29); Chloride 102 mmol/L (96-108); Estimated Glomerular Filt Rate > 60; Potassium 3.8 mmol/L (3.3-5.1); Sodium 142 mmol/L (135-145)
== END 2023-12-10 08:40 | disposition home or self-care (01) ==
LOC: HO.LAB 08:39
PROVIDERS: PCP Internal Medicine; Visit Provider Internal Medicine Hypertension Specialist
DX: I10 Essential (primary) hypertension (principal); E11.9 Type 2 diabetes mellitus without complications
CPT/HCPCS: 36415; 80051; 82310; 82565; 84520

== ENCOUNTER 2023-12-13 13:10 | Outpatient (AMB) | payer OTHER, SELFPAY ==
[2023-12-13 13:12] VITALS: BP 116/84; PULSE 84; O2SAT 98; BMI 36.9
--- NOTE | 2023-12-13 13:12 | HO.NEPHOV ---
Vital Signs 12/13/23 13:12 Height 5 ft 10 in Weight 257 lb BMI 36.9 BP 116/84 Blood Pressure Location Lt brachial Position Sitting Pulse 84 Pulse Source Pulse Oximeter Pulse Oximetry (%) 98 Oxygen Delivery Method Room Air Intake Visit Reasons: 6M follow up/ Confirmed Television Antenna Installer Required: No Accompanied by: Self / Same As Patient Allergies No Known Allergies Allergy (Verified 12/13/23 13:13) HPI Comments Details: Elan has HTN in a setting of obesity c/o leg pains Diagnosed with neuropathy Now on Neurontin REPLACED BY [facility] Medical History History of COVID-19 CAD (coronary artery disease) GERD (gastroesophageal reflux disease) Diabetes Sleep apnea treated with continuous positive airway pressure (CPAP) Hyperlipidemia Hypertension Surgical History History of heart artery stent H/O left knee surgery (~06/20/15) History of colonoscopy History of cardiac cath History of cataract surgery Family History Father CAD (coronary artery disease) HTN (hypertension) Diabetes Hypercholesteremia Mother CAD (coronary artery disease) Lung disease Diabetes HTN (hypertension) Hypercholesteremia Social History Are you a primary career development manager to a significant other at home: No Do you presently have visiting nurse or other home services: No Alcohol intake: current Alcohol intake frequency: does not drink Patient Tobacco Use Status: Never used Tobacco Physical Exam Vital Signs: Last Vital Signs Pulse 84 12/13/23 13:12 BP 116/84 12/13/23 13:12 Pulse Ox 98 12/13/23 13:12 Oxygen Delivery Method Room Air 12/13/23 13:12 BMI result Body Mass Index 36.9 Const General: comfortable Nutritional Appearance: well nourished Orientation/consciousness: patient oriented x3 HEENT Head: No normal to inspection Mouth: moist mucous membranes Neck Neck: Yes supple and Yes no JVD Resp Auscultation: clear to auscultation bilaterally, no rales and rub present Cardio Jugular venous distension: no JVD Palpation: no palpable S3 and no palpable S4 Heart sounds: no rubs GI Palpation (GI): Soft to palpation and nontender Percussion: No Fluid wave present General: Yes no CVA tenderness Back/Spine/Pelvis Back: no CVA tenderness Skin General skin exam: no rashes or lesions noted Neuro General: patient oriented x3 Extrem General: Yes no pedal edema and No clubbing Results Reviewed Nephrology Results: Sodium 142 mmol/L (135-145) 12/10/23 Potassium 3.8 mmol/L (3.3-5.1) 12/10/23 Chloride 102 mmol/L (96-108) 12/10/23 Carbon Dioxide 30 mmol/L (22-29) H 12/10/23 BUN 10 mg/dL (9-16) 12/10/23 Creatinine 0.81 mg/dL (0.5-1.4) 12/10/23 Calcium 9.0 mg/dL (8.4-10.2) 12/10/23 Assessment & Plan Assessment & Plan (1) Hypertension: Code(s): I10 - Essential (primary) hypertension Category: Medical Plan: BP is well controlled Low salt diet ON Aldactazide 25-25 QD Needs weight loss Renal function is stable. (2) Diabetes: Code(s): E11.9 - Type 2 diabetes mellitus without complications Category: Medical Plan: Goal A1C < 7% Plan Leg pain Most likely from diabetic neuropathy Will check B12 and foloate levels Concur with Gabapentin Orders: Orders Basic Metabolic Panel 6 Months E11.9 - Type 2 diabetes mellitus without complications Total Protein Urine Random 6 Months E11.9 - Type 2 diabetes mellitus without complications Creatinine Urine 6 Months E11.9 - Type 2 diabetes mellitus without complications, N05.9 - Unspecified nephritic syndrome with unspecified morphologic changes UA and rflx microscopic 6 Months E11.9 - Type 2 diabetes mellitus without complications Vitamin B12 and Folate 6 Months E11.9 - Type 2 diabetes mellitus without complications Coding Level of Care Code Est Pt Level 4 (86632) Diagnoses Hypertension I10 Diabetes E11.9
== END 2023-12-13 13:28 | disposition home or self-care (01) ==
PROVIDERS: PCP Internal Medicine; Visit Provider Internal Medicine Hypertension Specialist
DX: I10 Essential (primary) hypertension (principal); E11.9 Type 2 diabetes mellitus without complications
CPT/HCPCS: 99214

== ENCOUNTER → 2023-12-13 13:10 | Outpatient (BNVA) | payer OTHER, SELFPAY | PROVIDERS: PCP Internal Medicine; Visit Provider Internal Medicine Hypertension Specialist | DX: E11.9 Type 2 diabetes mellitus without complications (principal); I10 Essential (primary) hypertension; N05.9 Unspecified nephritic syndrome with unspecified morphologic changes; E66.9 Obesity, unspecified; Z68.36 Body mass index [BMI] 36.0-36.9, adult | CPT/HCPCS: 99212 ==

== ENCOUNTER 2023-12-15 10:17 | Outpatient (REF) | payer OTHER, SELFPAY ==
[2023-12-15 11:29] LABS: MANUAL DIFF FLAG NO
[2023-12-15 11:41] LABS: Basophils Percent Auto 0.5 % (0-2); Eosinophils Absolute Auto 0.1 X10*3/uL (0.0-0.4); Hematocrit 41.2 % (42.0-52.0); Hemoglobin 13.7 g/dl (14.0-18.0); Imm Gran Abs Auto 0.02 X10*3/uL (0.00-0.03); Imm Gran Pct Auto 0.3 % (0.0-0.4); Lymphocytes Absolute Auto 1.4 X10*3/uL (1.2-4.9); Lymphocytes Percent Auto 23.7 % (20-40); Mean Corpuscular HGB Conc 33.3 g/dl (31.0-36.0); Mean Corpuscular Hemoglobin 30.4 pg (27.0-33.0); Mean Corpuscular Volume 91.4 fL (80.0-98.0); Mean Platelet Volume 10.9 fL (9.4-12.4); Monocytes Absolute Auto 0.5 X10*3/uL (0.1-1.2); Monocytes Percent Auto 8.1 % (2-11); Neutrophils Absolute Auto 3.9 x10*3/uL (2.0-8.3); Neutrophils Percent Auto 65.4 % (45-73); Platelet Count 229 X10*3/uL (160-400); Red Blood Count 4.51 X10*6/uL (4.60-5.80); Red Cell Distribution Width 12.6 % (11.0-16.0); White Blood Count 5.9 X10*3/uL (4.8-10.8)
[2023-12-15 12:36] LABS: Folate 13.7 ng/mL (> or = 4.0); Vitamin B12 473 pg/mL (200-900)
== END 2023-12-15 10:18 | disposition home or self-care (01) ==
LOC: HO.HHCL 10:17
PROVIDERS: Visit Provider Emergency Medicine
DX: E11.42 Type 2 diabetes mellitus with diabetic polyneuropathy (principal)
CPT/HCPCS: 36415; 82607; 82746; 85025

== ENCOUNTER 2023-12-21 08:48 | Outpatient (REF) | payer OTHER, SELFPAY ==
--- NOTE | 2023-12-21 | EMG_ITS ---
Bilateral tibial and peroneal motor studies were performed. Bilateral superficial peroneal and sural sensory studies were performed. Median and lateral mixed plantar studies were performed. Tibial H reflexes were obtained and paraspinal muscles were tested with a needle. 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 MD BRANDON Faustin/ROSEMARY / [id number]
== END 2023-12-21 08:49 | disposition home or self-care (01) ==
LOC: HO.NEURO 08:48
PROVIDERS: PCP Internal Medicine; Visit Provider Emergency Medicine
DX: E11.42 Type 2 diabetes mellitus with diabetic polyneuropathy (principal)
CPT/HCPCS: 95886; 95913

== ENCOUNTER 2024-01-24 13:38 | Outpatient (AMB) | payer OTHER, SELFPAY ==
[2024-01-24 13:47] VITALS: BP 130/80; PULSE 84; BMI 36.6
--- NOTE | 2024-01-24 13:47 | A.OFFVIS_ITS ---
Vital Signs 01/24/24 13:47 Height 5 ft 10 in Weight 255 lb 4.725 oz BMI 36.6 BP 130/80 Blood Pressure Location Lt brachial Position Sitting Pulse 84 Pulse Source Monitor Intake Visit Reasons: 6mth f/up Intake Note: pt states that he is doing fine. Family Therapist Required: No Accompanied by: Self / Same As Patient Allergies No Known Allergies Allergy (Verified 12/13/23 13:13) Medication List - Last Reconciled 01/24/24 by Markus Morrison MD acetaminophen 1,000 mg (2 x 500 mg) PO TID PRN acetaminophen 650 mg PO Q6H PRN amlodipine 10 mg PO DAILY aspirin (Adult Low Dose Aspirin) 81 mg PO DAILY caqaqii-igbazckcvxzyf-uczdasco 250-250-65 mg (Migraine Relief) 1 tab PO Q8H PRN atenolol 100 mg PO DAILY atorvastatin 80 mg PO DAILY clopidogrel 75 mg PO DAILY docusate sodium 100 mg PO BEDTIME dulaglutide (Trulicity) 0.75 mg subcut .QSUNDAY gabapentin 100 mg PO TID 10 days glipizide ER 2.5 mg PO DAILY hydralazine 25 mg PO QID isosorbide mononitrate ER 30 mg PO DAILY lisinopril 40 mg PO DAILY metformin 1,000 mg PO DAILY methylcellulose (laxative) (Citrucel) 500 mg PO DAILY ondansetron 4 mg PO Q8H PRN pantoprazole 40 mg PO DAILY spironolacton-hydrochlorothiaz 25-25 mg 1 tab PO DAILY triamcinolone acetonide sprays intranasal HPI Comments Details: 53-year-old gentleman here for follow-up. He has known history of coronary artery disease and previously underwent RCA and left circumflex PCI. He had mid LAD stenosis which was moderate and was medically managed. He had stress testing done which was normal. He has been walking and exercising without any symptoms. No bleeding issues. Taking medications regularly. Blood pressure control is good. Physically active and has been walking around the otherwise without any issues. Stable on follow-up. 06/28/2023: He returns for follow-up. He has been active and has no symptoms. Blood pressure control is good. Taking medications regularly. 01/24/24: He is here for follow-up. He has been diagnosed with peripheral neuropathy. He has been started on gabapentin. He is also using nerve relief bunm-pqj-ofavxfj supplements and saying that that is helping him. He is on aspirin and Plavix and also uses migraine relief. I have advised him not to use it because it also has aspirin and I am not sure how frequently uses these medications. No chest discomfort shortness of breath. [facility] Medical History History of COVID-19 CAD (coronary artery disease) GERD (gastroesophageal reflux disease) Diabetes Sleep apnea treated with continuous positive airway pressure (CPAP) Hyperlipidemia Hypertension Surgical History History of heart artery stent H/O left knee surgery (~06/20/15) History of colonoscopy History of cardiac cath History of cataract surgery Family History Father CAD (coronary artery disease) HTN (hypertension) Diabetes Hypercholesteremia Mother CAD (coronary artery disease) Lung disease Diabetes HTN (hypertension) Hypercholesteremia Social History Are you a primary cardiac care nurse to a significant other at home: No Do you presently have visiting nurse or other home services: No Alcohol intake: current Alcohol intake frequency: does not drink Patient Tobacco Use Status: Never used Tobacco Review of Systems Const Denies chills, Denies fatigue, Denies fever(s), Denies frequent falls, Denies weakness, Denies weight gain and Denies weight loss ENT Denies dizziness Card Denies chest pain, Denies leg edema, Denies lightheadedness, Denies palpitations, Denies dyspnea and Denies dyspnea on exertion Resp Denies cough, Denies dyspnea and Denies dyspnea on exertion GI Denies hematochezia Musc Denies abnormal gait, Denies muscle weakness, Denies numbness, Denies radiating pain into limb and Denies tingling Neuro Denies abnormal gait, Denies dizziness, Denies frequent falls, Denies numbness, Denies tingling and Denies weakness Endo Denies fatigue and Denies palpitations Physical Exam Vital Signs: Last Vital Signs Pulse 84 01/24/24 13:47 BP 130/80 01/24/24 13:47 BMI result Body Mass Index 36.6 GENERAL APPEARANCE: in no acute distress, pleasant. NECK: no carotid bruit, no jugular venous distention. SKIN: no suspicious lesions, warm and dry. HEART: no murmurs, regular rate and rhythm. LUNGS: clear to auscultation bilaterally. ABDOMEN: soft, nontender. EXTREMITIES: no edema. PERIPHERAL PULSES: equal. NEUROLOGIC: No gross deficits, AAO X 3 Office Procedures EKG Details: Sinus rhythm 84 beats per minute, normal axis, nonspecific ST changes, QT interval is 441 milliseconds. [id number], Complete Assessment & Plan Assessment & Plan (1) Hypertension: Code(s): I10 - Essential (primary) hypertension Category: Medical (2) Stable angina: Code(s): I20.8 - Other forms of angina pectoris Category: Medical Plan 53-year-old gentleman presenting for follow-up. Blood pressure is well controlled. He has stable angina. Due to diabetes he has developed peripheral neuropathy and has been on gabapentin. Will benefit from weight loss. Follow-up in few months. Thank you for allowing me to participate in the care of your patient. Please feel free to contact me if you have any questions. Coding Level of Care Code Est Pt Level 4 (78106) Diagnoses Hypertension I10 Stable angina I20.8 CPT Codes EKG - CPT: 45601-Hlmlbwfsjloolyyqd, Complete ([id number])
== END 2024-01-24 14:16 | disposition home or self-care (01) ==
PROVIDERS: PCP Internal Medicine; Visit Provider Internal Medicine Cardiovascular Disease
DX: I10 Essential (primary) hypertension (principal); I20.89 Other forms of angina pectoris
CPT/HCPCS: 93010; 99214

== ENCOUNTER → 2024-01-24 13:38 | Outpatient (BNVA) | payer OTHER, SELFPAY | PROVIDERS: PCP Internal Medicine; Visit Provider Internal Medicine Cardiovascular Disease | DX: I10 Essential (primary) hypertension (principal); I20.89 Other forms of angina pectoris; Z79.02 Long term (current) use of antithrombotics/antiplatelets; Z79.82 Long term (current) use of aspirin | CPT/HCPCS: 93005; 99212 ==

== ENCOUNTER 2024-04-10 09:50 | Outpatient (AMB) | payer OTHER, SELFPAY ==
--- NOTE | 2024-04-10 09:51 | A.OFFVIS_ITS ---
Vital Signs 04/10/24 09:53 Height 5 ft 10 in Weight 257 lb 15.053 oz BMI 37.0 BP 134/84 Blood Pressure Location Rt brachial Position Sitting Pulse 70 Pulse Source Pulse Oximeter Pulse Oximetry (%) 97 Oxygen Delivery Method Room Air Intake Visit Reasons: 6 months follow up Intake Note: Rodrick presents in office today for a scheduled 6 mos FUV. CC; Pt reports that he has remained stable since his last visit. However, pt has been struggling with recent adjustment to ozempic from [facility]. Pt does report that he could use a refill of his zofran. Specialty Sales Representative Required: No Allergies No Known Allergies Allergy (Verified 04/10/24 09:52) HPI HPI 6 months follow up: Details: 53 yr old m here for f/u RECAP: He had poor prep for screening colonoscopy and noted to have diverticulosis, needed repeat as below he has heartburn and is controlled with medication incl PPI and H2B he does have distention and bloating he had neg H pylori stool in past he had pyloric pylorplasty for congenital pyloric stenosis He had EGD and colo as below: EGD/colo: Endoscopy Findings: erosive duodenitis erosive gastritis esophagitis Colonoscopy Findings: polyps internal hemorrhoids diverticular disease path: erosive duodenitis, hyperplastic polyps INTERIM: he is on ozempic, giving him nausea--helped with zofran kicking his ass still taking PPI and it helps no melena, no abdominal pain no constipation or diarrhea EXAM: GENERAL: The patient is well developed and nontoxic. VITAL SIGNS:see workflow HEENT: Nonicteric sclerae, PERRLA, EOMI. Oropharynx clear. Moist mucous membranes. Conjunctivae appear well perfused. No thyroid mass. CHEST: Chest wall is nontender. HEART: Regular rate and rhythm without murmurs. LUNGS: Clear to auscultation bilaterally. ABDOMEN: Soft, positive bowel sounds, nontender, no organomegaly.no flank tenderness SKIN: No rash, no excessive bruising, petechiae, or purpura. NEUROLOGIC: Cranial nerves II-XII intact without motor/sensory deficit. A/P: 1/ eroeive gastritis, duodenitis, related prob to meds --prior h pylori neg 2020 2/ GERD controlled 3/ nausea 2/2 ozempic PLAN: 1/ cont with zofran prn 2/ cont with pantoprazole, if worsening sx then can add carafate and rescope 3/ warned on SE of ozempic 4/ advised to take MV and vit D supplement --1000 units daily PFSH Medical History History of COVID-19 CAD (coronary artery disease) GERD (gastroesophageal reflux disease) Diabetes Sleep apnea treated with continuous positive airway pressure (CPAP) Hyperlipidemia Hypertension Surgical History History of heart artery stent H/O left knee surgery (~06/20/15) History of colonoscopy History of cardiac cath History of cataract surgery Family History Father CAD (coronary artery disease) HTN (hypertension) Diabetes Hypercholesteremia Mother CAD (coronary artery disease) Lung disease Diabetes HTN (hypertension) Hypercholesteremia Social History Are you a primary medicare coordinator to a significant other at home: No Do you presently have visiting nurse or other home services: No Alcohol intake: current Alcohol intake frequency: does not drink Patient Tobacco Use Status: Never used Tobacco Physical Exam Vital Signs: Last Vital Signs Pulse 70 04/10/24 09:53 BP 134/84 04/10/24 09:53 Pulse Ox 97 04/10/24 09:53 Oxygen Delivery Method Room Air 04/10/24 09:53 BMI result Body Mass Index 37.0 Assessment & Plan Assessment & Plan (1) Esophagitis: Code(s): K20.90 - Esophagitis, unspecified without bleeding Category: Medical Plan: see above Medications: Refilled ondansetron 4 mg PO Q8H PRN 30 tabs 2RF nausea and vomiting Coding Level of Care Code Est Pt Level 3 (79943) Diagnoses Esophagitis K20.90
[2024-04-10 09:53] VITALS: BP 134/84; PULSE 70; O2SAT 97; BMI 37.0
== END 2024-04-10 10:21 | disposition home or self-care (01) ==
PROVIDERS: PCP Internal Medicine; Visit Provider Internal Medicine Gastroenterology
DX: K20.90 Esophagitis, unspecified without bleeding (principal)
CPT/HCPCS: 99213

== ENCOUNTER → 2024-04-10 09:50 | Outpatient (BNVA) | payer OTHER, SELFPAY | PROVIDERS: PCP Internal Medicine; Visit Provider Internal Medicine Gastroenterology | DX: K20.90 Esophagitis, unspecified without bleeding (principal); K57.90 Diverticulosis of intestine, part unspecified, without perforation or abscess without bleeding | CPT/HCPCS: 99212 ==

== ENCOUNTER 2024-05-30 09:08 | Outpatient (REF) | payer OTHER, SELFPAY ==
[2024-05-30 12:31] LABS: Anion Gap 14 (12-20); Blood Urea Nitrogen 15 mg/dL (9-16); Calcium 9.3 mg/dL (8.4-10.2); Carbon Dioxide 32 mmol/L (22-29); Chloride 99 mmol/L (96-108); Cholesterol 120 mg/dL (<200); Estimated Glomerular Filt Rate > 60; Glucose Random 243 mg/dL (60-115); HDL Cholesterol 30 mg/dL (>40); LDL Cholesterol Calculated 62 mg/dL (<100); Potassium 3.8 mmol/L (3.3-5.1); Sodium 141 mmol/L (135-145); Triglycerides 144 mg/dL (<150)
[2024-05-30 12:44] LABS: Creatinine Urine 104.59 mg/dL; Microalbum/Creatinine Ratio Ur 25.8 ug/mg cr (<30)
== END 2024-05-30 09:09 | disposition home or self-care (01) ==
LOC: HO.HHCL 09:08
PROVIDERS: Visit Provider Internal Medicine
DX: E11.65 Type 2 diabetes mellitus with hyperglycemia (principal); I10 Essential (primary) hypertension
CPT/HCPCS: 36415; 80048; 80061; 82043; 82570

== ENCOUNTER 2024-06-05 12:56 | Outpatient (AMB) | payer OTHER, SELFPAY ==
[2024-06-05 13:18] VITALS: BP 122/78; PULSE 83; BMI 37.2
--- NOTE | 2024-06-05 13:18 | MHC.OFFVIS ---
Vital Signs 06/05/24 13:18 Height 5 ft 10 in Weight 259 lb 4.218 oz BMI 37.2 BP 122/78 Blood Pressure Location Lt brachial Position Sitting Pulse 83 Pulse Source Pulse Oximeter Intake Visit Reasons: 4 month follow up Intake Note: 4 Month f/u. 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: No Accompanied by: Self / Same As Patient Allergies No Known Allergies Allergy (Verified 04/10/24 09:52) Medication List - Last Reconciled 06/05/24 by Markus Morrison MD acetaminophen 650 mg PO Q6H PRN amlodipine 10 mg PO DAILY aspirin (Adult Low Dose Aspirin) 81 mg PO DAILY ouktpjk-vfhcpypkxcqzr-sydfaetu 250-250-65 mg (Migraine Relief) 1 tab PO Q8H PRN atenolol 100 mg PO DAILY atorvastatin 80 mg PO DAILY clopidogrel 75 mg PO DAILY docusate sodium 100 mg PO BEDTIME gabapentin 300 mg PO TID glipizide ER 2.5 mg PO DAILY hydralazine 25 mg PO QID isosorbide mononitrate ER 30 mg PO DAILY lisinopril 40 mg PO DAILY metformin 1,000 mg PO DAILY methylcellulose (laxative) (Citrucel) 500 mg PO DAILY ondansetron 4 mg PO Q8H PRN pantoprazole 40 mg PO DAILY semaglutide (Ozempic) 1 mg subcut QWEEK spironolacton-hydrochlorothiaz 25-25 mg 1 tab PO DAILY triamcinolone acetonide sprays intranasal HPI Comments Details: 54-year-old gentleman here for follow-up. He has known history of coronary artery disease and previously underwent RCA and left circumflex PCI. He had mid LAD stenosis which was moderate and was medically managed. He had stress testing done which was normal. He has been walking and exercising without any symptoms. No bleeding issues. Taking medications regularly. Blood pressure control is good. Physically active and has been walking around the otherwise without any issues. Stable on follow-up. 06/28/2023: He returns for follow-up. He has been active and has no symptoms. Blood pressure control is good. Taking medications regularly. 01/24/24: He is here for follow-up. He has been diagnosed with peripheral neuropathy. He has been started on gabapentin. He is also using nerve relief zxxk-qoi-ipfqmqb supplements and saying that that is helping him. He is on aspirin and Plavix and also uses migraine relief. I have advised him not to use it because it also has aspirin and I am not sure how frequently uses these medications. No chest discomfort shortness of breath. 06/05/2024: He has bilateral lower extremity neuropathy and is quite concerned due to that. He is saying that his activity level has gone down. He has a gym membership but can not do any cardio due to neuropathy. I have advised him that he should be doing weight training as exercise in any form will help condition him and will help diabetes control. Blood pressure is otherwise well controlled. He is taking medications regularly. No other symptoms. [facility] Medical History History of COVID-19 CAD (coronary artery disease) GERD (gastroesophageal reflux disease) Diabetes Sleep apnea treated with continuous positive airway pressure (CPAP) Hyperlipidemia Hypertension Surgical History History of heart artery stent H/O left knee surgery (~06/20/15) History of colonoscopy History of cardiac cath History of cataract surgery Family History Father CAD (coronary artery disease) HTN (hypertension) Diabetes Hypercholesteremia Mother CAD (coronary artery disease) Lung disease Diabetes HTN (hypertension) Hypercholesteremia Social History Are you a primary memory care program resident to a significant other at home: No Do you presently have visiting nurse or other home services: No Alcohol intake: current Alcohol intake frequency: does not drink Patient Tobacco Use Status: Never used Tobacco Review of Systems Const Denies chills, Denies fatigue, Denies fever(s), Denies weight gain and Denies weight loss ENT Denies dizziness Card Denies chest pain, Denies leg edema, Denies lightheadedness, Denies palpitations, Denies dyspnea on exertion, Denies orthopnea and Denies other Resp Denies cough and Denies dyspnea on exertion GI Denies hematochezia and Denies change in stool character Musc Denies abnormal gait, Denies muscle weakness, Denies numbness, Denies radiating pain into limb and Denies tingling Neuro Denies abnormal gait, Denies dizziness, Denies numbness and Denies tingling Endo Denies fatigue and Denies palpitations Physical Exam Vital Signs: Last Vital Signs Pulse 83 06/05/24 13:18 BP 122/78 06/05/24 13:18 BMI result Body Mass Index 37.2 GENERAL APPEARANCE: in no acute distress, pleasant. NECK: no carotid bruit, no jugular venous distention. SKIN: no suspicious lesions, warm and dry. HEART: no murmurs, regular rate and rhythm. LUNGS: clear to auscultation bilaterally. ABDOMEN: soft, nontender. EXTREMITIES: no edema. PERIPHERAL PULSES: equal. NEUROLOGIC: No gross deficits, AAO X 3 Assessment & Plan Assessment & Plan (1) Hypertension: Code(s): I10 - Essential (primary) hypertension Category: Medical (2) Stable angina: Code(s): I20.8 - Other forms of angina pectoris Category: Medical Plan 54-year-old gentleman who is here for follow-up. He has known history of coronary disease with previous PCI. He has residual disease in the LAD which was medically managed. He has done well with medical management at this stage. He has peripheral neuropathy due to diabetes. Unfortunately this is really affecting his day-to-day life and he is unable to exercise as much as he could before. I have advised him to stay focused and do as much exercise as he can. He is taking gabapentin and using capsaicin cream on the legs. He is also taking multivitamins. Stable from cardiovascular point of view. He will see us back in 4 months. Thank you for allowing me to participate in the care of your patient. Please feel free to contact me if you have any questions. Medications: Changed From gabapentin 100 mg PO TID 30 caps 0RF 10 days To gabapentin 300 mg PO TID Coding Level of Care Code Est Pt Level 4 (59510) Diagnoses Hypertension I10 Stable angina I20.8
== END 2024-06-05 13:40 | disposition home or self-care (01) ==
LOC: HO.HCS 12:56
PROVIDERS: PCP Internal Medicine; Visit Provider Internal Medicine Cardiovascular Disease
DX: I10 Essential (primary) hypertension (principal); I20.89 Other forms of angina pectoris
CPT/HCPCS: 99214

== ENCOUNTER → 2024-06-05 12:56 | Outpatient (BNVA) | payer OTHER, SELFPAY | PROVIDERS: PCP Internal Medicine; Visit Provider Internal Medicine Cardiovascular Disease | DX: I10 Essential (primary) hypertension (principal); I20.89 Other forms of angina pectoris | CPT/HCPCS: 99212 ==

== ENCOUNTER 2024-06-08 12:38 | Outpatient (REF) | payer OTHER, SELFPAY ==
[2024-06-08 14:15] LABS: Appearance Urine Clear; Color Urine Yellow; Glucose Urine UA Negative (Negative); Leukocyte Esterase Urine Negative (Negative); Nitrite Urine Negative (Negative); PH 6.5 (5.0-9.0); Specific Gravity - Urine 1.025 (1.005-1.025); Urine Blood Negative (Negative); Urine Ketones Trace mg/dL (Negative); Urine Protein Negative (Neg-Trace)
[2024-06-08 14:25] LABS: Anion Gap 18 (12-20); Blood Urea Nitrogen 15 mg/dL (9-16); Calcium 9.7 mg/dL (8.4-10.2); Carbon Dioxide 29 mmol/L (22-29); Chloride 100 mmol/L (96-108); Estimated Glomerular Filt Rate > 60; Glucose Random 174 mg/dL (60-115); Potassium 3.5 mmol/L (3.3-5.1); Sodium 143 mmol/L (135-145)
[2024-06-08 14:56] LABS: Folate 15.1 ng/mL (> or = 4.0); Vitamin B12 615 pg/mL (200-900)
[2024-06-08 15:01] LABS: Creatinine Urine 137.59 mg/dL; Total Protein Urine Random 16 mg/dL (<12)
== END 2024-06-08 12:39 | disposition home or self-care (01) ==
LOC: HO.LAB 12:38
PROVIDERS: PCP Internal Medicine; Visit Provider Internal Medicine Hypertension Specialist
DX: E11.9 Type 2 diabetes mellitus without complications (principal); N05.9 Unspecified nephritic syndrome with unspecified morphologic changes
CPT/HCPCS: 36415; 80048; 81003; 82570; 82607; 82746; 84156

== ENCOUNTER 2024-06-12 13:02 | Outpatient (AMB) | payer OTHER, SELFPAY ==
--- NOTE | 2024-06-12 13:15 | HO.NEPHOV ---
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: No Accompanied by: Self / Same As Patient Allergies No Known Allergies Allergy (Verified 06/12/24 13:18) Medication List - Last Reconciled 06/12/24 by Juan Alberto Cronin MD acetaminophen 650 mg PO Q6H PRN amlodipine 10 mg PO DAILY aspirin (Adult Low Dose Aspirin) 81 mg PO DAILY ogamqky-iorgnizlaflxm-lfizxloq 250-250-65 mg (Migraine Relief) 1 tab PO Q8H PRN atenolol 100 mg PO DAILY atorvastatin 80 mg PO DAILY clopidogrel 75 mg PO DAILY docusate sodium 100 mg PO BEDTIME gabapentin 300 mg PO BEDTIME glipizide ER 2.5 mg PO DAILY hydralazine 25 mg PO QID isosorbide mononitrate ER 30 mg PO DAILY lisinopril 40 mg PO DAILY metformin 1,000 mg PO DAILY methylcellulose (laxative) (Citrucel) 500 mg PO DAILY ondansetron 4 mg PO Q8H PRN pantoprazole 40 mg PO DAILY semaglutide (Ozempic) 1 mg subcut QWEEK spironolacton-hydrochlorothiaz 25-25 mg 1 tab PO DAILY triamcinolone acetonide sprays intranasal HPI Comments Details: Elan has HTN in a setting of obesity c/o leg pains Diagnosed with neuropathy Now on Neurontin 06/12/24 Overall doing OK. Has elevated blood sugar last night Uses CPAP regularly PFSH Medical History History of COVID-19 CAD (coronary artery disease) GERD (gastroesophageal reflux disease) Diabetes Sleep apnea treated with continuous positive airway pressure (CPAP) Hyperlipidemia Hypertension Surgical History History of heart artery stent H/O left knee surgery (~06/20/15) History of colonoscopy History of cardiac cath History of cataract surgery Family History Father CAD (coronary artery disease) HTN (hypertension) Diabetes Hypercholesteremia Mother CAD (coronary artery disease) Lung disease Diabetes HTN (hypertension) Hypercholesteremia Social History Are you a primary insurance healthcare representative to a significant other at home: No Do you presently have visiting nurse or other home services: No Alcohol intake: current Alcohol intake frequency: does not drink Patient Tobacco Use Status: Never used Tobacco Physical Exam Vital Signs: Last Vital Signs Pulse 87 06/12/24 13:16 BP 152/92 H 06/12/24 13:16 Pulse Ox 97 06/12/24 13:16 Oxygen Delivery Method Room Air 06/12/24 13:16 BMI result Body Mass Index 36.9 Results Reviewed Nephrology Results: Hgb 13.7 g/dl (14.0-18.0) L 12/15/23 WBC 5.9 X10*3/uL (4.8-10.8) 12/15/23 Plt Count 229 X10*3/uL (160-400) 12/15/23 Sodium 143 mmol/L (135-145) 06/08/24 Potassium 3.5 mmol/L (3.3-5.1) 06/08/24 Chloride 100 mmol/L (96-108) 06/08/24 Carbon Dioxide 29 mmol/L (22-29) 06/08/24 BUN 15 mg/dL (9-16) 06/08/24 Creatinine 0.79 mg/dL (0.5-1.4) 06/08/24 Calcium 9.7 mg/dL (8.4-10.2) 06/08/24 Urine Protein Negative mg/dL (Neg-Trace) 06/08/24 Urine Creatinine 137.59 mg/dL 06/08/24 Assessment & Plan Assessment & Plan (1) Hypertension: Code(s): I10 - Essential (primary) hypertension Category: Medical Plan: BP is well controlled Low salt diet ON Aldactazide 25-25 QD Needs weight loss Renal function is stable. Keep SGLT-2 inhibitor for cardio renal protection (2) Diabetes: Code(s): E11.9 - Type 2 diabetes mellitus without complications Category: Medical Plan: Goal A1C < 7% Plan Leg pain Most likely from diabetic neuropathy Concur with Gabapentin Coding Level of Care Code Est Pt Level 4 (61008) Diagnoses Hypertension I10 Diabetes E11.9
[2024-06-12 13:16] VITALS: BP 152/92; PULSE 87; O2SAT 97; BMI 36.9
[2024-06-12 13:27] VITALS: BP 126/82
== END 2024-06-12 13:31 | disposition home or self-care (01) ==
PROVIDERS: PCP Internal Medicine; Visit Provider Internal Medicine Hypertension Specialist
DX: I10 Essential (primary) hypertension (principal); E11.8 Type 2 diabetes mellitus with unspecified complications
CPT/HCPCS: 99214

== ENCOUNTER → 2024-06-12 13:02 | Outpatient (BNVA) | payer OTHER, SELFPAY | PROVIDERS: PCP Internal Medicine; Visit Provider Internal Medicine Hypertension Specialist | DX: I10 Essential (primary) hypertension (principal); E66.9 Obesity, unspecified; E11.9 Type 2 diabetes mellitus without complications; Z68.36 Body mass index [BMI] 36.0-36.9, adult | CPT/HCPCS: 99212 ==

== ENCOUNTER 2024-08-11 12:36 | Emergency (ER) | payer OTHER, SELFPAY ==
--- NOTE | ~2024-08-11 | CT_ITS ---
EXAMINATION: CT TEMPORAL BONES/MASTOIDS WITHOUT CONTRAST CLINICAL INFORMATION: Left ear infection, severe left mastoid tenderness to palpation and pain. COMPARISON: No prior temporal bone study. MRI brain 10/10/2019. CT brain 07/27/2019. TECHNIQUE: Spiral CT imaging of the petrous temporal bones and mastoids was performed in axial plane without IV contrast. Sagittal, coronal, and thin section axial reformatted images were constructed from the axial data set. This CT examination was performed using dose optimization techniques as appropriate, variously including the following: *Automated exposure control *Adjustment of mA and/or kV according to patient size (this includes techniques or standardized protocols for targeted exams where dose is matched to indication/reason for exam; i.e. extremities or head) *Use of iterative reconstruction technique FINDINGS: LEFT TEMPORAL BONE/MASTOID: -Mastoid air cells are normally aerated. No osseous erosions or evidence of cholecystitis and mastoiditis. Tegmen tympani and tegmen mastoideum are intact. -There is minimal thickening and minimal retraction of the tympanic membrane. -The ossicular chain has a normal appearance. There are no erosions. -There is a small amount of fluid or soft tissue opacity within the posterior mesotympanum, as well as abutting the stapes and malleus. -The epitympanum and hypotympanum are normal. -Prussak's space is normal. The scutum is sharp. -Normal mineralization of the bony otic capsule. -The IAC, cochlea, and labyrinthine structures are normally formed. -Carotid canal and jugular bulb are corticated and normal. -7th nerve canal is normal. -No evidence of semicircular canal dehiscence. -The EAC demonstrates mild superior wall thickening along the bony canal, and moderate narrowing of the membranous external canal. 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 RIGHT TEMPORAL BONE/MASTOID: -Mastoids, and tympanic cavity are normally aerated. No osseous erosions or dehiscence. -Tympanic membrane is not thickened nor retracted. -The ossicular chain has a normal appearance. -Prussak's space is normal. The scutum is sharp. -Normal mineralization of the bony otic capsule. -The IAC, cochlea, and labyrinthine structures are normally formed. -Carotid canal and jugular bulb are corticated and normal. -7th nerve canal is normal. -Tegmen tympani and tegmen mastoideum are intact. -No evidence of semicircular canal dehiscence. -The EAC has a normal appearance. -The right TM joint appears normal. OTHER: -There are no inflammatory changes surrounding the left mastoid. -Significant fatty changes both parotid glands. 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 CT/CT mastoid IMPRESSION: 1. There is a small amount of soft tissue or fluid within the LEFT posterior mesotympanum and abutting the left ossicular chain. There are no ossicular erosions or foci of bony erosion/dehiscence. 2. There is minimal thickening and retraction of the LEFT tympanic membrane. 3. There is moderate amount of thickening of the LEFT external auditory canal. Overall findings suggest non-complicated otitis media and externa. 4. The LEFT mastoid air cells are normally aerated. There is no evidence of coalescent mastoiditis. 5. The RIGHT mastoid air cells, tympanic cavity, petrous temporal bone appear normal. 6. 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
--- OUTSIDE RECORDS SUMMARY | 2024-08-11 12:39 | XMS_ITS | Continuity of Care Document ---
Author Organization [id number] Address [address] [place] [address] Phone Care Team Providers Care Prefabricator Name Role Phone Shola PERKINS, Porfirio Unavailable Unavailable Procedures Procedure Date OFFICE/OUTPT EM EST PROB FOCUS/STRFWD 10 MINS Advance Directives Directive Yes / No Effective Date File Name No Information Encounters Encounter Description Practice Location Reason(s) For Visit Diagnoses Date Provider Providers Copied on Encounter OFFICE/OUTPT EM EST PROB FOCUS/STRFWD 10 MINS [id number] [id number], [place], [place], [id number], tel:[phone] RADHA-Hernandez No Information Shola Monroy. [address] [place] [address], [id number], . tel:[phone] Referring Provider: Porfirio Pitt, [address] [place] [address], [id number]. tel:[phone] Family History Family Member Type Diagnosis Age At Onset No Information Payers Payer name Insurance type Covered constitution party ID Authoriza tion(s) [employer] - [place] PPO BL [id number] Social History Type Description Quantity Date Captured Comments Sex Male Smoking Status No Information Chief Complaint And Reason For Visit No Information Reason For Referral Reason For Referral No Information History Of Present Illness Encounter Date Complaint History Of Prese nt Illness No Information Functional Status Date Functional Assessmen t No Information Instructions Date Instruction Additional Infor mation No Information Assessments Type Assessment Date No Information Patient Care Teams Name Effective Dates (start - stop) Status Members No Information
[2024-08-11 13:08] VITALS: BP 128/88; PULSE 89; RESP 16; TEMP 36.7; O2SAT 97; BMI 35.9
--- NOTE | 2024-08-11 13:09 | ED_ITS ---
HPI - General Adult General Chief complaint: Ear Problems Stated complaint: infection Related Data Home Medications ?Medication ?Instructions ?Recorded ?Confirmed amlodipine 10 mg tablet 10 mg PO DAILY 10/30/20 06/12/24 atenolol 100 mg tablet 100 mg PO DAILY 10/30/20 06/12/24 atorvastatin 80 mg tablet 80 mg PO DAILY 10/30/20 06/12/24 clopidogrel 75 mg tablet 75 mg PO DAILY 10/30/20 06/12/24 glipizide 2.5 mg tablet, extended 2.5 mg PO DAILY 10/30/20 06/12/24 release 24 hr lisinopril 40 mg tablet 40 mg PO DAILY 10/30/20 06/12/24 metformin 1,000 mg tablet 1,000 mg PO DAILY 10/30/20 06/12/24 eowkria-bylumcowkvdwq-uacthzde 250 1 tab PO Q8H PRN Pain (Scale Score 08/18/21 06/12/24 mg-250 mg-65 mg tablet (Migraine 4-6) Relief) hydralazine 25 mg tablet 25 mg PO QID 08/18/21 06/12/24 acetaminophen 325 mg capsule 650 mg PO Q6H PRN Pain 10/27/21 06/12/24 pantoprazole 40 mg tablet,delayed 40 mg PO DAILY 06/04/23 06/12/24 release triamcinolone acetonide 55 mcg spray intranasal 06/04/23 06/12/24 nasal spray aerosol semaglutide 1 mg/dose (4 mg/3 mL) 1 mg subcut QWEEK 06/05/24 06/12/24 subcutaneous pen injector (Ozempic) gabapentin 300 mg capsule 300 mg PO BEDTIME 06/12/24 06/12/24 Previous Rx's ?Medication ?Instructions ?Recorded methylcellulose (laxative) 500 mg 500 mg PO DAILY #30 tabs 05/27/21 tablet (Citrucel) aspirin 81 mg tablet,delayed 81 mg PO DAILY #90 tabs 08/25/21 release (Adult Low Dose Aspirin) docusate sodium 100 mg capsule 100 mg PO BEDTIME #30 caps 01/13/22 isosorbide mononitrate 30 mg 30 mg PO DAILY #90 tabs 02/09/24 tablet,extended release 24 hr ondansetron 4 mg disintegrating 4 mg PO Q8H PRN nausea and 04/10/24 tablet vomiting #30 tabs spironolactone 25 1 tab PO DAILY #30 tabs 08/03/24 mg-hydrochlorothiazide 25 mg tablet Allergies Allergy/AdvReac Type Severity Reaction Status Date / Time No Known Allergies Allergy Verified 08/11/24 13:11 [facility] Past Medical History Medical History History of COVID-19 CAD (coronary artery disease) GERD (gastroesophageal reflux disease) Diabetes Sleep apnea treated with continuous positive airway pressure (CPAP) Hyperlipidemia Hypertension Surgical History History of heart artery stent H/O left knee surgery (~06/20/15) History of colonoscopy History of cardiac cath History of cataract surgery Family History Family History Father CAD (coronary artery disease) HTN (hypertension) Diabetes Hypercholesteremia Mother CAD (coronary artery disease) Lung disease Diabetes HTN (hypertension) Hypercholesteremia Social History Social History Are you a primary manager care management to a significant other at home: No Do you presently have visiting nurse or other home services: No Alcohol intake: current Alcohol intake frequency: does not drink Patient Tobacco Use Status: Never used Tobacco Advance Directives: No Advance Directives Information Provided: No Physical Exam ED Vital Signs: Vital Signs - 24 hr 08/11/24 13:08 Temperature 98.0 F Pulse Rate 89 Respiratory Rate 16 Blood Pressure 128/88 Pulse Oximetry 97 Oxygen Delivery Method Room Air BMI result Body Mass Index 35.9 Course Course Course Narrative: This is an RME performed by Gaurang Morris CNP: Additional HPI, ROS, PE not included below will be deferred to primary provider. Patient is a 54-year-old male who presents emergency department for evaluation of concern for left ear infection. Onset of pain 3 days ago. He was seen in this primary care doctor's office yesterday he was given a prescription for Augmentin as well as Ciprodex. He states the pain has become much more severe and excruciating today. Physical exam: Mastoid tenderness on the left, pain upon palpation of the tragus on the left, significant swelling to the external canal, unable to visualize the drum, due to his pain he has significant difficulty with me inserting the otoscope much further for full evaluation, no trismus, normal posterior oropharynx. Will likely require insertion of a wick into the external canal so that drops may be placed for efficacy Plan: Labs, CT Reevaluation(s) Reevaluation #1: planned re-eval / place ear wick. CT w/o evidence of mastoiditis - 18:15 no answer in [facility] - 18:28 no answer in WR / LWCT CT/CT mastoid IMPRESSION: 1. There is a small amount of soft tissue or fluid within the LEFT posterior mesotympanum and abutting the left ossicular chain. There are no ossicular erosions or foci of bony erosion/dehiscence. 2. There is minimal thickening and retraction of the LEFT tympanic membrane. 3. There is moderate amount of thickening of the LEFT external auditory canal. Overall findings suggest non-complicated otitis media and externa. 4. The LEFT mastoid air cells are normally aerated. There is no evidence of coalescent mastoiditis. 5. The RIGHT mastoid air cells, tympanic cavity, petrous temporal bone appear normal. 6. 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 which is unchanged in size from the prior imaging Time: 18:28 Medical Decision Making Lab Data 08/11/24 14:28 08/11/24 14:28 Labs: Lab Results 08/11/24 Range/Units 14:28 WBC 6.3 (4.8-10.8) X10*3/uL RBC 4.46 L (4.60-5.80) X10*6/uL Hgb 13.7 L (14.0-18.0) g/dl Hct 40.0 L (42.0-52.0) % MCV 89.7 (80.0-98.0) fL MCH 30.7 (27.0-33.0) pg MCHC 34.3 (31.0-36.0) g/dl RDW 12.7 (11.0-16.0) % Plt Count 211 (160-400) X10*3/uL MPV 9.6 (9.4-12.4) fL Immature Gran % (Auto) 0.2 (0.0-0.4) % Neut % (Auto) 66.6 (45-73) % Lymph % (Auto) 22.2 (20-40) % Linn % (Auto) 8.3 (2-11) % Eos % (Auto) 2.4 (0-4) % Baso % (Auto) 0.3 (0-2) % Lymph # (Auto) 1.4 (1.2-4.9) X10*3/uL Linn # (Auto) 0.5 (0.1-1.2) X10*3/uL Eos # (Auto) 0.2 (0.0-0.4) X10*3/uL Baso # (Auto) 0.0 (0.0-0.2) X10*3/uL Abs Immat Gran (auto) 0.01 (0.00-0.03) X10*3/uL Absolute Neuts (auto) 4.2 (2.0-8.3) x10*3/uL Absolute Nucleated RBC 0.000 (0.0-0.012) X10*3/uL Nucleated RBC % (auto) 0.0 (0.0-0.2) /100WBC ESR 23 H (0-15) MM/HR Sodium 142 (135-145) mmol/L Potassium 3.4 (3.3-5.1) mmol/L Chloride 105 (96-108) mmol/L Carbon Dioxide 30 H (22-29) mmol/L Anion Gap 10 L (12-20) BUN 12 (9-16) mg/dL Creatinine 0.76 (0.5-1.4) mg/dL Estim Creat Clear Calc 143.3 Estimated GFR > 60 Random Glucose 169 H (60-115) mg/dL Calcium 8.8 D (8.4-10.2) mg/dL Total Bilirubin 0.3 (0.0-1.0) mg/dL AST 35 (5-37) U/L ALT 87 H (0-40) U/L Alkaline Phosphatase 65 (39-117) U/L C-Reactive Protein 0.88 H (< or = 0.50) mg/dL Total Protein 6.9 (6.5-8.0) g/dL Albumin 4.0 (3.5-5.0) g/dL Discharge Plan Discharge Clinical Impression: Otitis externa Otitis media Qualifiers: Chronicity: acute Laterality: left Recurrence: non-recurrent Patient Disposition: Left W/O Completing Treatment Prescriptions: No Action aspirin [Adult Low Dose Aspirin] 81 mg tablet,delayed release (DR/EC) 81 mg PO DAILY Qty: 90 3RF docusate sodium 100 mg capsule 100 mg PO BEDTIME Qty: 30 3RF isosorbide mononitrate 30 mg tablet extended release 24 hr 30 mg PO DAILY Qty: 90 3RF spironolacton-hydrochlorothiaz 25-25 mg tablet 1 tab PO DAILY Qty: 30 6RF metformin 1,000 mg tablet 1,000 mg PO DAILY lisinopril 40 mg tablet 40 mg PO DAILY amlodipine 10 mg tablet 10 mg PO DAILY glipizide 2.5 mg tablet extended release 24hr 2.5 mg PO DAILY atenolol 100 mg tablet 100 mg PO DAILY atorvastatin 80 mg tablet 80 mg PO DAILY clopidogrel 75 mg tablet 75 mg PO DAILY Migraine Relief 250-250-65 mg tablet 1 tab PO Q8H PRN (Reason: Pain (Scale Score 4-6)) hydralazine 25 mg tablet 25 mg PO QID Citrucel 500 mg tablet 500 mg PO DAILY Qty: 30 3RF Rx Instructions: take it with full glass of water acetaminophen 325 mg capsule 650 mg PO Q6H PRN (Reason: Pain) pantoprazole 40 mg tablet,delayed release (DR/EC) 40 mg PO DAILY triamcinolone acetonide 55 mcg aerosol,spray intranasal ondansetron 4 mg tablet,disintegrating 4 mg PO Q8H PRN (Reason: nausea and vomiting) Qty: 30 2RF gabapentin 300 mg capsule 300 mg PO BEDTIME Ozempic 1 mg/dose (4 mg/3 mL) pen injector 1 mg subcut QWEEK Discharge Date/Time: 08/11/24 19:41
[2024-08-11 14:32] LABS: MANUAL DIFF FLAG NO
[2024-08-11 14:33] LABS: Basophils Percent Auto 0.3 % (0-2); Eosinophils Absolute Auto 0.2 X10*3/uL (0.0-0.4); Eosinophils Percent Auto 2.4 % (0-4); Hemoglobin 13.7 g/dl (14.0-18.0); Imm Gran Abs Auto 0.01 X10*3/uL (0.00-0.03); Imm Gran Pct Auto 0.2 % (0.0-0.4); Lymphocytes Absolute Auto 1.4 X10*3/uL (1.2-4.9); Lymphocytes Percent Auto 22.2 % (20-40); Mean Corpuscular HGB Conc 34.3 g/dl (31.0-36.0); Mean Corpuscular Hemoglobin 30.7 pg (27.0-33.0); Mean Corpuscular Volume 89.7 fL (80.0-98.0); Mean Platelet Volume 9.6 fL (9.4-12.4); Monocytes Absolute Auto 0.5 X10*3/uL (0.1-1.2); Monocytes Percent Auto 8.3 % (2-11); Neutrophils Absolute Auto 4.2 x10*3/uL (2.0-8.3); Neutrophils Percent Auto 66.6 % (45-73); Platelet Count 211 X10*3/uL (160-400); Red Blood Count 4.46 X10*6/uL (4.60-5.80); Red Cell Distribution Width 12.7 % (11.0-16.0); White Blood Count 6.3 X10*3/uL (4.8-10.8)
[2024-08-11 14:48] LABS: Alanine Aminotransferase 87 U/L (0-40); Alkaline Phosphatase 65 U/L (39-117); Anion Gap 10 (12-20); Aspartate Amino Transferase 35 U/L (5-37); Bilirubin Total 0.3 mg/dL (0.0-1.0); Blood Urea Nitrogen 12 mg/dL (9-16); C Reactive Protein 0.88 mg/dL (< or = 0.50); Calcium 8.8 mg/dL (8.4-10.2); Carbon Dioxide 30 mmol/L (22-29); Chloride 105 mmol/L (96-108); Creatinine Clr Calc Pharmacy 143.3; Estimated Glomerular Filt Rate > 60; Glucose Random 169 mg/dL (60-115); Potassium 3.4 mmol/L (3.3-5.1); Sodium 142 mmol/L (135-145); Total Protein 6.9 g/dL (6.5-8.0)
[2024-08-11 15:14] LABS: Erythrocyte Sedimentation Rate 23 MM/HR (0-15)
--- OUTSIDE RECORDS SUMMARY | 2024-08-11 19:41 | XMS_ITS | Continuity of Care Document ---
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 [address] [place] [address], [id number], . tel:[phone] Referring Provider: Porfirio Pitt, [address] [place] [address], [id number]. tel:[phone] Family History Family Member Type Diagnosis Age At Onset No Information Payers Payer name Insurance type Covered green party ID Authoriza tion(s) [employer] - [place] PPO BL [id number] Social History Type Description Quantity Date Captured [...]
== END 2024-08-11 19:41 | disposition left against medical advice (07) ==
PROVIDERS: Nurse Practitioner Family; Emergency Provider Emergency Medicine; PCP Internal Medicine
DX: H60.92 Unspecified otitis externa, left ear (principal); H92.02 Otalgia, left ear; Z79.899 Other long term (current) drug therapy
CPT/HCPCS: 36415; 70481; 80053; 85025; 85652; 86140; 99281

== ENCOUNTER → 2024-08-11 13:14 | Outpatient (BNV) | payer OTHER, SELFPAY | PROVIDERS: PCP Internal Medicine; Visit Provider Radiology Diagnostic Radiology | DX: H70.92 Unspecified mastoiditis, left ear (principal) | CPT/HCPCS: 70481 ==

== ENCOUNTER 2024-10-04 13:53 | Outpatient (AMB) | payer OTHER, SELFPAY ==
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
[2024-10-04 14:17] VITALS: BP 120/80; PULSE 90; BMI 36.5
--- OUTSIDE RECORDS SUMMARY | 2024-10-04 16:37 | XMS_ITS | Clinical Summary ---
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 023 Active senna (Senokot) 8.6 MG tablet TAKE 1 TABLET BY MOUTH AT BEDTIME FOR CONSTIPATION Active [facility] Allergy Relief 10 MG capsule Take 1 capsule by mouth in the morning. 023 Active cyclobenzaprine (Flexeril) 5 MG tablet Take 5 mg by mouth 3 times daily. 022 Active glucose blood (FREESTYLE LITE) test strip Use to check fasting sugar daily or as directed by physician Active docusate sodium (Colace) 100 MG capsule Take 100 mg by mouth at bedtime. 022 Active isosorbide mononitrate ER (Imdur) 30 MG 24 hr tablet Take 30 mg by mouth in the morning. 023 Active lidocaine (Lidoderm) 5 % patchIndications: Rib pain on right side Apply 1 patch topically in the morning. Remove & discard patch within 12 hours or as directed by MD. 30 patch Active metoclopramide (Reglan) 10 MG tabletIndications :Chronic gastritis without bleeding, unspecified gastritis type Take 1 tablet (10 mg) by mouth 4 times daily for 5 days. 20 tablet Active traZODone (Desyrel) 50 MG tablet Take 25 mg by mouth. Active magnesium oxide (Mag-Ox) 400 MG tablet Take 1 tablet by mouth. Active pantoprazole (ProtoNix) 40 MG EC tabletIndications :Chronic gastritis without bleeding, unspecified gastritis type TAKE 1 TABLET BY MOUTH TWICE DAILY IN THE MORNING AND AT NOON DO NOT BREAK, CRUSH, DISSOLVE OR CHEW 60 tablet 1 024 Active pantoprazole (Protonix) 40 MG EC tabletIndications :Gastroesophageal reflux disease, unspecified whether esophagitis present Take 1 tablet (40 mg) by mouth before breakfast. Do not crush, chew, or split. 30 tablet 11 024 Active Aspirin Low Dose 81 MG EC tabletIndications :Coronary artery disease involving stebbins coronary artery of stebbins heart without angina pectoris TAKE 1 TABLET BY MOUTH EVERY DAY IN THE MORNING 90 tablet 3 024 Active metFORMIN (Glucophage) 1000 MG tablet TAKE 1 TABLET BY MOUTH TWICE DAILY IN THE MORNING AND IN THE EVENING WITH MEALS 60 tablet 11 024 Active atenolol (Tenormin) 100 MG tabletIndications :HTN (hypertension), benign TAKE 1 TABLET BY MOUTH EVERY DAY 90 tablet 1 024 Active semaglutide (Ozempic) 2 MG/1.5ML solution pen-injectorIndic ations:Type 2 diabetes mellitus with hyperglycemia, without long-term current use of insulin (CMS/HCC) Inject 1 mg under the skin 1 (one) time per week. 2 each Active gabapentin (Neurontin) 300 MG capsuleIndication s:Diabetic polyneuropathy associated with type 2 diabetes mellitus (CMS/HCC) Take 1 capsule (300 mg) by mouth 3 times daily. 90 capsule 11 024 2024 Active atorvastatin (Lipitor) 80 MG tabletIndications :Dyslipidemia TAKE 1 TABLET BY MOUTH EVERY DAY 90 tablet 1 11/12/2 024 Active amLODIPine (Norvasc) 10 MG tabletIndications :HTN (hypertension), benign TAKE 1 TABLET BY MOUTH EVERY DAY 90 tablet 1 024 Active hydrALAZINE (Apresoline) 25 MG tabletIndications :HTN (hypertension), benign TAKE 1 TABLET BY MOUTH FOUR TIMES DAILY WITH FOOD 120 tablet 2 024 Active glipiZIDE XL (Glucotrol XL) 2.5 MG 24 hr tabletIndications :Type 2 diabetes mellitus without complication, unspecified whether terminal makeup operator insulin use ([facility]) TAKE 1 TABLET BY MOUTH THREE TIMES DAILY WITH MEALS NEEDED LOW BLOOD SUGAR 90 tablet 2 025 Active clopidogrel (Plavix) 75 MG tabletIndications :Stented coronary artery TAKE 1 TABLET BY MOUTH EVERY DAY 30 tablet 11 025 Active lisinopril 40 MG tabletIndications :Essential hypertension TAKE 1 TABLET BY MOUTH EVERY DAY 90 tablet 3 025 Active lisinopril 40 MG tabletIndications :Essential hypertension TAKE 1 TABLET BY MOUTH EVERY DAY 90 tablet 3 024 2024 Discontinued(R eorder (will not trigger notification to Pharmacy)) Active Problems Problem Noted Date Diagnosed Date Diabetic polyneuropathy asso ciated with type 2 diabetes mellitus 05/29/2024 Assessment & Plan (05/29/2024 12:07 PM EDT): I will increase gabapentin to 300mg Q 8hrs Great toe pain, left 01/26/2024 Acute maxillary sinusitis 07/27/2023 Assessment & Plan (07/27/2023 2:04 PM EST): Pt's symptomatology and exam indicative of this Plan: Augmentin BID x 10 days Supportive measures, Tylenol PRN for fever Follow up if no improvement Allergic rhinitis 04/13/2023 Rib pain on right side 03/29/2023 Assessment & Plan (03/29/2023 9:53 AM EDT): Apply heat on affected area Allergic dermatitis 09/15/2022 Chronic gastritis 09/15/2022 Assessment & Plan (01/01/2023 12:08 PM EDT): I advise patient to avoid NSAIDs, spicy and acid food, I advise to eat at the same time every day, I advise to elevate the head of the bed and take medications as prescribe Gastroesophageal reflux disease 12/12/2020 Assessment & Plan (09/29/2023 2:20 PM EST): I advise patient to avoid NSAIDs, spicy and acid food, I advise to eat at the same time every day, I advise to elevate the head of the bed and take medications as prescribe Mixed hyperlipidemia 12/12/2020 Obstructive sleep apnea syndrome 11/24/2018 Assessment & Plan (07/16/2023 11:54 AM EST): It was advise to use his CPAP every night, continue to follow with specialist Periodic limb movement disorder 11/24/2018 Obesity (BMI 30-39.9) 11/24/2018 Coronary artery disease invo lving stebbins coronary artery of stebbins heart without angina pectoris 09/13/2018 Assessment & Plan (05/29/2024 12:08 PM EDT): Continue to follow with cardiology Assessment & Plan (07/16/2023 11:54 AM EST): Has remain stable with current regimen, continue to follow with cardiology Stented coronary artery 09/13/2018 Angina pectoris 08/09/2018 Essential hypertension 07/28/2018 Assessment & Plan (05/29/2024 12:06 PM EDT): Maintenance: BMP: ordered today Lipid Panel: ordered today ASCVD Risk: Calculate pending updated labs, already on ASA, max dose atorvastatin and plavix - Aerobic exercise to reduce BP. Initial goal of 30 min walk 3-5x/week. Increase as tolerated. - low-sodium diet (goal: <2g/day) and heart healthy diet such as DASH to reduce BP and prevent ASCVD. - Home BP monitoring 1-2 x day with goal of <140/90. - Seek immediate medical attention for chest pain, palpitations, SOB, syncope, or sudden changes in mental status. - Do not change or discontinue current prescriptions without first consulting health care provider Assessment & Plan (01/26/2024 2:30 PM EDT): - Aerobic exercise to reduce BP. Initial goal of 30 min walk 3-5x/week. Increase as tolerated. - low-sodium diet (goal: <2g/day) and heart healthy diet such as DASH to reduce BP and prevent ASCVD. - Home BP monitoring 1-2 x day with goal of <140/90. - Seek immediate medical attention for chest pain, palpitations, SOB, syncope, or sudden changes in mental status. - Do not change or discontinue current prescriptions without first consulting health care provider Assessment & Plan (09/29/2023 2:19 PM EST): Maintenance: BMP: up to date Lipid Panel: up to date ASCVD Risk: high risk on atorvastatin 80mg and palvix 75mg daily - Aerobic exercise to reduce BP. Initial goal of 30 min walk 3-5x/week. Increase as tolerated. - low-sodium diet (goal: <2g/day) and heart healthy diet such as DASH to reduce BP and prevent ASCVD. - Home BP monitoring 1-2 x day with goal of <140/90. - Seek immediate medical attention for chest pain, palpitations, SOB, syncope, or sudden changes in mental status. - Do not change or discontinue current prescriptions without first consulting health care provider Assessment & Plan (07/16/2023 11:54 AM EST): - Aerobic exercise to reduce BP. Initial goal of 30 min walk 3-5x/week. Increase as tolerated. - low-sodium diet (goal: <2g/day) and heart healthy diet such as DASH to reduce BP and prevent ASCVD. - Home BP monitoring 1-2 x day with goal of <140/90. - Seek immediate medical attention for chest pain, palpitations, SOB, syncope, or sudden changes in mental status. - Do not change or discontinue current prescriptions without first consulting health care provider Assessment & Plan (04/13/2023 4:41 PM EDT): - Aerobic exercise to reduce BP. Initial goal of 30 min walk 3-5x/week. Increase as tolerated. - low-sodium diet (goal: <2g/day) and heart healthy diet such as DASH to reduce BP and prevent ASCVD. - Home BP monitoring 1-2 x day with goal of <140/90. - Seek immediate medical attention for chest pain, palpitations, SOB, syncope, or sudden changes in mental status. - Do not change or discontinue current prescriptions without first consulting health care provider Assessment & Plan (01/01/2023 12:08 PM EDT): - Aerobic exercise to reduce BP. Initial goal of 30 min walk 3-5x/week. Increase as tolerated. - low-sodium diet (goal: <2g/day) and heart healthy diet such as DASH to reduce BP and prevent ASCVD. - Home BP monitoring 1-2 x day with goal of <140/90. - Seek immediate medical attention for chest pain, palpitations, SOB, syncope, or sudden changes in mental status. - Do not change or discontinue current prescriptions without first consulting health care provider Type 2 diabetes mellitus wit h hyperglycemia, without long-term current use of insulin 07/28/2018 Assessment & Plan (05/29/2024 12:05 PM EDT): Diabetes is: not controlled - Lab Results Component Value Date HGBA1C 7.8 (A) 05/29/2024 HGBA1C 6.9 (A) 12/15/2023 HGBA1C 7.5 (A) 07/15/2023 - Lab Results Component Value Date MICROALBUR 6.7 06/13/2020 CREATININE 0.81 12/10/2023 -Changes: I will increase his ozempic to 1mg weekly - Diabetic eye exam:up to date - Diabetic foot exam:referral today - Continue lifestyle modifications - Continue current medications - Follow up: 3 months Assessment & Plan (01/26/2024 2:35 PM EDT): Diabetes is: not controlled - Lab Results Component Value Date HGBA1C 6.9 (A) 12/15/2023 HGBA1C 7.5 (A) 07/15/2023 HGBA1C 7.0 (A) 04/13/2023 - Lab Results Component Value Date MICROALBUR 6.7 06/13/2020 CREATININE 0.81 12/10/2023 -Changes: I will discontinue trulicity and put patient on ozempic patient, it is my medical opinion this will decrease morbidity, urgent jacquelyn and emergency visits - Diabetic eye exam:up to date - Diabetic foot exam:referral to podiatry, I will prescribe today diabatic, I did feet assessment and patient will benefit - Continue lifestyle modifications - Continue current medications - Follow up: 3 months Assessment & Plan (09/29/2023 2:20 PM EST): Diabetes is: almost at goal - Lab Results Component Value Date HGBA1C 7.5 (A) 07/15/2023 HGBA1C 7.0 (A) 04/13/2023 HGBA1C 6.8 (A) 09/15/2022 - Lab Results Component Value Date MICROALBUR 6.7 06/13/2020 CREATININE 0.94 01/20/2023 -Changes: none - Diabetic eye exam:up to date - Diabetic foot exam:pending - Continue lifestyle modifications - Continue current medications - Follow up: 3 months Assessment & Plan (07/16/2023 11:55 AM EST): Lab Results Component Value Date HGBA1C 7.5 (A) 07/15/2023 HGBA1C 7.0 (A) 04/13/2023 HGBA1C 6.8 (A) 09/15/2022 - Lab Results Component Value Date MICROALBUR 6.7 06/13/2020 CREATININE 0.94 01/20/2023 - Continue lifestyle modifications - Continue current medications Assessment & Plan (04/13/2023 4:42 PM EDT): - Lab Results Component Value Date HGBA1C 7.0 (A) 04/13/2023 HGBA1C 6.8 (A) 09/15/2022 HGBA1C 7.5 (H) 01/01/2021 - Lab Results Component Value Date MICROALBUR 6.7 06/13/2020 CREATININE 0.94 01/20/2023 - Continue lifestyle modifications - Continue current medications - Assessment & Plan (01/01/2023 12:09 PM EDT): Lab Results Component Value Date HGBA1C 6.8 (A) 09/15/2022 HGBA1C 7.5 (H) 01/01/2021 HGBA1C 6.8 (H) 06/13/2020 - Lab Results Component Value Date MICROALBUR 6.7 06/13/2020 CREATININE 0.91 06/19/2022 - - Diabetic eye exam: up to date - Diabetic foot exam: pending - Continue lifestyle modifications - Continue current medications Microalbuminuria 10/26/2016 Elevated LFTs 09/12/2013 Obesity 09/12/2013 Encounters Date Type Department Care Team Description 09/29/2024 Refill [facility] [address] [place] [address] Mary Ellen Montague MD Essential hypertension 08/24/2024 Refill [facility] [address] [place], [place] [phone] Mary Ellen Montague MD Stented coronary artery 08/11/2024 Orders Only GENERIC EXTERNAL DATA DEPARTMENT Provider, Generic External Data 08/11/2024 Refill [facility] [address] [place] [phone] Mary Ellen Montague MD Type 2 diabetes mellitus without complication, unspecified whether terminal makeup operator insulin use ([facility]) 08/10/2024 9:20 AM EST Office Visit [facility] [address] [place] [phone] Sonali Butcher DO Other infective acute otitis externa of left ear (Primary Dx) from Last 3 Months Immunizations Name Administration Dates Next Due Influenza Injectable Quadriv alant Preservative Free IIV4 MDCK 04/14/2022,05/27/2020 Influenza injectable quadriv alent IIV4 with preservative 05/25/2019 Influenza injectable quadrivalent preservative f ree 05/22/2023,05/01/2021 Influenza, Injectable, MDCK, preservative free 1 Pneumococcal Conjugate PCV 20 05/29/2024 Pneumococcal Polysaccharide PPSV23 02/22/2019 Tdap 09/29/2023 Zoster, Recombinant 05/23/2024 Family History Medical History Relation Name Comments Diabetes Father Heart disease Father Diabetes Mother Glaucoma Mother Heart disease Mother Relation Name Status Comments Father Mother Social History Tobacco Use Types Packs/Day Years Used Date Smoking Tobacco: Former Cigarettes Passive Smoke Exposure: Past Smokeless Tobacco: Never Alcohol Use Standard Drinks/Week Comments Never 0 (1 standard drink = 0.6 oz pur e alcohol) Depression Answer Date Recorded Patient Health Questionnaire-9 Score 0 05/29/2024 Patient Health Questionnaire-9 Score 0 05/29/2024 Last PHQ-9: Questionnaire Data Not on file 1 Housing Stability Answer Date Recorded What is your housing situation today? I have p[place] 05/18/[address] you li ve. Do you have problems with any of the following? None of the above 05/18/2023 Food Insecurity Answer Date Recorded Within the past 12 months, y ou worried that your food would run out before you got money to buy more: Never True 05/18/2023 Within the past 12 months,th e food you bought just didn't last and you didn't have enough money to get more: Never True Transportation Answer Date Recorded In the past 12 months, has l ack of transportation kept you from medical appts, meetings, work or from getting things needed for daily living? No 05/18/2023 Utilities Answer Date Recorded In the past 12 months, has t he electric, gas, oil or water company threatened to shut off services in your home? No 05/18/2023 Depression Answer Date Recorded Patient Health Questionnaire-2 Score 0 05/29/2024 Internet Access Answer Date Recorded Internet Access Q1 Yes 04/03/2024 Internet Access Q2 I do not want or need it 09/2023 Sex and Gender Information Value Date Recorded Sex Assigned at Male 06/01/2022 10:16 AM EDT Legal Sex Male 10:16 AM EDT Gender Identity Male 06/01/2022 10:16 AM EDT Sexual Orientation Choose not to disclose 2021 10:16 AM EDT Last Filed Vital Signs Vital Sign Reading Time Taken Comments Blood Pressure 136/82 08/10/2024 9:20 AM EST Pulse 86 08/10/2024 9:20 AM EST Temperature 36.6 ??C (97.8 ??F) 08/10/2024 9:20 AM ES T Respiratory Rate 18 08/10/2024 9:20 AM EST Oxygen Saturation 97% 08/10/2024 9:20 AM EST Inhaled Oxygen Concentration - - Weight 115 kg (253 lb 3.2 oz) 08/10/2024 9:20 AM EST Height 177.8 cm (5' 10 ) 05/29/2024 11:14 AM EDT Body Mass Index 36.33 05/29/2024 11:14 AM EDT Plan of Treatment Upcoming Encounters Date Type Department Care Team (Late st Contact Info) Description 10/30/2024 2:00 PM EDT Office Visit [facility] [address] [place] [address] Juan, Kareen, OD [address] [place] [address] Health Maintenance Due Date Last Done Comments CT Colonography 1972 Colonoscopy 1972 Colorectal Cancer Screening 1972 Dental Oral Exam 1972 Dental Prophylaxis 1972 Dental X-Ray: Full Mouth 1972 FIT DNA/Cologuard 1972 FIT 1972 FOBT 1972 HIV Screening 1972 Sigmoidoscopy 1972 Diabetes: Foot Exam 1982 Family Planning (PISQ) 1987 Hepatitis C Screening 1990 Hepatitis B Vaccines (1 of 3 - 19+ 3-dose series) 1991 COVID-19 Vaccine ( season) 2024 04/17/2022, 07/02/2021, 11/01/2020, Additional history exists Zoster Vaccines (2 of 2) 07/18/2024 05/23/2024 Dental X-Ray: Bitewings 08/19/2024 08/18/2023, 01/14 Diabetes: Hemoglobin A1C 08/29/2024 024, 12/15/2023, 07/15/2023, Additional history exists SDOH Screening 01/16/2025 01/17/2024 Eye Exam 04/29/2025 04/29/2023, 04/03, 04/29/2023, Additional history exists Alcohol/Substance Use Screening 05/29/2025 05/29/2024 Depression Screening 05/29/2025 05/29/2024, 05/29/20 Lipid Panel 05/30/2025 05/30/2024, 06/0 09/2020, 06/13/2020 Diabetes: Urine Protein Screening 06/08/2025 06/08/2024, 05/30/2024, 01/20/2023, Additional history exists Tobacco Screening 08/10/2025 08/10/2024 DTaP/Tdap/Td Vaccines (2 - Td or Tdap) 09/29/2033 09/29/2023 RSV Patients and Patients Aged 60 years or older (1 - 1-dose 75+ series) 2047 Influenza Vaccine Completed 05/09/2024, , 04/14/2022, Additional history exists Pneumococcal Vaccine: 50+ Years Completed 05/29/2024, 02/22/2019 HIB Vaccines Aged Out No longer eligi ble based on patient's age to complete this topic HPV Vaccines Aged Out No longer eligi ble based on patient's age to complete this topic Hepatitis A Vaccines Aged Out No long er eligible based on patient's age to complete this topic IPV Vaccines Aged Out No longer eligi ble based on patient's age to complete this topic Meningococcal Vaccine Aged Out No naun arlette eligible based on patient's age to complete this topic RSV under 20 months Aged Out No longe r eligible based on patient's age to complete this topic Rotavirus Vaccines Aged Out No longer eligible based on patient's age to complete this topic Procedures Procedure Name Priority Date/Time Associated Diagnosis Comments SED RATE BY MODIFIED WESTERGREN Routine 08/11/2024 2:28 PM EST C-REACTIVE PROTEIN Routine 08/11/2024 2: 28 PM EST COMPREHENSIVE METABOLIC PANEL Routine 08/11/2024 2:28 PM EST CBC WITH AUTO DIFFERENTIAL Routine 08/11/2024 2:[address] TEMPORAL BONE WO CONTRAST Routine 08/11/2024 1:47 PM EST CREATININE, RANDOM URINE Routine 06/08/2024 12:45 PM EST LIPID PANEL, STANDARD Routine 05/30/2024 9:10 AM EDT Type 2 diabetes mellitus with hyperglycemia, without long-term current use of insulin ([facility]) Essential hypertension POCT GLYCATED HEMOGLOBIN, TOTAL Routine 05/29/2024 11:16 AM EDT Type 2 diabetes mellitus with hyperglycemia, without long-term current use of insulin ([facility]) BITEWING - SINGLE RADIOGRAPHIC IMAGE Routine 08/18/2023 2:30 PM EST Pain due to dental trauma from Last 3 Months or Most Recently Relevant to Health Maintenance Results * (ABNORMAL) CBC auto differential (08/11/2024 2:28 PM EST) White Blood Count 6.3 4.8 - 10.8 X10*3/uL [facility] Red Blood Count 4.46(L) 4.60 - 5.80 X10*6/uL [facility] Hemoglobin 13.7(L) 14.0 - 18.0 g/dl [facility] Hematocrit 40.0(L) 42.0 - 52.0 % [facility] Mean Corpuscular Volume 89.7 80.0 - 98.0 fL [facility] Mean Corpuscular Hemoglobin 30.7 27.0 - 33.0 pg [facility] Mean Corpuscular HGB Conc 34.3 31.0 - 36.0 g/dl [facility] Red Cell Distribution Width 12.7 11.0 - 16.0 % [facility] Platelet Count 211 160 - 400 X10*3/uL [facility] Mean Platelet Volume 9.6 9.4 - 12.4 fL [facility] Neutrophils Percent Auto 66.6 45 - 73 % [facility] Imm Gran Pct Auto 0.2 0.0 - 0.4 % [facility] Lymphocytes Percent Auto 22.2 20 - 40 % [facility] Monocytes Percent Auto 8.3 2 - 11 % [facility] Eosinophils Percent Auto 2.4 0 - 4 % [facility] Basophils Percent Auto 0.3 0 - 2 % [facility] NRBC Pct Auto 0.0 0.0 - 0.2 /100WBC [facility] Neutrophils Absolute Auto 4.2 2.0 - 8.3 x10*3/uL [facility] Imm Gran Abs Auto 0.01 0.00 - 0.03 X10*3/uL [facility] Lymphocytes Absolute Auto 1.4 1.2 - 4.9 X10*3/uL [facility] Monocytes Absolute Auto 0.5 0.1 - 1.2 X10*3/uL [facility] Eosinophils Absolute Auto 0.2 0.0 - 0.4 X10*3/uL [facility] Basophils Absolute Auto 0.0 0.0 - 0.2 X10*3/uL [facility] NRBC Abs Auto 0.000 0.0 - 0.012 X10*3/uL [facility] 08/11/2024 2:28 PM EST 08/11/2024 2:31 PM EST Generic External Data Provider LAB BLOOD ORDERAB LES Final Result Performing Organization Address [facility] Co de Phone Number [facility] [address] [place] [phone] * (ABNORMAL) Sed Rate by Modified Jae (08/11/2024 2:28 PM EST) Erythrocyte Sedimentation Rate 23(H) 0 - 15 MM/HR [facility] Comment:Patients with polycy themia and many hemoglobin abnormalitiesmay have depressed sed rates whereas patients with anemiamay have elevated sed rates. 08/11/2024 2:28 PM EST 08/11/2024 2:31 PM EST Generic External Data Provider LAB BLOOD ORDERAB LES Final Result Performing Organization Address [facility]/ZIP Co de Phone Number [facility] [address] [place] [address] [phone] * (ABNORMAL) C-reactive Protein (08/11/2024 2:28 PM EST) C Reactive Protein 0.88(H) < or = 0.50 mg/dL [facility] 08/11/2024 2:28 PM EST 08/11/2024 2:31 PM EST us Generic External Data Provider LAB BLOOD ORDERAB LES Final Result [facility] [address] [place] [address] [phone] * (ABNORMAL) Comprehensive Metabolic Panel (08/11/2024 2:28 PM EST) Pathologist [facility] Sodium 142 135 - 145 mmol/L [facility] Potassium 3.4 3.3 - 5.1 mmol/L [facility] Chloride 105 96 - 108 mmol/L [facility] Carbon Dioxide 30(H) 22 - 29 mmol/L [facility] Anion Gap 10(L) 12 - 20 [facility] Urea Nitrogen (BUN) 12 9 - 16 mg/dL [facility] Creatinine, Serum 0.76 0.5 - 1.4 mg/dL [facility] Creatinine Clr Calc Pharmacy 143.3 [facility] Comment:eGFR (calculated fro m the MDRD study equation) and eCrCl(calculated from the Cockcroft-Gault equation) are based ondifferent parameters and may not yield comparable results.If eCrCl result is absurd, please check patient'sheight/weight. Estimated Glomerular Filt Rate >60 [facility] Comment:Chronic Kidney Disea se: Estimated GFR < 60 mL/min/1.48m3Irekte Kidney Disease: Estimated GFR < 15 mL/min/1.73m2 Glucose 169(H) 60 - 115 mg/dL [facility] Calcium 8.8 8.4 - 10.2 mg/dL [facility] Bilirubin, Total 0.3 0.0 - 1.0 mg/dL [facility] Aspartate Amino Transferase 35 5 - 37 U/L [facility] Alanine Aminotransferase 87(H) 0 - 40 U/L [facility] Total Protein 6.9 6.5 - 8.0 g/dL [facility] Albumin Level 4.0 3.5 - 5.0 g/dL [facility] Alkaline Phosphatase 65 39 - 117 U/L [facility] 08/11/2024 2:2 8 PM EST 08/11/2024 2:31 PM EST us Generic External Data Provider LAB BLOOD ORDERAB LES Final Result [facility] [address] [place] [address] [phone] * CT TEMPORAL BONE WO CONTRAST (08/11/2024 1:47 PM EST) Anatomical Region Laterality Modality Body, Abdomen Computed Tomogra phy 08/11/2024 1:47 PM EST Narrative 08/11/2024 3:35 PM EST ? [facility] ?[address] ?[place] [address] ? CT Scan Report ? Signed ? Patient: Ortega Mayenar ?MR#: [id number] ? : 1970 ?Acct:[id number] ? Age/Sex: 54 / M ?ADM Date: 08/11/24 ? Loc: HO.ED ? Attending Dr: ? Ordering Physician: Ceci Morris STUCCO MASON ?? Date of Service: 08/11/24 ?? Procedure(s): CT mastoid ?? Accession Number(s): [id number] ? cc: Mary Ellen Montague MD; Ceci Morris CNP ? Report Number: ?? [id number]: Total DLP = ??344.00 mGy-cm ?? EXAMINATION: ?? CT TEMPORAL BONES/MASTOIDS WITHOUT CONTRAST ? CLINICAL INFORMATION: ?? Left ear infection, severe left mastoid tenderness to palpation and ?? pain. ? COMPARISON: ?? No prior temporal bone study. ?? MRI brain 10/10/2019. ?? CT brain 07/27/2019. ? TECHNIQUE: ?? Spiral CT imaging of the petrous temporal bones and mastoids was ?? performed in axial plane without IV contrast. Sagittal, coronal, and ?? thin section axial reformatted images were constructed from the axial ?? data set. ? This CT examination was performed using dose optimization techniques as ?? appropriate, variously including the following: ?? *Automated exposure control ?? *Adjustment of mA and/or kV according to patient size (this includes ?? techniques or standardized protocols for targeted exams where dose is ?? matched to indication/reason for exam; i.e. extremities or head) ?? *Use of iterative reconstruction technique ? FINDINGS: ?? LEFT TEMPORAL BONE/MASTOID: ?? -Mastoid air cells are normally aerated. No osseous erosions or ?? evidence of cholecystitis and mastoiditis. Tegmen tympani and tegmen ?? mastoideum are intact. ?? -There is minimal thickening and minimal retraction of the tympanic ?? membrane. ?? -The ossicular chain has a normal appearance. There are no erosions. ?? -There is a small amount of fluid or soft tissue opacity within the ?? posterior mesotympanum, as well as abutting the stapes and malleus. ?? -The epitympanum and hypotympanum are normal. ?? -Prussak's space is normal. The scutum is sharp. ?? -Normal mineralization of the bony otic capsule. ?? -The IAC, cochlea, and labyrinthine structures are normally formed. ?? -Carotid canal and jugular bulb are corticated and normal. ?? -7th nerve canal is normal. ?? -No evidence of semicircular canal dehiscence. ?? -The EAC demonstrates mild superior wall thickening along the bony ?? canal, and moderate narrowing of the membranous external canal. ?? 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 ? RIGHT TEMPORAL BONE/MASTOID: ?? -Mastoids, and tympanic cavity are normally aerated. No osseous ?? erosions or dehiscence. ?? -Tympanic membrane is not thickened nor retracted. ?? -The ossicular chain has a normal appearance. ?? -Prussak's space is normal. The scutum is sharp. ?? -Normal mineralization of the bony otic capsule. ?? -The IAC, cochlea, and labyrinthine structures are normally formed. ?? -Carotid canal and jugular bulb are corticated and normal. ?? -7th nerve canal is normal. ?? -Tegmen tympani and tegmen mastoideum are intact. ?? -No evidence of semicircular canal dehiscence. ?? -The EAC has a normal appearance. ?? -The right TM joint appears normal. ? OTHER: ?? -There are no inflammatory changes surrounding the left mastoid. ?? -Significant fatty changes both parotid glands. ?? -Limited imaging of the brain again demonstrates a 1.7 cm CSF ?? 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 ? CT/CT mastoid ?? IMPRESSION: ?? 1. There is a small amount of soft tissue or fluid within the LEFT ?? posterior mesotympanum and abutting the left ossicular chain. There are ?? no ossicular erosions or foci of bony erosion/dehiscence. ?? 2. There is minimal thickening and retraction of the LEFT tympanic ?? membrane. ?? 3. There is moderate amount of thickening of the LEFT external auditory ?? canal. Overall findings suggest non-complicated otitis media and ?? externa. ?? 4. The LEFT mastoid air cells are normally aerated. There is no ?? evidence of coalescent mastoiditis. ?? 5. The RIGHT mastoid air cells, tympanic cavity, petrous temporal bone ?? appear normal. ?? 6. 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 unchanged in size from the prior imaging ? Electronically signed by: ??Norm Key MD ??08/11/2024 03:33 PM EST RP ? Dictated By: ?Norm Key MD ? Signed By: ?<Electronically signed by Norm Key MD in OV> ?08/11/24 1533 ? DD/ 1347 ? TD/TT: 08/11/24 1413 ? Composition Siding Worker: ? Procedure Note Kiara Miranda - 08/11/2024 [id number] [place] [address] CT Scan Report Signed Patient: Ortega MayenArvinR#: [id number] : 1970Acct:[id number] Age/Sex: 54 / MADM Date: 08/11/24 Loc: HO.ED Attending Dr: Ordering Physician: Ceci Morris CNP Date of Service: 08/11/24 Procedure(s): CT mastoid Accession Number(s): [id number] cc: Mary Ellen Montague MD; Ceci Morris STUCCO MASON Report Number: [id number]: Total DLP = 344.00 mGy-cm EXAMINATION: CT TEMPORAL BONES/MASTOIDS WITHOUT CONTRAST CLINICAL INFORMATION: Left ear infection, severe left mastoid tenderness to palpation and pain. COMPARISON: No prior temporal bone study. MRI brain 10/10/2019. CT brain 07/27/2019. TECHNIQUE: Spiral CT imaging of the petrous temporal bones and mastoids was performed in axial plane without IV contrast. Sagittal, coronal, and thin section axial reformatted images were constructed from the axial data set. This CT examination was performed using dose optimization techniques as appropriate, variously including the following: *Automated exposure control *Adjustment of mA and/or kV according to patient size (this includes techniques or standardized protocols for targeted exams where dose is matched to indication/reason for exam; i.e. extremities or head) *Use of iterative reconstruction technique FINDINGS: LEFT TEMPORAL BONE/MASTOID: -Mastoid air cells are normally aerated. No osseous erosions or evidence of cholecystitis and mastoiditis. Tegmen tympani and tegmen mastoideum are intact. -There is minimal thickening and minimal retraction of the tympanic membrane. -The ossicular chain has a normal appearance. There are no erosions. -There is a small amount of fluid or soft tissue opacity within the posterior mesotympanum, as well as abutting the stapes and malleus. -The epitympanum and hypotympanum are normal. -Prussak's space is normal. The scutum is sharp. -Normal mineralization of the bony otic capsule. -The IAC, cochlea, and labyrinthine structures are normally formed. -Carotid canal and jugular bulb are corticated and normal. -7th nerve canal is normal. -No evidence of semicircular canal dehiscence. -The EAC demonstrates mild superior wall thickening along the bony canal, and moderate narrowing of the membranous external canal. 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 RIGHT TEMPORAL BONE/MASTOID: -Mastoids, and tympanic cavity are normally aerated. No osseous erosions or dehiscence. -Tympanic membrane is not thickened nor retracted. -The ossicular chain has a normal appearance. -Prussak's space is normal. The scutum is sharp. -Normal mineralization of the bony otic capsule. -The IAC, cochlea, and labyrinthine structures are normally formed. -Carotid canal and jugular bulb are corticated and normal. -7th nerve canal is normal. -Tegmen tympani and tegmen mastoideum are intact. -No evidence of semicircular canal dehiscence. -The EAC has a normal appearance. -The right TM joint appears normal. OTHER: -There are no inflammatory changes surrounding the left mastoid. -Significant fatty changes both parotid glands. 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 CT/CT mastoid IMPRESSION: 1. There is a small amount of soft tissue or fluid within the LEFT posterior mesotympanum and abutting the left ossicular chain. There are no ossicular erosions or foci of bony erosion/dehiscence. 2. There is minimal thickening and retraction of the LEFT tympanic membrane. 3. There is moderate amount of thickening of the LEFT external auditory canal. Overall findings suggest non-complicated otitis media and externa. 4. The LEFT mastoid air cells are normally aerated. There is no evidence of coalescent mastoiditis. 5. The RIGHT mastoid air cells, tympanic cavity, petrous temporal bone appear normal. 6. 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 which is unchanged in size from the prior imaging Electronically signed by: Norm Key MD 08/11/2024 03:33 PM [facility] Dictated By: Norm Key MD Signed By: <Electronically signed by Norm Key MD in OV> 08/11/24 1533 DD/ 1347 TD/TT: 08/11/24 1413 Composition Siding Worker: [facility] External Provider IMG CT PROCEDURES Final Result * Creatinine, Random Urine (06/08/2024 12:45 PM EST) Creatinine, Urine 137.59 mg/dL [facility] 06/08/2024 12:4 5 PM EST 06/08/2024 1:38 PM EST Generic External Data Provider LAB URINE ORDERAB LES Final Result Performing Organization Address [facility] Co de Phone Number [facility] [address] [place] [phone] * (ABNORMAL) Lipid Panel, Standard (05/30/2024 9:10 AM EDT) Triglycerides 144 <150 mg/dL [facility] Comment:Desirable Triglyceri de: less than 150 mg/dLBorderline High Triglyceride 150-199 mg/dLHigh Triglyceride: 200-499 mg/dLVery High Triglyceride: greater than or equal to 5OO mg/dL Cholesterol 120 <200 mg/dL [facility] Comment:Desirable Cholestero l: less than 200 mg/dLBorderline High Cholesterol: 200-239 mg/dLHigh Cholesterol: greater than 239 mg/dL LDL Cholesterol Calculated 62 <100 mg/dL [facility] Comment:Desirable LDL: less than 100 mg/dLNear Optimal/Above Optimal LDL: 110- 129 mg/dLBorderline High LDL: 130-159 mg/dLHigh LDL: 160-189 mg/dLVery High LDL: greater than or equal to 190 mg/dL HDL Cholesterol 30(L) >40 mg/dL [facility] Comment:Desirable HDL: great er than 40 mg/dL Note: This HDL assay may give artificially low results in patients with liver disease. Blood Venous blood specimen / Unknown 05/30/2024 9:10 AM EDT 05/30/2024 11:33 AM EDT us Mary Ellen Mcgregor MD LAB BLOOD ORDERABLES Final Result [facility] [address] [place] [address] [phone] * (ABNORMAL) POCT HGB A1C (05/29/2024 11:16 AM EDT) Hemoglobin A1C 7.8(A) 4.0 - 6.0 % QC Media Lot # [id number] Lot# Expiration Date ,026 Blood 05/29/2024 11:1 6 AM EDT Mary Ellen Mcgregor MD POINT OF CARE TEST EN TER/EDIT ORDERABLES Final Result from Last 3 Months or Most Recently Relevant to Health Maintenance Insurance [facility] Care Teams Scaffolding Helper Relationship Specialty Start Date End Date Mary Ellen Montague MD [address] [place] [address] PCP - General Family Medicine 02/27/19
--- OUTSIDE RECORDS SUMMARY | 2024-10-04 16:37 | XMS_ITS | Encounter Summary ---
Author Organization [employer] Address [address] [place] [address] 7 [place] [address] Care Team Providers Care Cover Cutter Name Role Phone Mary Ellen Montague MD Primary Care Provide r Reason for Visit * Reason Onset Date Comments Med Refill medication 08/21/2023 Encounter Details Date Type Department Care Team (Late st Contact Info) Description 08/21/2023 Refill [facility] [address] [place] [address] Rafael Aguirre, NARGIS [address] [place] [address] Social History Tobacco Use Types Packs/Day Years Used Date Smoking Tobacco: Never Passive Smoke Exposure: Never Smokeless Tobacco: Never Alcohol Use Standard Drinks/Week Comments Never 0 (1 standard drink = 0.6 oz pur e alcohol) Depression Answer Date Recorded Patient Health Questionnaire-9 Score 0 04/13/2023 Housing Stability Answer Date Recorded What is [...] Date Recorded Patient Health Questionnaire-2 Score 0 04/13/2023 Sex and Gender Information Value Date Recorded Sex Assigned at Male 06/01/2022 10:16 AM EDT Legal Sex Male 10:16 AM EDT Gender Identity Male 06/01/2022 10:16 AM EDT Sexual Orientation Choose not to disclose 2021 10:16 AM EDT documented as of this encounter Miscellaneous Notes * Telephone Encounter - Octavia Mcfadden - 08/27/2023 9:24 AM EST This message is for Dr. Aguirre and sent to Dr. Aguirre. Patient was seen with student and script for antibiotic was sent to pharmacy. He states the medication helped but he has run around and still experiencing pain. He would like another script sent to the pharmacy to hold him over until he ext appt on 09/02. * Telephone Encounter - Henry Lopez DMD - 08/23/2023 8:04 AM EST Good morning, I never saw this patient before. Thank you. Dr. Lopez documented in this encounter Plan of Treatment Upcoming Encounters Date Type Department Care Team (Late st Contact Info) Description 10/30/2024 2:00 PM EDT Office Visit [facility] [address] [place] [address] Kareen Martinez, OD [address] [place] [address] documented as of this encounter Visit Diagnoses Not on filedocumented in this encounter Additional Health Concerns Assessment Noted Time PHQ-9 Depression Total Score: 0 04/13/20 23 10:00 AM EDT documented as of this encounter Care Teams Cover Cutter Relationship Specialty Start Date End Date Barciona Mcgregor, Ana Cristina, MD [address] [place] [address] PCP - General Family Medicine 02/27/19 documented as of this encounter
--- OUTSIDE RECORDS SUMMARY | 2024-10-04 16:37 | XMS_ITS | Encounter Summary ---
Author Organization [employer] Address [address] [place] [address] Care Team Providers Care Deburrer Name Role Phone Mary Ellen Montague MD Primary Care Provide r Reason for Visit * Reason Onset Date Comments Med Refill 05/01/2024 Encounter Details Date Type Department Care Team (Late st Contact Info) Description 05/01/2024 Refill [facility] [address] [place] [address] Riya Alvarez, PharmD [address] [place] [address] Type 2 diabetes mellitus with hyperglycemia, without long-term current use of insulin ([facility]) Social History Tobacco Use Types Packs/Day Years Used Date Smoking Tobacco: Never Passive Smoke Exposure: Never Smokeless Tobacco: Never Alcohol Use Standard Drinks/Week Comments Never 0 (1 standard drink = 0.6 oz pur e alcohol) Depression Answer Date Recorded Patient Health Questionnaire-9 Score 0 04/13/2023 Housing Stability Answer Date Recorded What is your housing situation today? I have paco sing 05/18/[address] you li [...] Recorded Patient Health Questionnaire-2 Score 0 04/13/2023 Internet Access Answer Date Recorded Internet Access [...] AM EDT documented as of this encounter Plan of Treatment Upcoming Encounters Date Type Department Care Team (Late st Contact Info) Description 10/30/2024 2:00 PM EDT Office Visit [facility] [address] [place] [address] Juan, Kareen, OD [address] [place] [address] documented as of this encounter Visit Diagnoses Diagnosis Type 2 diabetes mellitus with hyperglycemia, without long-term current use of insulin ([facility]) documented in this encounter Additional Health Concerns Assessment Noted Time PHQ-9 Depression Total Score: 0 04/13/20 23 10:00 AM EDT documented as of this encounter Care Teams Deburrer Relationship Specialty Start Date End Date Mary Ellen Montague MD [address] [place] [address] PCP - General Family Medicine 02/27/19 documented as of this encounter
--- OUTSIDE RECORDS SUMMARY | 2024-10-04 16:37 | XMS_ITS | Encounter Summary ---
Author Organization [employer] Address [address] [place] [address] [address], [place] [address] Care Team Providers Care Fire Extinguisher Repairer Inspector Name Role Phone Mary Ellen Montague MD Primary Care Provide r Reason for Visit * Reason Comments Med Refill Encounter Details Date Type Department Care Team (Late st Contact Info) Description 09/10/2022 Refill [facility] [address] [place] [address] Dunia Chandra MD [address] [place] [address] Dyslipidemia (Primary Dx); HTN (hypertension), benign Social History Tobacco Use Types Packs/Day Years Used Date Smoking Tobacco: Never Assessed Sex and Gender Information Value Date Recorded [...] Description 10/30/2024 2:00 PM EDT Office Visit [facility] [address] [place] [address] Kareen Martinez, OD [address] [place] [address] documented as of this encounter Visit Diagnoses Diagnosis Dyslipidemia- Primary Other and unspecified hyperlipidemia HTN (hypertension), benign Essential hypertension, benign documented in this encounter Care Teams Fire Extinguisher Repairer Inspector Relationship Specialty Start Date End Date Mary Ellen Montague MD [address] [place] [address] PCP - General Family Medicine 02/27/19 documented as of this encounter
--- OUTSIDE RECORDS SUMMARY | 2024-10-04 16:37 | XMS_ITS | Clinical Summary ---
Author Organization [facility] Address [address] [place] [address] Care Team Providers Care Recruiting Intern Name Role Phone Naya Sandoval PA-C Primary Care Provider [phone] Source Comments PLEASE NOTE, if this patient is a minor, it may be UNLAWFUL to discuss sensitive information that is contained in these records (such as FAMILY PLANNING, MENTAL HEALTH or SUBSTANCE ABUSE) with the minor patient's parent or other person without the patient's specific authorization.[facility] Allergies No known active allergies Medications metFORMIN (GLUCOPHAGE) 1,000 mg tabletIndications :Type 2 diabetes mellitus without complication, without long-term current use of insulin (HCC-CMS) Take 1 Tab by mouth 2 (two) times daily with a meal 60 Tab 5 7 Active lisinopril-hydroc hlorothiazide (PRINZIDE,ZESTORE TIC) 20-12.5 mg per tabletIndications :Essential hypertension, benign Take 1 Tab by mouth 2 (two) times daily 60 Tab 5 7 Active atorvastatin (LIPITOR) 20 mg tablet Take 1 Tab by mouth once daily 30 Tab 6 8 Active glipiZIDE (GLUCOTROL XL) 2.5 mg ER, 24 hour tabletIndications :Type 2 diabetes mellitus without complication, without long-term current use of insulin (HCC-CMS) Take 1 Tab by mouth once daily with breakfast Swallow whole. Do not break, crush or chew. 30 Tab 5 8 Active amLODIPine (NORVASC) 5 mg tabletIndications :Essential hypertension Take 1 Tab by mouth once daily 30 Tab 5 8 Active Active Problems Problem Noted Date Diagnosed Date Microalbuminuria 10/26/2016 H/O right cataract extraction [facility] 201308/04/2016 S/P right cataract surgery 06/2014 [facility] 08/24/2014 Diabetes mellitus type 2, uncomplicated ([facility] ) 09/12/2013 Non morbid obesity 09/12/2013 Elevated LFTs due to TOUSSAINT 09/201309/12/2013 Mixed hyperlipidemia Essential hypertension, benign GERD (gastroesophageal reflux disease) Family History Medical History Relation Name Comments Hypertension Brother Hypertension Father coronary artery disease Diabetes Mother type 2 Heart Problems Mother Hypertension Mother Bleeding/Blood Disorder Paternal Grandmother Relation Name Status Comments Brother Father Mother Paternal Grandmother Social History Tobacco Use Types Packs/Day Years Used Date Smoking Tobacco: Never Smokeless Tobacco: Never Alcohol Use Standard Drinks/Week Comments No 0 (1 standard drink = 0.6 oz pur e alcohol) Social Connections Answer Date Recorded Social Connections and Isolation 0 03/25/2019 Financial Resource Strain Answer Date R ecorded Financial Resource Strain 0 2018 Stress Answer Date Recorded Stress 0 03/25/2019 Physical Activity Answer Date Recorded Physical Activity 0 03/25/2019 Food Insecurity Answer Date Recorded Food 0 03/25/2019 Transportation Needs Answer Date Record ed Transportation 0 03/25/2019 Housing Stability Answer Date Recorded Housing 0 03/25/2019 Safety and Environment Answer Date Josué rded Safety 0 03/25/2019 Utilities Answer Date Recorded Utilities 0 03/25/2019 Employment Answer Date Recorded Employment 0 03/25/2019 Sex and Gender Information Value Date Recorded Sex Assigned at Male 07/21/2017 5:47 PM PST Legal Sex Male 6:38 AM PDT Gender Identity Male 07/21/2017 5:47 PM PST Sexual Orientation Straight 07/21/2017 5: 47 PM PST Last Filed Vital Signs Vital Sign Reading Time Taken Comments Blood Pressure 156/84 07/20/2017 10:28 AM EST Pulse 100 07/20/2017 10:28 AM EST Temperature 36.5 ??C (97.7 ??F) 07/20/2017 10:[address] Respiratory Rate 16 07/20/2017 10:28 AM EST Oxygen Saturation 98% 07/20/2017 10:28 AM EST Inhaled Oxygen Concentration - - Weight 117.5 kg (259 lb) 07/20/2017 10:28 AM EST Height 177.8 cm (5' 10 ) 10/30/2015 10:27 AM EDT Body Mass Index 37.16 10/30/2015 10:27 AM EDT Plan of Treatment Not on file Insurance [employer] [facility] [employer] [place] Member Subscriber Plan / Payer (Ef fective 2016-Present) Name:Rodrick Mayen Relation to Subscriber:Self Name:Rodrick Mayen Payer ID:[id number] Type:Indemnity Address: [facility] [address] [place] [address] Care Teams Recruiting Intern Relationship Specialty Start Date End Date Naya Sandoval PA-C [address] [place] [phone] PCP - General Internal Medicine 08/04/13
--- OUTSIDE RECORDS SUMMARY | 2024-10-04 16:37 | XMS_ITS | Encounter Summary ---
Author Organization [employer] Address [address] [place] [address] Care Team Providers Care Epidemiologist Name Role Phone Mary Ellen Montague MD Primary Care Provide r Reason for Visit * Reason Comments Med Refill Encounter Details Date Type Department Care Team (Late st Contact Info) Description 02/21/2024 Refill [facility] [address] [place] [address] Teresa Coburn FNP Social History Tobacco Use Types Packs/Day Years [...] Description 10/30/2024 2:00 PM EDT Office Visit [facility] [address], [place] [phone] Kareen Martinez, OD [address] [place] [address] documented as of this encounter Visit Diagnoses Not on filedocumented in this encounter Additional Health Concerns Assessment Noted Time PHQ-9 Depression Total Score: 0 04/13/20 23 10:00 AM EDT documented as of this encounter Care Teams Epidemiologist Relationship Specialty Start Date End Date Mary Ellen Montague MD [address] [place] [address] PCP - General Family Medicine 02/27/19 documented as of this encounter
--- OUTSIDE RECORDS SUMMARY | 2024-10-04 16:37 | XMS_ITS | Clinical Summary ---
Author Organization [facility] Address [address] [place] [phone] Phone Care Team Providers Care Subacute Nurse Name Role Phone Mary Ellen Montague MD Primary Care Provide r Allergies Active Allergy Reactions Criticality Noted Date Comments Carvedilol 10/06/2018 Other reaction(s): Chest pain, Trouble Breathing Medications acetaminophen (TYLENOL 8 HOUR) 650 MG 8 hr tablet Active amLODIPine (NORVASC) 10 MG tablet Take 1 tablet by mouth 1 (one) time each day Active Aspirin Low Dose 81 MG EC tablet Take 81 mg by mouth 1 (one) time each day 11/07/19 21 Active Pain Reliever Plus 250-250-65 MG per tablet TAKE 1 TABLET BY MOUTH EVERY 8 HOURS NEEDED 10/02/19 21 Active atenolol (TENORMIN) 100 MG tablet Take 1 tablet by mouth 1 (one) time each day Active atorvastatin (LIPITOR) 80 MG tablet Take 1 tablet by mouth 1 (one) time each day Active clopidogrel (PLAVIX) 75 MG tablet Take 1 tablet by mouth 1 (one) time each day Active isosorbide mononitrate (IMDUR) 30 MG 24 hr tablet Take 30 mg by mouth 1 (one) time each day 09/06/19 21 Active lisinopril (PRINIVIL,ZESTR IL) 40 MG tablet Take 1 tablet by mouth 1 (one) time each day Active metFORMIN (GLUCOPHAGE) 1000 MG tablet TAKE 1 TABLET BY MOUTH TWICE DAILY IN THE MORNING AND IN THE EVENING WITH MEALS 11/07/19 21 Active OXcarbazepine (TRILEPTAL) 150 MG tablet Take 150 mg by mouth 2 (two) times a day 11/07/19 21 Active docusate sodium (COLACE) 100 MG capsule Take 100 mg by mouth at bed time 04/28/20 21 Active hydrALAZINE 25 MG tablet Take 25 mg by mouth 4 (four) times a day (with meals and snack) 04/15/20 21 Active omeprazole (PriLOSEC) [address] capsule TAKE 1 CAPSULE BY MOUTH TWICE DAILY BEFORE A MEAL 04/01/20 21 Active SM Senna Laxative 8.6 MG tablet TAKE 1 TABLET BY MOUTH AT BEDTIME FOR CONSTIPATION 04/28/20 21 Active pantoprazole (PROTONIX) 40 MG EC tablet TAKE 1 TABLET BY MOUTH EVERY DAY 30 MINUTES BEFORE BREAKFAST 05/27/20 21 Active Linzess 145 MCG capsule Take 1 tablet by mouth 1 (one) time each day 05/27/20 21 Active glipiZIDE (GLUCOTROL XL) 2.5 MG 24 hr tablet TAKE 1 TABLET BY MOUTH THREE TIMES DAILY WITH MEALS NEEDED FOR hyperglycemia 03/09/20 23 Active Trulicity 0.75 MG/0.5ML solution pen-injector INJECT ONE PEN (=0.75MG) SUBCUTANEOUSLY ONCE A WEEK DIRECTED 03/04/20 23 Active magnesium oxide 400 (240 Mg) MG tablet Take 1 tablet by mouth 1 (one) time each day 02/05/20 23 Active traZODone (DESYREL) 50 MG tablet Take 25 mg by mouth 1 (one) time each day 02/05/20 23 Active spironolactone- hydroCHLOROthia zide (ALDACTAZIDE) 25-25 MG per tablet TAKE 1 TABLET BY MOUTH ONCE DAILY 30 tablet 2 04/01/20 23 Active Active Problems Problem Noted Date Diagnosed Date Allergic disorder of skin 09/15/20222022 Chronic gastritis 09/15/2022 03/25/2023 Overview (03/25/2023): Last Assessment & Plan: I advise patient to avoid NSAIDs, spicy and acid food, I advise to eat at the same time every day, I advise to elevate the head of the bed and take medications as prescribe Benign essential hypertension 12/12/2020 Gastroesophageal reflux disease 12/12/2020 Hypertensive disorder 12/12/2020 Mixed hyperlipidemia 12/12/2020 Obstructive sleep apnea syndrome 11/24/2018 03/25/2023 Periodic limb movement disorder 11/24/2018 03/25/2023 Coronary arteriosclerosis 09/13/20182022 Stented coronary artery 09/13/2018 03/25/20 Angina pectoris 08/09/2018 03/25/2023 Microalbuminuria 10/26/2016 History of right cataract extraction 08/04/2016 Liver function tests outside reference range 06/2014 Obesity 09/12/2013 Type 2 diabetes mellitus without complication Immunizations Name Administration Dates Next Due Influenza, MDCK, PF, Quadrivalent 05/27/2020 Influenza, Quadrivalent, Preservative Free 05/01 Influenza, Quadrivalent, With Preservative 05/25 Pneumococcal Polysaccharide 02/22/2019 Family History Medical History Relation Comments Diabetes Father Heart disease Father Diabetes Mother Heart disease Mother Relation Status Comments Father Unknown Mother Unknown Social History Tobacco Use Types Packs/Day Years Used Date Smoking Tobacco: Never Smokeless Tobacco: Never Tobacco Cessation:Counseling Given: No Alcohol Use Standard Drinks/Week Comments No 0 (1 standard drink = 0.6 oz pur e alcohol) Sex and Gender Information Value Date Recorded Sex Assigned at Not on file Legal Sex Male 4:53 PM EST Gender Identity Not on file Sexual Orientation Not on file Last Filed Vital Signs Vital Sign Reading Time Taken Comments Blood Pressure 110/68 03/25/2023 12:58 PM EDT Pulse 87 03/25/2023 12:58 PM EDT Temperature - - Respiratory Rate - - Oxygen Saturation 96% 03/25/2023 12:58 PM EDT Inhaled Oxygen Concentration - - Weight 119 kg (263 lb) 03/25/2023 12:58 PM EDT Height 177.8 cm (5' 10 ) 01/21/2023 2:25 PM EDT Body Mass Index 37.74 01/21/2023 2:25 PM EDT Plan of Treatment Health Maintenance Due Date Last Done Comments Hepatitis B Vaccine (1 of 3 - 19+ 3-dose series) 1991 Pneumococcal Vaccine: Pediat rics (0 to 5 Years) and At-Risk Patients (6 to 64 Years) (2 of 2 - PCV) 02/23/2020 02/22/2019 Diabetes: Hemoglobin A1C 08/30/2020 Diabetes: Ophthalmology Exam 08/30/2020 Diabetes: Pedal Pulse Checked 08/30/2020 Diabetes: Sensory Foot Exam 08/30/2020 Diabetes: Visual Foot Exam 08/30/2020 Colorectal Cancer Screening: Annual FOBT 2021 Colorectal Cancer Screening: Colonoscopy 2021 Colorectal Cancer Screening: Sigmoidoscopy 2021 Influenza Vaccine (#1) 2024 , 05/27/2020, 05/25/[address] [place] [address] Care Teams Subacute Nurse Relationship Specialty Start Date End Date Mary Ellen Montague MD [address] [place] [phone] PCP - General Internal Medicine 12/22/21
--- OUTSIDE RECORDS SUMMARY | 2024-10-04 16:37 | XMS_ITS | Clinical Summary ---
Author Organization [facility] Address [address] [place] [address] Care Team Providers Care Staffing Program Manager Name Role Phone Mary Ellen Montague MD Primary Care Provide r Allergies No known active allergies Social History Tobacco Use Types Packs/Day Years Used Date Smoking Tobacco: Never Assessed Sex and Gender Information Value Date Recorded Sex Assigned at Not on file Legal Sex Male 6:12 PM EST Gender Identity Not on file Sexual Orientation Not on file Plan of Treatment Health Maintenance Due Date Last Done Comments DTaP,Tdap,and Td Vaccines (1 - Tdap) 1991 Hepatitis B Vaccines (1 of 3 - 19+ 3-dose series) 1991 Pneumococcal Vaccine: 50+ Ye ars (1 of 2 - PCV) 1991 Pneumococcal Vaccine: Pediat rics (0 to 5 Years) and At-Risk Patients (6 to 64 Years) (1 of 2 - PCV) 1991 Zoster Vaccines (1 of 2) 2022 Cholesterol Screening (Lipid Panel) 03/27/2024 Colorectal Cancer Screening: Colonoscopy 03/27/2024 Depression Screening 03/27/2024 HIV Screening 03/27/2024 Hepatitis C Screening 03/27/2024 Social Influencers of Health Screening 03/27/2024 COVID-19 Vaccine ( - 2023-2 5 season) 2024 Influenza Vaccine (#1) 2024 HIB Vaccines Aged Out No longer eligi [...] on patient's age to complete this topic MMR Vaccines Aged Out No longer eligi ble based on patient's age to complete this topic Meningococcal ACWY Vaccine Aged Out N o longer eligible based on patient's age to complete this topic Meningococcal B Vacine Aged Out No lo nger eligible based on patient's age to complete this topic RSV Immunization Patients Un duyen 20 months Aged Out No longer eligible b ased on patient's age to complete this topic Varicella Vaccines Aged Out No longer eligible based on patient's age to complete this topic Care Teams Staffing Program Manager Relationship Specialty Start Date End Date Mary Ellen Montague MD [address] [place] [phone] PCP - General 01/28/24
--- OUTSIDE RECORDS SUMMARY | 2024-10-04 16:37 | XMS_ITS | Encounter Summary ---
Author Organization [employer] Address [address] [facility] [address] 7 [place] [address] Care Team Providers Care Curriculum Designer Name Role Phone Mary Ellen Montague MD Primary Care Provide r Reason for Visit * Reason Comments Med Refill Encounter Details Date Type Department Care Team (Late st Contact Info) Description 08/27/2023 Refill [facility] ADULT DENTAL [address] [place], [place] [phone] Rafael Aguirre DDS [address] [place] [address] Social History Tobacco Use Types Packs/Day Years [...] encounter Miscellaneous Notes * Telephone Encounter - Henry Lopez DMD - 08/27/2023 2:41 PM EST I never saw this patient before. Thanks documented in this encounter Plan of Treatment Upcoming Encounters Date Type Department Care Team (Late st Contact Info) Description 10/30/2024 2:00 PM EDT Office Visit [facility] OPTOMETRY [address] [place] [address] Juan, Kareen, OD [address] [place] [address] documented as of this encounter Visit Diagnoses Not on filedocumented in this encounter Additional Health Concerns Assessment Noted Time PHQ-9 Depression Total Score: 0 04/13/20 23 10:00 AM EDT documented as of this encounter Care Teams Curriculum Designer Relationship Specialty Start Date End Date Mary Ellen Montague MD [address] [place] [address] PCP - General Family Medicine 02/27/19 documented as of this encounter
--- OUTSIDE RECORDS SUMMARY | 2024-10-04 16:37 | XMS_ITS | Encounter Summary ---
Author Organization [employer] Address [address] [place] [address] [address] [place] [address] Care Team Providers Care Trim Setter Helper Name Role Phone Mary Ellen Montague MD Primary Care Provide r Reason for Visit * Reason Onset Date Comments med refill 09/29/2024 Encounter Details Date Type Department Care Team (Late st Contact Info) Description 09/29/2024 Refill [facility] [address] [place] [address] Mary Ellen Montague MD [address] [place] [address] Essential hypertension Social History Tobacco Use Types Packs/Day Years [...] as of this encounter Miscellaneous Notes * Addendum Note - Reji Taylor RN - 09/29/2024 9:16 AM ESTAddended by: REJI TAYLOR on: 09/29/2024 09:16 AM Modules accepted: Orders * Telephone Encounter - Reji Taylor RN - 09/29/2024 9:13 AM EST Lisinopril Rx on file from 10/2023 (previously for 1 years worth). Rx set to run out in ~2 weeks. Pended refill to provider. * Telephone Encounter - Tala Salazar - 09/29/2024 8:55 AM EST Pt walked in requesting refill on Lisinopril 40mg. documented in this encounter Plan of Treatment Upcoming Encounters Date Type Department Care Team (Late st Contact Info) Description 10/30/2024 2:00 PM EDT Office Visit [facility] OPTOMETRY [address] [place], [place] [phone] Kareen Martinez, OD [address] [place], [place] [phone] documented as of this encounter Visit Diagnoses Diagnosis Essential hypertension Unspecified essential hypertension documented in this encounter Additional Health Concerns Assessment Noted Time PHQ-9 Depression Total Score: 0 05/29/20 24 11:15 AM EDT documented as of this encounter Care Teams Trim Setter Helper Relationship Specialty Start Date End Date Mary Ellen Montague MD [address] [place] [address] PCP - General Family Medicine 02/27/19 documented as of this encounter
== END 2024-10-04 14:35 | disposition home or self-care (01) ==
PROVIDERS: PCP Internal Medicine; Visit Provider Internal Medicine Cardiovascular Disease
DX: I20.89 Other forms of angina pectoris (principal); R06.09 Other forms of dyspnea
CPT/HCPCS: 99214

== ENCOUNTER → 2024-10-04 13:53 | Outpatient (BNVA) | payer OTHER, SELFPAY | PROVIDERS: PCP Internal Medicine; Visit Provider Internal Medicine Cardiovascular Disease | DX: I25.118 Atherosclerotic heart disease of native coronary artery with other forms of angina pectoris (principal); R06.09 Other forms of dyspnea | CPT/HCPCS: 99212 ==

== ENCOUNTER 2024-10-09 09:37 | Outpatient (AMB) | payer OTHER, SELFPAY ==
--- NOTE | 2024-10-09 09:43 | MHC.OFFVIS ---
Vital Signs 10/09/24 09:44 Height 5 ft 10 in Weight 249 lb 1.957 oz BMI 35.7 BP 134/74 Blood Pressure Location Lt brachial Position Sitting Pulse 87 Intake Visit Reasons: 6 month follow up Intake Note: Rodrick presents in the office as a 6 month follow up. CC: He states he went to [place] to visit his brother and he was having a flare up. Stomach was bloated and needs more medication. States he has nausea depending what he eats but stomach is very sensitive. He gets lots of diarrhea and he stopped drinking the coffee. Brewing Technician Required: No Allergies No Known Allergies Allergy (Verified 10/09/24 09:45) HPI HPI 6 month follow up: Details: 53 yr old m here for f/u RECAP: He had poor prep for screening colonoscopy and noted to have diverticulosis, needed repeat as below he has heartburn and is controlled with medication incl PPI and H2B he does have distention and bloating he had neg H pylori stool in past he had pyloric pylorplasty for congenital pyloric stenosis He had EGD and colo as below: EGD/colo: Endoscopy Findings: erosive duodenitis erosive gastritis esophagitis Colonoscopy Findings: polyps internal hemorrhoids diverticular disease path: erosive duodenitis, hyperplastic polyps INTERIM: he is doing well overall he has nausea from ozempic, but he is happy with the weight loss no melena, no abdominal pain no constipation or diarrhea still taking PPI EXAM: GENERAL: The patient is well developed and nontoxic. VITAL SIGNS:see workflow HEENT: Nonicteric sclerae, PERRLA, EOMI. Oropharynx clear. Moist mucous membranes. Conjunctivae appear well perfused. No thyroid mass. CHEST: Chest wall is nontender. HEART: Regular rate and rhythm without murmurs. LUNGS: Clear to auscultation bilaterally. ABDOMEN: Soft, positive bowel sounds, nontender, no organomegaly.no flank tenderness SKIN: No rash, no excessive bruising, petechiae, or purpura. NEUROLOGIC: Cranial nerves II-XII intact without motor/sensory deficit. A/P: 1/ eroeive gastritis, duodenitis, related prob to meds --prior h pylori neg 2020 2/ GERD controlled 3/ nausea 2/2 ozempic --helping with his weight loss PLAN: 1/ cont with zofran prn 2/ cont with pantoprazole, take multi vitamin 3/ reminded to take MV and vit D supplement --1000 units daily PFSH Medical History History of COVID-19 CAD (coronary artery disease) GERD (gastroesophageal reflux disease) Diabetes Sleep apnea treated with continuous positive airway pressure (CPAP) Hyperlipidemia Hypertension Surgical History History of heart artery stent H/O left knee surgery (~06/20/15) History of colonoscopy History of cardiac cath History of cataract surgery Family History Father CAD (coronary artery disease) HTN (hypertension) Diabetes Hypercholesteremia Mother CAD (coronary artery disease) Lung disease Diabetes HTN (hypertension) Hypercholesteremia Social History Are you a primary care associate to a significant other at home: No Do you presently have visiting nurse or other home services: No Alcohol intake: current Alcohol intake frequency: does not drink Patient Tobacco Use Status: Never used Tobacco Physical Exam Vital Signs: Last Vital Signs Pulse 87 10/09/24 09:44 BP 134/74 10/09/24 09:44 BMI result Body Mass Index 35.7 Assessment & Plan Assessment & Plan (1) Esophagitis: Code(s): K20.90 - Esophagitis, unspecified without bleeding Category: Medical Plan as above Medications: Refilled ondansetron 4 mg PO Q8H PRN 30 tabs 2RF nausea and vomiting Coding Level of Care Code Est Pt Level 3 (71379) Diagnoses Esophagitis K20.90
[2024-10-09 09:44] VITALS: BP 134/74; PULSE 87; BMI 35.7
--- OUTSIDE RECORDS SUMMARY | 2024-10-09 10:26 | XMS_ITS | Encounter Summary ---
Author Organization [employer] Address [address] [place] [address] 7 [place] [address] Care Team Providers Care Pre School Manager Name Role Phone Mary Ellen Montague MD Primary Care Provide r Reason for Visit * Reason Onset Date Comments Med Refill medication 08/21/2023 Encounter Details Date Type Department Care Team (Late st Contact Info) Description 08/21/2023 Refill [facility] ADULT DENTAL [address] [place] [address] Rafael Aguirre, NARGIS [address] [place] [address] Social History Tobacco Use Types Packs/Day Years [...] Description 10/30/2024 2:00 PM EDT Office Visit [facility] OPTOMETRY [address] [place] [address] Kareen Martinez, OD [address] [place] [address] documented as of this encounter Visit Diagnoses Not on filedocumented in this encounter Additional Health Concerns Assessment Noted Time PHQ-9 Depression Total Score: 0 04/13/20 23 10:00 AM EDT documented as of this encounter Care Teams Pre School Manager Relationship Specialty Start Date End Date Barciona Mcgregor, Ana Cristina, MD [address] [place] [address] PCP - General Family Medicine 02/27/19 documented as of this encounter
--- OUTSIDE RECORDS SUMMARY | 2024-10-09 10:26 | XMS_ITS | Clinical Summary ---
Author Organization [facility] ity Address [address] [place] [address] Care Team Providers Care Plate Printer Name Role Phone Mary Ellen Montague MD [...] age to complete this topic Care Teams Plate Printer Relationship Specialty Start Date End Date Mary Ellen Montague MD [address] [place] [phone] PCP - General 01/28/24
--- OUTSIDE RECORDS SUMMARY | 2024-10-09 10:26 | XMS_ITS | Clinical Summary ---
Author Organization [employer] Address [address] [place] [address] 7t [place] [address] Care Team Providers Care Licensed Marine Engineer Name Role Phone Mary Ellen Montague MD [...] MG EC tabletIndications :Coronary artery disease involving tununak coronary artery of tun[place] heart without angina pectoris TAKE 1 TABLET [...] 2 diabetes mellitus without complication, unspecified whether lobsterman insulin use ([facility]) TAKE 1 TABLET BY MOUTH THREE TIMES [...] 30-39.9) 11/24/2018 Coronary artery disease invo lving tununak coronary artery of tununak heart without angina pectoris 09/13/2018 Assessment & [...] Type Department Care Team Description 09/29/2024 Refill [facility] MEDICINE [address] [place] [address] Mary Ellen Montague MD Essential hypertension 08/24/2024 Refill [facility] MED & PEDS [address] [place], [place] [phone] Mary Ellen Montague MD Stented coronary artery 08/11/2024 Orders Only GENERIC EXTERNAL DATA DEPARTMENT Provider, Generic External Data 08/11/2024 Refill [facility] [address] [place] [phone] Mary Ellen Montague MD Type 2 diabetes mellitus without complication, unspecified whether lobsterman insulin use ([facility]) 08/10/2024 9:20 AM EST Office Visit [facility] [address] [place] [address] Sonali Butcher DO Other infective acute otitis [...] Description 10/30/2024 2:00 PM EDT Office Visit [facility] OPTOMETRY [address] [place] [address] Juan, Kareen, OD [address] [place] [address] Health Maintenance Due Date Last Done Comments [...] hyperglycemia, without long-term current use of insulin ([facility]) Essential hypertension POCT GLYCATED HEMOGLOBIN, TOTAL Routine 05/29/2024 11:16 AM EDT Type 2 diabetes mellitus with hyperglycemia, without long-term current use of insulin ([facility]) BITEWING - SINGLE RADIOGRAPHIC IMAGE Routine 08/18/2023 2:30 PM EST Pain due to dental trauma from Last 3 Months or Most Recently Relevant to Health Maintenance Results * (ABNORMAL) CBC auto differential (08/11/2024 2:28 PM EST) White Blood Count 6.3 4.8 - 10.8 X10*3/uL [facility] Red Blood Count 4.46(L) 4.60 - 5.80 X10*6/uL [facility] Hemoglobin 13.7(L) 14.0 - 18.0 g/dl [facility] Hematocrit 40.0(L) 42.0 - 52.0 % [facility] Mean Corpuscular Volume 89.7 80.0 - 98.0 fL [facility] Mean Corpuscular Hemoglobin 30.7 27.0 - 33.0 pg [facility] Mean Corpuscular HGB Conc 34.3 31.0 - 36.0 g/dl [facility] Red Cell Distribution Width 12.7 11.0 - 16.0 % [facility] Platelet Count 211 160 - 400 X10*3/uL [facility] Mean Platelet Volume 9.6 9.4 - 12.4 fL [facility] Neutrophils Percent Auto 66.6 45 - 73 % [facility] Imm Gran Pct Auto 0.2 0.0 - 0.4 % [facility] Lymphocytes Percent Auto 22.2 20 - 40 % [facility] Monocytes Percent Auto 8.3 2 - 11 % [facility] Eosinophils Percent Auto 2.4 0 - 4 % [facility] Basophils Percent Auto 0.3 0 - 2 % [facility] NRBC Pct Auto 0.0 0.0 - 0.2 /100WBC [facility] Neutrophils Absolute Auto 4.2 2.0 - 8.3 x10*3/uL [facility] Imm Gran Abs Auto 0.01 0.00 - 0.03 X10*3/uL [facility] Lymphocytes Absolute Auto 1.4 1.2 - 4.9 X10*3/uL [facility] Monocytes Absolute Auto 0.5 0.1 - 1.2 X10*3/uL [facility] Eosinophils Absolute Auto 0.2 0.0 - 0.4 X10*3/uL [facility] Basophils Absolute Auto 0.0 0.0 - 0.2 X10*3/uL [facility] NRBC Abs Auto 0.000 0.0 - 0.012 X10*3/uL [facility] 08/11/2024 2:28 PM EST 08/11/2024 2:31 PM EST Generic External Data Provider LAB BLOOD ORDERAB LES Final Result Performing Organization Address [facility] Co de Phone Number [facility] [address] [place] [phone] * (ABNORMAL) Sed Rate by Modified Jae (08/11/2024 2:28 PM EST) Erythrocyte Sedimentation Rate 23(H) 0 - 15 MM/HR [facility] Comment:Patients with polycy themia and many hemoglobin abnormalitiesmay have depressed sed rates whereas patients with anemiamay have elevated sed rates. 08/11/2024 2:28 PM EST 08/11/2024 2:31 PM EST Generic External Data Provider LAB BLOOD ORDERAB LES Final Result Performing Organization Address [facility]/ZIP Co de Phone Number [facility] [address] [place] [address] [phone] * (ABNORMAL) C-reactive Protein (08/11/2024 2:28 PM EST) C Reactive Protein 0.88(H) < or = 0.50 mg/dL [facility] 08/11/2024 2:28 PM EST 08/11/2024 2:31 PM EST us Generic External Data Provider LAB BLOOD ORDERAB LES Final Result [facility] [address] [place] [address] [phone] * (ABNORMAL) Comprehensive Metabolic Panel (08/11/2024 2:28 PM EST) Pathologist [facility] Sodium 142 135 - 145 mmol/L [facility] Potassium 3.4 3.3 - 5.1 mmol/L [facility] Chloride 105 96 - 108 mmol/L [facility] Carbon Dioxide 30(H) 22 - 29 mmol/L [facility] Anion Gap 10(L) 12 - 20 [facility] Urea Nitrogen (BUN) 12 9 - 16 mg/dL [facility] Creatinine, Serum 0.76 0.5 - 1.4 mg/dL [facility] Creatinine Clr Calc Pharmacy 143.3 [facility] Comment:eGFR (calculated fro m the MDRD study equation) and eCrCl(calculated from the Cockcroft-Gault equation) are based ondifferent parameters and may not yield comparable results.If eCrCl result is absurd, please check patient'sheight/weight. Estimated Glomerular Filt Rate >60 [facility] Comment:Chronic Kidney Disea se: Estimated GFR < 60 mL/min/1.15r4Ieikzy Kidney Disease: Estimated GFR < 15 mL/min/1.73m2 Glucose 169(H) 60 - 115 mg/dL [facility] Calcium 8.8 8.4 - 10.2 mg/dL [facility] Bilirubin, Total 0.3 0.0 - 1.0 mg/dL [facility] Aspartate Amino Transferase 35 5 - 37 U/L [facility] Alanine Aminotransferase 87(H) 0 - 40 U/L [facility] Total Protein 6.9 6.5 - 8.0 g/dL [facility] Albumin Level 4.0 3.5 - 5.0 g/dL [facility] Alkaline Phosphatase 65 39 - 117 U/L [facility] 08/11/2024 2:2 8 PM EST 08/11/2024 2:31 PM EST us Generic External Data Provider LAB BLOOD ORDERAB LES Final Result [facility] [address] [place] [address] [phone] * CT TEMPORAL BONE WO CONTRAST (08/11/2024 1:47 PM EST) Anatomical Region Laterality Modality Body, Abdomen Computed Tomogra phy 08/11/2024 1:47 PM EST Narrative 08/11/2024 3:35 PM EST ? [facility] ?[address] ?[place] [address] ? CT Scan Report ? Signed ? Patient: Ortega Mayenar ?MR#: [id number] ? : 1970 ?Acct:[id number] ? Age/Sex: 54 / M ?ADM Date: 08/11/24 ? Loc: HO.ED ? Attending Dr: ? Ordering Physician: Ceci Morris INSERT OPERATOR ?? Date of Service: 08/11/24 ?? Procedure(s): CT mastoid ?? Accession Number(s): [id number] ? cc: Mary Ellen Montague MD; Ceci Morris CNP ? Report Number: ?? [id number]: Total DLP = ??344.00 mGy-cm ?? EXAMINATION: [...] DD/ 1347 ? TD/TT: 08/11/24 1413 ? Gaming Associate: ? Procedure Note Kiara Miranda - 08/11/2024 [address] [place] [address] CT Scan Report Signed Patient: Ortega MayenArvinR#: [id number] : 1970Acct:[id number] Age/Sex: 54 / MADM Date: 08/11/24 Loc: HO.ED Attending Dr: Ordering Physician: Ceci Morris CNP Date of Service: 08/11/24 Procedure(s): CT mastoid Accession Number(s): [id number] cc: Mary Ellen Montague MD; Ceci Morris INSERT OPERATOR Report Number: [id number]: Total DLP = 344.00 mGy-cm EXAMINATION: CT [...] by: Norm Key MD 08/11/2024 03:33 PM [facility] [place] [place] Dictated By: Norm Key MD Signed By: <Electronically signed by Norm Key MD in OV> 08/11/24 1533 DD/ 1347 TD/TT: 08/11/24 1413 Gaming Associate: [facility] External Provider IMG CT PROCEDURES Final Result * Creatinine, Random Urine (06/08/2024 12:45 PM EST) Creatinine, Urine 137.59 mg/dL [facility] 06/08/2024 12:4 5 PM EST 06/08/2024 1:38 PM EST Generic External Data Provider LAB URINE ORDERAB LES Final Result Performing Organization Address [facility] Co de Phone Number [facility] [address] [place] [phone] * (ABNORMAL) Lipid Panel, Standard (05/30/2024 9:10 AM EDT) Triglycerides 144 <150 mg/dL [facility] Comment:Desirable Triglyceri de: less than 150 mg/dLBorderline High Triglyceride 150-199 mg/dLHigh Triglyceride: 200-499 mg/dLVery High Triglyceride: greater than or equal to 5OO mg/dL Cholesterol 120 <200 mg/dL [facility] Comment:Desirable Cholestero l: less than 200 mg/dLBorderline High Cholesterol: 200-239 mg/dLHigh Cholesterol: greater than 239 mg/dL LDL Cholesterol Calculated 62 <100 mg/dL [facility] Comment:Desirable LDL: less than 100 mg/dLNear Optimal/Above Optimal LDL: 110- 129 mg/dLBorderline High LDL: 130-159 mg/dLHigh LDL: 160-189 mg/dLVery High LDL: greater than or equal to 190 mg/dL HDL Cholesterol 30(L) >40 mg/dL [facility] Comment:Desirable HDL: great er than 40 mg/dL Note: This HDL assay may give artificially low results in patients with liver disease. Blood Venous blood specimen / Unknown 05/30/2024 9:10 AM EDT 05/30/2024 11:33 AM EDT us Mary Ellen Mcgregor MD LAB BLOOD ORDERABLES Final Result [facility] [address] [place] [address] [phone] * (ABNORMAL) POCT HGB A1C (05/29/2024 11:16 AM EDT) Hemoglobin A1C 7.8(A) 4.0 - 6.0 % QC Media Lot # [id number] Lot# Expiration Date ,026 Blood 05/29/2024 11:1 6 AM EDT Mary Ellen Mcgregor MD POINT OF CARE TEST EN TER/EDIT ORDERABLES Final Result from Last 3 Months or Most Recently Relevant to Health Maintenance Insurance [facility] Care Teams Licensed Marine Engineer Relationship Specialty Start Date End Date Mary Ellen Montague MD [address] [place] [address] PCP - General Family Medicine 02/27/19
--- OUTSIDE RECORDS SUMMARY | 2024-10-09 10:26 | XMS_ITS | Encounter Summary ---
Author Organization [employer] Address [address] [place] [address] 7 [place] [address] Care Team Providers Care Seal Skinner Name Role Phone Mary Ellen Montague MD Primary Care Provide r Reason for Visit * Reason Onset Date Comments med refill 09/29/2024 Encounter Details Date Type Department Care Team (Late st Contact Info) Description 09/29/2024 Refill [facility] MEDICINE [address] [place] [address] Mary Ellen Montague MD [address] [place] [address] Essential hypertension Social History Tobacco Use Types [...] [facility] OPTOMETRY [address] [place], [place] [phone] Kareen Martinez, OD [address] [place], [place] [phone] documented as of this encounter Visit Diagnoses Diagnosis Essential hypertension Unspecified essential hypertension documented in this encounter Additional Health Concerns Assessment Noted Time PHQ-9 Depression Total Score: 0 05/29/20 24 11:15 AM EDT documented as of this encounter Care Teams Seal Skinner Relationship Specialty Start Date End Date Mary Ellen Montague MD [address] [place] [address] PCP - General Family Medicine 02/27/19 documented as of this encounter
--- OUTSIDE RECORDS SUMMARY | 2024-10-09 10:26 | XMS_ITS | Encounter Summary ---
Author Organization [employer] Address [address] [place] [address] [place] [address] Care Team Providers Care Hot Dog Vender Name Role Phone Mary Ellen Montague MD Primary Care Provide r Reason for Visit * Reason Onset Date Comments Med Refill 05/01/2024 Encounter Details Date Type Department Care Team (Late st Contact Info) Description 05/01/2024 Refill [facility] MEDICINE [address] [place] [address] Riya Alvarez, PharmD [address] [place] [address] Type 2 diabetes mellitus with hyperglycemia, without long-term current use of insulin ([facility]) Social History Tobacco Use Types Packs/Day Years [...] Description 10/30/2024 2:00 PM EDT Office Visit [facility] OPTOMETRY [address] [place] [address] Juan, Kareen, OD [address] [place] [address] documented as of this encounter Visit Diagnoses Diagnosis Type 2 diabetes mellitus with hyperglycemia, without long-term current use of insulin ([facility]) documented in this encounter Additional Health Concerns Assessment Noted Time PHQ-9 Depression Total Score: 0 04/13/20 23 10:00 AM EDT documented as of this encounter Care Teams Hot Dog Vender Relationship Specialty Start Date End Date Mary Ellen Montague MD [address] [place] [address] PCP - General Family Medicine 02/27/19 documented as of this encounter
--- OUTSIDE RECORDS SUMMARY | 2024-10-09 10:26 | XMS_ITS | Encounter Summary ---
Author Organization [employer] Address [address] [place] [address] [address] Care Team Providers Care Tapper Supervisor Name Role Phone Mary Ellen Montague MD Primary Care Provide r Reason for Visit * Reason Comments Med Refill Encounter Details Date Type Department Care Team (Late st Contact Info) Description 09/10/2022 Refill [facility] [address] [place] [address] Dunia Chandra MD [address] [place] [address] Dyslipidemia (Primary Dx); HTN (hypertension), benign Social [...] Description 10/30/2024 2:00 PM EDT Office Visit [facility] OPTOMETRY [address] [place] [address] Kareen Martinez, OD [address] [place] [address] documented as of this encounter Visit Diagnoses Diagnosis Dyslipidemia- Primary Other and unspecified hyperlipidemia HTN (hypertension), benign Essential hypertension, benign documented in this encounter Care Teams Tapper Supervisor Relationship Specialty Start Date End Date Mary Ellen Montague MD [address] [place] [address] PCP - General Family Medicine 02/27/19 documented as of this encounter
--- OUTSIDE RECORDS SUMMARY | 2024-10-09 10:26 | XMS_ITS | Encounter Summary ---
Author Organization [employer] Address [address] [place] [address] Care Team Providers Care Automatic Mold Sander Name Role Phone Mary Ellen Montague MD Primary Care Provide r Reason for Visit * Reason Comments Med Refill Encounter Details Date Type Department Care Team (Late st Contact Info) Description 02/21/2024 Refill [facility] [address] [place] [address] Teresa Coburn FNP Social History Tobacco Use [...] Visit [facility] OPTOMETRY [address] [place], [place] [phone] Kareen Martinez, OD [address] [place] [address] documented as of this encounter Visit Diagnoses Not on filedocumented in this encounter Additional Health Concerns Assessment Noted Time PHQ-9 Depression Total Score: 0 04/13/20 23 10:00 AM EDT documented as of this encounter Care Teams Automatic Mold Sander Relationship Specialty Start Date End Date Mary Ellen Montague MD [address] [place] [address] PCP - General Family Medicine 02/27/19 documented as of this encounter
--- OUTSIDE RECORDS SUMMARY | 2024-10-09 10:26 | XMS_ITS | Encounter Summary ---
Author Organization [employer] Address [address] [facility] [address] [place] [address] Care Team Providers Care First Dyer Name Role Phone Mary Ellen Montague MD Primary Care Provide r Reason for Visit * Reason Comments Med Refill Encounter Details Date Type Department Care Team (Late st Contact Info) Description 08/27/2023 Refill [facility] ADULT DENTAL [address] [place], [place] [phone] Rafael Aguirre DDS [address] [place] [address] Social History Tobacco Use Types Packs/Day Years [...] 10/30/2024 2:00 PM EDT Office Visit [facility] OPTOMETRY [address] [place] [address] Juan, Kareen, OD [address] [place] [address] documented as of this encounter Visit Diagnoses Not on filedocumented in this encounter Additional Health Concerns Assessment Noted Time PHQ-9 Depression Total Score: 0 04/13/20 23 10:00 AM EDT documented as of this encounter Care Teams First Dyer Relationship Specialty Start Date End Date Mary Ellen Montague MD [address] [place] [address] PCP - General Family Medicine 02/27/19 documented as of this encounter
--- OUTSIDE RECORDS SUMMARY | 2024-10-09 10:27 | XMS_ITS | Clinical Summary ---
Author Organization [facility] Address [address] [place] [address] Phone Care Team Providers Care Community Service Organization Director Name Role Phone Mary Ellen Montague MD [...] Vaccine (#1) 2024 , 05/27/2020, 05/25/[address] [place] [address] [place] [address] Care Teams Community Service Organization Director Relationship Specialty Start Date End Date Mary Ellen Montague MD [address] [place] [phone] PCP - General Internal Medicine 12/22/21
--- OUTSIDE RECORDS SUMMARY | 2024-10-09 10:27 | XMS_ITS | Clinical Summary ---
Author Organization [facility] Address [address] [place] [address] Care Team Providers Care Heading Machine Operator Name Role Phone Naya Sandoval PA-C Primary Care Provider [phone] Source Comments PLEASE NOTE, if this patient [...] Date Microalbuminuria 10/26/2016 H/O right cataract extraction [facility] 201308/04/2016 S/P right cataract surgery 06/2014 [facility] Eye Ce [facility]ter 08/24/2014 Diabetes mellitus type 2, uncomplicated ([facility] ) 09/12/2013 Non morbid obesity 09/12/2013 Elevated [...] Treatment Not on file Insurance HEALTH SAF[employer]Y [facility] [place] Member Subscriber Plan / Payer (Ef fective 2016-Present) Name:Rodrick Mayen Relation to Subscriber:Self Name:Rodrick Mayen Payer ID:[id number] Type:Indemnity Address: [facility] [address] [place] [address] Care Teams Heading Machine Operator Relationship Specialty Start Date End Date Naya Sandoval PA-C [address] [place] [phone] PCP - General Internal Medicine 08/04/13
== END 2024-10-09 10:06 | disposition home or self-care (01) ==
PROVIDERS: PCP Internal Medicine; Visit Provider Internal Medicine Gastroenterology
DX: K20.90 Esophagitis, unspecified without bleeding (principal)
CPT/HCPCS: 99213

== ENCOUNTER → 2024-10-09 09:37 | Outpatient (BNVA) | payer OTHER, SELFPAY | PROVIDERS: PCP Internal Medicine; Visit Provider Internal Medicine Gastroenterology | DX: K20.90 Esophagitis, unspecified without bleeding (principal) | CPT/HCPCS: 99212 ==

== ENCOUNTER → 2024-10-17 09:07 | Outpatient (REF) | payer OTHER, SELFPAY ==
--- NOTE | 2024-10-17 09:10 | CA_ITS ---
Acquisition Time: 2024-10-17 09:12:46 Total Exercise Time: 00:10:00 Test Indications: CP Medications: SEE H&P Protocol: DENI Max HR: 134 BPM 79% of Pred: 168 BPM Max BP: 164/84 mmHG Max Work Load: 10.1 METS Exercise Stress Test with exercise 10 mins of Deni Protocol held at Stage 3, achieving 79% MPHR, with reports of severe SOB and 3/10 right sided chest pain, with isolated PVCs, with normotensive response to exercise. Without EKG changes meeting criteria for ischemia. In recovery, breathing returned to baseline and chest pain resolved. Test reviewed with Dr. Morrison. Referred By: Markus Morrison Electronically Signed By: Luis Felipe Ang
--- OUTSIDE RECORDS SUMMARY | 2024-10-17 09:47 | XMS_ITS | Clinical Summary ---
Author Organization [facility] Address [address] [place] [address] Care Team Providers Care Scanning Manager Name Role Phone Mary Ellen Montague [...] age to complete this topic Care Teams Scanning Manager Relationship Specialty Start Date End Date Mary Ellen Montague MD [address] [place] [phone] PCP - General 01/28/24
--- OUTSIDE RECORDS SUMMARY | 2024-10-17 09:48 | XMS_ITS | Clinical Summary ---
Author Organization [facility] Address [address] [place] [address] Phone Care Team Providers Care Gear Repair Supervisor Name Role Phone Mary Ellen Montague [...] Vaccine (#1) 2024 , 05/27/2020, 05/25/[address] [place] [place] [address] Care Teams Gear Repair Supervisor Relationship Specialty Start Date End Date Mary Ellen Montague MD [address] [place] [phone] PCP - General Internal Medicine 12/22/21
--- OUTSIDE RECORDS SUMMARY | 2024-10-17 09:48 | XMS_ITS | Clinical Summary ---
Author Organization [facility] Address [address] [place] [address] Care Team Providers Care Machine Feed Operator Name Role Phone Naya Sandoval PA-C Primary Care Provider [phone] Source Comments PLEASE NOTE, if this patient [...] Date Microalbuminuria 10/26/2016 H/O right cataract extraction [facility] 201308/04/2016 S/P right cataract surgery 06/2014 [facility] Eye Ce nter 08/24/2014 Diabetes mellitus type 2, uncomplicated ([facility] 09/12/2013 Non morbid obesity 09/12/2013 Elevated [...] Treatment Not on file Insurance HEALTH SAFETY [facility] [employer] Member Subscriber Plan / Payer (Ef fective 2016-Present) Name:Rodrick Mayen Relation to Subscriber:Self Name:Rodrick Mayen Payer ID:[id number] Type:Indemnity Address: [facility] [address] [place] [address] Care Teams Machine Feed Operator Relationship Specialty Start Date End Date Naya Sandoval PA-C [address] [place] [phone] PCP - General Internal Medicine 08/04/13
== END ==
LOC: HO.CARD 09:07
PROVIDERS: PCP Internal Medicine; Visit Provider Internal Medicine Cardiovascular Disease
DX: I20.81 Angina pectoris with coronary microvascular dysfunction (principal)
CPT/HCPCS: 93017

== ENCOUNTER → 2024-10-17 09:10 | Outpatient (BNV) | payer OTHER, SELFPAY | PROVIDERS: PCP Internal Medicine | DX: R06.02 Shortness of breath (principal) | CPT/HCPCS: 93016; 93018 ==

== ENCOUNTER 2024-10-18 09:33 | Outpatient (REF) | payer OTHER, SELFPAY ==
[2024-10-18 10:35] LABS: Hematocrit 45.2 % (42.0-52.0); Hemoglobin 14.8 g/dl (14.0-18.0); Mean Corpuscular HGB Conc 32.7 g/dl (31.0-36.0); Mean Corpuscular Hemoglobin 30.1 pg (27.0-33.0); Mean Corpuscular Volume 91.9 fL (80.0-98.0); Mean Platelet Volume 10.4 fL (9.4-12.4); Platelet Count 252 X10*3/uL (160-400); Red Blood Count 4.92 X10*6/uL (4.60-5.80); Red Cell Distribution Width 12.4 % (11.0-16.0)
[2024-10-18 10:40] LABS: Prothrombin Time 12.2 SEC (10.9-12.4)
[2024-10-18 10:58] LABS: Anion Gap 12 (12-20); Blood Urea Nitrogen 15 mg/dL (9-16); Calcium 10.5 mg/dL (8.4-10.2); Carbon Dioxide 33 mmol/L (22-29); Chloride 102 mmol/L (96-108); Estimated Glomerular Filt Rate > 60; Glucose Random 127 mg/dL (60-115); Potassium 3.9 mmol/L (3.3-5.1); Sodium 143 mmol/L (135-145)
== END 2024-10-18 09:34 | disposition home or self-care (01) ==
LOC: HO.LAB 09:33
PROVIDERS: PCP Internal Medicine; Visit Provider Internal Medicine Cardiovascular Disease
DX: I20.89 Other forms of angina pectoris (principal)
CPT/HCPCS: 36415; 80048; 85027; 85610

== ENCOUNTER 2024-11-28 14:14 | Outpatient (AMB) | payer OTHER, SELFPAY ==
--- NOTE | 2024-11-28 14:17 | HO.NEPHOV_ITS ---
Vital Signs 11/28/24 14:18 11/28/24 14:28 Height 5 ft 10 in Weight 251 lb 6 oz BMI 36.1 BP 148/90 H 124/80 Blood Pressure Location Rt brachial Lt brachial Position Sitting Sitting Pulse 92 Pulse Source Pulse Oximeter Pulse Oximetry (%) 95 Oxygen Delivery Method Room Air Intake Visit Reasons: 6mon follow up Allergies No Known Allergies Allergy (Verified 11/28/24 14:21) Medication List - Last Reconciled 11/28/24 by Juan Alberto Cronin MD acetaminophen 650 mg PO Q6H PRN amlodipine 10 mg PO DAILY aspirin (Adult Low Dose Aspirin) 81 mg PO DAILY rcopxbo-ubqanilqhuaul-wqhgpugz 250-250-65 mg (Migraine Relief) 1 tab PO Q8H PRN atenolol 100 mg PO DAILY atorvastatin 80 mg PO DAILY clopidogrel 75 mg PO DAILY docusate sodium 100 mg PO BEDTIME gabapentin 300 mg PO BEDTIME glipizide ER 2.5 mg PO DAILY hydralazine 25 mg PO QID isosorbide mononitrate ER 30 mg PO DAILY lisinopril 40 mg PO DAILY metformin 1,000 mg PO DAILY methylcellulose (laxative) (Citrucel) 500 mg PO DAILY ondansetron 4 mg PO Q8H PRN pantoprazole 40 mg PO DAILY semaglutide (Ozempic) 1 mg subcut QWEEK spironolacton-hydrochlorothiaz 25-25 mg 1 tab PO DAILY triamcinolone acetonide sprays intranasal HPI Comments Details: Elan has HTN in a setting of obesity c/o leg pains ;Diagnosed with ;Neuropathy , Now on Neurontin 06/12/24 ;Overall doing OK.Has elevated blood sugar last night ;Uses CPAP regularly 11/28/24 Angiogram has been postponed Still ozempic and lost weight NO dyspnea No edema PFSH Medical History History of COVID-19 CAD (coronary artery disease) GERD (gastroesophageal reflux disease) Diabetes Sleep apnea treated with continuous positive airway pressure (CPAP) Hyperlipidemia Hypertension Surgical History History of heart artery stent H/O left knee surgery (~06/20/15) History of colonoscopy History of cardiac cath History of cataract surgery Family History Father CAD (coronary artery disease) HTN (hypertension) Diabetes Hypercholesteremia Mother CAD (coronary artery disease) Lung disease Diabetes HTN (hypertension) Hypercholesteremia Social History Are you a primary administrator health care facility to a significant other at home: No Do you presently have visiting nurse or other home services: No Alcohol intake: current Alcohol intake frequency: does not drink Patient Tobacco Use Status: Never used Tobacco Physical Exam Vital Signs: Last Vital Signs Pulse 92 11/28/24 14:18 BP 148/90 H 11/28/24 14:18 Pulse Ox 95 11/28/24 14:18 Oxygen Delivery Method Room Air 11/28/24 14:18 BMI result Body Mass Index 36.1 Const General: comfortable; No acute distress Orientation/consciousness: patient oriented x3 Eyes General: appearance normal, both eyes and all related structures Visual Villa: normal visual villa by confrontation Neck Neck: Yes supple and Yes no JVD Resp Effort & Inspection: normal respiratory effort and respiratory effort not decreased Cardio Palpation: no palpable S3 and no palpable S4 Heart sounds: no rubs GI Inspection: Yes normal to inspection Palpation (GI): Soft to palpation Percussion: Yes normal to percussion Auscultation: normal bowel sounds General: Yes no CVA tenderness Back/Spine/Pelvis Back: no CVA tenderness Skin General skin exam: no petechiae and no purpura Neuro General: patient oriented x3 and no focal motor deficits Extrem General: No clubbing and No edema Results Reviewed Nephrology Results: Hgb 14.8 g/dl (14.0-18.0) 10/18/24 WBC 6.0 X10*3/uL (4.8-10.8) 10/18/24 Plt Count 252 X10*3/uL (160-400) 10/18/24 Sodium 143 mmol/L (135-145) 10/18/24 Potassium 3.9 mmol/L (3.3-5.1) 10/18/24 Chloride 102 mmol/L (96-108) 10/18/24 Carbon Dioxide 33 mmol/L (22-29) H 10/18/24 BUN 15 mg/dL (9-16) 10/18/24 Creatinine 0.76 mg/dL (0.5-1.4) 10/18/24 Calcium 10.5 mg/dL (8.4-10.2) H 10/18/24 Urine Protein Negative mg/dL (Neg-Trace) 06/08/24 Urine Creatinine 137.59 mg/dL 06/08/24 Assessment & Plan Assessment & Plan (1) Hypertension: Code(s): I10 - Essential (primary) hypertension Category: Medical Plan: BP is better controlled Initial reading was high and repeat was better Low salt diet ON Aldactazide 25-25 QD Needs weight loss Renal function is stable. Keep SGLT-2 inhibitor for cardio renal protection (2) Diabetes: Code(s): E11.9 - Type 2 diabetes mellitus without complications Category: Medical Plan: Goal A1C < 7% Plan Leg pain Most likely from diabetic neuropathy Concur with Gabapentin Await cardiology follow up and angiogra, Orders: Orders Basic Metabolic Panel 8 Weeks I10 - Essential (primary) hypertension Coding Level of Care Code Est Pt Level 4 (06675) Diagnoses Hypertension I10 Diabetes E11.9
[2024-11-28 14:18] VITALS: BP 148/90; PULSE 92; O2SAT 95; BMI 36.1
[2024-11-28 14:28] VITALS: BP 124/80
--- OUTSIDE RECORDS SUMMARY | 2024-11-28 16:28 | XMS_ITS | Encounter Summary ---
Author Organization [employer] Address [address] [place] [id number] Care Team Providers Care Phlebotomist Supervisor/Instructor Name Role Phone Mary Ellen Montague MD Primary Care Provide r Reason for Visit * Reason Comments Med Refill Encounter Details Date Type Department Care Team (Late st Contact Info) Description 09/10/2022 Refill [facility] [address] [place], [place] [phone] Dunia Chandra MD [address] [place], [place] [phone] Dyslipidemia (Primary Dx); HTN (hypertension), benign Social [...] as of this encounter Plan of Treatment Not on file documented as of this encounter Visit Diagnoses Diagnosis Dyslipidemia- Primary Other and unspecified hyperlipidemia HTN (hypertension), benign Essential hypertension, benign documented in this encounter Care Teams Phlebotomist Supervisor/Instructor Relationship Specialty Start Date End Date Mary Ellen Montague MD [address] [place], [place] [phone] PCP - General Family Medicine 02/27/19 documented as of this encounter
--- OUTSIDE RECORDS SUMMARY | 2024-11-28 16:28 | XMS_ITS | Encounter Summary ---
Author Organization [employer] Address [address] [facility] 7 [place] [address] Care Team Providers Care Bartenders Name Role Phone Mary Ellen Montague MD Primary Care Provide r Reason for Visit * Reason Comments Med Refill Encounter Details Date Type Department Care Team (Late st Contact Info) Description 08/27/2023 Refill [facility] [address] [place], [place] [phone] Rafael Aguirre DDS [address] [place] [address] Social History Tobacco Use Types Packs/Day Years [...] documented in this encounter Plan of Treatment Not on file documented as of this encounter Visit Diagnoses Not on filedocumented in this encounter Additional Health Concerns Assessment Noted Time PHQ-9 Depression Total Score: 0 04/13/20 23 10:00 AM EDT documented as of this encounter Care Teams Bartenders Relationship Specialty Start Date End Date Mary Ellen Montague MD [address] [place] [address] PCP - General Family Medicine 02/27/19 documented as of this encounter
--- OUTSIDE RECORDS SUMMARY | 2024-11-28 16:28 | XMS_ITS | Encounter Summary ---
Author Organization [employer] Address [address] [place] [address] 7 [place] [address] Care Team Providers Care Last Model Maker Name Role Phone Mary Ellen Montague MD Primary Care Provide r Reason for Visit * Reason Onset Date Comments Med Refill medication 08/21/2023 Encounter Details Date Type Department Care Team (Late st Contact Info) Description 08/21/2023 Refill [facility] [address] [place] [address] Rafael Aguirre, NARGIS [address] [place] [address] Social History Tobacco Use Types Packs/Day Years [...] to Dr. Aguirre. Patient was seen with [employer] student and script for antibiotic was sent [...] documented as of this encounter Care Teams Last Model Maker Relationship Specialty Start Date End Date Mary Ellen Montague MD [address] [place] [phone] PCP - General Family Medicine 02/27/19 documented as of this encounter
--- OUTSIDE RECORDS SUMMARY | 2024-11-28 16:29 | XMS_ITS | Encounter Summary ---
Author Organization [employer] Address [address] [facility] [address] [place] [address] Care Team Providers Care Color Artist Name Role Phone Mary Ellen Montague MD Primary Care Provide r Encounter Details Date Type Department Care Team (Late st Contact Info) Description 11/28/2024 Orders Only GENERIC EXTERNAL DATA DEPARTMENT Provider, Generic External Data Social History Tobacco Use Types Packs/Day Years [...] on file documented as of this encounter Procedures Procedure Name Priority Date/Time Associated Diagnosis Comments CBC WITH AUTO DIFFERENTIAL Routine 11/28/2024 2:51 PM EDT PROTHROMBIN TIME-INR Routine 11/28/2024 2:51 PM EDT BASIC METABOLIC PANEL Routine 11/28/2024 2:51 PM EDT documented in this encounter Results * (ABNORMAL) Basic Metabolic Panel (11/28/2024 2:51 PM EDT) Sodium 143 135 - 145 mmol/L [facility] Potassium 3.8 3.3 - 5.1 mmol/L [facility] Chloride 102 96 - 108 mmol/L [facility] Carbon Dioxide 31(H) 22 - 29 mmol/L [facility] Anion Gap 14 12 - 20 [facility] Urea Nitrogen (BUN) 16 9 - 16 mg/dL [facility] Creatinine, Serum 0.88 0.5 - 1.4 mg/dL [facility] Estimated Glomerular Filt Rate >60 [facility] Comment:Chronic Kidney Disea se: Estimated GFR < 60 mL/min/[id number] Kidney Disease: Estimated GFR < 15 mL/min/1.73m2 Glucose 210(H) 60 - 115 mg/dL [facility] Calcium 9.7 8.4 - 10.2 mg/dL [facility] 11/28/2024 2:51 PM EDT 11/28/2024 2:51 PM EDT Generic External Data Provider LAB BLOOD ORDERAB LES Final Result Performing Organization Address [facility] Co de Phone Number [facility] [address] [place] [phone] * Prothrombin Time-INR (11/28/2024 2:51 PM EDT) Pathologist [facility] [place] Prothrombin Time 11.5 10.9 - 12.4 SEC [facility] INTERNATIONAL NORM RATIO 1.0 0.9 - 1.1 [facility] Comment:INTERNATIONAL NORMAL IZED RATIO (INR) REFERENCE RANGES Reference RangeFor patients not on anticoagulant therapy: 0.9 - 1.1INR ranges for oral anticoagulanttherapy:For prevention and treatment of venous thrombosis and pulmonary embolism: 2.0 - 3.0For acute myocardial infarction with aspirin therapy: 2.0 - 3.0For acute myocardial infarction without aspirin therapy: 3.0 - 4.0For patients with mechanical prosthetic heart valves: 2.5 - 3.5 11/28/2024 2:51 PM EDT 11/28/2024 2:51 PM EDT Generic External Data Provider LAB BLOOD ORDERAB LES Final Result Performing Organization Address [facility] Co de Phone Number [facility] [address] [place] [phone] * (ABNORMAL) CBC auto differential (11/28/2024 2:51 PM EDT) Pathologist [facility] [place] White Blood Count 5.8 4.8 - 10.8 X10*3/uL [facility] Red Blood Count 4.47(L) 4.60 - 5.80 X10*6/uL [facility] Hemoglobin 13.7(L) 14.0 - 18.0 g/dl [facility] Hematocrit 41.4(L) 42.0 - 52.0 % [facility] Mean Corpuscular Volume 92.6 80.0 - 98.0 fL [facility] Mean Corpuscular Hemoglobin 30.6 27.0 - 33.0 pg [facility] Mean Corpuscular HGB Conc 33.1 31.0 - 36.0 g/dl [facility] Red Cell Distribution Width 12.7 11.0 - 16.0 % [facility] Platelet Count 226 160 - 400 X10*3/uL [facility] Mean Platelet Volume 10.2 9.4 - 12.4 fL [facility] Neutrophils Percent Auto 65.1 45 - 73 % [facility] Imm Gran Pct Auto 0.3 0.0 - 0.4 % [facility] Lymphocytes Percent Auto 24.4 20 - 40 % [facility] Monocytes Percent Auto 7.8 2 - 11 % [facility] Eosinophils Percent Auto 2.1 0 - 4 % [facility] Basophils Percent Auto 0.3 0 - 2 % [facility] NRBC Pct Auto 0.0 0.0 - 0.2 /100WBC [facility] Neutrophils Absolute Auto 3.8 2.0 - 8.3 x10*3/uL [facility] Imm Gran Abs Auto 0.02 0.00 - 0.03 X10*3/uL [facility] Lymphocytes Absolute Auto 1.4 1.2 - 4.9 X10*3/uL [facility] Monocytes Absolute Auto 0.5 0.1 - 1.2 X10*3/uL [facility] Eosinophils Absolute Auto 0.1 0.0 - 0.4 X10*3/uL [facility] Basophils Absolute Auto 0.0 0.0 - 0.2 X10*3/uL [facility] NRBC Abs Auto 0.000 0.0 - 0.012 X10*3/uL [facility] 11/28/2024 2:51 PM EDT 11/28/2024 2:51 PM EDT us Generic External Data Provider LAB BLOOD ORDERAB LES Final Result [facility] [address] [place] [phone] documented in this encounter Visit Diagnoses Not on filedocumented in this encounter Additional Health Concerns Assessment Noted Time PHQ-9 Depression Total Score: 0 05/29/20 24 11:15 AM EDT documented as of this encounter Care Teams Color Artist Relationship Specialty Start Date End Date Mary Ellen Montague MD [address] [place] [address] PCP - General Family Medicine 02/27/19 documented as of this encounter
--- OUTSIDE RECORDS SUMMARY | 2024-11-28 16:29 | XMS_ITS | Clinical Summary ---
Author Organization [email or web address] Address [address] [place] [address] 7 [place] [address] Care Team Providers Care Wrapping Machine Tender Name Role Phone Mary Ellen Montague MD Primary Care Provide r Allergies Active Allergy Reactions Criticality Noted Date Comments Carvedilol 10/06/2018 Other reaction(s): Chest pain, Trouble Breathing Medications triamcinolone (Nasacort) 55 MCG/ACT nasal inhaler SPRAY 2 SPRAYS INTO EACH NOSTRIL DAILY 08/27/19 23 Active spironolactone-hyd roCHLOROthiazide (Aldactazide) 25-25 MG tablet Take 1 tablet by mouth in the morning. 08/21/19 23 Active senna (Senokot) 8.6 MG tablet TAKE 1 TABLET BY MOUTH AT BEDTIME FOR CONSTIPATION 04/27/20 22 Active [facility] Allergy Relief 10 MG capsule Take 1 capsule by mouth in the morning. 08/27/19 23 Active cyclobenzaprine (Flexeril) 5 MG tablet Take 5 mg by mouth 3 times daily. 01/24/20 22 Active glucose blood (FREESTYLE LITE) test strip Use to check fasting sugar daily or as directed by physician 10/02/19 21 Active docusate sodium (Colace) 100 MG capsule Take 100 mg by mouth at bedtime. 04/27/20 22 Active isosorbide mononitrate ER (Imdur) 30 MG 24 hr tablet Take 30 mg by mouth in the morning. 08/24/19 23 Active lidocaine (Lidoderm) 5 % patchIndications:R ib pain on right side Apply 1 patch topically in the morning. Remove & discard patch within 12 hours or as directed by MD. 30 patch 03/29/20 23 Active metoclopramide (Reglan) 10 MG tabletIndications: Chronic gastritis without bleeding, unspecified gastritis type Take 1 tablet (10 mg) by mouth 4 times daily for 5 days. 20 tablet 03/29/20 Active traZODone (Desyrel) 50 MG tablet Take 25 mg by mouth. 02/05/20 Active magnesium oxide (Mag-Ox) 400 MG tablet Take 1 tablet by mouth. 02/05/20 23 Active pantoprazole (ProtoNix) 40 MG EC tabletIndications: Chronic gastritis without bleeding, unspecified gastritis type TAKE 1 TABLET BY MOUTH TWICE DAILY IN THE MORNING AND AT NOON DO NOT BREAK, CRUSH, DISSOLVE OR CHEW 60 tablet 1 08/23/19 24 Active metFORMIN (Glucophage) 1000 MG tablet TAKE 1 TABLET BY MOUTH TWICE DAILY IN THE MORNING AND IN THE EVENING WITH MEALS 60 tablet 11 01/10/20 24 Active semaglutide (Ozempic) 2 MG/1.5ML solution pen-injectorIndica tions:Type 2 diabetes mellitus with hyperglycemia, without long-term current use of insulin (CMS/HCC) Inject 1 mg under the skin 1 (one) time per week. 2 each 05/29/20 24 Active gabapentin (Neurontin) 300 MG capsuleIndications :Diabetic polyneuropathy associated with type 2 diabetes mellitus (CMS/HCC) Take 1 capsule (300 mg) by mouth 3 times daily. 90 capsule 11 05/29/20 24 025 Active atorvastatin (Lipitor) 80 MG tabletIndications: Dyslipidemia TAKE 1 TABLET BY MOUTH EVERY DAY 90 tablet 1 06/13/20 24 Active amLODIPine (Norvasc) 10 MG tabletIndications: HTN (hypertension), benign TAKE 1 TABLET BY MOUTH EVERY DAY 90 tablet 1 06/13/20 24 Active glipiZIDE XL (Glucotrol XL) 2.5 MG 24 hr tabletIndications: Type 2 diabetes mellitus without complication, unspecified whether fpc insulin use (CMS/HCC) TAKE 1 TABLET BY MOUTH THREE TIMES DAILY WITH MEALS NEEDED LOW BLOOD SUGAR 90 tablet 2 08/11/19 25 Active clopidogrel (Plavix) 75 MG tabletIndications: Stented coronary artery TAKE 1 TABLET BY MOUTH EVERY DAY 30 tablet 11 08/24/19 25 Active lisinopril 40 MG tabletIndications: Essential hypertension TAKE 1 TABLET BY MOUTH EVERY DAY 90 tablet 3 09/29/19 25 Active Aspirin EC Adult Low Dose 81 MG EC tabletIndications: Coronary artery disease involving [place] coronary artery of [place] heart without angina pectoris TAKE 1 TABLET BY MOUTH EVERY DAY IN THE MORNING 90 tablet 3 10/11/19 25 Active hydrALAZINE (Apresoline) 25 MG tabletIndications: HTN (hypertension), benign TAKE 1 TABLET BY MOUTH FOUR TIMES DAILY WITH FOOD 120 tablet 3 10/14/19 25 Active atenolol (Tenormin) 100 MG tabletIndications: HTN (hypertension), benign Take 1 tablet (100 mg) by mouth Once per day. 90 tablet 1 10/21/19 25 Active pantoprazole (ProtoNix) 40 MG EC tabletIndications: Gastroesophageal reflux disease, unspecified whether esophagitis present TAKE 1 TABLET BY MOUTH EVERY DAY BEFORE BREAKFAST, DO NOT BREAK, CRUSH, DISSOLVE OR CHEW 30 tablet 11 10/24/19 25 Active Active Problems Problem Noted Date Diagnosed [...] 30-39.9) 11/24/2018 Coronary artery disease invo lving [place] coronary artery of [place] heart without angina pectoris 09/13/2018 Assessment & [...] Encounters Date Type Department Care Team Description 11/28/2024 Orders Only GENERIC EXTERNAL DATA DEPARTMENT Provider, Generic External Data 11/09/2024 Telephone [facility] MEDICINE [address] [place] [address] Mary Ellen Montague MD Appointment Request 10/30/2024 Telephone [facility] OPTOMETRY [address] [place] [address] Juan, Kareen, OD 10/23/2024 Refill [facility] MEDICINE [address] [place] [address] Mary Ellen Montague MD Gastroesophageal reflux disease, unspecified whether esophagitis present 10/20/2024 Refill [facility] MEDICINE [address] [place] [address] Mary Ellen Montague MD HTN (hypertension), benign 10/18/2024 Orders Only GENERIC EXTERNAL DATA DEPARTMENT Provider, Generic External Data 10/13/2024 Refill [facility] [address] [place] [address] Mary Ellen Montague MD HTN (hypertension), benign 10/10/2024 Refill [facility] MEDICINE [address] [place] [address] Mary Ellen Montague MD Coronary artery disease involving [place] coronary artery of [place] heart without angina pectoris 09/29/2024 Refill [facility] MED[facility]INE [address] [place] [address] Mary Ellen Montague MD Essential hypertension from Last 3 Months Immunizations Name Administration [...] 05/29/2024 11:14 AM EDT Plan of Treatment Health Maintenance Due [...] Procedure Name Priority Date/Time Associated Diagnosis Comments BASIC METABOLIC PANEL Routine 11/28/2024 2:51 PM EDT PROTHROMBIN TIME-INR Routine 11/28/2024 2:51 PM EDT CBC WITH AUTO DIFFERENTIAL Routine 11/28/2024 2:51 PM EDT BASIC METABOLIC PANEL Routine 10/18/2024 9:46 AM EDT PROTHROMBIN TIME-INR Routine 10/18/2024 9:46 AM EDT CBC Routine 10/18/2024 9:46 AM EDT CREATININE, RANDOM URINE Routine 06/08/2024 12:45 PM EST LIPID PANEL, STANDARD Routine 05/30/2024 9:10 AM EDT Type 2 diabetes mellitus with hyperglycemia, without long-term current use of insulin ([facility]) Essential hypertension POCT GLYCATED HEMOGLOBIN, TOTAL Routine 05/29/2024 11:16 AM EDT Type 2 diabetes mellitus with hyperglycemia, without long-term current use of insulin ([facility]) BITEWING - SINGLE RADIOGRAPHIC IMAGE Routine 08/18/2023 2:30 PM EST Pain due to dental trauma from Last 3 Months or Most Recently Relevant to Health Maintenance Results * (ABNORMAL) CBC auto differential (11/28/2024 2:51 PM EDT) White Blood Count 5.8 4.8 - 10.8 X10*3/uL [facility] Red Blood Count 4.47(L) 4.60 - 5.80 X10*6/uL [facility] Hemoglobin 13.7(L) 14.0 - 18.0 g/dl [facility] Hematocrit 41.4(L) 42.0 - 52.0 % [facility] Mean Corpuscular Volume 92.6 80.0 - 98.0 fL [facility] Mean Corpuscular Hemoglobin 30.6 27.0 - 33.0 pg [facility] Mean Corpuscular HGB Conc 33.1 31.0 - 36.0 g/dl [facility] Red Cell Distribution Width 12.7 11.0 - 16.0 % [facility] Platelet Count 226 160 - 400 X10*3/uL [facility] Mean Platelet Volume 10.2 9.4 - 12.4 fL [facility] Neutrophils Percent Auto 65.1 45 - 73 % [facility] Imm Gran Pct Auto 0.3 0.0 - 0.4 % [facility] Lymphocytes Percent Auto 24.4 20 - 40 % [facility] Monocytes Percent Auto 7.8 2 - 11 % [facility] Eosinophils Percent Auto 2.1 0 - 4 % [facility] Basophils Percent Auto 0.3 0 - 2 % [facility] NRBC Pct Auto 0.0 0.0 - 0.2 /100WBC [facility] Neutrophils Absolute Auto 3.8 2.0 - 8.3 x10*3/uL [facility] Imm Gran Abs Auto 0.02 0.00 - 0.03 X10*3/uL [facility] Lymphocytes Absolute Auto 1.4 1.2 - 4.9 X10*3/uL [facility] Monocytes Absolute Auto 0.5 0.1 - 1.2 X10*3/uL [facility] Eosinophils Absolute Auto 0.1 0.0 - 0.4 X10*3/uL [facility] Basophils Absolute Auto 0.0 0.0 - 0.2 X10*3/uL [facility] NRBC Abs Auto 0.000 0.0 - 0.012 X10*3/uL [facility] 11/28/2024 2:51 PM EDT 11/28/2024 2:51 PM EDT us Generic External Data Provider LAB BLOOD ORDERAB LES Final Result [facility] [address] [place] [phone] * Prothrombin Time-INR (11/28/2024 2:51 PM EDT) Only the most recent of2 resultswithin the time period is included. Prothrombin Time 11.5 10.9 - 12.4 SEC [facility] INTERNATIONAL NORM RATIO 1.0 0.9 - 1.1 [facility] Comment:INTERNATIONAL NORMAL IZED RATIO (INR) REFERENCE [...] ORDERAB LES Final Result Performing Organization Address [facility]/ZIP Co de Phone Number [facility] [address] [place] [address] [phone] * (ABNORMAL) Basic Metabolic Panel (11/28/2024 2:51 PM EDT) Only the most recent of2 resultswithin the time period is included. Sodium 143 135 - 145 mmol/L [facility] Potassium 3.8 3.3 - 5.1 mmol/L [facility] Chloride 102 96 - 108 mmol/L [facility] Carbon Dioxide 31(H) 22 - 29 mmol/L [facility] Anion Gap 14 12 - 20 [facility] Urea Nitrogen (BUN) 16 9 - 16 mg/dL [facility] Creatinine, Serum 0.88 0.5 - 1.4 mg/dL [facility] Estimated Glomerular Filt Rate >60 [facility] Comment:Chronic Kidney Disea se: Estimated GFR < 60 mL/min/1.17m6[place] Kidney Disease: Estimated GFR < 15 mL/min/1.73m2 Glucose 210(H) 60 - 115 mg/dL [facility] Calcium 9.7 8.4 - 10.2 mg/dL [facility] 11/28/2024 2:51 PM EDT 11/28/2024 2:51 PM EDT us Generic External Data Provider LAB BLOOD ORDERAB LES Final Result Performing Organization Address [facility]/ZIP Co de Phone Number [facility] [address] [place] [address] [phone] * CBC (10/18/2024 9:46 AM EDT) White Blood Count 6.0 4.8 - 10.8 X10*3/uL [facility] Red Blood Count 4.92 4.60 - 5.80 X10*6/uL [facility] Hemoglobin 14.8 14.0 - 18.0 g/dl [facility] Hematocrit 45.2 42.0 - 52.0 % [facility] Mean Corpuscular Volume 91.9 80.0 - 98.0 fL [facility] Mean Corpuscular Hemoglobin 30.1 27.0 - 33.0 pg [facility] Mean Corpuscular HGB Conc 32.7 31.0 - 36.0 g/dl [facility] Red Cell Distribution Width 12.4 11.0 - 16.0 % [facility] Platelet Count 252 160 - 400 X10*3/uL [facility] Mean Platelet Volume 10.4 9.4 - 12.4 fL [facility] NRBC Pct Auto 0.0 0.0 - 0.2 /100WBC [facility] NRBC Abs Auto 0.000 0.0 - 0.012 X10*3/uL [facility] 10/18/2024 9:46 AM EDT 10/18/2024 9:46 AM EDT us Generic External Data Provider LAB BLOOD ORDERAB LES Final Result Performing Organization Address [facility] Co de Phone Number [facility] [address] [place] [address] [phone] * Creatinine, Random Urine (06/08/2024 12:45 PM EST) Creatinine, Urine 137.59 mg/dL [facility] 06/08/2024 12:4 5 PM EST 06/08/2024 1:38 PM EST us Generic External Data Provider LAB URINE ORDERAB LES Final Result Performing Organization Address [facility] Co de Phone Number [facility] [address] [place] [address] [phone] * (ABNORMAL) Lipid Panel, Standard (05/30/2024 9:10 AM EDT) Triglycerides 144 <150 mg/dL [facility] Comment:Desirable Triglyceri de: less than 150 mg/dLBorderline High Triglyceride 150-199 mg/dLHigh Triglyceride: 200-499 mg/dLVery High Triglyceride: greater than or equal to 5OO mg/dL Cholesterol 120 <200 mg/dL [facility] Comment:Desirable Cholestero l: less than 200 mg/dLBorderline High Cholesterol: 200-239 mg/dLHigh Cholesterol: greater than 239 mg/dL LDL Cholesterol Calculated 62 <100 mg/dL [facility] Comment:Desirable LDL: less than 100 mg/dLNear Optimal/Above Optimal LDL: 110- 129 mg/dLBorderline High LDL: 130-159 mg/dLHigh LDL: 160-189 mg/dLVery High LDL: greater than or equal to 190 mg/dL HDL Cholesterol 30(L) >40 mg/dL [facility] Comment:Desirable HDL: great er than 40 mg/dL Note: This HDL assay may give artificially low results in patients with liver disease. Blood Venous blood specimen / Unknown 05/30/2024 9:10 AM EDT 05/30/2024 11:33 AM EDT us Mary Ellen Mcgregor MD LAB BLOOD ORDERABLES Final Result [facility] [address] [place] [phone] * (ABNORMAL) POCT HGB A1C (05/29/2024 11:16 AM EDT) Hemoglobin A1C 7.8(A) 4.0 - 6.0 % QC Media Lot # [id number] Lot# Expiration Date [id number] Blood 05/29/2024 11:1 6 AM EDT us Mary Ellen Mcgregor MD POINT OF CARE TEST EN TER/EDIT ORDERABLES Final Result from Last 3 Months or Most Recently Relevant to Health Maintenance Insurance [address] [place] [address] [place] Care Teams Wrapping Machine Tender Relationship Specialty Start Date End Date Mary Ellen Montague MD [address] [place] [phone] PCP - General Family Medicine 02/27/19
--- OUTSIDE RECORDS SUMMARY | 2024-11-28 16:29 | XMS_ITS | Clinical Summary ---
Author Organization [facility] ity Address [address] [place] [address] Care Team Providers Care Toby Maker Name Role Phone Mary Ellen Montague [...] - 2023-2 5 season) 2024 Influenza Vaccine (Season Ended) 2025 HIB Vaccines Aged Out No longer eligi [...] age to complete this topic Meningococcal B Vaccine Aged Out No l onger eligible based on patient's age to complete this topic RSV Immunization Patients Un duyen 20 months Aged Out No longer eligible b ased on patient's age to complete this topic Varicella Vaccines Aged Out No longer eligible based on patient's age to complete this topic Care Teams Toby Maker Relationship Specialty Start Date End Date Mary Ellen Montague MD [address] [place] [phone] PCP - General 01/28/24
--- OUTSIDE RECORDS SUMMARY | 2024-11-28 16:29 | XMS_ITS | Encounter Summary ---
Author Organization [employer] Address [address] [place] [address] Care Team Providers Care Crane Oiler Name Role Phone Mary Ellen Montague MD Primary Care Provide r Reason for Visit * Reason Comments Med Refill Encounter Details Date Type Department Care Team (Late st Contact Info) Description 02/21/2024 Refill [facility] [address] [place] [address] Teresa Coburn FNP Social History Tobacco Use [...] documented as of this encounter Care Teams Crane Oiler Relationship Specialty Start Date End Date Mary Ellen Montague MD [address] [place] [address] PCP - General Family Medicine 02/27/19 documented as of this encounter
--- OUTSIDE RECORDS SUMMARY | 2024-11-28 16:29 | XMS_ITS | Clinical Summary ---
Author Organization [facility] Address [address] [place] [address] Care Team Providers Care Manager Resource Name Role Phone Naya Sandoval PA-C Primary Care Provider [phone] Source Comments PLEASE NOTE, if this patient [...] Date Microalbuminuria 10/26/2016 H/O right cataract extraction [facility] 201308/04/2016 S/P right cataract surgery 06/2014 [facility] 08/24/2014 Diabetes mellitus type 2, uncomplicated ([facility] ) 09/12/2013 Non morbid obesity 09/12/2013 Elevated [...] Treatment Not on file Insurance [employer] [facility] [employer] Member Subscriber Plan / Payer (Ef fective 2016-Present) Name:Rodrick Mayen Relation to Subscriber:Self Name:Rodrick Mayen Payer ID:[id number] Type:Indemnity Address: [facility] [address] [place] [address] Care Teams Manager Resource Relationship Specialty Start Date End Date Naya Sandoval PA-C [address] [place] [phone] PCP - General Internal Medicine 08/04/13
--- OUTSIDE RECORDS SUMMARY | 2024-11-28 16:29 | XMS_ITS | Encounter Summary ---
Author Organization [employer] Address [address] [place] [address] [place] [address] Care Team Providers Care Senior Account Manager Name Role Phone Mary Ellen Montague MD Primary Care Provide r Reason for Visit * Reason Onset Date Comments Med Refill 05/01/2024 Encounter Details Date Type Department Care Team (Late st Contact Info) Description 05/01/2024 Refill [facility] [address] [place] [address] Riya Alvarez, PharmD [address] [place] [address] Type 2 diabetes mellitus with hyperglycemia, without long-term current use of insulin ([facility]) Social History Tobacco Use Types [...] of insulin ([facility]) documented in this encounter Additional Health Concerns Assessment Noted Time PHQ-9 Depression Total Score: 0 04/13/20 23 10:00 AM EDT documented as of this encounter Care Teams Senior Account Manager Relationship Specialty Start Date End Date Mary Ellen Montague MD [address] [place] [phone] PCP - General Family Medicine 02/27/19 documented as of this encounter
--- OUTSIDE RECORDS SUMMARY | 2024-11-28 16:29 | XMS_ITS | Clinical Summary ---
Author Organization [facility] Address [address] [place] [phone] Phone Care Team Providers Care Cloth Brushing And Sueding Supervisor Name Role Phone Mary Ellen Montague [...] Type 2 diabetes mellitus without complication Immunizations Immunization Administration Dates Next Due Influenza, MDCK, PF, [...] series) 1991 Pneumococcal Vaccine: 50+ Ye ars (2 of 2 - PCV) 02/23/2020 02/22/2019 Diabetes: Hemoglobin A1C 08/30/2020 Diabetes: Ophthalmology Exam 08/30/2020 Diabetes: Pedal Pulse Checked 08/30/2020 Diabetes: Sensory Foot Exam 08/30/2020 Diabetes: Visual Foot Exam 08/30/2020 Colorectal Cancer Screening: Annual FOBT 2021 Colorectal Cancer Screening: Colonoscopy 2021 Colorectal Cancer Screening: Sigmoidoscopy 2021 Influenza Vaccine (Season Ended) 2025 05/01/2021, 05/27/2020, 05/25/2019 Pneumococcal Vaccine: Peds ( 0 to 5 Years) and At-Risk Patients (6 to 49 Years) Discontinued 02/22/2019 Insurance Member Subscriber Plan / Payer (Ef fective 2021-Present) Name:Rodrick Mayen Relation to Subscriber:Self Name:Rodrick Mayen Payer ID:Not on file Type:Not on file Address: [place] [phone] Care Teams Cloth Brushing And Sueding Supervisor Relationship Specialty Start Date End Date Mary Ellen Montague MD [address] [place] [phone] PCP - General Internal Medicine 12/22/21
== END 2024-11-28 14:32 | disposition home or self-care (01) ==
LOC: HO.HKA 14:15
PROVIDERS: PCP Internal Medicine; Visit Provider Internal Medicine Hypertension Specialist
DX: I10 Essential (primary) hypertension (principal); E11.9 Type 2 diabetes mellitus without complications
CPT/HCPCS: 99214

== ENCOUNTER 2024-11-28 14:14 | Outpatient (REF) | payer OTHER, SELFPAY ==
[2024-11-28 14:53] LABS: MANUAL DIFF FLAG NO
[2024-11-28 15:04] LABS: Basophils Percent Auto 0.3 % (0-2); Eosinophils Absolute Auto 0.1 X10*3/uL (0.0-0.4); Eosinophils Percent Auto 2.1 % (0-4); Hematocrit 41.4 % (42.0-52.0); Hemoglobin 13.7 g/dl (14.0-18.0); Imm Gran Abs Auto 0.02 X10*3/uL (0.00-0.03); Imm Gran Pct Auto 0.3 % (0.0-0.4); Lymphocytes Absolute Auto 1.4 X10*3/uL (1.2-4.9); Lymphocytes Percent Auto 24.4 % (20-40); Mean Corpuscular HGB Conc 33.1 g/dl (31.0-36.0); Mean Corpuscular Hemoglobin 30.6 pg (27.0-33.0); Mean Corpuscular Volume 92.6 fL (80.0-98.0); Mean Platelet Volume 10.2 fL (9.4-12.4); Monocytes Absolute Auto 0.5 X10*3/uL (0.1-1.2); Monocytes Percent Auto 7.8 % (2-11); Neutrophils Absolute Auto 3.8 x10*3/uL (2.0-8.3); Neutrophils Percent Auto 65.1 % (45-73); Platelet Count 226 X10*3/uL (160-400); Red Blood Count 4.47 X10*6/uL (4.60-5.80); Red Cell Distribution Width 12.7 % (11.0-16.0); White Blood Count 5.8 X10*3/uL (4.8-10.8)
[2024-11-28 15:16] LABS: Prothrombin Time 11.5 SEC (10.9-12.4)
[2024-11-28 15:50] LABS: Anion Gap 14 (12-20); Blood Urea Nitrogen 16 mg/dL (9-16); Calcium 9.7 mg/dL (8.4-10.2); Carbon Dioxide 31 mmol/L (22-29); Chloride 102 mmol/L (96-108); Estimated Glomerular Filt Rate > 60; Glucose Random 210 mg/dL (60-115); Potassium 3.8 mmol/L (3.3-5.1); Sodium 143 mmol/L (135-145)
--- OUTSIDE RECORDS SUMMARY | 2024-11-28 17:39 | XMS_ITS | Encounter Summary ---
Author Organization [employer] Address [address] [place] [address] 7 [place] [address] Care Team Providers Care Operating Room Specialist Name Role Phone Mary Ellen Montague MD Primary Care Provide r Reason for Visit * Reason Onset Date Comments Med Refill medication 08/21/2023 Encounter Details Date Type Department Care Team (Late st Contact Info) Description 08/21/2023 Refill [facility] [address] [place] [address] Rafael Aguirre, NARGIS [address] [place] [address] Social History Tobacco Use Types Packs/Day Years [...] documented as of this encounter Care Teams Operating Room Specialist Relationship Specialty Start Date End Date Mary Ellen Montague MD [address] [place] [phone] PCP - General Family Medicine 02/27/19 documented as of this encounter
--- OUTSIDE RECORDS SUMMARY | 2024-11-28 17:39 | XMS_ITS | Encounter Summary ---
Author Organization [employer] Address [address] [facility] [address] [place] [address] Care Team Providers Care Clam Bed Worker Name Role Phone Mary Ellen Montague MD Primary Care Provide r Reason for Visit * Reason Comments Med Refill Encounter Details Date Type Department Care Team (Late st Contact Info) Description 08/27/2023 Refill [facility] [address] [place], [place] [phone] Rafael Aguirre DDS [address] [place] [address] Social History Tobacco Use Types Packs/Day Years [...] documented as of this encounter Care Teams Clam Bed Worker Relationship Specialty Start Date End Date Mary Ellen Montague MD [address] [place] [address] PCP - General Family Medicine 02/27/19 documented as of this encounter
--- OUTSIDE RECORDS SUMMARY | 2024-11-28 17:40 | XMS_ITS | Encounter Summary ---
Author Organization [employer] Address [address] [place] [address] Care Team Providers Care Licensed [place] Real Estate Appraiser Name Role Phone Mary Ellen Montague MD Primary Care Provide r Reason for Visit * Reason Comments Med Refill Encounter Details Date Type Department Care Team (Late st Contact Info) Description 09/10/2022 Refill [facility] [address] [place], [place] [phone] Dunia Chandra MD [address] [place], [place] [phone] Dyslipidemia (Primary Dx); HTN (hypertension), benign Social [...] benign documented in this encounter Care Teams Licensed [place] Real [employer] Appraiser Relationship Specialty Start Date End Date Mary Ellen Montague MD [address] [place], [place] [phone] PCP - General Family Medicine 02/27/19 documented as of this encounter
--- OUTSIDE RECORDS SUMMARY | 2024-11-28 17:40 | XMS_ITS | Encounter Summary ---
Author Organization [email or web address] Address [address] [facility] [address]t [place] [address] Care Team Providers Care Faculty I On Call Medical Assistant Name Role Phone Mary Ellen Montague MD [...] EDT) Sodium 143 135 - 145 mmol/L [facility] Potassium 3.8 3.3 - 5.1 mmol/L [facility] Chloride 102 96 - 108 mmol/L [facility] Carbon Dioxide 31(H) 22 - 29 mmol/L [facility] Anion Gap 14 12 - 20 [facility] Urea Nitrogen (BUN) 16 9 - 16 mg/dL [facility] Creatinine, Serum 0.88 0.5 - 1.4 mg/dL [facility] Estimated Glomerular Filt Rate >60 [facility] Comment:Chronic Kidney Disea se: Estimated GFR < 60 mL/min/1.99i1Feorjn Kidney Disease: Estimated GFR < 15 mL/min/1.73m2 Glucose 210(H) 60 - 115 mg/dL [facility] Calcium 9.7 8.4 - 10.2 mg/dL [facility] 11/28/2024 2:51 PM EDT 11/28/2024 2:51 PM EDT Generic External Data Provider LAB BLOOD ORDERAB LES Final Result Performing Organization Address [facility] Co de Phone Number [facility] [address] [place] [phone] * Prothrombin Time-INR (11/28/2024 2:51 PM EDT) Pathologist [facility] Prothrombin Time 11.5 10.9 - 12.4 SEC [facility] INTERNATIONAL NORM RATIO 1.0 0.9 - 1.1 [facility] Comment:INTERNATIONAL NORMAL IZED RATIO (INR) [...] ORDERAB LES Final Result Performing Organization Address [facility] Co de Phone Number [facility] [address] [place] [phone] * (ABNORMAL) CBC auto differential (11/28/2024 2:51 PM EDT) Pathologist [facility] White Blood Count 5.8 4.8 - 10.8 X10*3/uL [facility] Red Blood Count 4.47(L) 4.60 - 5.80 X10*6/uL [facility] Hemoglobin 13.7(L) 14.0 - 18.0 g/dl [facility] Hematocrit 41.4(L) 42.0 - 52.0 % [facility] Mean Corpuscular Volume 92.6 80.0 - 98.0 fL [facility] Mean Corpuscular Hemoglobin 30.6 27.0 - 33.0 pg [facility] Mean Corpuscular HGB Conc 33.1 31.0 - 36.0 g/dl [facility] Red Cell Distribution Width 12.7 11.0 - 16.0 % [facility] Platelet Count 226 160 - 400 X10*3/uL [facility] Mean Platelet Volume 10.2 9.4 - 12.4 fL [facility] Neutrophils Percent Auto 65.1 45 - 73 % [facility] Imm Gran Pct Auto 0.3 0.0 - 0.4 % [facility] Lymphocytes Percent Auto 24.4 20 - 40 % [facility] Monocytes Percent Auto 7.8 2 - 11 % [facility] Eosinophils Percent Auto 2.1 0 - 4 % [facility] Basophils Percent Auto 0.3 0 - 2 % [facility] NRBC Pct Auto 0.0 0.0 - 0.2 /100WBC [facility] Neutrophils Absolute Auto 3.8 2.0 - 8.3 x10*3/uL [facility] Imm Gran Abs Auto 0.02 0.00 - 0.03 X10*3/uL [facility] Lymphocytes Absolute Auto 1.4 1.2 - 4.9 X10*3/uL [facility] Monocytes Absolute Auto 0.5 0.1 - 1.2 X10*3/uL [facility] Eosinophils Absolute Auto 0.1 0.0 - 0.4 X10*3/uL [facility] Basophils Absolute Auto 0.0 0.0 - 0.2 X10*3/uL [facility] NRBC Abs Auto 0.000 0.0 - 0.012 X10*3/uL [facility] 11/28/2024 2:51 PM EDT 11/28/2024 2:51 PM EDT us Generic External Data Provider LAB BLOOD ORDERAB LES Final Result [facility] [address] [place] [phone] documented in this encounter Visit Diagnoses Not on filedocumented in this encounter Additional Health Concerns Assessment Noted Time PHQ-9 Depression Total Score: 0 05/29/20 24 11:15 AM EDT documented as of this encounter Care Teams Faculty I On Call Medical Assistant Relationship Specialty Start Date End Date Mary Ellen Montague MD [address] [place] [address] PCP - General Family Medicine 02/27/19 documented as of this encounter
--- OUTSIDE RECORDS SUMMARY | 2024-11-28 17:41 | XMS_ITS | Encounter Summary ---
Author Organization [employer] Address [address] [place] [address] [place] [address] Care Team Providers Care Lock Stitch Channeler Name Role Phone Mary Ellen Montague MD Primary Care Provide r Reason for Visit * Reason Onset Date Comments Med Refill 05/01/2024 Encounter Details Date Type Department Care Team (Late st Contact Info) Description 05/01/[address] [facility] MEDICINE [address] [place] [address] Riya Alvarez, PharmD [address] [place] [address] Type 2 diabetes mellitus with hyperglycemia, without long-term current use of insulin ([facility]) Social History Tobacco Use Types [...] hyperglycemia, without long-term current use of insulin ([facility]) documented in this encounter Additional Health Concerns Assessment Noted Time PHQ-9 Depression Total Score: 0 04/13/20 23 10:00 AM EDT documented as of this encounter Care Teams Lock Stitch Channeler Relationship Specialty Start Date End Date Mary Ellen Montague MD [address] [place] [phone] PCP - General Family Medicine 02/27/19 documented as of this encounter
--- OUTSIDE RECORDS SUMMARY | 2024-11-28 17:41 | XMS_ITS | Encounter Summary ---
Author Organization [employer] Address [address] [place] [address] Care Team Providers Care Coagulating Drying Supervisor Name Role Phone Mary Ellen Montague MD Primary Care Provide r Reason for Visit * Reason Comments Med Refill Encounter Details Date Type Department Care Team (Late st Contact Info) Description 02/21/2024 Refill [facility] [address] [place] [address] Teresa Coburn FNP Social History Tobacco Use [...] documented as of this encounter Care Teams Coagulating Drying Supervisor Relationship Specialty Start Date End Date Mary Ellen Montague MD [address] [place] [address] PCP - General Family Medicine 02/27/19 documented as of this encounter
--- OUTSIDE RECORDS SUMMARY | 2024-11-28 17:42 | XMS_ITS | Clinical Summary ---
Author Organization [facility] it[facility] Address [address] [place] [address] Care Team Providers Care Patient Support Associate Name Role Phone Mary Ellen Montague MD [...] age to complete this topic Care Teams Patient Support Associate Relationship Specialty Start Date End Date Mary Ellen Montague MD [address] [place] [phone] PCP - General 01/28/24
--- OUTSIDE RECORDS SUMMARY | 2024-11-28 17:43 | XMS_ITS | Clinical Summary ---
Author Organization [facility] Address [address] [place] [address] Care Team Providers Care County Home Demonstrator Name Role Phone Naya Sandoval PA-C Primary Care Provider [phone] Source Comments PLEASE NOTE, if this patient [...] Date Microalbuminuria 10/26/2016 H/O right cataract extraction [facility] 201308/04/2016 S/P right cataract surgery 06/2014 [facility] 08/24/2014 Diabetes mellitus type 2, uncomplicated ([facility] ) 09/12/2013 Non morbid obesity 09/12/2013 [...] Treatment Not on file Insurance [employer] [facility] [employer] Member Subscriber Plan / Payer (Ef fective 2016-Present) Name:Rodrick Mayen Relation to Subscriber:Self Name:Rodrick Mayen Payer ID:[id number] Type:Indemnity Address: [facility] [address] [place] [address] Care Teams County Home Demonstrator Relationship Specialty Start Date End Date Naya Sandoval PA-C [address] [place] [phone] PCP - General Internal Medicine 08/04/13
== END 2024-11-28 14:15 | disposition home or self-care (01) ==
LOC: HO.LAB 14:14
PROVIDERS: PCP Internal Medicine; Visit Provider Internal Medicine Cardiovascular Disease
DX: I25.10 Atherosclerotic heart disease of native coronary artery without angina pectoris (principal); I10 Essential (primary) hypertension; E11.9 Type 2 diabetes mellitus without complications; E66.9 Obesity, unspecified; M79.605 Pain in left leg; M79.604 Pain in right leg
CPT/HCPCS: 36415; 80048; 85025; 85610; 99212

== ENCOUNTER → 2024-12-05 23:59 | Outpatient (BNV) | payer OTHER, SELFPAY | PROVIDERS: PCP Internal Medicine; Visit Provider Internal Medicine Cardiovascular Disease | DX: I20.89 Other forms of angina pectoris (principal) | CPT/HCPCS: 93458; 99152 ==

== ENCOUNTER 2024-12-07 07:20 | Emergency (ER) | payer OTHER, SELFPAY ==
[2024-12-07] VITALS (7 sets, daily range): BP systolic 110–142; BP diastolic 66–88; PULSE 66–76; RESP 14–18; TEMP 35.9–36.6; O2SAT 97–99; BMI 36.2
--- NOTE | ~2024-12-07 | XR_ITS ---
EXAMINATION: XR CHEST 1 VIEW HISTORY: chest pain COMPARISON: Comparison is made with the prior examination dated 08/15/2022. FINDINGS: A single AP portable view of the chest performed at 9:14 AM is submitted. The lungs are expanded and clear. There is no pleural effusion, pneumothorax, or pulmonary vascular congestion. The heart is normal in size. There is degenerative disc disease of the spine. XR/XR chest 1V IMPRESSION: No acute cardiopulmonary abnormality. Electronically signed by: Paulie Bullock MD 12/07/2024 09:26 AM EDT
--- NOTE | 2024-12-07 07:24 | ECG_ITS ---
Test Reason : CHEST PAIN Blood Pressure : */* mmHG Vent. Rate : 69 BPM Atrial Rate : 69 BPM P-R Int : 160 ms QRS Dur : 92 ms QT Int : 380 ms P-R-T Axes : 55 35 56 degrees QTcB Int : 407 ms Normal sinus rhythm Normal ECG When compared with ECG of 26-Sep-2022 17:36, Nonspecific T wave abnormality no longer evident in Inferior leads Nonspecific T wave abnormality, improved in Lateral leads Referred By: Generic ED Physician Electronically Signed By: NANETTE BRANTLEY
--- OUTSIDE RECORDS SUMMARY | 2024-12-07 07:41 | XMS_ITS | Encounter Summary ---
Author Organization [employer] Address [address] [place] [address] [address] [place] [address] Care Team Providers Care Independent Living Advisor Name Role Phone Mary Ellen Montague MD Primary Care Provide r Reason for Visit * Reason Onset Date Comments Med Refill medication 08/21/2023 Encounter Details Date Type Department Care Team (Late st Contact Info) Description 08/21/2023 Refill [facility] ADULT DENTAL [address] [place] [address] Rafael Aguirre, NARGIS [address] [place] [address] Social History Tobacco Use Types Packs/Day Years [...] documented as of this encounter Care Teams Independent Living Advisor Relationship Specialty Start Date End Date Mary Ellen Montague MD [address] [place] [phone] PCP - General Family Medicine 02/27/19 documented as of this encounter
--- OUTSIDE RECORDS SUMMARY | 2024-12-07 07:41 | XMS_ITS | Encounter Summary ---
Author Organization [employer] Address [address] [facility] 7t [place] [address] Care Team Providers Care Repair Technician Name Role Phone Mary Ellen Montague MD Primary Care Provide r Reason for Visit * Reason Comments Med Refill Encounter Details Date Type Department Care Team (Late st Contact Info) Description 08/27/2023 Refill [facility] ADULT DENTAL [address] [place] [address] Rafael Aguirre, DDS [address] [place] [address] Social History Tobacco Use Types Packs/Day Years [...] documented as of this encounter Care Teams Repair Technician Relationship Specialty Start Date End Date Mary Ellen Montague MD [address] [place] [address] PCP - General Family Medicine 02/27/19 documented as of this encounter
--- OUTSIDE RECORDS SUMMARY | 2024-12-07 07:41 | XMS_ITS | Clinical Summary ---
Author Organization [employer] Address [address] [place] [address] 7[address] [place] [address] Care Team Providers Care Director Of Labor Relations Name Role Phone Mary Ellen Montague MD [...] TABLET BY MOUTH AT BEDTIME FOR CONSTIPATION 022 Active [facility] Allergy Relief 10 MG capsule [...] or as directed by MD. 30 patch 023 Active metoclopramide (Reglan) 10 MG tabletIndications :Chronic gastritis without bleeding, unspecified gastritis type Take 1 tablet (10 mg) by mouth 4 times daily for 5 days. 20 tablet 023 Active traZODone (Desyrel) 50 MG tablet Take 25 mg by mouth. Active magnesium oxide (Mag-Ox) 400 MG tablet Take 1 tablet by mouth. Active pantoprazole (ProtoNix) 40 MG EC tabletIndications :Chronic gastritis without bleeding, unspecified gastritis type TAKE 1 TABLET BY MOUTH TWICE DAILY IN THE MORNING AND AT NOON DO NOT BREAK, CRUSH, DISSOLVE OR CHEW 60 tablet 1 Active metFORMIN (Glucophage) 1000 MG tablet TAKE 1 TABLET BY MOUTH TWICE DAILY IN THE MORNING AND IN THE EVENING WITH MEALS 60 tablet 11 Active semaglutide (Ozempic) 2 MG/1.5ML solution pen-injectorIndic [...] EVERY DAY 90 tablet 1 024 Active amLODIPine (Norvasc) 10 MG tabletIndications :HTN (hypertension), benign TAKE 1 TABLET BY MOUTH EVERY DAY 90 tablet 1 024 Active glipiZIDE XL (Glucotrol XL) 2.5 MG 24 hr tabletIndications :Type 2 diabetes mellitus without complication, unspecified whether [facility] insulin use (CMS/HCC) TAKE 1 TABLET BY MOUTH THREE TIMES DAILY WITH MEALS NEEDED LOW BLOOD SUGAR 90 tablet 2 025 Active clopidogrel (Plavix) 75 MG tabletIndications :Stented coronary artery TAKE 1 TABLET BY MOUTH EVERY DAY 30 tablet 11 025 Active lisinopril 40 MG tabletIndications :Essential hypertension TAKE 1 TABLET BY MOUTH EVERY DAY 90 tablet 3 025 Active Aspirin EC Adult Low Dose 81 MG EC tabletIndications :Coronary artery disease involving [place] coronary artery of [place] heart without angina pectoris TAKE 1 TABLET BY MOUTH EVERY DAY IN THE MORNING 90 tablet 3 025 Active hydrALAZINE (Apresoline) 25 MG tabletIndications :HTN (hypertension), benign TAKE 1 TABLET BY MOUTH FOUR TIMES DAILY WITH FOOD 120 tablet 3 025 Active atenolol (Tenormin) 100 MG tabletIndications :HTN (hypertension), benign Take 1 tablet (100 mg) by mouth Once per day. 90 tablet 1 025 Active pantoprazole (ProtoNix) 40 MG EC tabletIndications :Gastroesophageal reflux disease, unspecified whether esophagitis present TAKE 1 TABLET BY MOUTH EVERY DAY BEFORE BREAKFAST, DO NOT BREAK, CRUSH, DISSOLVE OR CHEW 30 tablet 11 025 Active furosemide (Lasix) 20 MG tabletIndications :Essential hypertension Take 1 tablet (20 mg) by mouth Once per day. 30 tablet 3 025 Active furosemide (Lasix) 20 MG tablet Take 20 mg by mouth Once per day. 025 2024 Discontinued(R eorder (will not trigger notification [...] 30-39.9) 11/24/2018 Coronary artery disease invo lving [place] coronary artery of [place] heart without angina pectoris 09/13/2018 Assessment & [...] Encounters Date Type Department Care Team Description 12/06/2024 11:00 AM EDT Office Visit [facility] MEDICINE [address] [place] [address] Madhu Paz CNP Chest pain, unspecified type (Primary Dx); Essential hypertension 12/06/2024 Travel 12/06/2024 Telephone [facility] MEDICINE [address] [place] [address] Mary Ellen Montague MD Triage 11/28/2024 Orders Only GENERIC EXTERNAL DATA DEPARTMENT Provider, Generic External Data 11/09/2024 Telephone [facility] MEDICINE [address] [place] [address] Mary Ellen Montague MD Appointment Request 10/30/2024 Telephone [facility] OPTOMETRY [address] [place] [address] Juan, Kareen, OD 10/23/2024 Refill [facility] MED[facility]INE [address] [place] [address] Mary Ellen Montague MD Gastroesophageal reflux disease, unspecified whether esophagitis present 10/20/2024 Refill [facility] MED[facility]INE [address] [place] [address] Mary Ellen Montague MD HTN (hypertension), benign 10/18/2024 Orders Only GENERIC EXTERNAL DATA DEPARTMENT Provider, Generic External Data 10/13/2024 Refill [facility] WALK-IN CENTER [address] [place] [address] Mary Ellen Montague MD HTN (hypertension), benign 10/10/2024 Refill [facility] MEDICINE [address] [place] [address] Mary Ellen Montague MD Coronary artery disease involving [place] coronary artery of [place] heart without angina pectoris 09/29/2024 Refill [facility] MED[facility] [address] [facility] [place] [address] Mary Ellen Montague MD Essential hypertension from [...] Sign Reading Time Taken Comments Blood Pressure 146/95 12/06/2024 10:59 AM EDT Pulse 78 12/06/2024 10:59 AM EDT Temperature 36.8 ??C (98.3 ??F) 12/06/2024 10:59 AM E DT Respiratory Rate 20 12/06/2024 10:59 AM EDT Oxygen Saturation 98% 12/06/2024 10:59 AM EDT Inhaled Oxygen Concentration - - Weight 116 kg (255 lb) 12/06/2024 10:59 AM EDT Height 177.8 cm (5' 10 ) 12/06/2024 10:59 AM EDT Body Mass Index 36.59 12/06/2024 10:59 AM EDT Plan of Treatment Health Maintenance [...] 2024 04/17/2022, 07/02/2021, 11/01/2020, Additional history exists Dental X-Ray: Bitewings 08/19/2024 08/18/2023, 01/14 Diabetes: Hemoglobin A1C 08/29/2024 024, 12/15/2023, 07/15/2023, Additional history exists SDOH Screening 01/16/2025 01/17/2024 Eye Exam 04/29/2025 04/29/2023, 04/03, 04/29/2023, Additional history exists Alcohol/Substance Use Screening 05/29/2025 05/29/2024 Depression Screening 05/29/2025 05/29/2024, 05/29/20 Lipid Panel 05/30/2025 05/30/2024, 0609/2020, 06/13/2020 Diabetes: Urine Protein Screening 06/08/2025 06/08/2024, 05/30/2024, 01/20/2023, Additional history exists Tobacco Screening 12/06/2025 12/06/2024 DTaP/Tdap/Td Vaccines (2 - Td or Tdap) 09/29/2033 09/29/2023 RSV Patients and Patients Aged 60 years or older (1 - 1-dose 75+ series) 2047 Influenza Vaccine Completed 05/09/2024, , 04/14/2022, Additional history exists Pneumococcal Vaccine: 50+ Years Completed 05/29/2024, 02/22/2019 Zoster Vaccines Completed 08/04/2024, 05/23/2024 HIB Vaccines Aged Out No longer eligi [...] Procedure Name Priority Date/Time Associated Diagnosis Comments ECG 12-LEAD Routine 12/06/2024 11:46 AM EDT Chest pain, unspecified type BASIC METABOLIC PANEL Routine 11/28/2024 2:51 PM [...] hyperglycemia, without long-term current use of insulin ([facility]) Essential hypertension POCT GLYCATED HEMOGLOBIN, TOTAL Routine 05/29/2024 11:16 AM EDT Type 2 diabetes mellitus with hyperglycemia, without long-term current use of insulin ([facility]) BITEWING - SINGLE RADIOGRAPHIC IMAGE Routine 08/18/2023 2:30 PM EST Pain due to dental trauma from Last 3 Months or Most Recently Relevant to Health Maintenance Results * ECG 12 lead (12/06/2024 11:46 AM EDT) Madhu Carballo CNP - 12/06/2024 11:46 AM EDT Rate: 80bmp, NSR, no ST segmental changes, normal ECG Madhu Paz CNP ECG ORDERABLES Final Res ult * (ABNORMAL) CBC auto differential (11/28/2024 2:51 PM EDT) White Blood Count 5.8 4.8 - 10.8 X10*3/uL [facility] Red Blood Count 4.47(L) 4.60 - 5.80 X10*6/uL [facility] Hemoglobin 13.7(L) 14.0 - 18.0 g/dl [facility] Hematocrit 41.4(L) 42.0 - 52.0 % [facility] Mean Corpuscular Volume 92.6 80.0 - 98.0 fL [facility] Mean Corpuscular Hemoglobin 30.6 27.0 - 33.0 pg [facility] Mean Corpuscular HGB Conc 33.1 31.0 - 36.0 g/dl [facility] Red Cell Distribution Width 12.7 11.0 - 16.0 % [facility] Platelet Count 226 160 - 400 X10*3/uL [facility] Mean Platelet Volume 10.2 9.4 - 12.4 fL [facility] Neutrophils Percent Auto 65.1 45 - 73 % [facility] Imm Gran Pct Auto 0.3 0.0 - 0.4 % [facility] Lymphocytes Percent Auto 24.4 20 - 40 % [facility] Monocytes Percent Auto 7.8 2 - 11 % [facility] Eosinophils Percent Auto 2.1 0 - 4 % [facility] Basophils Percent Auto 0.3 0 - 2 % [facility] NRBC Pct Auto 0.0 0.0 - 0.2 /100WBC [facility] Neutrophils Absolute Auto 3.8 2.0 - 8.3 x10*3/uL [facility] Imm Gran Abs Auto 0.02 0.00 - 0.03 X10*3/uL [facility] Lymphocytes Absolute Auto 1.4 1.2 - 4.9 X10*3/uL [facility] Monocytes Absolute Auto 0.5 0.1 - 1.2 X10*3/uL [facility] Eosinophils Absolute Auto 0.1 0.0 - 0.4 X10*3/uL [facility] Basophils Absolute Auto 0.0 0.0 - 0.2 X10*3/uL [facility] NRBC Abs Auto 0.000 0.0 - 0.012 X10*3/uL [facility] 11/28/2024 2:51 PM EDT 11/28/2024 2:51 PM EDT Generic External Data Provider LAB BLOOD ORDERAB LES Final Result Performing Organization Address [facility]/ZIP Co de Phone Number [facility] [address] [place] [phone] * Prothrombin Time-INR (11/28/2024 2:51 PM EDT) Only the most recent of2 resultswithin the time period is included. Prothrombin Time 11.5 10.9 - 12.4 SEC [facility] INTERNATIONAL NORM RATIO 1.0 0.9 - 1.1 [facility] Comment:INTERNATIONAL NORMAL IZED RATIO (INR) REFERENCE [...] ORDERAB LES Final Result Performing Organization Address [facility] Co de Phone Number [facility] [address] [place] [phone] * (ABNORMAL) Basic Metabolic Panel (11/28/2024 2:51 PM EDT) Only the most recent of2 resultswithin the time period is included. Sodium 143 135 - 145 mmol/L [facility] Potassium 3.8 3.3 - 5.1 mmol/L [facility] Chloride 102 96 - 108 mmol/L [facility] Carbon Dioxide 31(H) 22 - 29 mmol/L [facility] Anion Gap 14 12 - 20 [facility] Urea Nitrogen (BUN) 16 9 - 16 mg/dL [facility] Creatinine, Serum 0.88 0.5 - 1.4 mg/dL [facility] Estimated Glomerular Filt Rate >60 [facility] Comment:Chronic Kidney Disea se: Estimated GFR < 60 mL/min/1.52v2Caneub Kidney Disease: Estimated GFR < 15 mL/min/1.73m2 Glucose 210(H) 60 - 115 mg/dL [facility] Calcium 9.7 8.4 - 10.2 mg/dL [facility] 11/28/2024 2:51 PM EDT 11/28/2024 2:51 PM EDT us Generic External Data Provider LAB BLOOD ORDERAB LES Final Result [facility] [address] [place] [phone] * CBC (10/18/2024 9:46 AM EDT) White Blood Count 6.0 4.8 - 10.8 X10*3/uL [facility] Red Blood Count 4.92 4.60 - 5.80 X10*6/uL [facility] Hemoglobin 14.8 14.0 - 18.0 g/dl [facility] Hematocrit 45.2 42.0 - 52.0 % [facility] Mean Corpuscular Volume 91.9 80.0 - 98.0 fL [facility] Mean Corpuscular Hemoglobin 30.1 27.0 - 33.0 pg [facility] Mean Corpuscular HGB Conc 32.7 31.0 - 36.0 g/dl [facility] Red Cell Distribution Width 12.4 11.0 - 16.0 % [facility] Platelet Count 252 160 - 400 X10*3/uL [facility] Mean Platelet Volume 10.4 9.4 - 12.4 fL [facility] NRBC Pct Auto 0.0 0.0 - 0.2 /100WBC [facility] NRBC Abs Auto 0.000 0.0 - 0.012 X10*3/uL [facility] 10/18/2024 9:46 AM EDT 10/18/2024 9:46 AM EDT Generic External Data Provider LAB BLOOD ORDERAB LES Final Result Performing Organization Address City/[facility]/ZIP Co de Phone Number [facility] [address] [place] [phone] * Creatinine, Random Urine (06/08/2024 12:45 PM EST) Creatinine, Urine 137.59 mg/dL [facility] 06/08/2024 12:4 5 PM EST 06/08/2024 1:38 PM EST Generic External Data Provider LAB URINE ORDERAB LES Final Result Performing Organization Address City/[facility] Co de Phone Number [facility] [address] [place] [phone] * (ABNORMAL) Lipid Panel, Standard (05/30/2024 9:10 AM EDT) Triglycerides 144 <150 mg/dL [facility] Comment:Desirable Triglyceri de: less than 150 mg/dLBorderline High Triglyceride 150-199 mg/dLHigh Triglyceride: 200-499 mg/dLVery High Triglyceride: greater than or equal to 5OO mg/dL Cholesterol 120 <200 mg/dL [facility] Comment:Desirable Cholestero l: less than 200 mg/dLBorderline High Cholesterol: 200-239 mg/dLHigh Cholesterol: greater than 239 mg/dL LDL Cholesterol Calculated 62 <100 mg/dL [facility] Comment:Desirable LDL: less than 100 mg/dLNear Optimal/Above Optimal LDL: 110- 129 mg/dLBorderline High LDL: 130-159 mg/dLHigh LDL: 160-189 mg/dLVery High LDL: greater than or equal to 190 mg/dL HDL Cholesterol 30(L) >40 mg/dL [facility] Comment:Desirable HDL: great er than 40 mg/dL Note: This HDL assay may give artificially low results in patients with liver disease. Blood Venous blood specimen / Unknown 05/30/2024 9:10 AM EDT 05/30/2024 11:33 AM EDT us Mary Ellen Mcgregor MD LAB BLOOD ORDERABLES Final Result [facility] [address] [place] [phone] * (ABNORMAL) POCT HGB A1C (05/29/2024 11:16 AM EDT) Hemoglobin A1C 7.8(A) 4.0 - 6.0 % QC Media Lot # [id number] Lot# Expiration Date ,302 Blood 05/29/2024 11:1 6 AM EDT us Mary Ellen Mcgregor MD POINT OF CARE TEST EN TER/EDIT ORDERABLES Final Result from Last 3 Months or Most Recently Relevant to Health Maintenance Insurance [facility] [employer] [address] [place] Care Teams Director Of Labor Relations Relationship Specialty Start Date End Date Mary Ellen Montague MD [address] [place] [phone] PCP - General Family Medicine 02/27/19
--- OUTSIDE RECORDS SUMMARY | 2024-12-07 07:41 | XMS_ITS | Encounter Summary ---
Author Organization [employer] Address [address] [place] [address] 7 [place] [address] Care Team Providers Care Audiology Assistant Name Role Phone Mary Ellen Montague MD Primary Care Provide r Encounter Details Date Type Department Care Team (Late st Contact Info) Description 12/06/2024 11:00 AM EDT Office Visit [facility] MEDICINE [address] [place] [address] Madhu Paz, FLIGHT LINE MECHANIC [address] [place] [address] Chest pain, unspecified type (Primary Dx); Essential hypertension Social History Tobacco Use Types [...] AM EDT documented as of this encounter Last Filed Vital Signs Vital Sign Reading [...] Mass Index 36.59 12/06/2024 10:59 AM EDT documented in this encounter Progress Notes * Madhu Paz CNP - 12/06/2024 11:00 AM EDT Images from the original note were not included. Subjective Patient ID: Rodrick Mayen is a 54 y.o. male with hx of CAD, HTN, RADHA, T2DM, Hyperlipidemia presents today for BP fluctuations. He reports that his BP is always elevated at home >140/90, he is unsureof exact measurements. Today he is also endorsing CP and blurred vision. Per chart review pt was seen by [facility] yesterday 12/05 (see below). At this visit ptwas started on lasix 20mg and referred to cardiac rehab. Pt declines ever picking Lasix, reports hewas not aware of it. He has another f/u 12/20/24. He also has f/u with nephrology 01/29/25. Interim Hx: Yesterday 12/05 pt was seen at [facility] center to further evaluate his stable angina. Pt was prescribe anti anginal medications during the past two weeks including amlodipine and atenolol. He also had a stress test completed which showed indeterminate results. His ECG also showed no significant changes on treadmill. Stress echo imaged did not show any wall motion abnormalities. Patient had cardiac angiography completed which showed the following: Diagnostic Recommendations: Review of Systems Respiratory: Negative for chest tightness, shortness of breath and wheezing. Cardiovascular: Positive for chest pain. Negative for palpitations. Neurological: Positive for headaches. Negative for syncope, facial asymmetry, speech difficulty, weakness and numbness. Objective Vitals: 12/06/24 1059 BP: (!) 146/95 Pulse: 78 Resp: 20 Temp: 98.3 ??F (36.8 ??C) SpO2: 98% Physical Exam Vitals reviewed. Constitutional: General: He is not in acute distress. Appearance: Normal appearance. He is not ill-appearing, toxic-appearing or diaphoretic. HENT: Head: Normocephalic and atraumatic. Eyes: Extraocular Movements: Extraocular movements intact. Conjunctiva/sclera: Conjunctivae normal. Pupils: Pupils are equal, round, and reactive to light. Cardiovascular: Rate and Rhythm: Normal rate and regular rhythm. Pulses: Normal pulses. Heart sounds: Normal heart sounds. No murmur heard. No friction rub. No gallop. Pulmonary: Effort: Pulmonary effort is normal. No respiratory distress. Breath sounds: Normal breath sounds. No stridor. No wheezing, rhonchi or rales. Chest: Chest wall: No tenderness. Musculoskeletal: Right lower leg: No edema. Left lower leg: No edema. Neurological: General: No focal deficit present. Mental Status: He is alert and oriented to person, place, and time. Mental status is at baseline. Psychiatric: Mood and Affect: Mood normal. Behavior: Behavior normal. Thought Content: Thought content normal. Judgment: Judgment normal. Assessment/Plan Problem List Items Addressed This Visit Essential hypertension Relevant Medications furosemide (Lasix) 20 MG tablet Educated pt about Furosemide and its mechanism of action. Sent new rx to [facility] pharmacy for patient to cotton picker operator today as he doesn't have this med currently. Advised f/u with cards and nephrology as planned ED precautions discussed. Other Visit Diagnoses Chest pain, unspecified type - Primary Relevant Orders ECG 12 lead (Completed) EKG: Rate: 80bmp, NSR, no ST segmental changes, normal ECG Plan to add in diuretic as recommended by cardiology and advised pt to continue to check daily BP while on this new medication. Plan to f/u with specialists as planned. [facility] PRACTICAL NURSING INSTRUCTOR Attestation PRACTICAL NURSING INSTRUCTOR Resident Attestation: Patient was seen and evaluated by Madhu Paz CNP , in collaboration with Micheal Martin MD who has reviewed my assessment and plan. I, Micheal Martin MD , have reviewed the resident's note and agree with the assessment & plan of care as documented above. documented in this encounter Plan of Treatment Not on file documented as of this encounter Procedures Procedure Name Priority Date/Time Associated Diagnosis Comments ECG 12-LEAD Routine 12/06/2024 11:46 AM EDT Chest pain, unspecified type documented in this encounter Results * ECG 12 lead (12/06/2024 11:46 AM EDT) Madhu Carballo CNP - 12/06/2024 11:46 AM EDT Rate: 80bmp, NSR, no ST segmental changes, normal ECG Madhu Paz CNP ECG ORDERABLES Final Res ult documented in this encounter Visit Diagnoses Diagnosis Chest pain, unspecified type- Primary Essential hypertension Unspecified essential hypertension documented in this encounter Additional Health Concerns Assessment Noted Time PHQ-9 Depression Total Score: 0 05/29/20 24 11:15 AM EDT documented as of this encounter Care Teams Audiology Assistant Relationship Specialty Start Date End Date Mary Ellen Montague MD [address] [place] [address] PCP - General Family Medicine 02/27/19 documented as of this encounter
--- OUTSIDE RECORDS SUMMARY | 2024-12-07 07:41 | XMS_ITS | Encounter Summary ---
Author Organization [employer] Address [address] [place] [address] Care Team Providers Care Athletic Monitor Name Role Phone Mary Ellen Montague MD Primary Care Provide r Encounter Details Date Type Department Care Team (Latest Contact Info) Description 12/06/2024 Travel Social History Tobacco Use Types Packs/Day Years [...] documented as of this encounter Care Teams Athletic Monitor Relationship Specialty Start Date End Date Mary Ellen Montague MD [address] [place] [address] PCP - General Family Medicine 02/27/19 documented as of this encounter
--- OUTSIDE RECORDS SUMMARY | 2024-12-07 07:41 | XMS_ITS | Encounter Summary ---
Author Organization [employer] Address [address] [place] [address] 7 [place] [address] Care Team Providers Care Application Internship Name Role Phone Mary Ellen Montague MD Primary Care Provide r Reason for Visit * Reason Onset Date Comments Triage 12/06/2024 Encounter Details Date Type Department Care Team ([facility] st Contact Info) Description 12/06/2024 Telephone [facility] MEDICINE [address] [place], [place] [phone] Mary Ellen Montague MD [address] [place] [address] Triage Social History Tobacco Use Types Packs/Day Years [...] is your housing situation today? I have pacojenny armas 05/18/[address] you [...] encounter Miscellaneous Notes * Telephone Encounter - Awilda Fritz RN - 12/06/2024 10:02 AM EDT Patient walked into red team FD reporting fluctuations in BP for weeks . Patient reports he has had the same BP medication regimen since being in his 30's and feels they need to be adjusted. Patientreports this morning he took all of his medication at 5am and checked his BP around 6am and it was 169/99. Patent reports he is taking amlodipine 10mg, atenolol 100mg, Imdur 30mg, lisinopril 40mg andspirinolactone-hydrochlorothiazide 25-25mg. Patient reports imdur is Rx'd by his mechanic marine engine and spirinolactone-hydrochlorothiazide is Rx'd by his checkroom attendant. Patient reports it does not matter ifhe checks his BP 3-4 hours after taking his medication because his readings have been fluctuating for the last several weeks, it just keeps going up and down . Patient last saw checkroom attendant on 11/28/24 (has upcoming appointment on 01/29/25) and last saw mechanic marine engine on 10/04/24 and had coronary angiography with [facility] 12/05/24 (results in chart). Patient has upcoming appointment with mechanic marine engine on 01/29/25. Patient does not have any additional BP readings for RN except this AM. Patient denies any chest pain, SOB, blurry vision or headache currently. Patient does report since BP has been fluctuating x a couple weeks he has been feeling drowsy, sluggish and on/off headaches . Patient reports he came to PCP office as PCP prescribes most of his BP medications. PCP did not have any available appoin tments today however patient agreed to see BAM Paz at 11am. Patient to f/u PRN. documented in this encounter Plan of Treatment Not on file documented as of this encounter Visit Diagnoses Not on filedocumented in this encounter Additional Health Concerns Assessment Noted Time PHQ-9 Depression Total Score: 0 05/29/20 24 11:15 AM EDT documented as of this encounter Care Teams Application Internship Relationship Specialty Start Date End Date Mary Ellen Montague MD [address] [place] [phone] PCP - General Family Medicine 02/27/19 documented as of this encounter
--- OUTSIDE RECORDS SUMMARY | 2024-12-07 07:41 | XMS_ITS | Encounter Summary ---
Author Organization [employer] Address [address] [place] [address] Care Team Providers Care Calciner Operator Name Role Phone Mary Ellen Montague MD Primary Care Provide r Reason for Visit * Reason Comments Med Refill Encounter Details Date Type Department Care Team (Late st Contact Info) Description 02/21/2024 Refill [facility] [address] [address] Teresa Coburn FNP Social History Tobacco Use [...] documented as of this encounter Care Teams Calciner Operator Relationship Specialty Start Date End Date Mary Ellen Montague MD [address] [place] [address] PCP - General Family Medicine 02/27/19 documented as of this encounter
--- OUTSIDE RECORDS SUMMARY | 2024-12-07 07:41 | XMS_ITS | Clinical Summary ---
Author Organization [facility] ity Address [address] [place] [address] Care Team Providers Care Continuous Loft Operator Name Role Phone Mary Ellen Montague [...] age to complete this topic Care Teams Continuous Loft Operator Relationship Specialty Start Date End Date Mary Ellen Montague MD [address] [place] [phone] PCP - General 01/28/24
--- OUTSIDE RECORDS SUMMARY | 2024-12-07 07:41 | XMS_ITS | Encounter Summary ---
Author Organization [facility] Address [address] [place] [address] 7 [place] [address] Care Team Providers Care Laborer Pie Bakery Name Role Phone Mary Ellen Montague MD Primary Care Provide r Reason for Visit * Reason Comments Med Refill Encounter Details Date Type Department Care Team (Late st Contact Info) Description 09/10/2022 Refill [facility] [address] [place], [place] [phone] Dunia Chandra MD [address] [place], [place] [phone] Dyslipidemia (Primary Dx); HTN (hypertension), benign Social [...] benign documented in this encounter Care Teams Laborer Pie Bakery Relationship Specialty Start Date End Date Mary Ellen Montague MD [address] [place], [place] [phone] PCP - General Family Medicine 02/27/19 documented as of this encounter
--- OUTSIDE RECORDS SUMMARY | 2024-12-07 07:41 | XMS_ITS | Encounter Summary ---
Author Organization [employer] Address [address] [place] [address] [place] [address] Care Team Providers Care Branch Services Manager Name Role Phone Mary Ellen Montague MD Primary Care Provide r Reason for Visit * Reason Onset Date Comments Med Refill 05/01/2024 Encounter Details Date Type Department Care Team (Late st Contact Info) Description 05/01/2024 Refill [facility] [address] [place] [address] Riya Alvarez, PharmD [address] [place] [address] Type 2 diabetes mellitus with hyperglycemia, without long-term current use of insulin ([facility]) Social History Tobacco Use Types Packs/Day Years [...] hyperglycemia, without long-term current use of insulin ([facility]) documented in this encounter Additional Health Concerns Assessment Noted Time PHQ-9 Depression Total Score: 0 04/13/20 23 10:00 AM EDT documented as of this encounter Care Teams Branch Services Manager Relationship Specialty Start Date End Date Mary Ellen Montague MD [address] [place] [address] PCP - General Family Medicine 02/27/19 documented as of this encounter
--- OUTSIDE RECORDS SUMMARY | 2024-12-07 07:42 | XMS_ITS | Clinical Summary ---
Author Organization [facility] Address [address] [place] [address] Care Team Providers Care Dye And Chemical Coordinator Name Role Phone Naya Sandoval PA-C Primary Care Provider [phone] Source Comments PLEASE NOTE, if this patient [...] Date Microalbuminuria 10/26/2016 H/O right cataract extraction [facility] 201308/04/2016 S/P right cataract surgery 06/2014 [facility] 08/24/2014 Diabetes mellitus type 2, uncomplicated ([facility] ) 09/12/2013 Non morbid obesity 09/12/2013 Elevated [...] on file Insurance [employer]AF[employer] [facility] Utility Scale Solar Member Subscriber Plan / Payer (Ef fective 2016-Present) Name:Rodrick Mayen Relation to Subscriber:Self Name:Rodrick Mayen Payer ID:[id number] Type:Indemnity Address: [facility] [address] [place] [address] Care Teams Dye And Chemical Coordinator Relationship Specialty Start Date End Date Naya Sandoval PA-C [address] [place] [phone] PCP - General Internal Medicine 08/04/13
--- OUTSIDE RECORDS SUMMARY | 2024-12-07 07:42 | XMS_ITS | Clinical Summary ---
Author Organization [facility] Address [address] [place] [address] Phone Care Team Providers Care Porcelain Finisher Name Role Phone Mary Ellen Montague MD [...] Plan / Payer (Ef fective 2021-Present) Name:Rodrick Maeyn Relation to Subscriber:Self Name:Rodrick Mayen Payer ID:Not on file Type:Not on file Address: [place] [phone] Care Teams Porcelain Finisher Relationship Specialty Start Date End Date Mary Ellen Montague MD [address] [place] [phone] PCP - General Internal Medicine 12/22/21
--- NOTE | 2024-12-07 08:08 | ED_ITS ---
HPI - General Adult General Chief complaint: Recheck/Abnormal Lab/Rx Stated complaint: High BP Time Seen by Provider: 12/07/24 08:01 Source: patient Mode of arrival: ambulatory Limitations: no limitations History of Present Illness ED Provider: Bhavna Domínguez PA-C HPI narrative: Patient is a 56 year old male with a past medical history of DM, HTN, CAD, and hyperlipidemia. Patient states his chief complaint is diffuse tight chest pain, headache, blurry vision and SOB that began 2 days ago after he had a cardiac cath without stent placement. Blood pressure was taken at home and read 156/100, patient took an atenolol and came in. He is currently taking metformin, glipizide, semaglutide, ASA, atenolol, isosorbide mononitrate PRN, amlodipine, hydralazine, atorvastatin, lasix, spironolactone, lisinopril, and pantoprazole. Patient reports surgical history of 2 stent placements in 2019 and a cataract surgery of the right eye at an unknown date. Denies ETOH and tobacco use. Patient states that the pain is a tight sensation and he is really the most concerned about his elevated blood pressure. MD complaint: Chest Pain Onset (ago): day(s) (2) Location: chest Associated symptoms: shortness of breath Treatments prior to arrival: other (atenolol) Related Data Home Medications ?Medication ?Instructions ?Recorded ?Confirmed amlodipine 10 mg tablet 10 mg PO DAILY 10/30/20 11/28/24 atenolol 100 mg tablet 100 mg PO DAILY 10/30/20 11/28/24 atorvastatin 80 mg tablet 80 mg PO DAILY 10/30/20 11/28/24 clopidogrel 75 mg tablet 75 mg PO DAILY 10/30/20 11/28/24 glipizide 2.5 mg tablet, extended 2.5 mg PO DAILY 10/30/20 11/28/24 release 24 hr lisinopril 40 mg tablet 40 mg PO DAILY 10/30/20 11/28/24 metformin 1,000 mg tablet 1,000 mg PO DAILY 10/30/20 11/28/24 xhbtdvo-bzntmntajluvp-dkagjlxo 250 1 tab PO Q8H PRN Pain (Scale Score 08/18/21 11/28/24 mg-250 mg-65 mg tablet (Migraine 4-6) Relief) hydralazine 25 mg tablet 25 mg PO QID 08/18/21 11/28/24 acetaminophen 325 mg capsule 650 mg PO Q6H PRN Pain 10/27/21 11/28/24 pantoprazole 40 mg tablet,delayed 40 mg PO DAILY 06/04/23 11/28/24 release triamcinolone acetonide 55 mcg spray intranasal 06/04/23 11/28/24 nasal spray aerosol semaglutide 1 mg/dose (4 mg/3 mL) 1 mg subcut QWEEK 06/05/24 11/28/24 subcutaneous pen injector (Ozempic) gabapentin 300 mg capsule 300 mg PO BEDTIME 06/12/24 11/28/24 Previous Rx's ?Medication ?Instructions ?Recorded methylcellulose (laxative) 500 mg 500 mg PO DAILY #30 tabs 05/27/21 tablet (Citrucel) aspirin 81 mg tablet,delayed 81 mg PO DAILY #90 tabs 08/25/21 release (Adult Low Dose Aspirin) docusate sodium 100 mg capsule 100 mg PO BEDTIME #30 caps 01/13/22 isosorbide mononitrate 30 mg 30 mg PO DAILY #90 tabs 02/09/24 tablet,extended release 24 hr spironolactone 25 1 tab PO DAILY #30 tabs 08/03/24 mg-hydrochlorothiazide 25 mg tablet ondansetron 4 mg disintegrating 4 mg PO Q8H PRN nausea and 10/09/24 tablet vomiting #30 tabs Allergies Allergy/AdvReac Type Severity Reaction Status Date / Time No Known Allergies Allergy Verified 12/07/24 07:23 Review of Systems 2 Constitutional: Constitutional: Reports no additional constitutional complaints, Denies chills, Denies fever(s) and Denies night sweats Eyes: Eyes: Reports no additional eye complaints, Denies blurry vision, Denies change in vision, Denies diplopia, Denies eye discharge, Denies loss of vision and Denies eye pain ENT: Denies dizziness Cardiovascular: Cardiovascular: Reports no additional cardiovascular complaints, Reports chest pain, Reports chest pain at rest, Denies lightheadedness, Denies Loss of Consciousness and Reports dyspnea Respiratory: Respiratory: Reports no additional respiratory complaints and Reports dyspnea Gastrointestinal: Gastrointestinal: Reports no additional gastrointestinal complaints, Reports abdominal pain (mild in lower abdomen), Denies melena, Denies hematochezia, Denies change in bowel habits and Denies change in stool character Genitourinary: Genitourinary: Reports no additional male genitourinary complaints, Denies hematuria, Denies oliguria, Denies difficulty urinating, Denies dysuria, Denies urinary frequency, Denies urinary hesitancy, Denies urinary incontinence and Denies urinary urgency Musculoskeletal: Musculoskeletal: Reports no additional musculoskeletal complaints, Denies numbness and Denies tingling Neurologic: Denies dizziness, Denies loss of vision, Denies numbness and Denies tingling Psychiatric: Psychiatric: Reports no additional psychiatric complaints Endocrine: Endocrine: Reports no additional endocrine complaints Hematologic/Lymphatic: Hematologic/Lymphatic: Reports no additional hematologic/lymphatic complaints Allergic/Immunologic: Allergic/Immunologic: Reports no additional allergic/immunologic complaints [facility] Past Medical History Attestation statement: The following information was validated with the patient. Source: old records reviewed and nursing notes reviewed Medical History History of COVID-19 CAD (coronary artery disease) GERD (gastroesophageal reflux disease) Diabetes Sleep apnea treated with continuous positive airway pressure (CPAP) Hyperlipidemia Hypertension Surgical History History of heart artery stent H/O left knee surgery (~06/20/15) History of colonoscopy History of cardiac cath History of cataract surgery Family History Family History Father CAD (coronary artery disease) HTN (hypertension) Diabetes Hypercholesteremia Mother CAD (coronary artery disease) Lung disease Diabetes HTN (hypertension) Hypercholesteremia Social History Social History Are you a primary out of school hours care worker to a significant other at home: No Do you presently have visiting nurse or other home services: No Alcohol intake: current Alcohol intake frequency: does not drink Patient Tobacco Use Status: Never used Tobacco Advance Directives: No Advance Directives Information Provided: Yes Physical Exam ED Vital Signs: Vital Signs - 24 hr 12/07/24 07:22 12/07/24 07:33 12/07/24 08:38 Temperature 96.6 F L 97.2 F Pulse Rate 75 66 76 Respiratory Rate 18 16 18 Blood Pressure 138/88 139/66 142/78 H Pulse Oximetry 99 99 97 Oxygen Delivery Method Room Air Room Air Room Air 12/07/24 08:57 12/07/24 10:20 12/07/24 11:00 Temperature Pulse Rate 73 73 Respiratory Rate 16 14 Blood Pressure 110/68 128/83 120/81 Pulse Oximetry 98 97 Oxygen Delivery Method Room Air Room Air BMI result Body Mass Index 36.2 Const General: cooperative, no acute distress, alert and awake Nutritional Appearance: well nourished Orientation/consciousness: patient oriented x3 HENMT Head: Yes normal to inspection and Yes atraumatic Ears: hearing grossly normal bilaterally and external ears normal General nose exam: Normal external nose present, no nasal discharge noted and no epistaxis Face and sinus: Yes normal facial exam, No abrasion and No laceration Mouth: Normal oral and palatal mucosa present, no drooling and no muffled voice Eyes General: appearance normal, both eyes and all related structures Periorbital: periorbital findings normal Eyelids: Yes eyelids normal Conjunctivae: conjunctivae normal Pupils: Equal, round and reactive pupils present EOM: EOMs intact bilaterally Neck Neck: Yes normal visual inspection, Yes full ROM and Yes no lymphadenopathy Resp Effort & Inspection: normal respiratory effort and able to speak in complete sentences Cardio Rate: regular rate Rhythm: regular rhythm GI Inspection: Yes striae Palpation (GI): Soft to palpation, nontender, no guarding and not rigid Skin General skin exam: no rashes or lesions noted Trauma: no lacerations or abrasions Wounds: no wounds Hair: normal Neuro General: patient oriented x3, moves all extremities and CN's II-XI intact bilaterally Cranial nerves: Yes Equal, round and reactive pupils present Cognition (Neuro): normal cognition Pupils: Normal pupillary reactivity/response: bilateral Extrem General: Yes normal to inspection Psych Appearance: grossly normal Mental Status: mental status grossly normal Affect: normal affect Attitude: cooperative Thought process: Normal thought process present Thought content: Normal thought content present Insight: Good insight present (Psych) Medications Administered Generic Name Dose Route Start Last Admin Trade Name Freq PRN Reason Stop Dose Admin Nitroglycerin 0.4 mg 12/07/24 08:33 12/07/24 08:59 Nitroglycerin 0.4 Mg Tab.Subl SUBLINGUAL 0.4 mg [id number] PRN Administration chest pain Medical Decision Making Medical Decision Making MDM Narrative: Patient is a 54 year old assigned male at with a history of HTN, DM, CAD s/p cath 12/05/2024, and CHF presenting to the emergency department today with nonspecific chest pain and shortness of breath. Patient's physical exam was unremarkable. Patient was non-toxic appearing. Patient's blood work was unremarkable. Patient's EKGs were unremarkable. Patient's chest x-ray showed no acute process. I spoke with the cardiology team supervisor steel division who did not have any concerns this was an acute cardiac event. I explained my physical exam findings as well as all test results to the patient. I answered all questions asked by the patient. Patient received 2 SL nitro which, upon re-evaluation, he stated it helped his symptoms significantly. I stressed the importance of the patient taking his medication as directed (either prescribed or as the over the counter packaging recommends). I stressed the importance of the patient following up with his primary care provider and his client support administrator. I stressed the importance of the patient returning to the emergency department immediately if his symptoms were to worsen or if he were to develop any dizziness, shortness of breath, difficulty breathing, chest pain, blurry vision, loss of vision, nausea, vomiting, abdominal pain, fever, chills, back pain, or any other complaints. Patient verbalized agreement and understanding with this treatment plan and discharge. Differential Diagnosis Differential Diagnoses: The differential diagnosis associated with the presentation includes ACS NSTEMI STEMI Atypical chest pain Admission/Observation Consideration of admission/observation: Escalation of care including admission/observation considered Patient would have been admitted to the hospital had his work up had any findings where hospital admission was appropriate and his clinical presentation warranted hospital admission. Consult Healthcare Provider Management of the patient was discussed with: Engagement Specialist (spoke with the cardiology team as noted in the MDM Rationale portion of this note.) Lab Data [place] Lab Attestation statement: I reviewed the patient's lab results. My interpretation of these results are in the MDM Rationale portion of this note. 12/07/24 08:52 12/07/24 08:52 Labs: Lab Results 12/07/24 12/07/24 Range/Units 08:52 10:59 WBC 5.2 (4.8-10.8) X10*3/uL RBC 4.48 L (4.60-5.80) X10*6/uL Hgb 13.9 L (14.0-18.0) g/dl Hct 40.1 L (42.0-52.0) % MCV 89.5 (80.0-98.0) fL MCH 31.0 (27.0-33.0) pg MCHC 34.7 (31.0-36.0) g/dl RDW 12.7 (11.0-16.0) % Plt Count 201 (160-400) X10*3/uL MPV 9.8 (9.4-12.4) fL Immature Gran % (Auto) 0.2 (0.0-0.4) % Neut % (Auto) 66.2 (45-73) % Lymph % (Auto) 21.3 (20-40) % Nye % (Auto) 9.2 (2-11) % Eos % (Auto) 2.7 (0-4) % Baso % (Auto) 0.4 (0-2) % Lymph # (Auto) 1.1 L (1.2-4.9) X10*3/uL Nye # (Auto) 0.5 (0.1-1.2) X10*3/uL Eos # (Auto) 0.1 (0.0-0.4) X10*3/uL Baso # (Auto) 0.0 (0.0-0.2) X10*3/uL Abs Immat Gran (auto) 0.01 (0.00-0.03) X10*3/uL Absolute Neuts (auto) 3.5 (2.0-8.3) x10*3/uL Absolute Nucleated RBC 0.000 (0.0-0.012) X10*3/uL Nucleated RBC % (auto) 0.0 (0.0-0.2) /100WBC PT 12.4 (10.9-12.4) SEC INR 1.1 (0.9-1.1) Sodium 142 (135-145) mmol/L Potassium 4.2 (3.3-5.1) mmol/L Chloride 101 (96-108) mmol/L Carbon Dioxide 32 H (22-29) mmol/L Anion Gap 13 (12-20) BUN 13 (9-16) mg/dL Creatinine 0.75 (0.5-1.4) mg/dL Estim Creat Clear Calc 146.0 Estimated GFR > 60 Random Glucose 155 H (60-115) mg/dL Calcium 10.4 H D (8.4-10.2) mg/dL Magnesium 1.9 (1.6-2.6) mg/dL Total Bilirubin 0.4 (0.0-1.0) mg/dL AST 41 H (5-37) U/L ALT 89 H (0-40) U/L Alkaline Phosphatase 61 (39-117) U/L Troponin I High Sens 2.7 3.1 (<3.5-35.0) ng/L B-Natriuretic Peptide 21 (<100) pg/mL Total Protein 6.8 (6.5-8.0) g/dL Albumin 4.2 (3.5-5.0) g/dL Influenza Type A (PCR) NEGATIVE (Negative) Influenza Type B (PCR) NEGATIVE (Negative) RSV RNA Qual (PCR) NEGATIVE (Negative) SARS-CoV-2 RNA (RT-PCR) NEGATIVE (Negative) Independent Interpretation I performed an independent interpretation of an: EKG and Plain X-Ray Interpretation: My interpretation is in agreement with the radiologist's impression of this imaging study. L EXAMINATION: XR CHEST 1 VIEW HISTORY: chest pain COMPARISON: Comparison is made with the prior examination dated 08/15/2022. FINDINGS: A single AP portable view of the chest performed at 9:14 AM is submitted. The lungs are expanded and clear. There is no pleural effusion, pneumothorax, or pulmonary vascular congestion. The heart is normal in size. There is degenerative disc disease of the spine. XR/XR chest 1V IMPRESSION: No acute cardiopulmonary abnormality. Electronically signed by: Paulie Bullock MD 12/07/2024 09:26 AM EDT Dictated By: Paulie Bullock MD Signed By: Electronically signed by Paulie Bullock MD 12/07/24 0926 I independently interpreted this EKG and am in agreement with the below findings: Vent. Rate: 69 BPM Atrial Rate: 69 BPM P-R Int: 160 ms QRS Dur: 92 ms QT Int: 380 ms P-R-T Axes: 55 35 56 degrees QTcB Int: 407 ms Normal sinus rhythm Normal ECG When compared with ECG of 26-Sep-2022 17:36, Nonspecific T wave abnormality no longer evident in Inferior leads Nonspecific T wave abnormality, improved in Lateral leads DD/ 0729 I independently interpreted this EKG and am in agreement with the below findings: Vent. Rate: 66 BPM Atrial Rate: 66 BPM P-R Int: 154 ms QRS Dur: 98 ms QT Int: 386 ms P-R-T Axes: 49 27 48 degrees QTcB Int: 404 ms Normal sinus rhythm Normal ECG When compared with ECG of 07-Dec-2024 07:29, No significant change was found DD/ 0839 Radiology Impression Discussion of test interpretation with radiology: I have reviewed the radiologist's reading. Chronic Conditions Patient?s care impacted by: Diabetes and Hypertension Critical Care Time Critical Care Time Critical Care Time: Yes Total Critical Care Time: 36 Attestation: I spent 36 minutes of Critical Care Time with this patient. This does not include time spent on separately reported billable procedures. Discharge Plan Discharge Clinical Impression: Hypertension, Atypical chest pain Patient Disposition: Home, Self-Care Instructions: Chest Pain (DC), Hypertension (ED) Additional Instructions: Your work up today was reassuring that there is no emergent cause for your symptoms. Follow up with your primary care provider and your client support administrator. Return to the emergency department immediately if your symptoms worsen or if you develop any numbness, tingling, dizziness, shortness of breath, difficulty breathing, chest pain, blurry vision, loss of vision, nausea, vomiting, abdominal pain, fever, chills, back pain, or any other complaints. Please see the information below about our Patient Portal. If you are not yet enrolled in the [facility] Patient Portal, you will receive an enrollment email invitation following your visit to any [facility] setting. You may also self-enroll in the Patient Portal by visiting our website: [email or web address] The following information is required to access the Patient Portal: - Your [facility] Medical Record Number - Your personal home email address (must match what is in your electronic medical record, Registration staff can assist with this) - Name - Date of Capabilities of the Patient Portal: - Message some providers - View upcoming appointments - Access your health summary, medical history, and visit history - View current conditions and allergies - View procedure and lab results - View your medications, including guidelines, side effects, and precautions - Complete pre-appointment questionnaires requested by your provider - Ready summary reports of your office visits and procedures To access the Patient Portal Mobile Terese, follow these directions: - Search [employer] in the Terese Store or [employer] Store - Download the Terese - Search for [facility] - Enter your login/password Prescriptions: No Action aspirin [Adult Low Dose Aspirin] 81 mg tablet,delayed release (DR/EC) 81 mg PO DAILY Qty: 90 3RF docusate sodium 100 mg capsule 100 mg PO BEDTIME Qty: 30 3RF isosorbide mononitrate 30 mg tablet extended release 24 hr 30 mg PO DAILY Qty: 90 3RF spironolacton-hydrochlorothiaz 25-25 mg tablet 1 tab PO DAILY Qty: 30 6RF metformin 1,000 mg tablet 1,000 mg PO DAILY lisinopril 40 mg tablet 40 mg PO DAILY amlodipine 10 mg tablet 10 mg PO DAILY glipizide 2.5 mg tablet extended release 24hr 2.5 mg PO DAILY atenolol 100 mg tablet 100 mg PO DAILY atorvastatin 80 mg tablet 80 mg PO DAILY clopidogrel 75 mg tablet 75 mg PO DAILY Migraine Relief 250-250-65 mg tablet 1 tab PO Q8H PRN (Reason: Pain (Scale Score 4-6)) hydralazine 25 mg tablet 25 mg PO QID Citrucel 500 mg tablet 500 mg PO DAILY Qty: 30 3RF Rx Instructions: take it with full glass of water acetaminophen 325 mg capsule 650 mg PO Q6H PRN (Reason: Pain) pantoprazole 40 mg tablet,delayed release (DR/EC) 40 mg PO DAILY triamcinolone acetonide 55 mcg aerosol,spray intranasal gabapentin 300 mg capsule 300 mg PO BEDTIME ondansetron 4 mg tablet,disintegrating 4 mg PO Q8H PRN (Reason: nausea and vomiting) Qty: 30 2RF Ozempic 1 mg/dose (4 mg/3 mL) pen injector 1 mg subcut QWEEK Referrals: [facility] [Provider Group] Mary Ellen Montague MD [Primary Care Provider] - Stand Alone Forms: Work/School Release Interventions: ED Discharge Assessment Last Done: 12/07/24 11:51 Print Language: Belgian
--- NOTE | 2024-12-07 08:36 | ECG_ITS ---
Test Reason : REPEAT, CHEST PAIN Blood Pressure : */* mmHG Vent. Rate : 66 BPM Atrial Rate : 66 BPM P-R Int : 154 ms QRS Dur : 98 ms QT Int : 386 ms P-R-T Axes : 49 27 48 degrees QTcB Int : 404 ms Normal sinus rhythm Normal ECG When compared with ECG of 07-Dec-2024 07:29, No significant change was found Referred By: Bhavna Domínguez Electronically Signed By: NANETTE BRANTLEY
[2024-12-07] MEDS: Nitroglycerin 0.4 MG TAB.SUBL SUBLINGUAL ×2 (08:43→08:59)
[2024-12-07 08:57] LABS: MANUAL DIFF FLAG NO
[2024-12-07 08:58] LABS: Basophils Percent Auto 0.4 % (0-2); Eosinophils Absolute Auto 0.1 X10*3/uL (0.0-0.4); Eosinophils Percent Auto 2.7 % (0-4); Hematocrit 40.1 % (42.0-52.0); Hemoglobin 13.9 g/dl (14.0-18.0); Imm Gran Abs Auto 0.01 X10*3/uL (0.00-0.03); Imm Gran Pct Auto 0.2 % (0.0-0.4); Lymphocytes Absolute Auto 1.1 X10*3/uL (1.2-4.9); Lymphocytes Percent Auto 21.3 % (20-40); Mean Corpuscular HGB Conc 34.7 g/dl (31.0-36.0); Mean Corpuscular Volume 89.5 fL (80.0-98.0); Mean Platelet Volume 9.8 fL (9.4-12.4); Monocytes Absolute Auto 0.5 X10*3/uL (0.1-1.2); Monocytes Percent Auto 9.2 % (2-11); Neutrophils Absolute Auto 3.5 x10*3/uL (2.0-8.3); Neutrophils Percent Auto 66.2 % (45-73); Platelet Count 201 X10*3/uL (160-400); Red Blood Count 4.48 X10*6/uL (4.60-5.80); Red Cell Distribution Width 12.7 % (11.0-16.0); White Blood Count 5.2 X10*3/uL (4.8-10.8)
--- NOTE | 2024-12-07 09:00 | PC.NURSE ---
after first sublingual nitro, pt reports improvement in CP from 5/10 to 3/10. BP 110/68. PA notified - instructed to give another sublingual nitro.
[2024-12-07 09:04] LABS: INTERNATIONAL NORM RATIO 1.1 (0.9-1.1); Prothrombin Time 12.4 SEC (10.9-12.4)
[2024-12-07 09:19] LABS: Alanine Aminotransferase 89 U/L (0-40); Albumin Level 4.2 g/dL (3.5-5.0); Alkaline Phosphatase 61 U/L (39-117); Anion Gap 13 (12-20); Aspartate Amino Transferase 41 U/L (5-37); Bilirubin Total 0.4 mg/dL (0.0-1.0); Blood Urea Nitrogen 13 mg/dL (9-16); Calcium 10.4 mg/dL (8.4-10.2); Carbon Dioxide 32 mmol/L (22-29); Chloride 101 mmol/L (96-108); Estimated Glomerular Filt Rate > 60; Glucose Random 155 mg/dL (60-115); Magnesium 1.9 mg/dL (1.6-2.6); Potassium 4.2 mmol/L (3.3-5.1); Sodium 142 mmol/L (135-145); Total Protein 6.8 g/dL (6.5-8.0)
[2024-12-07 09:24] LABS: B Type Natriuretic Peptide 21 pg/mL (<100)
[2024-12-07 09:25] LABS: Troponin-I High Sensitivity 2.7 ng/L (<3.5-35.0)
[2024-12-07 09:55] LABS: Influenza A PCR NEGATIVE (Negative); Influenza B PCR NEGATIVE (Negative); Resp Syncy Virus RNA Qual PCR NEGATIVE (Negative); SARS COV2 PCR INHOUSE NEGATIVE (Negative)
[2024-12-07 11:24] LABS: Troponin-I High Sensitivity 3.1 ng/L (<3.5-35.0)
== END 2024-12-07 11:55 | disposition home or self-care (01) ==
PROVIDERS: Physician Assistant Medical; Emergency Provider Emergency Medicine Emergency Medical Services; PCP Internal Medicine
DX: R07.89 Other chest pain (principal); I10 Essential (primary) hypertension; R06.02 Shortness of breath; E11.9 Type 2 diabetes mellitus without complications; E78.5 Hyperlipidemia, unspecified; Z03.818 Encounter for observation for suspected exposure to other biological agents ruled out; Z79.82 Long term (current) use of aspirin; Z79.84 Long term (current) use of oral hypoglycemic drugs; Z79.899 Other long term (current) drug therapy; Z79.02 Long term (current) use of antithrombotics/antiplatelets
CPT/HCPCS: 0241U; 36415; 71045; 80053; 83735; 83880; 84484; 85025; 85610; 93005; 99284

== ENCOUNTER → 2024-12-07 07:24 | Outpatient (BNV) | payer OTHER, SELFPAY | PROVIDERS: Emergency Provider Emergency Medicine Emergency Medical Services; PCP Internal Medicine; Visit Provider Internal Medicine | DX: R07.9 Chest pain, unspecified (principal) | CPT/HCPCS: 93010 ==

== ENCOUNTER → 2024-12-07 08:37 | Outpatient (BNV) | payer OTHER, SELFPAY | PROVIDERS: PCP Internal Medicine; Visit Provider Radiology Diagnostic Radiology | DX: R07.9 Chest pain, unspecified (principal) | CPT/HCPCS: 71045 ==

== ENCOUNTER 2024-12-20 14:40 | Outpatient (AMB) | payer OTHER, SELFPAY ==
--- OUTSIDE RECORDS SUMMARY | 2024-12-20 14:48 | XMS_ITS | Encounter Summary ---
Author Organization [employer] Address [address] [place] [phone] Care Team Providers Care Park Superintendent Name Role Phone Mary Ellen Montague MD Primary Care Provide r Reason for Visit * Reason Onset Date Comments Med Refill 05/01/2024 Encounter Details Date Type Department Care Team (Late st Contact Info) Description 05/01/2024 Refill [facility] [address] [place] [address] Riya Alvarez, PharmD [address] [place] [address] Type 2 diabetes mellitus with hyperglycemia, without long-term current use of insulin ([facility]) Social History Tobacco Use Types [...] enough money to get more: Never True 10/ Transportation Answer Date Recorded In the past [...] hyperglycemia, without long-term current use of insulin ([facility]) documented in this encounter Additional Health Concerns Assessment Noted Time PHQ-9 Depression Total Score: 0 04/13/20 23 10:00 AM EDT documented as of this encounter Care Teams Park Superintendent Relationship Specialty Start Date End Date Mary Ellen Montague MD [address] [place] [address] PCP - General Family Medicine 02/27/19 documented as of this encounter
--- OUTSIDE RECORDS SUMMARY | 2024-12-20 14:48 | XMS_ITS | Clinical Summary ---
Author Organization [employer] Address [address] [place] [address] [address] [place] [address] Care Team Providers Care Terrazzo Roller Name Role Phone Mary Ellen Montague MD [...] 1 (one) time per week. 2 each 12 Active gabapentin (Neurontin) 300 MG capsuleIndication s:Diabetic polyneuropathy associated with type 2 diabetes mellitus (CMS/HCC) Take 1 capsule (300 mg) by mouth 3 times daily. 90 capsule 11 024 2024 Active glipiZIDE XL (Glucotrol XL) 2.5 MG 24 hr tabletIndications :Type 2 diabetes mellitus without complication, unspecified whether terminal operator insulin use (CMS/HCC) TAKE 1 TABLET BY [...] MG EC tabletIndications :Coronary artery disease involving [place] coronary artery of [place] heart without angina pectoris TAKE 1 TABLET [...] per day. 30 tablet 3 025 Active amLODIPine (Norvasc) 10 MG tabletIndications :HTN (hypertension), benign Take 1 tablet (10 mg) by mouth Once per day. 90 tablet 1 025 Active atorvastatin (Lipitor) 80 MG tabletIndications :Dyslipidemia TAKE 1 TABLET BY MOUTH EVERY DAY 90 tablet 1 025 Active atorvastatin (Lipitor) 80 MG tabletIndications :Dyslipidemia TAKE 1 TABLET BY MOUTH EVERY DAY 90 tablet 1 024 2024 Discontinued amLODIPine (Norvasc) 10 MG tabletIndications :HTN (hypertension), benign TAKE 1 TABLET BY MOUTH EVERY DAY 90 tablet 1 024 2024 Discontinued(R eorder (will not trigger notification to Pharmacy)) furosemide (Lasix) 20 MG tablet Take 20 [...] 30-39.9) 11/24/2018 Coronary artery disease invo lving [place] coronary artery of [place] heart without angina pectoris 09/13/2018 Assessment & [...] Encounters Date Type Department Care Team Description 12/11/2024 Refill [facility] [address] [place] [phone] Mary Ellen Montague MD Dyslipidemia 12/07/2024 Refill [facility] [address] [place] [phone] Mary Ellen Montague MD HTN (hypertension), benign 12/07/2024 Orders Only GENERIC EXTERNAL DATA DEPARTMENT Provider, Generic External Data 12/06/2024 11:00 AM EDT Office Visit [facility] [address] [place] [phone] Madhu Paz CNP Chest pain, unspecified type (Primary Dx); Essential hypertension 12/06/2024 Travel 12/06/2024 Telephone [facility] [address] [place] [phone] Mary Ellen Montague MD Triage 11/28/2024 Orders Only GENERIC EXTERNAL DATA DEPARTMENT Provider, Generic External Data 11/09/2024 Telephone [facility] [address] [place] [phone] Mary Ellen Montague MD Appointment Request 10/30/2024 Telephone [facility] [address] [place] [address] Kareen Martinez, OD 10/23/2024 Refill [facility] [address] [place] [address] Mary Ellen Montague MD Gastroesophageal reflux disease, unspecified whether esophagitis present 10/20/2024 Refill [facility] [address] [place] [address] Mary Ellen Montague MD HTN (hypertension), benign 10/18/2024 Orders Only GENERIC EXTERNAL DATA DEPARTMENT Provider, Generic External Data 10/13/2024 Refill [facility] [address] [place] [address] Mary Ellen Montague MD HTN (hypertension), benign 10/10/2024 Refill [facility] [address] [place] [address] Mary Ellen Montague MD Coronary artery disease involving [place] coronary artery of [place] heart without angina pectoris 09/29/2024 Refill [facility] [address] [place] [address] Mary Ellen Montague MD Essential hypertension from Last 3 Months Immunizations Immunization Administration Dates Next Due Influenza Injectable Quadriv [...] FOBT 1970 HIV Screening 1972 Sigmoidoscopy 1972 Disability Screening 1972 Diabetes: Foot Exam 1982 Family Planning [...] 05/29/2025 05/29/2024 Depression Screening 05/29/2025 05/29/2024, 05/29/20 24 Lipid Panel 05/30/2025 05/30/2024, 06/0 09/2020, 06/13/2020 [...] Procedure Name Priority Date/Time Associated Diagnosis Comments HIGH SENSITIVITY TROPONIN I Routine 12/07/2024 10:59 AM EDT XR CHEST 1 VIEW Routine 12/07/2024 9:15 AM EDT HIGH SENSITIVITY TROPONIN I Routine 12/07/2024 8:52 AM EDT B TYPE NATRIURETIC PEPTIDE (BNP) Routine 12/07/2024 8:52 AM EDT MAGNESIUM Routine 12/07/2024 8:52 AM EDT COMPREHENSIVE METABOLIC PANEL Routine 12/07/2024 8:52 AM EDT PROTHROMBIN TIME-INR Routine 12/07/2024 8:52 AM EDT CBC WITH AUTO DIFFERENTIAL Routine 12/07/2024 8:52 AM EDT SARS COV2/INFLUENZA A/B AND RSV RNA QL NAAT Routine 12/07/2024 8:52 AM EDT ECG 12-LEAD Routine 12/06/2024 11:46 AM EDT [...] hyperglycemia, without long-term current use of insulin ([facility]) Essential hypertension POCT GLYCATED HEMOGLOBIN, TOTAL Routine 05/29/2024 11:16 AM EDT Type 2 diabetes mellitus with hyperglycemia, without long-term current use of insulin ([facility]) BITEWING - SINGLE RADIOGRAPHIC IMAGE Routine 08/18/2023 2:30 PM EST Pain due to dental trauma from Last 3 Months or Most Recently Relevant to Health Maintenance Results * High Sensitivity Troponin I (12/07/2024 10:59 AM EDT) Only the most recent of2 resultswithin the time period is included. TROPONIN I HIGH SENSITIVITY 3.1 <3.5 - 35.0 ng/L [facility] Comment:The Parker high sens itivity Troponin-I results should beused in conjunction with other diagnostic information suchas ECG, clinical observations and information, and patientsymptoms to aid in the diagnosis of [place]. 12/07/2024 10:5 9 AM EDT 12/07/2024 11:02 AM EDT Narrative [facility] - 12/07/2024 11:24 AM EDT Comment DO NOT DRAW UNTIL 1052 us Generic External Data Provider LAB BLOOD ORDERAB LES Final Result [facility] [address] [facility] [place] [address] [phone] * XR Chest 1 View (12/07/2024 9:15 AM EDT) Anatomical Region Laterality Modality Chest Radiographic Marilee ging 12/07/2024 9:15 AM EDT Narrative 12/07/2024 9:29 AM EDT ? [facility] ?[address] ?[place] [address] ?XRay Report ? Signed ? Patient: Mayen,Rodrick ?MR#: [id number] ? : 1970 ?Acct:[id number] ? Age/Sex: 54 / M ?ADM Date: 12/07/24 ? Loc: HO.ED ? Attending Dr: ? Ordering Physician: Bhavna Domínguez ?? Date of Service: 12/07/24 ?? Procedure(s): XR chest 1V ?? Accession Number(s): [id number] ? cc: Mary Ellen Montague MD; Bhavna Domínguez ? EXAMINATION: ??XR CHEST 1 VIEW ? HISTORY: chest pain ? COMPARISON: Comparison is made with the prior examination dated ?? 08/15/2022. ? FINDINGS: ??A single AP portable view of the chest performed at 9:14 AM ?? is submitted. The lungs are expanded and clear. ??There is no pleural ?? effusion, pneumothorax, or pulmonary vascular congestion. ??The heart is ?? normal in size. ??There is degenerative disc disease of the spine. ? XR/XR chest 1V ?? IMPRESSION: ?? No acute cardiopulmonary abnormality. ? Electronically signed by: ??Paulie Bullock MD ??12/07/2024 09:26 AM EDT ?? RP ? Dictated By: ?Paulie Bullock MD ? Signed By: ?<Electronically signed by Paulie Bullock MD in OV> ?12/07/[address] ? DD/ 4 ? TD/TT: 12/07/24 09 ? Land Conservation Specialist: ? Procedure Note Ruth, Kiara - 12/07/[address] [address] XRay Report Signed Patient: Kelley MayenR#: [id number] : 1970Acct:[id number] Age/Sex: 54 / MADM Date: 12/07/24 Loc: .ED Attending Dr: Ordering Physician: Bhavna Domínguez Date of Service: 12/07/24 Procedure(s): XR chest 1V Accession Number(s): [id number] cc: Mary Ellen Montague MD; Bhavna Domínguez EXAMINATION: XR CHEST 1 VIEW HISTORY: chest pain COMPARISON: Comparison is made with the prior examination dated 08/15/2022. FINDINGS: A single AP portable view of the chest performed at 9:14 AM is submitted. The lungs are expanded and clear. There is no pleural effusion, pneumothorax, or pulmonary vascular congestion. The heart is normal in size. There is degenerative disc disease of the spine. XR/XR chest 1V IMPRESSION: No acute cardiopulmonary abnormality. Electronically signed by: Paulie Bullock MD 12/07/2024 09:26 AM EDT Dictated By: Paulie Bullock MD Signed By: <Electronically signed by Paulie Bullock MD in OV> 12/07/24925 DD/ 0915 TD/TT: 12/07/24 0920 Land Conservation Specialist: [facility] External Provider IMG XR PROCEDURES Edited Result - Final * SARS-CoV-2 RNA, Influenza A/B, and RSV RNA, Ql NAAT (12/07/2024 8:52 AM EDT) Influenza A PCR NEGATIVE Negative [facility] Influenza B PCR NEGATIVE Negative [facility] Resp Syncy Virus RNA Qual PCR NEGATIVE Negative [facility] SARS COV2 PCR NEGATIVE Negative [facility] Comment:All test results mus t be correlated with clinical findings.Negative results do not preclude SARS-CoV2, influenza Avirus, influenza B virus and/or RSV infectionand should not be used as the sole basis for treatment orother patient management decisions. Negative results must becombined with clinical observations, patient history, andepidemiological information.This test has not been evaluated for monitoring treatment ofinfection.This test has been authorized by the FDA under an EmergencyUse Authorization (EUA) for use by authorized laboratories.Testing performed on the [employer] GeneXpert utilizingreal-time RT-PCR.All SARS CoV2 and positive influenza A/B results arereported to [facility]. 12/07/2024 8:52 AM EDT 12/07/2024 8:55 AM EDT us Generic External Data Provider LAB MICROBIOLOGY - GENERAL ORDERABLES Final Result [facility] [address] [place] [phone] * (ABNORMAL) CBC auto differential (12/07/2024 8:52 AM EDT) Only the most recent of2 resultswithin the time period is included. White Blood Count 5.2 4.8 - 10.8 X10*3/uL [facility] Red Blood Count 4.48(L) 4.60 - 5.80 X10*6/uL [facility] Hemoglobin 13.9(L) 14.0 - 18.0 g/dl [facility] Hematocrit 40.1(L) 42.0 - 52.0 % [facility] Mean Corpuscular Volume 89.5 80.0 - 98.0 fL [facility] Mean Corpuscular Hemoglobin 31.0 27.0 - 33.0 pg [facility] Mean Corpuscular HGB Conc 34.7 31.0 - 36.0 g/dl [facility] Red Cell Distribution Width 12.7 11.0 - 16.0 % [facility] Platelet Count 201 160 - 400 X10*3/uL [facility] Mean Platelet Volume 9.8 9.4 - 12.4 fL [facility] Neutrophils Percent Auto 66.2 45 - 73 % [facility] Imm Gran Pct Auto 0.2 0.0 - 0.4 % [facility] Lymphocytes Percent Auto 21.3 20 - 40 % [facility] Monocytes Percent Auto 9.2 2 - 11 % [facility] Eosinophils Percent Auto 2.7 0 - 4 % [facility] Basophils Percent Auto 0.4 0 - 2 % [facility] NRBC Pct Auto 0.0 0.0 - 0.2 /100WBC [facility] Neutrophils Absolute Auto 3.5 2.0 - 8.3 x10*3/uL [facility] Imm Gran Abs Auto 0.01 0.00 - 0.03 X10*3/uL [facility] Lymphocytes Absolute Auto 1.1(L) 1.2 - 4.9 X10*3/uL [facility] Monocytes Absolute Auto 0.5 0.1 - 1.2 X10*3/uL [facility] Eosinophils Absolute Auto 0.1 0.0 - 0.4 X10*3/uL [facility] Basophils Absolute Auto 0.0 0.0 - 0.2 X10*3/uL [facility] NRBC Abs Auto 0.000 0.0 - 0.012 X10*3/uL [facility] 12/07/2024 8:52 AM EDT 12/07/2024 8:55 AM EDT us Generic External Data Provider LAB BLOOD ORDERAB LES Final Result [facility] [address] [place], [place] [phone] * Prothrombin Time-INR (12/07/2024 8:52 AM EDT) Only the most recent of3 resultswithin the time period is included. Prothrombin Time 12.4 10.9 - 12.4 SEC [facility] INTERNATIONAL NORM RATIO 1.1 0.9 - 1.1 [facility] Comment:INTERNATIONAL NORMAL IZED RATIO (INR) REFERENCE RANGES Reference RangeFor patients not on anticoagulant therapy: 0.9 - 1.1INR ranges for oral anticoagulanttherapy:For prevention and treatment of venous thrombosis and pulmonary embolism: 2.0 - 3.0For acute myocardial infarction with aspirin therapy: 2.0 - 3.0For acute myocardial infarction without aspirin therapy: 3.0 - 4.0For patients with mechanical prosthetic heart valves: 2.5 - 3.5 12/07/2024 8:52 AM EDT 12/07/2024 8:55 AM EDT us Generic External Data Provider LAB BLOOD ORDERAB LES Final Result Performing Organization Address [facility] de Phone Number [facility] [address] [place] [phone] * B Type Natriuretic Peptide (BNP) (12/07/2024 8:52 AM EDT) B Type Natriuretic Peptide 21 <100 pg/mL [facility] 12/07/2024 8:52 AM EDT 12/07/2024 8:55 AM EDT us Generic External Data Provider LAB BLOOD ORDERAB LES Final Result Performing Organization Address [facility] de Phone Number [facility] [address] [place] [phone] * Magnesium (12/07/2024 8:52 AM EDT) Magnesium 1.9 1.6 - 2.6 mg/dL [facility] 12/07/2024 8:52 AM EDT 12/07/2024 8:55 AM EDT Generic External Data Provider LAB BLOOD ORDERAB LES Final Result Performing Organization Address [facility] de Phone Number [facility] [address] [place] [phone] * (ABNORMAL) Comprehensive Metabolic Panel (12/07/2024 8:52 AM EDT) Sodium 142 135 - 145 mmol/L [facility] Potassium 4.2 3.3 - 5.1 mmol/L [facility] Chloride 101 96 - 108 mmol/L [facility] Carbon Dioxide 32(H) 22 - 29 mmol/L [facility] Anion Gap 13 12 - 20 [facility] Urea Nitrogen (BUN) 13 9 - 16 mg/dL [facility] Creatinine, Serum 0.75 0.5 - 1.4 mg/dL [facility] Creatinine Clr Calc Pharmacy 146.0 [facility] Comment:eGFR (calculated fro m the MDRD study equation) and eCrCl(calculated from the Cockcroft-Gault equation) are based ondifferent parameters and may not yield comparable results.If eCrCl result is absurd, please check patient'sheight/weight. Estimated Glomerular Filt Rate >60 [facility] Comment:Chronic Kidney Disea se: Estimated GFR < 60 mL/min/1.89l7Wghjny Kidney Disease: Estimated GFR < 15 mL/min/1.73m2 Glucose 155(H) 60 - 115 mg/dL [facility] Calcium 10.4(H) 8.4 - 10.2 mg/dL [facility] Bilirubin, Total 0.4 0.0 - 1.0 mg/dL [facility] Aspartate Amino Transferase 41(H) 5 - 37 U/L [facility] Alanine Aminotransferase 89(H) 0 - 40 U/L [facility] Total Protein 6.8 6.5 - 8.0 g/dL [facility] Albumin Level 4.2 3.5 - 5.0 g/dL [facility] Alkaline Phosphatase 61 39 - 117 U/L [facility] 12/07/2024 8:5 2 AM EDT 12/07/2024 8:55 AM EDT us Generic External Data Provider LAB BLOOD ORDERAB LES Final Result Performing Organization Address City/[facility]/ZIP Co de Phone Number [facility] [address] [place] [phone] * ECG 12 lead (12/06/2024 11:46 AM EDT) Narrative Madhu Paz CNP - 12/06/2024 11:46 AM EDT Rate: 80bmp, NSR, no ST segmental changes, normal ECG Madhu Paz [facility] ECG ORDERABLES Final Res ult * (ABNORMAL) Basic Metabolic Panel (11/28/2024 2:51 PM EDT) Only the most recent of2 resultswithin the time period is included. Sodium 143 135 - 145 mmol/L [facility] Potassium 3.8 3.3 - 5.1 mmol/L [facility] Chloride 102 96 - 108 mmol/L [facility] Carbon Dioxide 31(H) 22 - 29 mmol/L [facility] Anion Gap 14 12 - 20 [facility] Urea Nitrogen (BUN) 16 9 - 16 mg/dL [facility] Creatinine, Serum 0.88 0.5 - 1.4 mg/dL [facility] Estimated Glomerular Filt Rate >60 [facility] Comment:Chronic Kidney Disea se: Estimated GFR < 60 mL/min/1.79i6Brueml Kidney Disease: Estimated GFR < 15 mL/min/1.73m2 Glucose 210(H) 60 - 115 mg/dL [facility] Calcium 9.7 8.4 - 10.2 mg/dL [facility] 11/28/2024 2:51 PM EDT 11/28/2024 2:51 PM EDT Generic External Data Provider LAB BLOOD ORDERAB LES Final Result [facility] [address] [place] [phone] * CBC (10/18/2024 9:46 AM EDT) White Blood Count 6.0 4.8 - 10.8 X10*3/uL [facility] Red Blood Count 4.92 4.60 - 5.80 X10*6/uL [facility] Hemoglobin 14.8 14.0 - 18.0 g/dl [facility] Hematocrit 45.2 42.0 - 52.0 % [facility] Mean Corpuscular Volume 91.9 80.0 - 98.0 fL [facility] Mean Corpuscular Hemoglobin 30.1 27.0 - 33.0 pg [facility] Mean Corpuscular HGB Conc 32.7 31.0 - 36.0 g/dl [facility] Red Cell Distribution Width 12.4 11.0 - 16.0 % [facility] Platelet Count 252 160 - 400 X10*3/uL [facility] Mean Platelet Volume 10.4 9.4 - 12.4 fL [facility] NRBC Pct Auto 0.0 0.0 - 0.2 /100WBC [facility] NRBC Abs Auto 0.000 0.0 - 0.012 X10*3/uL [facility] 10/18/2024 9:46 AM EDT 10/18/2024 9:46 AM EDT us Generic External Data Provider LAB BLOOD ORDERAB LES Final Result Performing Organization Address [facility] Co de Phone Number [facility] [address] [place] [phone] * Creatinine, Random Urine (06/08/2024 12:45 PM EST) Creatinine, Urine 137.59 mg/dL [facility] 06/08/2024 12:4 5 PM EST 06/08/2024 1:38 PM EST us Generic External Data Provider LAB URINE ORDERAB LES Final Result Performing Organization Address [facility] Co de Phone Number [facility] [address] [place] [phone] * (ABNORMAL) Lipid Panel, Standard (05/30/2024 9:10 AM EDT) Triglycerides 144 <150 mg/dL [facility] Comment:Desirable Triglyceri de: less than 150 mg/dLBorderline High Triglyceride 150-199 mg/dLHigh Triglyceride: 200-499 mg/dLVery High Triglyceride: greater than or equal to 5OO mg/dL Cholesterol 120 <200 mg/dL [facility] Comment:Desirable Cholestero l: less than 200 mg/dLBorderline High Cholesterol: 200-239 mg/dLHigh Cholesterol: greater than 239 mg/dL LDL Cholesterol Calculated 62 <100 mg/dL [facility] Comment:Desirable LDL: less than 100 mg/dLNear Optimal/Above Optimal LDL: 110- 129 mg/dLBorderline High LDL: 130-159 mg/dLHigh LDL: 160-189 mg/dLVery High LDL: greater than or equal to 190 mg/dL HDL Cholesterol 30(L) >40 mg/dL [facility] Comment:Desirable HDL: great er than 40 mg/dL Note: This HDL assay may give artificially low results in patients with liver disease. Blood Venous blood specimen / Unknown 05/30/2024 9:10 AM EDT 05/30/2024 11:33 AM EDT us Mary Ellen Mcgregor MD LAB BLOOD ORDERABLES Final Result [facility] [address] [place] [phone] [phone] * (ABNORMAL) POCT HGB A1C (05/29/2024 11:16 AM EDT) Hemoglobin A1C 7.8(A) 4.0 - 6.0 % QC Media Lot # [id number] Lot# Expiration Date [id number] Blood 05/29/2024 11:1 6 AM EDT us Mary Ellen Mcgregor MD POINT OF CARE TEST EN TER/EDIT ORDERABLES Final Result from Last 3 Months or Most Recently Relevant to Health Maintenance Insurance [facility] Care Teams Terrazzo Roller Relationship Specialty Start Date End Date Mary Ellen Montague MD [address] [place] [phone] PCP - General Family Medicine 02/27/19
--- OUTSIDE RECORDS SUMMARY | 2024-12-20 14:48 | XMS_ITS | Encounter Summary ---
Author Organization [employer] Address [address] [place] [address] [address] [place] [address] Care Team Providers Care Deckhand Name Role Phone Mary Ellen Montague MD Primary Care Provide r Reason for Visit * Reason Onset Date Comments Med Refill medication 08/21/2023 Encounter Details Date Type Department Care Team (Late st Contact Info) Description 08/21/2023 Refill [facility] [address] [place] [address] Rafael Aguirre, NARGIS [address] [place] [address] Social History Tobacco Use Types Packs/Day Years [...] documented as of this encounter Care Teams Deckhand Relationship Specialty Start Date End Date Mary Ellen Montague MD [address] [place] [phone] PCP - General Family Medicine 02/27/19 documented as of this encounter
--- OUTSIDE RECORDS SUMMARY | 2024-12-20 14:48 | XMS_ITS | Encounter Summary ---
Author Organization [employer] Address [address] [place] [address] [address] [place] [address] Care Team Providers Care Director Packaging Name Role Phone Mary Ellen Montague MD Primary Care Provide r Reason for Visit * Reason Comments Med Refill Encounter Details Date Type Department Care Team (Late st Contact Info) Description 09/10/2022 Refill [facility] [address] [place] [address] [phone] Dunia Chandra MD [address] [place], [place] [phone] Dyslipidemia (Primary Dx); HTN (hypertension), benign Social [...] benign documented in this encounter Care Teams Director Packaging Relationship Specialty Start Date End Date Mary Ellen Montague MD [address] [place], [place] [phone] PCP - General Family Medicine 02/27/19 documented as of this encounter
--- OUTSIDE RECORDS SUMMARY | 2024-12-20 14:48 | XMS_ITS | Encounter Summary ---
Author Organization [employer] Address [address] [place] [address] 7 [place] [address] Care Team Providers Care Environmental Services Floor Tech Name Role Phone Mary Ellen Montague MD Primary Care Provide r Reason for Visit * Reason Comments Med Refill Encounter Details Date Type Department Care Team (Late st Contact Info) Description 08/27/2023 Refill [facility] [address], [place] [phone] Rafael Aguirre, DDS [address] [place] [address] Social History Tobacco Use Types Packs/Day Years [...] documented as of this encounter Care Teams Environmental Services Floor Tech Relationship Specialty Start Date End Date Mary Ellen Montague MD [address] [place] [address] PCP - General Family Medicine 02/27/19 documented as of this encounter
--- OUTSIDE RECORDS SUMMARY | 2024-12-20 14:48 | XMS_ITS | Clinical Summary ---
Author Organization [facility] ity Address [address] [place] [address] Care Team Providers Care Senior Qa Analyst Name Role Phone Mary Ellen Montague MD [...] age to complete this topic Care Teams Senior Qa Analyst Relationship Specialty Start Date End Date Mary Ellen Montague MD [address] [place] [phone] PCP - General 01/28/24
--- OUTSIDE RECORDS SUMMARY | 2024-12-20 14:48 | XMS_ITS | Clinical Summary ---
Author Organization [facility] Address [address] [place] [address] Phone Care Team Providers Care Dictating Transcribing Machine Servicer Name Role Phone Mary Ellen Montague MD [...] ID:Not on file Type:Not on file Address: [place] [phone] Care Teams Dictating Transcribing Machine Servicer Relationship Specialty Start Date End Date Mary Ellen Montague MD [address] [place] [phone] PCP - General Internal Medicine 12/22/21
--- OUTSIDE RECORDS SUMMARY | 2024-12-20 14:48 | XMS_ITS | Clinical Summary ---
Author Organization [facility] Address [address] [place] [address] Care Team Providers Care Personal Caregiver Name Role Phone Naya Sandoval PA-C Primary Care Provider [phone] Source Comments PLEASE NOTE, if this patient [...] Microalbuminuria 10/26/2016 H/O right cataract extraction [facility] 201308/04/2016 S/P right cataract surgery 06/[address] [facility] Eye Ce nter 08/24/2014 Diabetes mellitus type 2, uncomplicated ([facility] ) 09/12/2013 Non morbid obesity 09/12/2013 [...] Treatment Not on file Insurance HEALTH SAF[employer]Y [facility] [employer] Member Subscriber Plan / Payer (Ef fective 2016-Present) Name:Rodrick Mayen Relation to Subscriber:Self Name:Rodrick Mayen Payer ID:[id number] Type:Indemnity Address: [facility] [address] [place] [address] Care Teams Personal Caregiver Relationship Specialty Start Date End Date Naya Sandoval PA-C [address] [place] [phone] PCP - General Internal Medicine 08/04/13
--- OUTSIDE RECORDS SUMMARY | 2024-12-20 14:48 | XMS_ITS | Encounter Summary ---
Author Organization [employer] Address [address] [facility] 7t [place] [address] Care Team Providers Care Maintenance Of Way Supervisor Name Role Phone Mary Ellen Montague MD Primary Care Provide r Reason for Visit * Reason Comments Med Refill Encounter Details Date Type Department Care Team (Late st Contact Info) Description 02/21/2024 Refill [facility] [address] [address] Teresa Coburn FNP Social History Tobacco Use [...] documented as of this encounter Care Teams Maintenance Of Way Supervisor Relationship Specialty Start Date End Date Mary Ellen Montague MD [address] [place] [address] PCP - General Family Medicine 02/27/19 documented as of this encounter
[2024-12-20 14:59] VITALS: BP 126/74; PULSE 76; BMI 36.1
--- NOTE | 2024-12-20 14:59 | MHC.OFFVIS ---
Vital Signs 12/20/24 14:59 Height 5 ft 10 in Weight 251 lb 5.231 oz BMI 36.1 BP 126/74 Blood Pressure Location Lt brachial Position Sitting Pulse 76 Intake Visit Reasons: Follow up post cardiac cath Intake Note: Follow-up post Cardia cath they couldn't do a stent ? why Associate Vice President Required: No Allergies No Known Allergies Allergy (Verified 12/07/24 07:23) Medication List - Last Reconciled 12/20/24 by Luis Felipe Ang NP acetaminophen 650 mg PO Q6H PRN amlodipine 10 mg PO DAILY aspirin (Adult Low Dose Aspirin) 81 mg PO DAILY yhpxdhq-blupadeyslseb-xaysclae 250-250-65 mg (Migraine Relief) 1 tab PO Q8H PRN atenolol 100 mg PO DAILY atorvastatin 80 mg PO DAILY clopidogrel 75 mg PO DAILY docusate sodium 100 mg PO BEDTIME gabapentin 300 mg PO BEDTIME glipizide ER 2.5 mg PO DAILY hydralazine 25 mg PO QID isosorbide mononitrate ER 30 mg PO DAILY lisinopril 40 mg PO DAILY metformin 1,000 mg PO DAILY methylcellulose (laxative) (Citrucel) 500 mg PO DAILY ondansetron 4 mg PO Q8H PRN pantoprazole 40 mg PO DAILY semaglutide (Ozempic) 1 mg subcut QWEEK spironolacton-hydrochlorothiaz 25-25 mg 1 tab PO DAILY triamcinolone acetonide sprays intranasal HPI Comments Details: This is a 54-year-old male patient coming in for a follow-up visit. Patient with a past medical history of diabetes, hypertension, hyperlipidemia, coronary artery disease status post prior history of PCI to RCA and LCX, and sleep apnea. Previously patient had reported some shortness of breath with exertion for which he underwent a treadmill stress test. Subsequently, patient was arrange for cardiac catheterization which was completed on 12/05/[address] Morrison at [facility]. Prior to this patient had also visited the ER for some chest discomfort. Today, the patient reports feeling well overall and denies any cardiac symptoms including exertional chest pain, shortness of breath, palpitations, dizziness, orthopnea, PND, leg edema, presyncope, or syncope. Patient is reporting his adherence to all his prescribed medications. [facility] Medical History History of COVID-19 CAD (coronary artery disease) GERD (gastroesophageal reflux disease) Diabetes Sleep apnea treated with continuous positive airway pressure (CPAP) Hyperlipidemia Hypertension Surgical History History of heart artery stent H/O left knee surgery (~06/20/15) History of colonoscopy History of cardiac cath History of cataract surgery Family History Father CAD (coronary artery disease) HTN (hypertension) Diabetes Hypercholesteremia Mother CAD (coronary artery disease) Lung disease Diabetes HTN (hypertension) Hypercholesteremia Social History Are you a primary life care planner to a significant other at home: No Do you presently have visiting nurse or other home services: No Alcohol intake: current Alcohol intake frequency: does not drink Patient Tobacco Use Status: Never used Tobacco Review of Systems Const Denies chills, Denies fatigue, Denies fever(s), Denies frequent falls, Denies weakness, Denies weight gain and Denies weight loss ENT Denies dizziness Card Denies chest pain, Denies leg edema, Denies lightheadedness, Denies palpitations, Denies dyspnea, Denies dyspnea on exertion, Denies orthopnea and Denies other (loss of consciousness) Resp Denies cough, Denies dyspnea and Denies dyspnea on exertion GI Denies hematochezia and Denies change in stool character Musc Denies abnormal gait, Denies muscle weakness, Denies numbness, Denies radiating pain into limb and Denies tingling Neuro Denies abnormal gait, Denies dizziness, Denies frequent falls, Denies numbness, Denies tingling and Denies weakness Endo Denies fatigue and Denies palpitations Physical Exam Vital Signs: Last Vital Signs Pulse 76 12/20/24 14:59 BP 126/74 12/20/24 14:59 BMI result Body Mass Index 36.1 Const General: cooperative, healthy appearing, comfortable and no acute distress Orientation/consciousness: patient oriented x3 HEENT Head: Yes normal to inspection Neck Neck: Yes normal visual inspection, Yes trachea midline and Yes supple Chest Chest palpation & inspection: normal inspection of the chest Resp Effort & Inspection: normal respiratory effort Auscultation: clear to auscultation bilaterally, no crackles, no rales, no rhonchi and no wheezes Cardio Jugular venous distension: no JVD Palpation: normal PMI Rate: regular rate Rhythm: regular rhythm Heart sounds: S1 normal heart sound present, S2 normal heart sound present, no click, no gallops, no murmurs and no rubs Peripheral pulses: Peripheral pulses 2+ throughout GI Inspection: Yes normal to inspection Palpation (GI): Soft to palpation Auscultation: normal bowel sounds Skin General skin exam: no rashes or lesions noted Neuro General: patient oriented x3 Extrem General: Yes normal to inspection, No no pedal edema and No calf tenderness Psych Appearance: grossly normal Mental Status: mental status grossly normal Speech and movement: Normal speech and movement present Assessment & Plan Assessment & Plan (1) Status post cardiac catheterization: Code(s): Z98.890 - Other specified postprocedural states Category: Surgical Plan: 12/05/2024-patient underwent cardiac catheterization with Dr. Morrison at [facility] that showed patent PDA stent, patent circumflex stent, mild diffuse disease in the LAD, and severe stenosis in the PLV and ostial D2 which are both small size vessels, therefore being medically managed as per plan. Discussed findings in detail. Right wrist catheterization site is well healed. Continue aspirin and Plavix therapy. Continue amlodipine, atenolol, high-dose statin, Lasix, hydralazine, isosorbide, lisinopril, spironolactone and hydrochlorothiazide combination therapy. We will refer patient out to cardiac rehab. We will also repeat a lipid profile, with a goal of LDL less than 70. (2) CAD (coronary artery disease): Code(s): I25.10 - Atherosclerotic heart disease of [place] coronary artery without angina pectoris Category: Medical Plan: As above. (3) Hypertension: Code(s): I10 - Essential (primary) hypertension Category: Medical Plan: Blood pressure today is well-controlled. Continue current regimen. Advised monitoring blood pressures at home. Ideally, blood pressure goal less than 130/80. (4) Diabetes: Code(s): E11.9 - Type 2 diabetes mellitus without complications Category: Medical Plan: Continue diabetes management with an A1c goal less than 7%. (5) RADHA (obstructive sleep apnea): Code(s): G47.33 - Obstructive sleep apnea (adult) (pediatric) Category: Medical Plan: Continue CPAP therapy. Advised heart healthy diet, regular exercise, losing weight, med compliance, and management of vascular risk factors. Follow-up in 4 months. In the interim, patient will call the office with any concerns or change in symptoms. Advised seeking ER care in case of exertional chest pain not resolved with rest. This note was generated using voice recognition software. While every effort has been made to ensure accuracy and proper flexible nanny, there may be occasional errors that could affect the content or meaning of the described symptoms. Orders: Orders Lipid Panel Today I25.10 - Atherosclerotic heart disease of [place] coronary artery without angina pectoris Cardiac Rehab Today I20.8 - Other forms of angina pectoris, Z98.890 - Other specified postprocedural states Medications: New furosemide 20 mg PO DAILY 90 tabs 3RF Coding Level of Care Code Est Pt Level 4 (09935) Complex EM visit Add On G2211 Diagnoses Status post cardiac catheterization Z98.890 CAD (coronary artery disease) I25.10 Hypertension I10 Diabetes E11.9 RADHA (obstructive sleep apnea) G47.33 Time Spent (min) 34 Comment Time spent in reviewing the chart, test results, assessment, counseling and documentation.
== END 2024-12-20 15:19 | disposition home or self-care (01) ==
LOC: HO.HCS 14:41
PROVIDERS: PCP Internal Medicine
DX: Z98.890 Other specified postprocedural states (principal); I25.10 Atherosclerotic heart disease of native coronary artery without angina pectoris; I10 Essential (primary) hypertension; E11.9 Type 2 diabetes mellitus without complications; G47.33 Obstructive sleep apnea (adult) (pediatric)
CPT/HCPCS: 99214; G2211

== ENCOUNTER → 2024-12-20 14:40 | Outpatient (BNVA) | payer OTHER, SELFPAY | PROVIDERS: PCP Internal Medicine | DX: I25.10 Atherosclerotic heart disease of native coronary artery without angina pectoris (principal); I10 Essential (primary) hypertension; E11.9 Type 2 diabetes mellitus without complications; G47.33 Obstructive sleep apnea (adult) (pediatric); Z98.890 Other specified postprocedural states | CPT/HCPCS: 99212 ==

== ENCOUNTER 2025-01-29 15:07 | Outpatient (AMB) | payer OTHER, SELFPAY ==
--- NOTE | 2025-01-29 15:12 | HO.NEPHOV_ITS ---
Vital Signs 01/29/25 15:13 Height 5 ft 10 in Weight 249 lb BMI 35.7 BP 122/82 Blood Pressure Location Rt brachial Position Sitting Pulse 103 H Pulse Source Pulse Oximeter Pulse Oximetry (%) 96 Oxygen Delivery Method Room Air Intake Visit Reasons: 2 MO FU/ Conf Electrical Sign Wirer Helper Required: No Accompanied by: Self / Same As Patient Allergies No Known Allergies Allergy (Verified 01/29/25 15:13) Medication List - Last Reconciled 01/29/25 by Juan Alberto Cronin MD acetaminophen 650 mg PO Q6H PRN amlodipine 10 mg PO DAILY aspirin (Adult Low Dose Aspirin) 81 mg PO DAILY pjvlmog-iaqfzklikqitb-ojpordgy 250-250-65 mg (Migraine Relief) 1 tab PO Q8H PRN atenolol 100 mg PO DAILY atorvastatin 80 mg PO DAILY clopidogrel 75 mg PO DAILY docusate sodium 100 mg PO BEDTIME furosemide 20 mg PO DAILY gabapentin 300 mg PO BEDTIME glipizide ER 2.5 mg PO DAILY hydralazine 25 mg PO QID isosorbide mononitrate ER 30 mg PO DAILY lisinopril 40 mg PO DAILY metformin 1,000 mg PO DAILY methylcellulose (laxative) (Citrucel) 500 mg PO DAILY ondansetron 4 mg PO Q8H PRN pantoprazole 40 mg PO DAILY semaglutide (Ozempic) 1 mg subcut QWEEK spironolacton-hydrochlorothiaz 25-25 mg 1 tab PO DAILY triamcinolone acetonide sprays intranasal HPI Comments Details: Elan has HTN in a setting of obesity c/o leg pains ;Diagnosed with ;Neuropathy , Now on Neurontin 06/12/24 ;Overall doing OK.Has elevated blood sugar last night ;Uses CPAP regularly 11/28/24 ;Angiogram has been postponed ;Still ozempic and lost weight ;NO dyspnea;No edema 01/29/25 The patient is a 54-year-old male presenting with hypertension and coronary artery disease. He reports fluctuating blood pressure, with recent readings of 122/82 mmHg, but has experienced higher readings such as 149/90 mmHg. He has been on spironolactone, which he finds effective in managing his blood pressure. The patient has a history of coronary artery disease, with an angiogram performed in December revealing thin veins unsuitable for stenting. He experiences discomfort and has been advised that surgery might be necessary if the condition worsens. No blood tests were conducted post-angiogram, and he is advised to have one to ensure kidney function is unaffected by the contrast dye used during the procedure. The patient has been experiencing weight loss, attributed to the use of Ozempic, with a reduction from 268 pounds to 249 pounds. He is monitoring his diet, particularly salt intake, to manage his blood pressure and overall health. [facility] Medical History History of COVID-19 CAD (coronary artery disease) GERD (gastroesophageal reflux disease) Diabetes Sleep apnea treated with continuous positive airway pressure (CPAP) Hyperlipidemia Hypertension Surgical History History of heart artery stent H/O left knee surgery (~06/20/15) History of colonoscopy History of cardiac cath History of cataract surgery Family History Father CAD (coronary artery disease) HTN (hypertension) Diabetes Hypercholesteremia Mother CAD (coronary artery disease) Lung disease Diabetes HTN (hypertension) Hypercholesteremia Social History Are you a primary health care consultant to a significant other at home: No Do you presently have visiting nurse or other home services: No Alcohol intake: current Alcohol intake frequency: does not drink Patient Tobacco Use Status: Never used Tobacco Physical Exam Vital Signs: Last Vital Signs Pulse 103 H 01/29/25 15:13 BP 122/82 01/29/25 15:13 Pulse Ox 96 01/29/25 15:13 Oxygen Delivery Method Room Air 01/29/25 15:13 BMI result Body Mass Index 35.7 Const General: comfortable; No acute distress Orientation/consciousness: patient oriented x3 Eyes General: appearance normal, both eyes and all related structures Visual Villa: normal visual villa by confrontation Neck Neck: Yes supple and Yes no JVD Resp Effort & Inspection: normal respiratory effort and respiratory effort not decreased Cardio Palpation: no palpable S3 and no palpable S4 Heart sounds: no rubs GI Inspection: Yes normal to inspection Palpation (GI): Soft to palpation Percussion: Yes normal to percussion Auscultation: normal bowel sounds General: Yes no CVA tenderness Back/Spine/Pelvis Back: no CVA tenderness Skin General skin exam: no petechiae and no purpura Neuro General: patient oriented x3 and no focal motor deficits Extrem General: No clubbing and No edema Results Reviewed Nephrology Results: Hgb, (14.0-18.0) 13.9 g/dl L 12/07/24 WBC, (4.8-10.8) 5.2 X10*3/uL 12/07/24 Plt Count, (160-400) 201 X10*3/uL 12/07/24 Sodium, (135-145) 142 mmol/L 12/07/24 Potassium, (3.3-5.1) 4.2 mmol/L 12/07/24 Chloride, (96-108) 101 mmol/L 12/07/24 Carbon Dioxide, (22-29) 32 mmol/L H 12/07/24 BUN, (9-16) 13 mg/dL 12/07/24 Creatinine, (0.5-1.4) 0.75 mg/dL 12/07/24 Calcium, (8.4-10.2) 10.4 mg/dL H Δ 12/07/24 Assessment & Plan Assessment & Plan (1) Hypertension: Code(s): I10 - Essential (primary) hypertension Category: Medical Plan: BP is better controlled Initial reading was high and repeat was better Low salt diet ON Aldactazide 25-25 QD Needs weight loss Will obtain 24 hr ABPM Renal function is stable. Repeat labs post angiogram Keep SGLT-2 inhibitor for cardio renal protection (2) Diabetes: Code(s): E11.9 - Type 2 diabetes mellitus without complications Category: Medical Plan: Goal A1C < 7% Plan Leg pain Most likely from diabetic neuropathy Concur with Gabapentin Await cardiology follow up and angiogra, Orders: Orders Basic Metabolic Panel Today I10 - Essential (primary) hypertension AMB 24 HR B/P Monitor PLACEMENT Today I10 - Essential (primary) hypertension Coding Level of Care Code Est Pt Level 4 (91548) Diagnoses Hypertension I10 Diabetes E11.9
[2025-01-29 15:13] VITALS: BP 122/82; PULSE 103; O2SAT 96; BMI 35.7
--- OUTSIDE RECORDS SUMMARY | 2025-01-29 15:31 | XMS_ITS | Encounter Summary ---
Author Organization [employer] Address [address] [place] [address] 7 [place] [address] Care Team Providers Care Hot Wound Spring Production Supervisor Name Role Phone Mary Ellen Montague MD Primary Care Provide r Reason for Visit * Reason Comments Med Refill Encounter Details Date Type Department Care Team (Late st Contact Info) Description 08/27/2023 Refill [facility] [address] [place], [place] [phone] Rafael Aguirre, DDS [address] [place] [address] Social History Tobacco Use Types Packs/Day Years [...] as of this encounter Care Teams Hot Wound Spring Production Supervisor Relationship Specialty Start Date End Date Mary Ellen Montague MD [address] [place] [address] PCP - General Family Medicine 02/27/19 documented as of this encounter
--- OUTSIDE RECORDS SUMMARY | 2025-01-29 15:31 | XMS_ITS | Clinical Summary ---
Author Organization [facility] ity Address [address] [place] [address] Care Team Providers Care Cable Tool Driller Name Role Phone Mary Ellen Montague MD [...] age to complete this topic Care Teams Cable Tool Driller Relationship Specialty Start Date End Date Mary Ellen Montague MD [address] [place] [phone] PCP - General 01/28/24
--- OUTSIDE RECORDS SUMMARY | 2025-01-29 15:32 | XMS_ITS | Clinical Summary ---
Author Organization [facility] Address [address] [place] [phone] Phone Care Team Providers Care Twisting Department End Finder Name Role Phone Mary Ellen Montague MD [...] ID:Not on file Type:Not on file Address: [place] [phone] Care Teams Twisting Department End Finder Relationship Specialty Start Date End Date Mary Ellen Montague MD [address] [place] [phone] PCP - General Internal Medicine 12/22/21
--- OUTSIDE RECORDS SUMMARY | 2025-01-29 15:32 | XMS_ITS | Clinical Summary ---
Author Organization [facility] Address [address] [place] [address] Care Team Providers Care Director Biologics Name Role Phone Naya Sandoval PA-C Primary Care Provider [phone] Source Comments PLEASE NOTE, if this patient [...] complication, without long-term current use of insulin ([facility]) Take 1 Tab by mouth 2 (two) [...] complication, without long-term current use of insulin ([facility]) Take 1 Tab by mouth once daily with breakfast Swallow whole. Do not break, crush or chew. 30 Tab 5 8 Active amLODIPine (NORVASC) 5 mg tabletIndications :Essential hypertension Take 1 Tab by mouth once daily 30 Tab 5 8 Active Active Problems Problem Noted Date Diagnosed Date Microalbuminuria 10/26/2016 H/O right cataract extraction [facility] 201308/04/2016 S/P right cataract surgery 06/2014 [facility] Eye nter 08/24/2014 Diabetes mellitus type 2, uncomplicated (CMS & H HS-HCC) 09/12/2013 Non morbid obesity 09/12/2013 Elevated LFTs [...] 100 07/20/2017 10:28 AM EST Temperature 36.5 C (97.7 F) 07/20/2017 10:28 AM EST Respiratory Rate 16 07/20/2017 10:28 AM EST Oxygen Saturation 98% 07/20/2017 10:28 AM EST Inhaled Oxygen Concentration - - Weight 117.5 kg (259 lb) 07/20/2017 10:28 AM EST Height 177.8 cm (5' 10 ) 10/30/2015 10:27 AM EDT Body Mass Index 37.16 10/30/2015 10:27 AM EDT Plan of Treatment Not on file Insurance [employer] [facility] [address] Member Subscriber Plan / Payer (Ef fective 2016-Present) Name:Rodrick Mayen Relation to Subscriber:Self Name:Rodrick Mayen Payer ID:[id number] Type:Indemnity Address: [facility] [address] [place] [address] Care Teams Director Biologics Relationship Specialty Start Date End Date Naya Sandoval PA-C [address] [place] [phone] PCP - General Internal Medicine 08/04/13
== END 2025-01-29 15:28 | disposition home or self-care (01) ==
LOC: HO.HKA 15:08
PROVIDERS: PCP Internal Medicine; Visit Provider Internal Medicine Hypertension Specialist
DX: I10 Essential (primary) hypertension (principal); E11.9 Type 2 diabetes mellitus without complications
CPT/HCPCS: 99214

== ENCOUNTER 2025-01-29 15:07 | Outpatient (REF) | payer OTHER, SELFPAY ==
[2025-01-29 16:51] LABS: Anion Gap 14 (12-20); Blood Urea Nitrogen 16 mg/dL (9-16); Calcium 9.7 mg/dL (8.4-10.2); Carbon Dioxide 30 mmol/L (22-29); Chloride 103 mmol/L (96-108); Cholesterol 112 mg/dL (<200); Estimated Glomerular Filt Rate > 60; Glucose Random 177 mg/dL (60-115); HDL Cholesterol 29 mg/dL (>40); LDL Cholesterol Calculated 40 mg/dL (<100); Potassium 3.7 mmol/L (3.3-5.1); Sodium 143 mmol/L (135-145); Triglycerides 217 mg/dL (<150)
== END 2025-01-29 15:08 | disposition home or self-care (01) ==
LOC: HO.LAB 15:07
PROVIDERS: PCP Internal Medicine; Visit Provider Internal Medicine Hypertension Specialist
DX: I10 Essential (primary) hypertension (principal); I25.10 Atherosclerotic heart disease of native coronary artery without angina pectoris; E11.9 Type 2 diabetes mellitus without complications
CPT/HCPCS: 36415; 80048; 80061; 99212

== ENCOUNTER 2025-04-04 08:08 | Outpatient (AMB) | payer OTHER, SELFPAY ==
[2025-04-04 08:34] VITALS: BP 118/80; PULSE 95; O2SAT 97; BMI 34.7
--- NOTE | 2025-04-04 08:34 | A.OFFVIS_ITS ---
Vital Signs 04/04/25 08:34 Height 5 ft 10 in Weight 242 lb BMI 34.7 BP 118/80 Blood Pressure Location Rt brachial Position Sitting Pulse 95 Pulse Source Pulse Oximeter Pulse Oximetry (%) 97 Oxygen Delivery Method Room Air Intake Visit Reasons: follow up Train Reservation Clerk Required: No Accompanied by: Self / Same As Patient Allergies No Known Allergies Allergy (Verified 04/04/25 08:40) HPI Comments Details: 54 y/o male patient presents for follow up of RADHA on CPAP. Patient reports he is undergoing work-up and PT for CAD. Patient reports he would like to try adjusting his CPAP pressure up from CPAP 30jbQ8H, as the pressure when the filters are in place feels weaker than before. His current CPAP is a Dizmos machine which he was originally given in 2019. Pt reports he uses CPAP nightly, even when traveling, as he cannot sleep well without it. He can be sleepy during the day, but then cannot fall asleep at bedtime. He states he is very active, [place], and works as a [employer]. The CPAP compliance report 01/19/25 - 03/29/25 Usage > 4 hours 100% Average usage 8 hours and 10 minutes Residual AHI 8.8/hr. Pt uses melatonin 20mg gummy 7 gummies per night (contains 4 grams of sugar per 2 gummies), which usually helps him fall asleep but then can fragmented sleep. He uses tension headache tablets, as it has caffeine- as a wake promoter. He does notice headaches- but that is not why he is taking the migraine tablet. He takes decaf coffee in the am. His sugars have been off- he has a appt coming up to discuss this with his PCP. He previously tried trazodone, but it made him groggy. He goes to bed around 9 pm through 4-5am, and then falls back asleep for 1-2 hours- and then feels better. ? [facility] Medical History History of COVID-19 CAD (coronary artery disease) GERD (gastroesophageal reflux disease) Diabetes Sleep apnea treated with continuous positive airway pressure (CPAP) Hyperlipidemia Hypertension Surgical History History of heart artery stent H/O left knee surgery (~11/19/15) History of colonoscopy History of cardiac cath History of cataract surgery Family History Father CAD (coronary artery disease) HTN (hypertension) Diabetes Hypercholesteremia Mother CAD (coronary artery disease) Lung disease Diabetes HTN (hypertension) Hypercholesteremia Social History Are you a primary managed care coordinator to a significant other at home: No Do you presently have visiting nurse or other home services: No Alcohol intake: current Alcohol intake frequency: does not drink Patient Tobacco Use Status: Never used Tobacco Physical Exam Vital Signs: Last Vital Signs Pulse 95 04/04/25 08:34 BP 118/80 04/04/25 08:34 Pulse Ox 97 04/04/25 08:34 Oxygen Delivery Method Room Air 04/04/25 08:34 BMI result Body Mass Index 34.7 Const General: cooperative, comfortable and no acute distress Nutritional Appearance: obese Orientation/consciousness: patient oriented x3 Limitations: no limitations Resp Effort & Inspection: normal respiratory effort and able to speak in complete sentences Neuro General: patient oriented x3 and gait normal Cognition (Neuro): normal cognition Gait exam (Neuro): Normal gait present Psych Appearance: grossly normal Mental Status: mental status grossly normal Speech and movement: Normal speech and movement present Affect: normal affect Assessment & Plan Assessment & Plan (1) RADHA (obstructive sleep apnea): Code(s): G47.33 - Obstructive sleep apnea (adult) (pediatric) Category: Medical (2) Insomnia: Code(s): G47.00 - Insomnia, unspecified Category: Medical Qualifiers: Insomnia type: unspecified Plan Patient advised to undergo f/u in-lab PSG w/ split night PAP titration for AHI > 25/hr, as pt reports his CPAP pressure feels weaker and he is having sleep dififuclties, and episodes of unrefreshing sleep. In the meantime, will request a new CPAP machine, as his current machine is a [employer]li's which is over 5 years old and [employer] is no longer making respiratory equipment in the [place]. For now, continue to use CPAP at 11 cmH2O nightly as patient experiences good clinical effects. Encouraged patient to continue to do daily exercise. Follow-up w/ PCP and cardiology regarding diabetes and CVD management. Pt advised that the dose of Melatonin he is taking (140mg qhs) is a high dose, and we need to consider an alternative, however he is hesitant to change this until after above completed. Previously did not toelrate trazodone- grogginess. Will follow-up upon review of above and patient to follow-up in clinic in 6 months or sooner prn. Orders: Orders RT PSG in-lab sleep study Today G47.00 - Insomnia, unspecified, G47.33 - Obstructive sleep apnea (adult) (pediatric) Coding Level of Care Code Est Pt Level 4 (33846) Diagnoses RADHA (obstructive sleep apnea) G47.33 Insomnia G47.00 Insomnia type: unspecified
--- OUTSIDE RECORDS SUMMARY | 2025-04-04 08:38 | XMS_ITS | Encounter Summary ---
Author Organization [employer] Address [address] [place] [address] [address] [place] [address] Care Team Providers Care Emergency Department Nurse Name Role Phone Mary Ellen Montague MD Primary Care Provide r Reason for Visit * Reason Onset Date Comments Med Refill 05/01/2024 Encounter Details Date Type Department Care Team (Late st Contact Info) Description 05/01/2024 Refill [facility] [address] [place] [address] Riya Alvarez, PharmD [address] [place] [address] Type 2 diabetes mellitus with hyperglycemia, without long-term current use of insulin ([facility]) Social History Tobacco Use [...] Care Team (Late st Contact Info) Description 04/06/2025 1:45 PM EDT Office Visit [facility] [address] [place] [address] Mary Ellen Montague MD [address] [place] [address] documented as of this encounter Visit Diagnoses Diagnosis Type 2 diabetes mellitus with hyperglycemia, without long-term current use of insulin ([facility]) documented in this encounter Additional Health Concerns Assessment Noted Time PHQ-9 Depression Total Score: 0 04/13/20 23 10:00 AM EDT documented as of this encounter Care Teams Emergency Department Nurse Relationship Specialty Start Date End Date Mary Ellen Montague MD [address] [place] [address] PCP - General Family Medicine 02/27/19 documented as of this encounter
--- OUTSIDE RECORDS SUMMARY | 2025-04-04 08:38 | XMS_ITS | Encounter Summary ---
Author Organization [employer] Address [address] [facility] 7t [place] [address] Care Team Providers Care Compo Conveyor Operator Name Role Phone Mary Ellen Montague MD Primary Care Provide r Reason for Visit * Reason Onset Date Comments Med Refill medication 08/21/2023 Encounter Details Date Type Department Care Team (Late st Contact Info) Description 08/21/2023 Refill [facility] [address] [place] [address] Rafael Aguirre, DDS [address] [place] [address] Social History Tobacco Use Types Packs/Day Years [...] over until he ext appt on 09/02. DR * Telephone Encounter - Henry Lopez DMD - 08/23/2023 8:04 AM EST Good morning, I never saw this patient before. Thank you. Dr. Lopez documented in this encounter Plan of Treatment Upcoming Encounters Date Type Department Care Team (Late st Contact Info) Description 04/06/2025 1:45 PM EDT Office Visit [facility] [address] [place], [place] [phone] Mary Ellen Montague MD [address] [place], [place] [phone] documented as of this encounter Visit Diagnoses Not on filedocumented in this encounter Additional Health Concerns Assessment Noted Time PHQ-9 Depression Total Score: 0 04/13/20 23 10:00 AM EDT documented as of this encounter Care Teams Compo Conveyor Operator Relationship Specialty Start Date End Date Mary Ellen Montague MD [address] [place] [address] PCP - General Family Medicine 02/27/19 documented as of this encounter
--- OUTSIDE RECORDS SUMMARY | 2025-04-04 08:38 | XMS_ITS | Clinical Summary ---
Author Organization [facility] Address [address] [place] [address] Care Team Providers Care Locomotive Mechanic Name Role Phone Mary Ellen Montague MD [...] ars (1 of 2 - PCV) 1991 Zoster Vaccines (1 of 2) 2022 Cholesterol Screening (Lipid Panel) 03/27/2024 Colorectal Cancer Screening: Colonoscopy 03/27/2024 HIV Screening 03/27/2024 Hepatitis C Screening 03/27/2024 Social Influencers of Health Screening 03/27/2024 COVID-19 Vaccine (1 - 2023-2 5 season) 2024 Depression Screening 08/02/2024 Influenza Vaccine (#1) 2025 HIB Vaccines Aged Out No longer [...] age to complete this topic Care Teams Locomotive Mechanic Relationship Specialty Start Date End Date Mary Ellen Montague MD [address] [place] [phone] PCP - General 01/28/24
--- OUTSIDE RECORDS SUMMARY | 2025-04-04 08:38 | XMS_ITS | Encounter Summary ---
Author Organization [employer] Address [address] [place] [address] 7t [place] [address] Care Team Providers Care Insurance Assistant Name Role Phone Mary Ellen Montague MD Primary Care Provide r Reason for Visit * Reason Comments Med Refill Encounter Details Date Type Department Care Team (Late st Contact Info) Description 09/10/2022 Refill [facility] [address] [place] [phone] Dunia Chandra MD [address] [place], [place] [phone] Dyslipidemia (Primary Dx); HTN (hypertension), benign Social [...] Description 04/06/2025 1:45 PM EDT Office Visit [facility] [address] [place], [place] [phone] Mary Ellen Montague MD [address] [place], [place] [phone] documented as of this encounter Visit Diagnoses Diagnosis Dyslipidemia- Primary Other and unspecified hyperlipidemia HTN (hypertension), benign Essential hypertension, benign documented in this encounter Care Teams Insurance Assistant Relationship Specialty Start Date End Date Mary Ellen Montague MD [address] [place] [address] PCP - General Family Medicine 02/27/19 documented as of this encounter
--- OUTSIDE RECORDS SUMMARY | 2025-04-04 08:38 | XMS_ITS | Encounter Summary ---
Author Organization [employer] Address [address] [facility] 7t [place] [address] Care Team Providers Care Water Resources Program Director Name Role Phone Mary Ellen Montague MD Primary Care Provide r Reason for Visit * Reason Comments Med Refill Encounter Details Date Type Department Care Team ([facility] st Contact Info) Description 02/21/2024 Refill [facility] [address] [place] [address] Teresa Coburn FNP Social History Tobacco Use [...] Description 04/06/2025 1:45 PM EDT Office Visit [facility] [address] [place] [phone] Mary Ellen Montague MD [address] [place] [phone] documented as of this encounter Visit Diagnoses Not on filedocumented in this encounter Additional Health Concerns Assessment Noted Time PHQ-9 Depression Total Score: 0 04/13/20 23 10:00 AM EDT documented as of this encounter Care Teams Water Resources Program Director Relationship Specialty Start Date End Date Mary Ellen Montague MD [address] [place] [phone] PCP - General Family Medicine 02/27/19 documented as of this encounter
--- OUTSIDE RECORDS SUMMARY | 2025-04-04 08:38 | XMS_ITS | Encounter Summary ---
Author Organization [employer] Address [address] [facility] 7t [place] [address] Care Team Providers Care Time Clock Mechanic Name Role Phone Mary Ellen Montague MD Primary Care Provide r Reason for Visit * Reason Comments Med Refill Encounter Details Date Type Department Care Team (Late st Contact Info) Description 08/27/2023 Refill [facility] ADULT D[facility] [address] [place] [address] Rafael Aguirre DDS [address] [place] [address] Social History Tobacco Use Types Packs/Day Years [...] Description 04/06/2025 1:45 PM EDT Office Visit [facility] [address] [place] [address] Mary Ellen Montague MD [address] [place] [address] documented as of this encounter Visit Diagnoses Not on filedocumented in this encounter Additional Health Concerns Assessment Noted Time PHQ-9 Depression Total Score: 0 04/13/20 23 10:00 AM EDT documented as of this encounter Care Teams Time Clock Mechanic Relationship Specialty Start Date End Date Mary Ellen Montague MD [address] [place] [address] PCP - General Family Medicine 02/27/19 documented as of this encounter
--- OUTSIDE RECORDS SUMMARY | 2025-04-04 08:38 | XMS_ITS | Clinical Summary ---
Author Organization [employer] Address [address] [place] [address] 7t [place] [address] Care Team Providers Care Mental Health Orderly Name Role Phone Mary Ellen Montague MD [...] as directed by MD. 30 patch 03/29/20 Active metoclopramide (Reglan) 10 MG tabletIndications: Chronic [...] CHEW 60 tablet 1 08/23/19 24 Active semaglutide (Ozempic) 2 MG/1.5ML solution pen-injectorIndica tions:Type 2 diabetes mellitus with hyperglycemia, without long-term current use of insulin (CMS/HCC) Inject 1 mg under the skin 1 (one) time per week. 2 each 05/29/20 24 Active gabapentin (Neurontin) 300 MG capsuleIndications :Diabetic polyneuropathy associated with type 2 diabetes mellitus (CMS/HCC) Take 1 capsule (300 mg) by mouth 3 times daily. 90 capsule 05/29/20 24 025 Active clopidogrel (Plavix) 75 MG tabletIndications: Stented coronary artery TAKE 1 TABLET BY MOUTH EVERY DAY 30 tablet 11 08/24/19 25 Active lisinopril 40 MG tabletIndications: Essential hypertension TAKE 1 TABLET BY MOUTH EVERY DAY 90 tablet 3 09/29/19 25 Active Aspirin EC Adult Low Dose 81 MG EC tabletIndications: Coronary artery disease involving tim[place] shoshone coronary artery of timbi[place]sha shoshone heart without angina pectoris TAKE 1 TABLET BY MOUTH EVERY DAY IN THE MORNING 90 tablet 3 10/11/19 25 Active atenolol (Tenormin) 100 MG tabletIndications: HTN (hypertension), benign Take 1 tablet (100 mg) by mouth Once per day. 90 tablet 1 10/21/19 25 Active pantoprazole (ProtoNix) 40 MG EC tabletIndications: Gastroesophageal reflux disease, unspecified whether esophagitis present TAKE 1 TABLET BY MOUTH EVERY DAY BEFORE BREAKFAST, DO NOT BREAK, CRUSH, DISSOLVE OR CHEW 30 tablet 11 10/24/19 25 Active furosemide (Lasix) 20 MG tabletIndications: Essential hypertension Take 1 tablet (20 mg) by mouth Once per day. 30 tablet 3 12/07/19 25 Active amLODIPine (Norvasc) 10 MG tabletIndications: HTN (hypertension), benign Take 1 tablet (10 mg) by mouth Once per day. 90 tablet 1 12/08/19 25 Active atorvastatin (Lipitor) 80 MG tabletIndications: Dyslipidemia TAKE 1 TABLET BY MOUTH EVERY DAY 90 tablet 1 12/13/19 25 Active glipiZIDE XL (Glucotrol XL) 2.5 MG 24 hr tabletIndications: Type 2 diabetes mellitus without complication, unspecified whether continuous churn buttermaker insulin use ([facility]) TAKE 1 TABLET BY MOUTH THREE TIMES DAILY WITH MEALS NEEDED 90 tablet 2 12/30/19 25 Active metFORMIN (Glucophage) 1000 MG tablet TAKE 1 TABLET BY MOUTH TWICE DAILY IN THE MORNING AND IN THE EVENING WITH MEALS 60 tablet 11 12/30/19 25 Active hydrALAZINE (Apresoline) 25 MG tabletIndications: HTN (hypertension), benign TAKE 1 TABLET BY MOUTH FOUR TIMES DAILY WITH FOOD 120 tablet 3 02/17/20 25 Active Active Problems Problem Noted Date [...] 30-39.9) 11/24/2018 Coronary artery disease invo lving timbi-sha shoshone coronary artery of timbi-sha shoshone heart without angina pectoris 09/13/2018 Assessment & [...] Encounters Date Type Department Care Team Description 03/28/2025 Patient Outreach [facility] [address] [place] [address] Mary Ellen Montague MD Pre-visit Planning ((Unable to reach for PVP screening and or LVM) to be completed in office) 02/16/2025 Refill [facility] [address] [place] [address] Mary Ellen Montague MD HTN (hypertension), benign 01/29/2025 Orders Only GENERIC EXTERNAL DATA DEPARTMENT Provider, Generic External Data from Last 3 Months Immunizations Immunization Administration [...] 78 12/06/2024 10:59 AM EDT Temperature 36.8 C (98.3 F) 12/06/2024 10:59 AM EDT Respiratory Rate 20 12/06/2024 10:59 AM EDT Oxygen Saturation 98% 12/06/2024 10:59 AM EDT Inhaled Oxygen Concentration - - Weight 116 kg (255 lb) 12/06/2024 10:59 AM EDT Height 177.8 cm (5' 10 ) 12/06/2024 10:59 AM EDT Body Mass Index 36.59 12/06/2024 10:59 AM EDT Plan of Treatment Upcoming Encounters Date Type Department Care Team (Late st Contact Info) Description 04/06/2025 1:45 PM EDT Office Visit [facility] [address] [place] [address] Mary Ellen Montague MD [address] [place] [address] Health Maintenance Due Date Last Done Comments [...] Additional history exists SDOH Screening 01/16/2025 01/17/2024 Influenza Vaccine (#1) 2025 , 05/22/2023, 04/14/2022, Additional history exists Eye Exam 04/29/2025 04/29/2023, 04/03, 04/29/2023, Additional history exists Alcohol/Substance Use Screening 05/29/2025 05/29/2024 Depression Screening 05/29/2025 05/29/2024, 05/29/20 Diabetes: Urine Protein Screening 06/08/2025 06/08/2024, 05/30/2024, 01/20/2023, Additional history exists Tobacco Screening 12/06/2025 12/06/2024 Lipid Panel 01/29/2026 01/29/2025, 05/03, 01/01/2021, Additional history exists DTaP/Tdap/Td Vaccines (2 - Td or Tdap) 09/29/2033 09/29/2023 RSV Patients and Patients Aged 60 years or older (1 - 1-dose 75+ series) 2047 Pneumococcal Vaccine: 50+ Years Completed 05/29/2024, 02/22/2019 [...] Procedure Name Priority Date/Time Associated Diagnosis Comments LIPID PANEL, STANDARD Routine 01/29/2025 3:50 PM EDT BASIC METABOLIC PANEL Routine 01/29/2025 3:50 PM EDT CREATININE, RANDOM URINE Routine 06/08/2024 12:45 PM EST POCT GLYCATED HEMOGLOBIN, TOTAL Routine 05/29/2024 11:16 AM EDT Type 2 diabetes mellitus with hyperglycemia, without long-term current use of insulin ([facility]) BITEWING - SINGLE RADIOGRAPHIC IMAGE Routine 08/18/2023 2:30 PM EST Pain due to dental trauma from Last 3 Months or Most Recently Relevant to Health Maintenance Results * (ABNORMAL) Lipid Panel, Standard (01/29/2025 3:50 PM EDT) Triglycerides 217(H) <150 mg/dL [facility] Comment:Desirable Triglyceri de: less than 150 mg/dLBorderline High Triglyceride 150-199 mg/dLHigh Triglyceride: 200-499 mg/dLVery High Triglyceride: greater than or equal to 5OO mg/dL Cholesterol 112 <200 mg/dL [facility] Comment:Desirable Cholestero l: less than 200 mg/dLBorderline High Cholesterol: 200-239 mg/dLHigh Cholesterol: greater than 239 mg/dL LDL Cholesterol Calculated 40 <100 mg/dL [facility] Comment:Desirable LDL: less than 100 mg/dLNear Optimal/Above Optimal LDL: 110- 129 mg/dLBorderline High LDL: 130-159 mg/dLHigh LDL: 160-189 mg/dLVery High LDL: greater than or equal to 190 mg/dL HDL Cholesterol 29(L) >40 mg/dL [facility] Comment:Desirable HDL: great er than 40 mg/dL Note: This HDL assay may give artificially low results in patients with liver disease. 01/29/2025 3:50 PM EDT 01/29/2025 3:50 PM EDT us Generic External Data Provider LAB BLOOD ORDERAB LES Final Result [facility] [address] [place] [address] [phone] * (ABNORMAL) Basic Metabolic Panel (01/29/2025 3:50 PM EDT) Sodium 143 135 - 145 mmol/L [facility] Potassium 3.7 3.3 - 5.1 mmol/L [facility] Chloride 103 96 - 108 mmol/L [facility] Carbon Dioxide 30(H) 22 - 29 mmol/L [facility] Anion Gap 14 12 - 20 [facility] Urea Nitrogen (BUN) 16 9 - 16 mg/dL [facility] Creatinine, Serum 0.85 0.5 - 1.4 mg/dL [facility] Estimated Glomerular Filt Rate >60 [facility] Comment:Chronic Kidney Disea se: Estimated GFR < 60 mL/min/[id number] Kidney Disease: Estimated GFR < 15 mL/min/1.73m2 Glucose 177(H) 60 - 115 mg/dL [facility] Calcium 9.7 8.4 - 10.2 mg/dL [facility] 01/29/2025 3:50 PM EDT 01/29/2025 3:50 PM EDT us Generic External Data Provider LAB BLOOD ORDERAB LES Final Result Performing Organization Address [facility] Co de Phone Number [facility] [address] [place] [address] [phone] * Creatinine, Random Urine (06/08/2024 12:45 PM EST) Creatinine, Urine 137.59 mg/dL [facility] 06/08/2024 12:4 5 PM EST 06/08/2024 1:38 PM EST us Generic External Data Provider LAB URINE ORDERAB LES Final Result Performing Organization Address [facility] Co de Phone Number [facility] [address] [place] [phone] * (ABNORMAL) POCT HGB A1C (05/29/2024 11:16 AM EDT) Hemoglobin A1C 7.8(A) 4.0 - 6.0 % QC Media Lot # [id number] Lot# Expiration Date Blood 05/29/2024 11:1 6 AM EDT us Mary Ellen Mcgregor MD POINT OF CARE TEST EN TER/EDIT ORDERABLES Final Result from Last 3 Months or Most Recently Relevant to Health Maintenance Insurance [employer] Care Teams Mental Health Orderly Relationship Specialty Start Date End Date Mary Ellen Montague MD [address] [place] [phone] PCP - General Family Medicine 02/27/19
--- OUTSIDE RECORDS SUMMARY | 2025-04-04 08:39 | XMS_ITS | Clinical Summary ---
Author Organization [facility] Address [address] [place] [phone] Phone Care Team Providers Care Demand Inspector Name Role Phone Mary Ellen Montague [...] Cancer Screening: Sigmoidoscopy 2021 Influenza Vaccine (#1) 2025 , 05/27/2020, 05/25/2019 Pneumococcal Vaccine: Peds ( 0 to 5 Years) and At-Risk Patients (6 to 49 Years) Discontinued 02/22/2019 Insurance Care Teams Demand Inspector Relationship Specialty Start Date End Date Mary Ellen Montague MD [address] [place] [phone] PCP - General Internal Medicine 12/22/21
--- OUTSIDE RECORDS SUMMARY | 2025-04-04 08:39 | XMS_ITS | Clinical Summary ---
Author Organization [facility] Address [address] [place] [address] Care Team Providers Care Chip Bin Conveyor Tender Name Role Phone Naya Sandoval PA-C Primary Care Provider [phone] Source Comments PLEASE NOTE, if this patient [...] complication, without long-term current use of insulin ([facility]) Take 1 Tab by mouth 2 (two) [...] complication, without long-term current use of insulin ([facility]) Take 1 Tab by mouth once daily with breakfast Swallow whole. Do not break, crush or chew. 30 Tab 5 8 Active amLODIPine (NORVASC) 5 mg tabletIndications :Essential hypertension Take 1 Tab by mouth once daily 30 Tab 5 8 Active Active Problems Problem Noted Date Diagnosed Date Microalbuminuria 10/26/2016 H/O right cataract extraction [facility] 201308/04/2016 S/P right cataract surgery 06/2014 [facility] Eye nter 08/24/2014 Diabetes mellitus type 2, uncomplicated (CMS & H HS-HCC) 09/12/2013 Non morbid obesity 09/12/2013 Elevated LFTs due to TOUSSANIT 09/201309/12/2013 Mixed hyperlipidemia Essential hypertension, benign GERD [...] Treatment Not on file Insurance [employer] [facility] [employer] Member Subscriber Plan / Payer (Ef fective 2016-Present) Name:Rodrick Mayen Relation to Subscriber:Self Name:Rodrick Mayen Payer ID:[id number] Type:Indemnity Address: [facility] [address] [place] [address] Care Teams Chip Bin Conveyor Tender Relationship Specialty Start Date End Date Naya Sandoval PA-C [address] [place] [phone] PCP - General Internal Medicine 08/04/13
== END 2025-04-04 09:40 | disposition home or self-care (01) ==
LOC: HO.HSMS 08:09
PROVIDERS: PCP Internal Medicine; Visit Provider Nurse Practitioner Family
DX: G47.33 Obstructive sleep apnea (adult) (pediatric) (principal); G47.00 Insomnia, unspecified
CPT/HCPCS: 99214

== ENCOUNTER → 2025-04-04 08:08 | Outpatient (BNVA) | payer OTHER, SELFPAY | PROVIDERS: PCP Internal Medicine; Visit Provider Nurse Practitioner Family | DX: G47.33 Obstructive sleep apnea (adult) (pediatric) (principal); G47.00 Insomnia, unspecified; Z99.89 Dependence on other enabling machines and devices | CPT/HCPCS: 99212 ==

== ENCOUNTER 2025-04-16 09:47 | Outpatient (AMB) | payer OTHER, SELFPAY ==
--- NOTE | 2025-04-16 09:58 | A.OFFVIS_ITS ---
Vital Signs 04/16/25 10:06 Height 5 ft 10 in Weight 242 lb 8.136 oz BMI 34.8 BP 119/74 Blood Pressure Location Lt brachial Position Sitting Pulse 107 H Intake Visit Reasons: 6 month f/u Intake Note: Rodrick presents in the officce as a 6 month follow up. CC: States pantoprazole he takes 3 times a day - was put on mounjaro and waiting for approval by insurance. States that he takes pantoprazole and omeprazole at the same time. States his sugar drops as well. He gets bad reflux. Allergies No Known Allergies Allergy (Verified 04/16/25 10:07) HPI HPI 6 month f/u: Details: 54 yr old m here for f/u RECAP: He had poor prep for screening colonoscopy and noted to have diverticulosis, needed repeat as below he has heartburn and is controlled with medication incl PPI and H2B he does have distention and bloating he had neg H pylori stool in past he had pyloric pylorplasty for congenital pyloric stenosis He had EGD and colo as below: EGD/colo: Endoscopy Findings: erosive duodenitis erosive gastritis esophagitis Colonoscopy Findings: polyps internal hemorrhoids diverticular disease path: erosive duodenitis, hyperplastic polyps INTERIM: he is taking pantoprazole but he ran out and needs refill his diet is better, he is waiting for mounjaro as well no melena, no abdominal pain no constipation or diarrhea regular use of bathroom lost 20# EXAM: GENERAL: The patient is well developed and nontoxic. VITAL SIGNS:see workflow HEENT: Nonicteric sclerae, PERRLA, EOMI. Oropharynx clear. Moist mucous membranes. Conjunctivae appear well perfused. No thyroid mass. CHEST: Chest wall is nontender. HEART: Regular rate and rhythm without murmurs. LUNGS: Clear to auscultation bilaterally. ABDOMEN: Soft, positive bowel sounds, nontender, no organomegaly.no flank tenderness SKIN: No rash, no excessive bruising, petechiae, or purpura. NEUROLOGIC: Cranial nerves II-XII intact without motor/sensory deficit. A/P: 1/ erosive gastritis, duodenitis, related prob to meds --prior h pylori neg 2020 2/ GERD controlled, weight loss as well will help 3/ MASH--mild elevated LFT PLAN: 1/ cont with zofran prn 2/ refill pantoprazole, take multi vitamin 3/ reminded to take MV and vit D supplement --1000 units daily 4/ cont with weight loss, and [facility] History History of COVID-19 CAD (coronary artery disease) GERD (gastroesophageal reflux disease) Diabetes Sleep apnea treated with continuous positive airway pressure (CPAP) Hyperlipidemia Hypertension Surgical History History of heart artery stent H/O left knee surgery (~06/20/15) History of colonoscopy History of cardiac cath History of cataract surgery Family History Father CAD (coronary artery disease) HTN (hypertension) Diabetes Hypercholesteremia Mother CAD (coronary artery disease) Lung disease Diabetes HTN (hypertension) Hypercholesteremia Social History Are you a primary managed care director to a significant other at home: No Do you presently have visiting nurse or other home services: No Alcohol intake: current Alcohol intake frequency: does not drink Patient Tobacco Use Status: Never used Tobacco Physical Exam Vital Signs: Last Vital Signs Pulse 107 H 04/16/25 10:06 BP 119/74 04/16/25 10:06 BMI result Body Mass Index 34.8 Assessment & Plan Assessment & Plan (1) Esophagitis: Code(s): K20.90 - Esophagitis, unspecified without bleeding Category: Medical Plan: as above Medications: New pantoprazole 40 mg PO DAILY 90 tabs 3RF Coding Level of Care Code Est Pt Level 3 (40410) Diagnoses Esophagitis K20.90
[2025-04-16 10:06] VITALS: BP 119/74; PULSE 107; BMI 34.8
--- OUTSIDE RECORDS SUMMARY | 2025-04-16 12:01 | XMS_ITS | Encounter Summary ---
Author Organization [employer] Address [address] [facility] 7[address] [place] [address] Care Team Providers Care Obstetrical Anesthesiologist Name Role Phone Mary Ellen Montague MD Primary Care Provide r Reason for Visit * Reason Onset Date Comments Med Refill medication 08/21/2023 Encounter Details Date Type Department Care Team (Late st Contact Info) Description 08/21/2023 Refill [facility] [address] [place] [address] Rafael Aguirre, DDS [address] [place] [address] Social History Tobacco Use Types Packs/Day Years [...] documented as of this encounter Care Teams Obstetrical Anesthesiologist Relationship Specialty Start Date End Date Mary Ellen Montague MD [address] [place] [phone] PCP - General Family Medicine 02/27/19 documented as of this encounter
--- OUTSIDE RECORDS SUMMARY | 2025-04-16 12:01 | XMS_ITS | Clinical Summary ---
Author Organization [employer] Address [address] [place] [address] 7t [place] [address] Care Team Providers Care Director Talent Acquisition Name Role Phone Mary Ellen Montague MD [...] MG tablet Take 25 mg by mouth. 023 Active magnesium oxide (Mag-Ox) 400 MG tablet Take 1 tablet by mouth. 023 Active pantoprazole (ProtoNix) 40 MG EC tabletIndications :Chronic gastritis without bleeding, unspecified gastritis type TAKE 1 TABLET BY MOUTH TWICE DAILY IN THE MORNING AND AT NOON DO NOT BREAK, CRUSH, DISSOLVE OR CHEW 60 tablet 1 024 Active clopidogrel (Plavix) 75 MG tabletIndications :Stented coronary artery TAKE 1 TABLET BY MOUTH EVERY DAY 30 tablet 11 025 Active lisinopril 40 MG tabletIndications :Essential hypertension TAKE 1 TABLET BY MOUTH EVERY DAY 90 tablet 025 Active Aspirin EC Adult Low Dose 81 MG EC tabletIndications :Coronary artery disease involving standing rock coronary artery of standing rock heart without angina pectoris TAKE 1 TABLET BY MOUTH EVERY DAY IN THE MORNING 90 tablet 025 Active pantoprazole (ProtoNix) 40 MG EC [...] EVERY DAY 90 tablet 1 025 Active metFORMIN (Glucophage) 1000 MG tablet TAKE 1 TABLET BY MOUTH TWICE DAILY IN THE MORNING AND IN THE EVENING WITH MEALS 60 tablet 11 025 Active hydrALAZINE (Apresoline) 25 MG tabletIndications :HTN (hypertension), benign TAKE 1 TABLET BY MOUTH FOUR TIMES DAILY WITH FOOD 120 tablet 3 025 Active Tirzepatide (Mounjaro) 5 MG/0.5ML solution auto-injectorIndi cations:Type 2 diabetes mellitus with hyperglycemia, without long-term current use of insulin ([facility]) Inject 5 mg under the skin 1 (one) time per week. 2 mL 2 025 Active glipiZIDE XL (Glucotrol XL) 2.5 MG 24 hr tabletIndications :Type 2 diabetes mellitus with hyperglycemia, without long-term current use of insulin (CMS/[facility]) Take 2 tablets (5 mg) by mouth Once per day. TAKE 1 TABLET BY MOUTH THREE TIMES DAILY WITH MEALS NEEDED 90 tablet 2 Active gabapentin (Neurontin) 400 MG capsuleIndication s:Diabetic polyneuropathy associated with type 2 diabetes mellitus (CMS/HCC) Take 1 capsule (400 mg) by mouth 3 times daily. 90 capsule 11 025 2025 Active atenolol (Tenormin) 100 MG tabletIndications :HTN (hypertension), benign Take 1 tablet (100 mg) by mouth Once per day. 90 tablet 1 025 Active semaglutide (Ozempic) 2 MG/1.5ML solution pen-injectorIndic ations:Type 2 diabetes mellitus with hyperglycemia, without long-term current use of insulin ([facility]) Inject 1 mg under the skin 1 (one) time per week. 2 each 12 024 2024 Discontinued gabapentin (Neurontin) 300 MG capsuleIndication s:Diabetic polyneuropathy associated with type 2 diabetes mellitus (CMS/HCC) Take 1 capsule (300 mg) by mouth 3 times daily. 90 capsule 11 024 2024 Discontinued atenolol (Tenormin) 100 MG tabletIndications :HTN (hypertension), benign Take 1 tablet (100 mg) by mouth Once per day. 90 tablet 1 025 2024 Discontinued(R eorder (will not trigger notification to Pharmacy)) glipiZIDE XL (Glucotrol XL) 2.5 MG 24 hr tabletIndications :Type 2 diabetes mellitus without complication, unspecified whether [facility] insulin use (CMS/[facility]) TAKE 1 TABLET BY MOUTH THREE TIMES DAILY WITH MEALS NEEDED 90 tablet 2 025 2024 Discontinued(R eorder (will not trigger notification to Pharmacy)) Active Problems Problem Noted Date Diagnosed Date Diabetic polyneuropathy susy ciated with type 2 diabetes mellitus 05/29/2024 Assessment & Plan (04/07/2025 6:52 PM EDT): I will increase gabapentin to 400mg TID Assessment & Plan (05/29/2024 12:07 PM EDT): [...] 30-39.9) 11/24/2018 Coronary artery disease invo lving standing rock coronary artery of standing rock heart without angina pectoris 09/13/2018 Assessment & Plan (05/29/2024 12:08 PM EDT): Continue to follow with cardiology Assessment & Plan (07/16/2023 11:54 AM EST): Has remain stable with current regimen, continue to follow with cardiology Stented coronary artery 09/13/2018 Angina pectoris 08/09/2018 Essential hypertension 07/28/2018 Assessment & Plan (04/07/2025 6:48 PM EDT): I advised: - Aerobic exercise to reduce BP. Initial [...] consulting health care provider Assessment & Plan (05/29/2024 12:06 PM EDT): [...] use of insulin 07/28/2018 Assessment & Plan (04/07/2025 6:51 PM EDT): Diabetes is: not controlled - Lab Results Component Value Date HGBA1C 7.3 (A) 04/06/2025 HGBA1C 7.8 (A) 05/29/2024 HGBA1C 6.9 (A) 12/15/2023 - Lab Results Component Value Date MICROALBUR 27.0 05/30/2024 CREATININE 0.85 01/29/2025 -Changes: I will discontinue ozempic 1mg and instead put him on mounjaru 5mg weekly I will also go up on glipizide to 5mg - Diabetic eye exam:up to date - Diabetic foot exam:pending - Continue lifestyle modifications - Follow up: 3 months Assessment & Plan (05/29/2024 12:05 PM EDT): [...] Microalbuminuria 10/26/2016 Elevated LFTs 09/12/2013 Obesity 09/12/2013 Assessment & Plan (04/07/2025 6:48 PM EDT): Today extensive discussion was done about life style modifications I advise healthy diet (low calorie) and cardiovascular exercise Encounters Date Type Department Care Team Description 04/06/2025 1:45 PM EDT Office Visit [facility] MEDICINE [address] [place] [phone] Mary Ellen Montague MD Type 2 diabetes mellitus with hyperglycemia, without long-term current use of insulin (CMS/HCC) (Primary Dx); Essential hypertension; Diabetic polyneuropathy associated with type 2 diabetes mellitus (CMS/HCC); Dietary counseling; Exercise counseling; Class 2 severe obesity with serious comorbidity and body mass index (BMI) of 35.0 to 35.9 in adult, unspecified obesity type (CMS/HCC); HTN (hypertension), benign 04/06/2025 Travel 04/05/2025 Telephone [facility] MEDICINE [address] [place] [phone] Mary Ellen Montague MD Chart Prep 04/04/2025 Travel 03/28/2025 Patient Outreach [facility] MED[facility]INE [address] [place] [phone] Mary Ellen Montague MD Pre-visit Planning ((Unable to reach for PVP screening and or LVM) to be completed in office) 02/16/2025 Refill [facility]ALK-[facility] CENTER [address] [place] [address] Mary Ellen Montague MD HTN (hypertension), benign [...] Sign Reading Time Taken Comments Blood Pressure 140/90 04/06/2025 1:49 PM EDT Pulse 95 04/06/2025 2:30 PM EDT Temperature 36.1 C (96.9 F) 04/06/2025 1:49 PM EDT Respiratory Rate 20 04/06/2025 1:49 PM EDT Oxygen Saturation 95% 04/06/2025 1:49 PM EDT Inhaled Oxygen Concentration - - Weight 111 kg (244 lb 3.2 oz) 04/06/2025 1:49 PM EDT Height 177.8 cm (5' 10 ) 04/06/2025 1:49 PM EDT Body Mass Index 35.04 04/06/2025 1:49 PM EDT Plan of Treatment Health Maintenance [...] of 3 - 19+ 3-dose series) 1991 Dental X-Ray: Bitewings 08/19/2024 08/18/2023, 01/14 SDOH Screening 01/16/2025 01/17/2024 COVID-19 Vaccine ( season) 2025 04/17/2022, 07/02/2021, 11/01/2020, Additional history exists Influenza Vaccine (#1) 2025 , 05/22/2023, 04/14/2022, Additional history exists Eye Exam 04/29/2025 04/29/2023, 04/03, 04/29/2023, Additional history exists Alcohol/Substance Use Screening 05/29/2025 05/29/2024 Depression Screening 05/29/2025 05/29/2024, 05/29/20 Diabetes: Urine Protein Screening 06/08/2025 06/08/2024, 05/30/2024, 01/20/2023, Additional history exists Diabetes: Hemoglobin A1C 07/06/2025 025, 05/29/2024, 12/15/2023, Additional history exists Lipid Panel 01/29/2026 01/29/2025, 05/03, 01/01/2021, Additional history exists Disability Screening 04/04/2026 04/04/2025 Tobacco Screening 04/06/2026 04/06/2025 DTaP/Tdap/Td Vaccines (2 - Td or Tdap) [...] Procedure Name Priority Date/Time Associated Diagnosis Comments POCT GLYCATED HEMOGLOBIN, TOTAL Routine 04/06/2025 2:33 PM EDT Type 2 diabetes mellitus with hyperglycemia, without long-term current use of insulin ([facility]) POCT GLUCOSE Routine 04/06/2025 2:33 PM EDT Type 2 diabetes mellitus with hyperglycemia, without long-term current use of insulin ([facility]) LIPID PANEL, STANDARD Routine 01/29/2025 3:50 PM EDT BASIC METABOLIC PANEL Routine 01/29/2025 3:50 PM EDT CREATININE, RANDOM URINE Routine 06/08/2024 12:45 PM EST BITEWING - SINGLE RADIOGRAPHIC IMAGE Routine 08/18/2023 2:30 PM EST Pain due to dental trauma from Last 3 Months or Most Recently Relevant to Health Maintenance Results * (ABNORMAL) POCT Hgb A1c (04/06/2025 2:33 PM EDT) Hemoglobin A1C 7.3(A) 4.0 - 5.7 % QC Media Lot # [id number] Lot# Expiration Date [id number] Blood 04/06/2025 2:33 PM EDT Mary Ellen Mcgregor MD POINT OF CARE TEST EN TER/EDIT ORDERABLES Final Result * (ABNORMAL) POCT Glucose (04/06/2025 2:33 PM EDT) Glucose Blood, POC 212(A) 60 - 200 mg/dL QC Media Lot # [id number] Lot# Expiration Date [id number] Blood Capillary blood specimen / Unknown 04/06/2025 2:33 PM EDT us Mary Ellen Mcgregor MD POINT OF CARE TEST EN TER/EDIT ORDERABLES Final Result * (ABNORMAL) Lipid Panel, Standard (01/29/2025 3:50 PM EDT) Triglycerides 217(H) <150 mg/dL [facility] Comment:Desirable Triglyceri de: less than 150 mg/dLBorderline High Triglyceride 150-199 mg/dLHigh Triglyceride: 200-499 mg/dLVery High Triglyceride: greater than or equal to 5OO mg/dL Cholesterol 112 <200 mg/dL [facility] Comment:Desirable Cholestero l: less than 200 mg/dLBorderline High Cholesterol: 200-239 mg/dLHigh Cholesterol: greater than 239 mg/dL LDL Cholesterol Calculated 40 <100 mg/dL [facility] Comment:Desirable LDL: less than 100 mg/dLNear Optimal/Above Optimal LDL: 110- 129 mg/dLBorderline High LDL: 130-159 mg/dLHigh LDL: 160-189 mg/dLVery High LDL: greater than or equal to 190 mg/dL HDL Cholesterol 29(L) >40 mg/dL [facility] Comment:Desirable HDL: great er than 40 mg/dL Note: This HDL assay may give artificially low results in patients with liver disease. 01/29/2025 3:50 PM EDT 01/29/2025 3:50 PM EDT us Generic External Data Provider LAB BLOOD ORDERAB LES Final Result [facility] [address] [place] [address] [phone] * (ABNORMAL) Basic Metabolic Panel (01/29/2025 3:50 PM EDT) Sodium 143 135 - 145 mmol/L [facility] Potassium 3.7 3.3 - 5.1 mmol/L [facility] Chloride 103 96 - 108 mmol/L [facility] Carbon Dioxide 30(H) 22 - 29 mmol/L [facility] Anion Gap 14 12 - 20 [facility] Urea Nitrogen (BUN) 16 9 - 16 mg/dL [facility] Creatinine, Serum 0.85 0.5 - 1.4 mg/dL [facility] Estimated Glomerular Filt Rate >60 [facility] Comment:Chronic Kidney Disea se: Estimated GFR < 60 mL/min/[id number] Kidney Disease: Estimated GFR < 15 mL/min/1.73m2 Glucose 177(H) 60 - 115 mg/dL [facility] Calcium 9.7 8.4 - 10.2 mg/dL [facility] 01/29/2025 3:50 PM EDT 01/29/2025 3:50 PM EDT Generic External Data Provider LAB BLOOD ORDERAB LES Final Result Performing Organization Address [facility] de Phone Number [facility] [address] [place] [address] [phone] * Creatinine, Random Urine (06/08/2024 12:45 PM EST) Creatinine, Urine 137.59 mg/dL [facility] 06/08/2024 12:4 5 PM EST 06/08/2024 1:38 PM EST Generic External Data Provider LAB URINE ORDERAB LES Final Result Performing Organization Address [facility] Co de Phone Number [facility] [address] [place] [address] [phone] from Last 3 Months or Most Recently Relevant to Health Maintenance Insurance [id number] 3 Care Teams Director Talent Acquisition Relationship Specialty Start Date End Date Mary Ellen Montague MD [address] [place] [address] [phone] PCP - General Family Medicine 02/27/19
--- OUTSIDE RECORDS SUMMARY | 2025-04-16 12:01 | XMS_ITS | Encounter Summary ---
Author Organization [employer] Address [address] [facility] 7t [place] [address] Care Team Providers Care Black Studies Professor Name Role Phone Mary Ellen Montague MD Primary Care Provide r Reason for Visit * Reason Comments Med Refill Encounter Details Date Type Department Care Team (Late st Contact Info) Description 08/27/2023 Refill [facility] ADULT DENT[facility] [address] [place] [address] Rafael Aguirre DDS [address] [place] [address] Social History Tobacco Use Types Packs/Day Years [...] documented as of this encounter Care Teams Black Studies Professor Relationship Specialty Start Date End Date Mary Ellen Montague MD [address] [place] [phone] PCP - General Family Medicine 02/27/19 documented as of this encounter
--- OUTSIDE RECORDS SUMMARY | 2025-04-16 12:02 | XMS_ITS | Encounter Summary ---
Author Organization [employer] Address [address] [facility] [address]t [place] [address] Care Team Providers Care Cork Mixer Name Role Phone Mary Ellen Montague MD Primary Care Provide r Reason for Visit * Reason Comments Med Refill Encounter Details Date Type Department Care Team ([facility] st Contact Info) Description 02/21/2024 Refill [facility] [place] [address] [place] [address] Teresa Coburn FNP Social History Tobacco Use [...] documented as of this encounter Care Teams Cork Mixer Relationship Specialty Start Date End Date Mary Ellen Montague MD [address] [place] [address] PCP - General Family Medicine 02/27/19 documented as of this encounter
--- OUTSIDE RECORDS SUMMARY | 2025-04-16 12:02 | XMS_ITS | Encounter Summary ---
Author Organization [employer] Address [address] [place] [address] [address] [place] [address] Care Team Providers Care Manager Cancer Name Role Phone Mary Ellen Montague MD Primary Care Provide r Reason for Visit * Reason Onset Date Comments Med Refill 05/01/2024 Encounter Details Date Type Department Care Team (Late st Contact Info) Description 05/01/2024 Refill [facility] MED[facility] [address] [place] [address] Riya Alvarez, PharmD [address] [place] [address] Type 2 diabetes mellitus with hyperglycemia, without long-term current use of insulin ([facility]) Social History Tobacco Use Types [...] without long-term current use of insulin ([facility]) documented in this encounter Additional Health Concerns Assessment Noted Time PHQ-9 Depression Total Score: 0 04/13/20 23 10:00 AM EDT documented as of this encounter Care Teams Manager Cancer Relationship Specialty Start Date End Date Mary Ellen Montague MD [address] [place] [phone] PCP - General Family Medicine 02/27/19 documented as of this encounter
--- OUTSIDE RECORDS SUMMARY | 2025-04-16 12:02 | XMS_ITS | Clinical Summary ---
Author Organization [facility] Address [address] [place] [address] Care Team Providers Care Peer Financial Counselor Name Role Phone Naya Sandoval PA-C Primary Care Provider [phone] Source Comments PLEASE NOTE, if this patient [...] complication, without long-term current use of insulin ([facility]) Take 1 [...] complication, without long-term current use of insulin ([facility]) Take 1 Tab by mouth once daily with breakfast Swallow whole. Do not break, crush or chew. 30 Tab 5 8 Active amLODIPine (NORVASC) 5 mg tabletIndications :Essential hypertension Take 1 Tab by mouth once daily 30 Tab 5 8 Active Active Problems Problem Noted Date Diagnosed Date Microalbuminuria 10/26/2016 H/O right cataract extraction [facility] 201308/04/2016 S/P right cataract surgery 06/2014 [facility] 08/24/2014 Diabetes mellitus type 2, [...] Treatment Not on file Insurance [employer] [facility] Loftware Member Subscriber Plan / Payer (Ef fective 2016-Present) Name:Rodrick Mayen Relation to Subscriber:Self Name:Rodrick Mayen Payer ID:[id number] Type:Indemnity Address: [facility] [address] [place] [address] Care Teams Peer Financial Counselor Relationship Specialty Start Date End Date Naya Sandoval PA-C [address] [place] [phone] PCP - General Internal Medicine 08/04/13
--- OUTSIDE RECORDS SUMMARY | 2025-04-16 12:02 | XMS_ITS | Clinical Summary ---
Author Organization [facility] Address [address] [place] [address] Care Team Providers Care Agriculture Extension Specialist Name Role Phone Mary Ellen Montague [...] 03/27/2024 Social Influencers of Health Screening 03/27/2024 Depression Screening 08/02/2024 COVID-19 Vaccine ( - 2023-2 5 season) 2025 Influenza Vaccine (#1) 2025 HIB Vaccines Aged [...] age to complete this topic Care Teams Agriculture Extension Specialist Relationship Specialty Start Date End Date Mary Ellen Montague MD [address] [place] [phone] PCP - General 01/28/24
--- OUTSIDE RECORDS SUMMARY | 2025-04-16 12:02 | XMS_ITS | Encounter Summary ---
Author Organization [employer] Address [address] [place] [address] [address] [place] [address] Care Team Providers Care Client Account Representative Name Role Phone Mary Ellen Montague MD Primary Care Provide r Reason for Visit * Reason Comments Med Refill Encounter Details Date Type Department Care Team (Late st Contact Info) Description 09/10/2022 Refill [facility] [address] [place], [place] [phone] Dunia Chandra MD [address] [place] [address] Dyslipidemia (Primary Dx); HTN (hypertension), benign Social [...] benign documented in this encounter Care Teams Client Account Representative Relationship Specialty Start Date End Date Mary Ellen Montague MD [address] [place] [address] PCP - General Family Medicine 02/27/19 documented as of this encounter
--- OUTSIDE RECORDS SUMMARY | 2025-04-16 12:02 | XMS_ITS | Clinical Summary ---
Author Organization [facility] Address [address] [place] [address] Phone Care Team Providers Care Collision Repair Technician Name Role Phone Mary Ellen [...] 51 Years) Discontinued 02/22/2019 Insurance Care Teams Collision Repair Technician Relationship Specialty Start Date End Date Mary Ellen Montague MD [address] [place] [phone] PCP - General Internal Medicine 12/22/21
== END 2025-04-16 10:19 | disposition home or self-care (01) ==
LOC: HO.HGI 09:47
PROVIDERS: PCP Internal Medicine; Visit Provider Internal Medicine Gastroenterology
DX: K20.90 Esophagitis, unspecified without bleeding (principal)
CPT/HCPCS: 99213

== ENCOUNTER → 2025-04-16 09:47 | Outpatient (BNVA) | payer OTHER, SELFPAY | PROVIDERS: PCP Internal Medicine; Visit Provider Internal Medicine Gastroenterology | DX: K20.90 Esophagitis, unspecified without bleeding (principal); K21.9 Gastro-esophageal reflux disease without esophagitis; K75.81 Nonalcoholic steatohepatitis (NASH) | CPT/HCPCS: 99212 ==

== ENCOUNTER 2025-05-01 13:16 | Outpatient (AMB) | payer OTHER, SELFPAY ==
[2025-05-01 13:23] VITALS: BP 108/76
--- NOTE | 2025-05-01 13:23 | HO.NEPHOV ---
Vital Signs 05/01/25 13:23 Height 5 ft 10 in BP 108/76 Blood Pressure Location Rt brachial Position Sitting Intake Visit Reasons: 3mon follow-up Document Scanner Required: No Accompanied by: Self / Same As Patient Allergies No Known Allergies Allergy (Verified 05/01/25 13:23) Medication List - Last Reconciled 05/01/25 by Juan Alberto Cronin MD acetaminophen 650 mg PO Q6H PRN amlodipine 10 mg PO DAILY aspirin (Adult Low Dose Aspirin) 81 mg PO DAILY atenolol 100 mg PO DAILY atorvastatin 80 mg PO DAILY clopidogrel 75 mg PO DAILY docusate sodium 100 mg PO BEDTIME furosemide 20 mg PO DAILY gabapentin 300 mg PO BEDTIME glipizide ER 2.5 mg PO DAILY hydralazine 25 mg PO QID isosorbide mononitrate ER 30 mg PO DAILY lisinopril 40 mg PO DAILY metformin 1,000 mg PO DAILY methylcellulose (laxative) (Citrucel) 500 mg PO DAILY ondansetron 4 mg PO Q8H PRN pantoprazole 40 mg PO DAILY spironolacton-hydrochlorothiaz 25-25 mg 1 tab PO DAILY tirzepatide (Mounjaro) 5 mg subcut QWEEK triamcinolone acetonide sprays intranasal HPI Comments Details: Elan has HTN in a setting of obesity c/o leg pains ;Diagnosed with ;Neuropathy , Now on Neurontin 06/12/24 ;Overall doing OK.Has elevated blood sugar last night ;Uses CPAP regularly 11/28/24 ;Angiogram has been postponed ;Still ozempic and lost weight ;NO dyspnea;No edema 01/29/25 The patient is a 54-year-old male presenting with hypertension and coronary artery disease. He reports fluctuating blood pressure, with recent readings of 122/82 mmHg, but has experienced higher readings such as 149/90 mmHg. He has been on spironolactone, which he finds effective in managing his blood pressure. The patient has a history of coronary artery disease, with an angiogram performed in December revealing thin veins unsuitable for stenting. He experiences discomfort and has been advised that surgery might be necessary if the condition worsens. No blood tests were conducted post-angiogram, and he is advised to have one to ensure kidney function is unaffected by the contrast dye used during the procedure. The patient has been experiencing weight loss, attributed to the use of Ozempic, with a reduction from 268 pounds to 249 pounds. He is monitoring his diet, particularly salt intake, to manage his blood pressure and overall health. 05/01/25 - The patient is a 55-year-old male presenting with hypertension and sleep apnea. - Hypertension: Controlled with multiple medications; plan to reduce amlodipine dosage. - Sleep Apnea: Managed with CPAP; new sleep study planned. - Obesity: Weight loss ongoing with Mounjaro. [facility] Medical History History of COVID-19 CAD (coronary artery disease) GERD (gastroesophageal reflux disease) Diabetes Sleep apnea treated with continuous positive airway pressure (CPAP) Hyperlipidemia Hypertension Surgical History History of heart artery stent H/O left knee surgery (~06/20/15) History of colonoscopy History of cardiac cath History of cataract surgery Family History Father CAD (coronary artery disease) HTN (hypertension) Diabetes Hypercholesteremia Mother CAD (coronary artery disease) Lung disease Diabetes HTN (hypertension) Hypercholesteremia Social History Are you a primary housekeeper child care to a significant other at home: No Do you presently have visiting nurse or other home services: No Alcohol intake: current Alcohol intake frequency: does not drink Patient Tobacco Use Status: Never used Tobacco Physical Exam Vital Signs: Last Vital Signs BP 108/76 05/01/25 13:23 Comfortable Neck supple no JVD. Lungs entry equal no rales. Heart S1-S2 heard no gallop or rub. Abdomen soft nontender. Neuro alert awake oriented. No asterixis. Extremities no edema. Office Procedures 24 B/P Monitor Interpretation Details: Well controlled HTN NOn dipper CPT: 83070 24 Hour Blood Pressure Monitor Reading Procedure code (CPT) selection complete Results Reviewed Nephrology Results: Sodium, (135-145) 143 mmol/L 01/29/25 Potassium, (3.3-5.1) 3.7 mmol/L 01/29/25 Chloride, (96-108) 103 mmol/L 01/29/25 Carbon Dioxide, (22-29) 30 mmol/L H 01/29/25 BUN, (9-16) 16 mg/dL 01/29/25 Creatinine, (0.5-1.4) 0.85 mg/dL 01/29/25 Calcium, (8.4-10.2) 9.7 mg/dL Δ 01/29/25 Assessment & Plan Assessment & Plan (1) Hypertension: Code(s): I10 - Essential (primary) hypertension Category: Medical Plan: BP is better controlled -Based on 24 hr ABPM Todays reading was low He has lost about 20 lb- now on Maunjaro Expect BP to drop further with weigh loss decrease AMlodipine from 10mg to 5 mg QD Renal function is stable. post angiogram Keep SGLT-2 inhibitor for cardio renal protection (2) Diabetes: Code(s): E11.9 - Type 2 diabetes mellitus without complications Category: Medical Plan: Goal A1C < 7% Orders: Orders AMB 24 HR B/P Monitor INTERPRETATION 05/01/25 I10 - Essential (primary) hypertension Medications: Changed From amlodipine 10 mg PO DAILY To amlodipine 5 mg PO DAILY Coding Level of Care Code Est Pt Level 4 (32610) Diagnoses Hypertension I10 Diabetes E11.9 CPT Codes - CPT: 68677 24 Hour Blood Pressure Monitor Reading ([id number])
--- OUTSIDE RECORDS SUMMARY | 2025-05-01 14:34 | XMS_ITS | Clinical Summary ---
Author Organization [employer] Address [address] [facility] 7t [place] [address] Care Team Providers Care Carding Machine Feeder Name Role Phone Mary Ellen Montague MD Primary Care Provide r Allergies Active Allergy Reactions Criticality Noted Date Comments Carvedilol 10/06/2018 Other reaction(s): Chest pain, Trouble Breathing Medications spironolactone-h ydroCHLOROthiazi de (Aldactazide) 25-25 MG tablet Take 1 tablet by mouth in the morning. 023 Active isosorbide mononitrate ER (Imdur) 30 MG 24 hr tablet Take 30 mg by mouth in the morning. 023 Active clopidogrel (Plavix) 75 MG tabletIndication s:Stented coronary artery TAKE 1 TABLET BY MOUTH EVERY DAY 30 tablet 11 025 Active lisinopril 40 MG tabletIndication s:Essential hypertension TAKE 1 TABLET BY MOUTH EVERY DAY 90 tablet 3 025 Active Aspirin EC Adult Low Dose 81 MG EC tabletIndication s:Coronary artery disease involving cloverdale coronary artery of cl[place] heart without angina pectoris TAKE 1 TABLET BY MOUTH EVERY DAY IN THE MORNING 90 tablet 3 025 Active pantoprazole (ProtoNix) 40 MG EC tabletIndication s:Gastroesophage al reflux disease, unspecified whether esophagitis present TAKE 1 TABLET BY MOUTH EVERY DAY BEFORE BREAKFAST, DO NOT BREAK, CRUSH, DISSOLVE OR CHEW 30 tablet 11 025 Active furosemide (Lasix) 20 MG tabletIndication s:Essential hypertension Take 1 tablet (20 mg) by mouth Once per day. 30 tablet 3 Active amLODIPine (Norvasc) 10 MG tabletIndication s:HTN (hypertension), benign Take 1 tablet (10 mg) by mouth Once per day. 90 tablet 1 025 Active atorvastatin (Lipitor) 80 MG tabletIndication s:Dyslipidemia TAKE 1 TABLET BY MOUTH EVERY DAY 90 tablet 1 Active metFORMIN (Glucophage) 1000 MG tablet TAKE 1 TABLET BY MOUTH TWICE DAILY IN THE MORNING AND IN THE EVENING WITH MEALS 60 tablet 11 Active hydrALAZINE (Apresoline) 25 MG tabletIndication s:HTN (hypertension), benign TAKE 1 TABLET BY MOUTH FOUR TIMES DAILY WITH FOOD 120 tablet 3 Active Tirzepatide (Mounjaro) 5 MG/0.5ML solution auto-injectorInd ications:Type 2 diabetes mellitus with hyperglycemia, without long-term current use of insulin (HCC) Inject 5 mg under the skin 1 (one) time per week. 2 mL 2 Active glipiZIDE XL (Glucotrol XL) 2.5 MG 24 hr tabletIndication s:Type 2 diabetes mellitus with hyperglycemia, without long-term current use of insulin (HCC) Take 2 tablets (5 mg) by mouth Once per day. TAKE 1 TABLET BY MOUTH THREE TIMES DAILY WITH MEALS NEEDED 90 tablet 2 Active gabapentin (Neurontin) 400 MG capsuleIndicatio ns:Diabetic polyneuropathy associated with type 2 diabetes mellitus (HCC) Take 1 capsule (400 mg) by mouth 3 times daily. 90 capsule 025 2025 Active atenolol (Tenormin) 100 MG tabletIndication s:HTN (hypertension), benign Take 1 tablet (100 mg) by mouth Once per day. 90 tablet 1 Active Ozempic, 1 MG/DOSE, 4 MG/3ML solution pen-injector Inject 1 MG SUBCUTANEOUSLY EVERY 7 DAYS IN THE ABDOMEN, THIGHS OR UPPER ARM. ROTATE INJECTION SITES. Active triamcinolone (Nasacort) 55 MCG/ACT nasal inhaler SPRAY 2 SPRAYS INTO EACH NOSTRIL DAILY 023 2024 Discontinued(T herapy completed) senna (Senokot) 8.6 MG tablet TAKE 1 TABLET BY MOUTH AT BEDTIME FOR CONSTIPATION 2024 Discontinued(T herapy completed) [facility] Allergy Relief 10 MG capsule Take 1 capsule by mouth in the morning. 2024 Discontinued(T herapy completed) cyclobenzaprine (Flexeril) 5 MG tablet Take 5 mg by mouth 3 times daily. 022 2024 Discontinued(T herapy completed) glucose blood (FREESTYLE LITE) test strip Use to check fasting sugar daily or as directed by physician 021 2024 Discontinued(T herapy completed) docusate sodium (Colace) 100 MG capsule Take 100 mg by mouth at bedtime. 2024 Discontinued(T herapy completed) lidocaine (Lidoderm) 5 % patchIndications :Rib pain on right side Apply 1 patch topically in the morning. Remove & discard patch within 12 hours or as directed by . 30 patch 023 2024 Discontinued(T herapy completed) metoclopramide (Reglan) 10 MG tabletIndication s:Chronic gastritis without bleeding, unspecified gastritis type Take 1 tablet (10 mg) by mouth 4 times daily for 5 days. 20 tablet 023 2024 Discontinued(T herapy completed) traZODone (Desyrel) 50 MG tablet Take 25 mg by mouth. 2024 Discontinued(T herapy completed) magnesium oxide (Mag-Ox) 400 MG tablet Take 1 tablet by mouth. 023 2024 Discontinued(T herapy completed) pantoprazole (ProtoNix) 40 MG EC tabletIndication s:Chronic gastritis without bleeding, unspecified gastritis type TAKE 1 TABLET BY MOUTH TWICE DAILY IN THE MORNING AND AT NOON DO NOT BREAK, CRUSH, DISSOLVE OR CHEW 60 tablet 1 024 2024 Discontinued(T herapy completed) semaglutide (Ozempic) 2 MG/1.5ML solution pen-injectorIndi cations:Type 2 diabetes mellitus with hyperglycemia, without long-term current use of insulin (HCC) Inject 1 mg under the skin 1 (one) time per week. 2 each 12 024 2024 Discontinued gabapentin (Neurontin) 300 MG capsuleIndicatio ns:Diabetic polyneuropathy associated with type 2 diabetes mellitus (HCC) Take 1 capsule (300 mg) by mouth 3 times daily. 90 capsule 11 024 2024 Discontinued atenolol (Tenormin) 100 MG tabletIndication s:HTN (hypertension), benign Take 1 tablet (100 mg) by mouth Once per day. 90 tablet 1 025 2024 Discontinued(R eorder (will not trigger notification to Pharmacy)) glipiZIDE XL (Glucotrol XL) 2.5 MG 24 hr tabletIndication s:Type 2 diabetes mellitus without complication, unspecified whether salvage determiner insulin use TAKE 1 TABLET BY MOUTH THREE TIMES [...] 30-39.9) 11/24/2018 Coronary artery disease invo lving cloverdale coronary artery of [place] heart without angina pectoris 09/13/2018 Assessment & [...] Encounters Date Type Department Care Team Description 04/26/2025 Telephone [facility] [address] [place] [id number] Mary Ellen Montague MD Record Request 04/19/2025 2:00 PM EDT Office Visit [facility] [address] [place] [address] Kareen Martinez, OD Diabetes type 2, no ocular involvement ([facility]/HCC) (Primary Dx); Combined form of age-related cataract, left eye; PCO (posterior capsular opacification), right; Presbyopia of both eyes 04/19/2025 Travel 04/18/2025 Travel 04/06/2025 1:45 PM EDT Office Visit [facility] [address] [place] [address] Mary Ellen Montague MD Type 2 diabetes mellitus with hyperglycemia, without long-term current use of insulin (CMS/HCC) (Primary Dx); Essential hypertension; Diabetic polyneuropathy associated with type 2 diabetes mellitus (CMS/HCC); Dietary counseling; Exercise counseling; Class 2 severe obesity with serious comorbidity and body mass index (BMI) of 35.0 to 35.9 in adult, unspecified obesity type (CMS/HCC); HTN (hypertension), benign 04/06/2025 Travel 04/05/2025 Telephone [facility] [address] [place], [place] [phone] Mary Ellen Montague MD Chart Prep 04/04/2025 Travel 03/28/2025 Patient Outreach [facility] [address] [place], [place] [phone] Mary Ellen Montague MD Pre-visit Planning ((Unable to reach for PVP screening and or LVM) to be completed in office) 02/16/2025 Refill [facility] [address] [place], [place] [phone] Mary Ellen Montague MD HTN (hypertension), benign [...] 1972 Sigmoidoscopy 1972 Diabetes: Foot Exam 1982 Hepatitis C Screening 1990 Hepatitis B Vaccines (1 of 3 - 19+ 3-dose series) 1991 Dental X-Ray: Bitewings 08/19/2024 08/18/2023, 01/14 SDOH Screening 01/16/2025 01/17/2024 COVID-19 Vaccine ( season) 2025 04/17/2022, 07/02/2021, 11/01/2020, Additional history exists Influenza Vaccine (#1) 2025 , 05/22/2023, 04/14/2022, Additional history exists Alcohol/Substance Use Screening 05/29/2025 05/29/2024 Depression Screening 05/29/2025 05/29/2024, 05/29/20 Diabetes: Urine Protein Screening 06/08/2025 06/08/2024, 05/30/2024, 01/20/2023, Additional history exists Diabetes: Hemoglobin A1C 07/06/2025 025, 05/29/2024, 12/15/2023, Additional history exists Lipid Panel 01/29/2026 01/29/2025, 05/03, 01/01/2021, Additional history exists Disability Screening 04/04/2026 04/04/2025 Tobacco Screening 04/19/2026 04/19/2025 Eye Exam 04/19/2027 04/19/2025, 04/02, 04/19/2025, Additional history exists DTaP/Tdap/Td Vaccines (2 - [...] hyperglycemia, without long-term current use of insulin ([facility]) POCT GLUCOSE Routine 04/06/2025 2:33 PM EDT Type 2 diabetes mellitus with hyperglycemia, without long-term current use of insulin ([facility]) LIPID PANEL, STANDARD Routine 01/29/2025 3:50 PM [...] Date 41,627 Blood 04/06/2025 2:33 PM EDT us Mary Ellen [...] 3:50 PM EDT) Triglycerides 217(H) <150 mg/dL [facility] Comment:Desirable Triglyceri de: less than 150 mg/dLBorderline High Triglyceride 150-199 mg/dLHigh Triglyceride: 200-499 mg/dLVery High Triglyceride: greater than or equal to 5OO mg/dL Cholesterol 112 <200 mg/dL [facility] Comment:Desirable Cholestero l: less than 200 mg/dLBorderline High Cholesterol: 200-239 mg/dLHigh Cholesterol: greater than 239 mg/dL LDL Cholesterol Calculated 40 <100 mg/dL [facility] Comment:Desirable LDL: less than 100 mg/dLNear Optimal/Above Optimal LDL: 110- 129 mg/dLBorderline High LDL: 130-159 mg/dLHigh LDL: 160-189 mg/dLVery High LDL: greater than or equal to 190 mg/dL HDL Cholesterol 29(L) >40 mg/dL [facility] Comment:Desirable HDL: great er than 40 mg/dL Note: This HDL assay may give artificially low results in patients with liver disease. 01/29/2025 3:50 PM EDT 01/29/2025 3:50 PM EDT us Generic External Data Provider LAB BLOOD ORDERAB LES Final Result [facility] [address] [place] [phone] * (ABNORMAL) Basic Metabolic Panel (01/29/2025 3:50 PM EDT) Sodium 143 135 - 145 mmol/L [facility] Potassium 3.7 3.3 - 5.1 mmol/L [facility] Chloride 103 96 - 108 mmol/L [facility] Carbon Dioxide 30(H) 22 - 29 mmol/L [facility] Anion Gap 14 12 - 20 [facility] Urea Nitrogen (BUN) 16 9 - 16 mg/dL [facility] Creatinine, Serum 0.85 0.5 - 1.4 mg/dL [facility] Estimated Glomerular Filt Rate >60 [facility] Comment:Chronic Kidney Disea se: Estimated GFR < 60 mL/min/[id number] Kidney Disease: Estimated GFR < 15 mL/min/1.73m2 Glucose 177(H) 60 - 115 mg/dL [facility] Calcium 9.7 8.4 - 10.2 mg/dL [facility] 01/29/2025 3:50 PM EDT 01/29/2025 3:50 PM EDT us Generic External Data Provider LAB BLOOD ORDERAB LES Final Result Performing Organization Address [facility] Co de Phone Number [facility] [address] [place] [address] [phone] * Creatinine, Random Urine (06/08/2024 12:45 PM EST) Creatinine, Urine 137.59 mg/dL [facility] 06/08/2024 12:4 5 PM EST 06/08/2024 1:38 PM EST Generic External Data Provider LAB URINE ORDERAB LES Final Result Performing Organization Address [facility] Co de Phone Number [facility] [address] [place] [address] [phone] from Last 3 Months or Most Recently Relevant to Health Maintenance Insurance [facility] 3 Care Teams Carding Machine Feeder Relationship Specialty Start Date End Date Mary Ellen Montague MD [address] [place] [phone] PCP - General Family Medicine 02/27/19
--- OUTSIDE RECORDS SUMMARY | 2025-05-01 14:34 | XMS_ITS | Encounter Summary ---
Author Organization [employer] Address [address] [facility] 7t [place] [address] Care Team Providers Care Helmet Coverer Name Role Phone Mary Ellen Montague MD Primary Care Provide r Reason for Visit * Reason Comments Med Refill Encounter Details Date Type Department Care Team (Late st Contact Info) Description 08/27/2023 Refill [facility] ADULT DENTAL [address] [place] [address] Rafael Aguirre DDS [address] [place] [address] Social History Tobacco Use Types Packs/Day Years [...] documented as of this encounter Care Teams Helmet Coverer Relationship Specialty Start Date End Date Mary Ellen Montague MD [address] [place] [phone] PCP - General Family Medicine 02/27/19 documented as of this encounter
--- OUTSIDE RECORDS SUMMARY | 2025-05-01 14:34 | XMS_ITS | Encounter Summary ---
Author Organization [employer] Address [address] [facility] 7t [place] [address] Care Team Providers Care Package Line Operator Name Role Phone Mary Ellen Montague MD Primary Care Provide r Reason for Visit * Reason Onset Date Comments Med Refill medication 08/21/2023 Encounter Details Date Type Department Care Team (Late st Contact Info) Description 08/21/2023 Refill [facility] ADULT D[facility] [address] [place] [address] Rafael Aguirre, DDS [address] [place] [address] Social History Tobacco Use Types Packs/Day Years [...] documented as of this encounter Care Teams Package Line Operator Relationship Specialty Start Date End Date Mary Ellen Montague MD [address] [place] [phone] PCP - General Family Medicine 02/27/19 documented as of this encounter
--- OUTSIDE RECORDS SUMMARY | 2025-05-01 14:35 | XMS_ITS | Clinical Summary ---
Author Organization [facility] ity Address [address] [place] [address] Care Team Providers Care Broadcast Operations Technician Name Role Phone Mary Ellen Montague [...] Health Maintenance Due Date Last Done Comments Colorectal Cancer Screening: Colonoscopy 1972 DTaP,Tdap,and Td Vaccines (1 - Tdap) 1991 Hepatitis B Vaccines (1 of 3 - 19+ 3-dose series) 1991 Pneumococcal Vaccine: 50+ Ye ars (1 of 2 - PCV) 1991 Zoster Vaccines (1 of 2) 2022 Cholesterol Screening (Lipid Panel) 03/27/2024 HIV Screening 03/27/2024 Hepatitis C Screening 03/27/2024 Social Influencers of Health Screening 03/27/2024 Depression Screening 08/02/2024 COVID-19 Vaccine (1 - 2023-2 5 season) 2025 Influenza Vaccine (#1) 2025 RSV Immunization Adult Patie nts (1 - 1-dose 75+ series) 2047 HIB Vaccines Aged Out No longer eligi [...] age to complete this topic Care Teams Broadcast Operations Technician Relationship Specialty Start Date End Date Mary Ellen Montague MD [address] [place] [phone] PCP - General 01/28/24
--- OUTSIDE RECORDS SUMMARY | 2025-05-01 14:35 | XMS_ITS | Encounter Summary ---
Author Organization [employer] Address [address] [place] [address] [address] [place] [address] Care Team Providers Care Plasma Center Technician Name Role Phone Mary Ellen Montague MD Primary Care Provide r Reason for Visit * Reason Onset Date Comments Med Refill 05/01/2024 Encounter Details Date Type Department Care Team (Late st Contact Info) Description 05/01/[address] [facility] MED[facility] [address] [place] [address] Riya Alvarez, PharmD [address] [place] [address] Type 2 diabetes mellitus with hyperglycemia, without long-term current use of insulin ([facility]) Social History Tobacco Use Types Packs/Day Years [...] without long-term current use of insulin (HCC) documented in this encounter Additional Health Concerns Assessment Noted Time PHQ-9 Depression Total Score: 0 04/13/20 23 10:00 AM EDT documented as of this encounter Care Teams Plasma Center Technician Relationship Specialty Start Date End Date Mary Ellen Montague MD [address] [place] [address] PCP - General Family Medicine 02/27/19 documented as of this encounter
--- OUTSIDE RECORDS SUMMARY | 2025-05-01 14:35 | XMS_ITS | Encounter Summary ---
Author Organization [email or web address] Address [address] [place] [address] [address] [place] [address] Care Team Providers Care Statistician Theoretical Name Role Phone Mary Ellen Montague MD Primary Care Provide r Reason for Visit * Reason Comments Med Refill Encounter Details Date Type Department Care Team (Late st Contact Info) Description 09/10/2022 Refill [facility] [address] [place], [place] [phone] Dunia Chandra MD [address] [place] [address] Dyslipidemia (Primary Dx); HTN (hypertension), benign Social [...] benign documented in this encounter Care Teams Statistician Theoretical Relationship Specialty Start Date End Date Mary Ellen Montague MD [address] [place] [address] PCP - General Family Medicine 02/27/19 documented as of this encounter
--- OUTSIDE RECORDS SUMMARY | 2025-05-01 14:35 | XMS_ITS | Encounter Summary ---
Author Organization [employer] Address [address] [place] [address] 7t [place] [address] Care Team Providers Care Executive Chef Name Role Phone Mary Ellen Montague MD Primary Care Provide r Reason for Visit * Reason Onset Date Comments Record Request 04/26/2025 Encounter Details Date Type Department Care Team (Special Care Hospital Contact Info) Description 04/26/2025 Telephone [facility] MED[facility] [address] [place], [place] [phone] Mary Ellen Montague MD [address] [place] [address] Record Request Social History Tobacco Use Types Packs/Day Years [...] encounter Miscellaneous Notes * Telephone Encounter - Blanquita Meeks RN - 05/01/2025 9:32 AM EDT TC x2 placed to Cardiac Rehab [phone] regarding below message. This RN spoke with Dee to see if the office still needs the lab results. Dee responded yes. RN informed Dee that the HGA1C will be faxed and their office has to obtain a recent Lipid panel for the patient Pressure Washer. This RN provided will provide the information on the fax sheet. Dee verbalized understanding. Fax was sent to [facility] cardiac rehab [phone]. * Telephone Encounter - Blanquita Meeks RN - 04/26/2025 10:02 AM EDT TC placed to ([facility]) Cardiac rehab [phone] regarding lab orders and results for Lipid profile, HGBA1C. FD informed this RN that Ania is currently with an patient and she will CB Red team nurses. [facility] to F/U PRN. documented in this encounter Plan of Treatment Not on file documented as of this encounter Visit Diagnoses Not on filedocumented in this encounter Additional Health Concerns Assessment Noted Time PHQ-9 Depression Total Score: 0 05/29/20 24 11:15 AM EDT documented as of this encounter Care Teams Executive Chef Relationship Specialty Start Date End Date Mary Ellen Montague MD [address] [place] [id number] PCP - General Family Medicine 02/27/19 documented as of this encounter
--- OUTSIDE RECORDS SUMMARY | 2025-05-01 14:35 | XMS_ITS | Clinical Summary ---
Author Organization [facility] Address [address] [place] [address] Phone Care Team Providers Care Plastic Parts Fabricator Name Role Phone Mary Ellen Montague MD [...] 51 Years) Discontinued 02/22/2019 Insurance Care Teams Plastic Parts Fabricator Relationship Specialty Start Date End Date Mary Ellen Montague MD [address] [place] [phone] PCP - General Internal Medicine 12/22/21
--- OUTSIDE RECORDS SUMMARY | 2025-05-01 14:35 | XMS_ITS | Clinical Summary ---
Author Organization [facility] Address [address] [place] [address] Care Team Providers Care Dermatologist Managing Partner Name Role Phone Naya Sandoval PA-C Primary Care Provider [phone] Source Comments PLEASE NOTE, if this patient [...] complication, without long-term current use of insulin Take 1 Tab by mouth 2 (two) [...] complication, without long-term current use of insulin Take 1 Tab by mouth once daily with breakfast Swallow whole. Do not break, crush or chew. 30 Tab 5 8 Active amLODIPine (NORVASC) 5 mg tabletIndications :Essential hypertension Take 1 Tab by mouth once daily 30 Tab 5 8 Active Active Problems Problem Noted Date Diagnosed Date Microalbuminuria 10/26/2016 H/O right cataract extraction [facility] 201308/04/2016 S/P right cataract surgery 06/2014 [facility] 08/24/2014 Diabetes mellitus type 2, uncomplicated 09/12/19 14 Non morbid obesity 09/12/2013 Elevated LFTs due [...] Treatment Not on file Insurance [employer] NET DENTAL [employer] Member Subscriber Plan / Payer (Ef fective 2016-Present) Name:Rodrick Mayen Relation to Subscriber:Self Name:Rodrick Mayen Payer ID:[id number] Type:Indemnity Address: [facility] [address] [place] [address] Care Teams Dermatologist Managing Partner Relationship Specialty Start Date End Date Naya Sandoval PA-C [address] [place] [phone] PCP - General Internal Medicine 08/04/13
--- OUTSIDE RECORDS SUMMARY | 2025-05-01 14:35 | XMS_ITS | Encounter Summary ---
Author Organization [employer] Address [address] [facility] 7t [place] [address] Care Team Providers Care Jointer Operator Name Role Phone Mary Ellen Montague MD Primary Care Provide r Reason for Visit * Reason Comments Med Refill Encounter Details Date Type Department Care Team ([facility] st Contact Info) Description 02/21/2024 Refill [facility] [place] [address] [place] [address] Teresa Coburn FNP Social History Tobacco Use [...] documented as of this encounter Care Teams Jointer Operator Relationship Specialty Start Date End Date Mary Ellen Montague MD [address] [place] [address] PCP - General Family Medicine 02/27/19 documented as of this encounter
== END 2025-05-01 13:38 | disposition home or self-care (01) ==
LOC: HO.HKA 13:17
PROVIDERS: PCP Internal Medicine; Visit Provider Internal Medicine Hypertension Specialist
DX: I10 Essential (primary) hypertension (principal); E11.9 Type 2 diabetes mellitus without complications
CPT/HCPCS: 99214

== ENCOUNTER → 2025-05-01 13:16 | Outpatient (BNVA) | payer OTHER, SELFPAY | PROVIDERS: PCP Internal Medicine; Visit Provider Internal Medicine Hypertension Specialist | DX: I10 Essential (primary) hypertension (principal); E11.9 Type 2 diabetes mellitus without complications | CPT/HCPCS: 93786; 93788; 99212 ==

== ENCOUNTER → 2025-05-13 20:30 | Outpatient (REF) | payer OTHER, SELFPAY ==
--- OUTSIDE RECORDS SUMMARY | 2025-05-13 22:43 | XMS_ITS | Encounter Summary ---
Author Organization [employer] Address [address] [facility] 7t [place] [address] Care Team Providers Care Supervisor Transcribing Operators Name Role Phone Mary Ellen Montague MD Primary Care Provide r Reason for Visit * Reason Onset Date Comments Med Refill medication 08/21/2023 Encounter Details Date Type Department Care Team (Late st Contact Info) Description 08/21/2023 Refill [facility] [address] [place] [address] Rafael Aguirre, DDS [address] [place] [address] Social History Tobacco Use Types Packs/Day Years [...] documented as of this encounter Care Teams Supervisor Transcribing Operators Relationship Specialty Start Date End Date Mary Ellen Montague MD [address] [place] [phone] PCP - General Family Medicine 02/27/19 documented as of this encounter
--- OUTSIDE RECORDS SUMMARY | 2025-05-13 22:43 | XMS_ITS | Encounter Summary ---
Author Organization [employer] Address [address] [facility] 7t [place] [address] Care Team Providers Care Software Engineer Backend Name Role Phone Mary Ellen Montague MD Primary Care Provide r Reason for Visit * Reason Comments Med Refill Encounter Details Date Type Department Care Team (Late st Contact Info) Description 08/27/[address] [facility] D[facility] [address] [place] [address] Rafael Aguirre DDS [address] [place] [address] Social History Tobacco Use Types Packs/Day Years [...] documented as of this encounter Care Teams Software Engineer Backend Relationship Specialty Start Date End Date Mary Ellen Montague MD [address] [place] [phone] PCP - General Family Medicine 02/27/19 documented as of this encounter
--- OUTSIDE RECORDS SUMMARY | 2025-05-13 22:44 | XMS_ITS | Clinical Summary ---
Author Organization [facility] Address [address] [place] [address] Care Team Providers Care Sales Team Manager Name Role Phone Naya Sandoval PA-C Primary Care Provider [phone] Source Comments PLEASE NOTE, if this patient [...] Date Microalbuminuria 10/26/2016 H/O right cataract extraction [facility] 201308/04/2016 S/P right cataract surgery 06/2014 [facility] [...] on file Insurance [employer]AF[employer] NET DENTAL [employer] Medical Member Subscriber Plan / Payer (Ef fective 2016-Present) Name:Rodrick Mayen Relation to Subscriber:Self Name:Rodrick Mayen Payer ID:[id number] Type:Indemnity Address: [facility] [address] [place] [address] Care Teams Sales Team Manager Relationship Specialty Start Date End Date Naya Sandoval PA-C [address] [place] [address] PCP - General Internal Medicine 08/04/13
--- OUTSIDE RECORDS SUMMARY | 2025-05-13 22:44 | XMS_ITS | Clinical Summary ---
Author Organization [facility] Address [address] [place] [address] Phone Care Team Providers Care Director River Restoration Name Role Phone Mary Ellen Montague MD [...] 51 Years) Discontinued 02/22/2019 Insurance Care Teams Director [employer] Relationship Specialty Start Date End Date Mary Ellen Montague MD [address] [place] [phone] PCP - General Internal Medicine 12/22/21
--- OUTSIDE RECORDS SUMMARY | 2025-05-13 22:44 | XMS_ITS | Clinical Summary ---
Author Organization [employer] Address [address] [facility] 7t [place] [address] Care Team Providers Care Special Systems Technician Name Role Phone Mary Ellen Montague MD Primary Care Provide r Allergies Active Allergy Reactions Criticality Noted Date Comments Carvedilol 10/06/2018 Other reaction(s): Chest pain, Trouble Breathing Medications spironolactone-hy droCHLOROthiazide (Aldactazide) 25-25 MG tablet Take 1 tablet by mouth in the morning. 08/21/19 23 Active isosorbide mononitrate ER (Imdur) 30 MG 24 hr tablet Take 30 mg by mouth in the morning. 08/24/19 23 Active clopidogrel (Plavix) 75 MG tabletIndications :Stented coronary artery TAKE 1 TABLET BY MOUTH EVERY DAY 30 tablet 11 08/24/19 25 Active lisinopril 40 MG tabletIndications :Essential hypertension TAKE 1 TABLET BY MOUTH EVERY DAY 90 tablet 3 09/29/19 25 Active Aspirin EC Adult Low Dose 81 MG EC tabletIndications :Coronary artery disease involving [place] coronary artery of [place] heart without angina pectoris TAKE 1 TABLET BY MOUTH EVERY DAY IN THE MORNING 90 tablet 3 10/11/19 25 Active pantoprazole (ProtoNix) 40 MG EC tabletIndications :Gastroesophageal reflux disease, unspecified whether esophagitis present TAKE 1 TABLET BY MOUTH EVERY DAY BEFORE BREAKFAST, DO NOT BREAK, CRUSH, DISSOLVE OR CHEW 30 tablet 10/24/19 25 Active furosemide (Lasix) 20 MG tabletIndications :Essential hypertension Take 1 tablet (20 mg) by mouth Once per day. 30 tablet 3 12/07/19 25 Active amLODIPine (Norvasc) 10 MG tabletIndications :HTN (hypertension), benign Take 1 tablet (10 mg) by mouth Once per day. 90 tablet 1 12/08/19 25 Active atorvastatin (Lipitor) 80 MG tabletIndications :Dyslipidemia TAKE 1 TABLET BY MOUTH EVERY DAY 90 tablet 1 12/13/19 25 Active metFORMIN (Glucophage) 1000 MG tablet TAKE 1 TABLET BY MOUTH TWICE DAILY IN THE MORNING AND IN THE EVENING WITH MEALS 60 tablet 11 12/30/19 25 Active hydrALAZINE (Apresoline) 25 MG tabletIndications :HTN (hypertension), benign TAKE 1 TABLET BY MOUTH FOUR TIMES DAILY WITH FOOD 120 tablet 3 02/17/20 25 Active Tirzepatide (Mounjaro) 5 MG/0.5ML solution auto-injectorIndi cations:Type 2 diabetes mellitus with hyperglycemia, without long-term current use of insulin (HCC) Inject 5 mg under the skin 1 (one) time per week. 2 mL 2 04/06/20 25 Active glipiZIDE XL (Glucotrol XL) 2.5 MG 24 hr tabletIndications :Type 2 diabetes mellitus with hyperglycemia, without long-term current use of insulin (HCC) Take 2 tablets (5 mg) by mouth Once per day. TAKE 1 TABLET BY MOUTH THREE TIMES DAILY WITH MEALS NEEDED 90 tablet 2 04/06/20 25 Active gabapentin (Neurontin) 400 MG capsuleIndication s:Diabetic polyneuropathy associated with type 2 diabetes mellitus (HCC) Take 1 capsule (400 mg) by mouth 3 times daily. 90 capsule 11 04/06/20 25 026 Active atenolol (Tenormin) 100 MG tabletIndications :HTN (hypertension), benign Take 1 tablet (100 mg) by mouth Once per day. 90 tablet 1 04/06/20 25 Active Ozempic, 1 MG/DOSE, 4 MG/3ML solution pen-injector Inject 1 MG SUBCUTANEOUSLY EVERY 7 DAYS IN THE ABDOMEN, THIGHS OR UPPER ARM. ROTATE INJECTION SITES. 03/14/20 25 Active triamcinolone (Nasacort) 55 MCG/ACT nasal inhaler SPRAY 2 SPRAYS INTO EACH NOSTRIL DAILY 08/27/19 23 025 Disconti nued(The rapy complete d) senna (Senokot) 8.6 MG tablet TAKE 1 TABLET BY MOUTH AT BEDTIME FOR CONSTIPATION 04/27/20 Disconti nued(The rapy complete d) [facility] Allergy Relief 10 MG capsule Take 1 capsule by mouth in the morning. 08/27/19 025 Disconti nued(The rapy complete d) cyclobenzaprine (Flexeril) 5 MG tablet Take 5 mg by mouth 3 times daily. 01/24/20 025 Disconti nued(The rapy complete d) glucose blood (FREESTYLE LITE) test strip Use to check fasting sugar daily or as directed by physician 10/02/19 Disconti nued(The rapy complete d) docusate sodium (Colace) 100 MG capsule Take 100 mg by mouth at bedtime. 04/27/20 Disconti nued(The rapy complete d) lidocaine (Lidoderm) 5 % patchIndications: Rib pain on right side Apply 1 patch topically in the morning. Remove & discard patch within 12 hours or as directed by MD. 30 patch 03/29/20 Disconti nued(The rapy complete d) metoclopramide (Reglan) 10 MG tabletIndications :Chronic gastritis without bleeding, unspecified gastritis type Take 1 tablet (10 mg) by mouth 4 times daily for 5 days. 20 tablet 03/29/20 Disconti nued(The rapy complete d) traZODone (Desyrel) 50 MG tablet Take 25 mg by mouth. 02/05/20 025 Disconti nued(The rapy complete d) magnesium oxide (Mag-Ox) 400 MG tablet Take 1 tablet by mouth. 02/05/20 025 Disconti nued(The rapy complete d) pantoprazole (ProtoNix) 40 MG EC tabletIndications :Chronic gastritis without bleeding, unspecified gastritis type TAKE 1 TABLET BY MOUTH TWICE DAILY IN THE MORNING AND AT NOON DO NOT BREAK, CRUSH, DISSOLVE OR CHEW 60 tablet 1 08/23/19 24 Disconti nued(The rapy complete d) Active Problems Problem Noted Date Diagnosed Date [...] 30-39.9) 11/24/2018 Coronary artery disease invo lving pit river coronary artery of pit river heart without angina pectoris 09/13/2018 Assessment & [...] Encounters Date Type Department Care Team Description 05/10/2025 Telephone [facility] MEDIC[facility] [address] [place] [address] Mary Ellen Montague MD Preop 05/02/2025 Telephone [facility] [address] [place] [address] Mary Ellen Montague MD Dec recall 04/26/2025 Telephone [facility] [address] [place] [address] Mary Ellen Montague MD Record Request 04/19/2025 2:00 PM EDT Office Visit [facility] OPTOMETRY [address] [place] [address] Juan, Kareen, OD Diabetes type 2, no ocular involvement (CMS/HCC) (Primary Dx); Combined form of age-related cataract, left eye; PCO (posterior capsular opacification), right; Presbyopia of both eyes 04/19/2025 Travel 04/18/2025 Travel 04/06/2025 1:45 PM EDT Office Visit [facility] [address] [place] [address] Mary Ellen Montague MD Type 2 diabetes mellitus with hyperglycemia, without long-term current use of insulin (CMS/HCC) (Primary Dx); Essential hypertension; Diabetic polyneuropathy associated with type 2 diabetes mellitus (CMS/HCC); Dietary counseling; Exercise counseling; Class 2 severe obesity with serious comorbidity and body mass index (BMI) of 35.0 to 35.9 in adult, unspecified obesity type (CMS/HCC); HTN (hypertension), benign 04/06/2025 Travel 04/05/2025 Telephone [facility] [address] [place] [phone] Mary Ellen Montague MD Chart Prep 04/04/2025 Travel 03/28/2025 Patient Outreach [facility] [address] [place] [address] [phone] Mary Ellen Montague MD Pre-visit Planning ((Unable to reach for PVP screening and or LVM) to be completed in office) 02/16/2025 Refill [facility] [address] [place] [phone] Mary Ellen Montague MD HTN (hypertension), benign from Last 3 Months Immunizations Immunization Administration [...] 05/29/2024 Depression Screening 05/29/2025 05/29/2024, 05/29/20 24 Diabetes: Urine Protein Screening 06/08/2025 06/08/2024, 05/30/2024, [...] hyperglycemia, without long-term current use of insulin ([facility]) POCT GLUCOSE Routine 04/06/2025 2:33 PM EDT Type 2 diabetes mellitus with hyperglycemia, without long-term current use of insulin ([facility]) LIPID PANEL, STANDARD Routine 01/29/2025 3:50 PM EDT CREATININE, RANDOM [...] Media Lot # [id number] Lot# Expiration Date [id number] Blood 04/06/2025 2:33 PM EDT us Mary Ellen Mcgregor MD POINT OF CARE TEST EN TER/EDIT ORDERABLES Final Result * (ABNORMAL) POCT Glucose (04/06/2025 2:33 PM EDT) Glucose Blood, POC 212(A) 60 - 200 mg/dL QC Media Lot # [id number] Lot# Expiration Date Blood Capillary blood specimen / Unknown 04/06/2025 2:33 PM EDT us Mary Ellen Mcgregor MD POINT OF CARE TEST EN TER/EDIT ORDERABLES Final Result * (ABNORMAL) Lipid Panel, Standard (01/29/2025 3:50 PM EDT) Triglycerides 217(H) <150 mg/dL [facility] Comment:Desirable Triglyceri de: less than 150 mg/dLBorderline High Triglyceride 150-199 mg/dLHigh Triglyceride: 200-499 mg/dLVery High Triglyceride: greater than or equal to 5OO mg/dL Cholesterol 112 <200 mg/dL [facility] Comment:Desirable Cholestero l: less than 200 mg/dLBorderline High Cholesterol: 200-239 mg/dLHigh Cholesterol: greater than 239 mg/dL LDL Cholesterol Calculated 40 <100 mg/dL [facility] Comment:Desirable LDL: less than 100 mg/dLNear Optimal/Above Optimal LDL: 110- 129 mg/dLBorderline High LDL: 130-159 mg/dLHigh LDL: 160-189 mg/dLVery High LDL: greater than or equal to 190 mg/dL HDL Cholesterol 29(L) >40 mg/dL [facility] Comment:Desirable HDL: great er than 40 mg/dL Note: This HDL assay may give artificially low results in patients with liver disease. 01/29/2025 3:5 0 PM EDT 01/29/2025 3:50 PM EDT us Generic External Data Provider LAB BLOOD ORDERAB LES Final Result [facility] [address] [place] [address] [phone] * Creatinine, Random Urine (06/08/2024 12:45 PM EST) Creatinine, Urine 137.59 mg/dL [facility] 06/08/2024 12:4 5 PM EST 06/08/2024 1:38 PM EST us Generic External Data Provider LAB URINE ORDERAB LES Final Result Performing Organization Address City/[facility] Co de Phone Number [facility] [address] [place] [address] [phone] from Last 3 Months or Most Recently Relevant to Health Maintenance Insurance [facility] 3 Care Teams Special Systems Technician Relationship Specialty Start Date End Date Mary Ellen Montague MD [address] [place] [phone] PCP - General Family Medicine 02/27/19
--- OUTSIDE RECORDS SUMMARY | 2025-05-13 22:44 | XMS_ITS | Encounter Summary ---
Author Organization [employer] Address [address] [facility] 7t [place] [address] Care Team Providers Care Usps Letter Carrier Name Role Phone Mary Ellen Montague MD Primary Care Provide r Reason for Visit * Reason Comments Med Refill Encounter Details Date Type Department Care Team ([facility] st Contact Info) Description 02/21/2024 Refill [facility] [place] [address] [place] [address] Teresa Coburn FNP Social History Tobacco Use [...] documented as of this encounter Care Teams Usps Letter Carrier Relationship Specialty Start Date End Date Mary Ellen Montague MD [address] [place] [address] PCP - General Family Medicine 02/27/19 documented as of this encounter
--- OUTSIDE RECORDS SUMMARY | 2025-05-13 22:44 | XMS_ITS | Encounter Summary ---
Author Organization [employer] Address [address] [place] [address] 7t [place] [address] Care Team Providers Care Bellhop Service Captain Name Role Phone Mary Ellen Montague MD Primary Care Provide r Reason for Visit * Reason Onset Date Comments Preop 05/10/2025 Encounter Details Date Type Department Care Team ([facility] st Contact Info) Description 05/10/2025 Telephone [facility] MEDICINE [address] [place], [place] [phone] Mary Ellen Montague MD [address] [place] [address] Preop Social History Tobacco Use Types Packs/Day Years [...] encounter Miscellaneous Notes * Telephone Encounter - Aman Walsh - 05/11/2025 2:49 PM EDT Attempted to outreach to pt . Number does not work . Left detailed message to Alexx of failed attempt * Telephone Encounter - Marielena Paredes - 05/10/2025 1:50 PM EDT Date of Surgery: 06/08 Surgical procedure being done: Cataract right eye Type of anesthesia: MAC Lab needed: No EKG: No Surgeon's name: Dr. Elke shay Facility name[facility] Surgeon's office number: [phone] Surgeon's office fax number: [phone] Contact name (person you spoke with): Anastasia Montilla office note from surgeon requested: No Send Message to Aman Walsh documented in this encounter Plan of Treatment Not on file documented as of this encounter Visit Diagnoses Not on filedocumented in this encounter Additional Health Concerns Assessment Noted Time PHQ-9 Depression Total Score: 0 05/29/20 24 11:15 AM EDT documented as of this encounter Care Teams Bellhop Service Captain Relationship Specialty Start Date End Date Mary Ellen Montague MD [address] [place] [address] PCP - General Family Medicine 02/27/19 documented as of this encounter
--- OUTSIDE RECORDS SUMMARY | 2025-05-13 22:44 | XMS_ITS | Encounter Summary ---
Author Organization [employer] Address [address] [place] [address] [address] [place] [address] Care Team Providers Care Service Station Manager Name Role Phone Mary Ellen Montague MD Primary Care Provide r Reason for Visit * Reason Comments Med Refill Encounter Details Date Type Department Care Team (Late st Contact Info) Description 09/10/2022 Refill [facility] [address] [place], [place] [phone] Dunia Chandra MD [address] [place] [address] Dyslipidemia (Primary Dx); HTN (hypertension), benign Social [...] benign documented in this encounter Care Teams Service Station Manager Relationship Specialty Start Date End Date Mary Ellen Montague MD [address] [place] [address] PCP - General Family Medicine 02/27/19 documented as of this encounter
--- OUTSIDE RECORDS SUMMARY | 2025-05-13 22:44 | XMS_ITS | Encounter Summary ---
Author Organization [employer] Address [address] [place] [address] [address] [place] [address] Care Team Providers Care Media Sales Executive Name Role Phone Mary Ellen Montague MD Primary Care Provide r Reason for Visit * Reason Onset Date Comments Med Refill 05/01/2024 Encounter Details Date Type Department Care Team (Late st Contact Info) Description 05/01/2024 Refill [facility] MEDICINE [address] [place] [address] Riya Alvarez, PharmD [address] [place] [address] Type 2 diabetes mellitus with hyperglycemia, without long-term current use of insulin ([facility]) Social History Tobacco Use Types [...] documented as of this encounter Care Teams Media Sales Executive Relationship Specialty Start Date End Date Mary Ellen Montague MD [address] [place] [address] PCP - General Family Medicine 02/27/19 documented as of this encounter
--- OUTSIDE RECORDS SUMMARY | 2025-05-13 22:44 | XMS_ITS | Clinical Summary ---
Author Organization [facility] Address [address] [place] [address] Care Team Providers Care Logistics Specialist Name Role Phone Mary Ellen Montague [...] Pneumococcal Vaccine: 50+ Ye ars (1 of 1 - PCV) 2022 Zoster Vaccines (1 of 2) 2022 Cholesterol [...] age to complete this topic Care Teams Logistics Specialist Relationship Specialty Start Date End Date Mary Ellen Montague MD [address] [place] [phone] PCP - General 01/28/24
== END ==
LOC: HO.SL 20:30
PROVIDERS: PCP Internal Medicine; Visit Provider Nurse Practitioner Family
DX: G47.33 Obstructive sleep apnea (adult) (pediatric) (principal); G47.00 Insomnia, unspecified
CPT/HCPCS: 95811

== ENCOUNTER → 2025-05-13 21:12 | Outpatient (BNV) | payer OTHER, SELFPAY | PROVIDERS: PCP Internal Medicine; Visit Provider Psychiatry & Neurology Neurology | DX: G47.33 Obstructive sleep apnea (adult) (pediatric) (principal) | CPT/HCPCS: 95811 ==

== ENCOUNTER 2025-06-18 13:12 | Outpatient (AMB) | payer OTHER, SELFPAY ==
--- NOTE | 2025-06-18 13:32 | MHC.OFFVIS ---
Vital Signs 06/18/25 13:33 Height 5 ft 10 in Weight 246 lb 0.574 oz BMI 35.3 BP 110/64 Blood Pressure Location Lt brachial Position Sitting Pulse 85 Pulse Source Pulse Oximeter Intake Visit Reasons: r/s-6mth f/up Airline Transport Pilot Required: No Accompanied by: Self / Same As Patient Allergies No Known Allergies Allergy (Verified 06/18/25 13:36) Medication List - Last Reconciled 06/18/25 by Luis Felipe Ang NP acetaminophen 650 mg PO Q6H PRN amlodipine 5 mg PO DAILY aspirin (Adult Low Dose Aspirin) 81 mg PO DAILY atenolol 100 mg PO DAILY atorvastatin 80 mg PO DAILY clopidogrel 75 mg PO DAILY docusate sodium 100 mg PO BEDTIME gabapentin 300 mg PO BEDTIME glipizide ER 2.5 mg PO DAILY hydralazine 25 mg PO QID isosorbide mononitrate ER 30 mg PO DAILY lisinopril 40 mg PO DAILY metformin 1,000 mg PO DAILY methylcellulose (laxative) (Citrucel) 500 mg PO DAILY PRN ondansetron 4 mg PO Q8H PRN pantoprazole 40 mg PO DAILY spironolacton-hydrochlorothiaz 25-25 mg 1 tab PO DAILY tirzepatide (Mounjaro) 7.5 mg subcut QWEEK HPI Comments Details: This is a 55-year-old male patient coming in for a follow-up visit. Patient with a history of hypertension, hyperlipidemia, diabetes, coronary artery disease status post prior PCI of RCA and LCX, and sleep apnea. Given his shortness of breath, patient had undergone a cardiac catheterization with Dr. Morrison on 12/05/2024 daughter showed severe stenosis in the PLV and ostial DM to which were both small size vessels and therefore was decided for medically managing his symptoms. Patient has been going to cardiac rehab and reports that he has lost over 20 POTS on Ozempic. Patient was recently switched to Mounjaro and is losing some weight here as well. Patient is denying any symptoms of exertional chest pain, shortness of breath, palpitations, dizziness, orthopnea, PND, leg edema, presyncope or syncope. Patient is reporting compliance with all his medications. [facility] Medical History History of COVID-19 CAD (coronary artery disease) GERD (gastroesophageal reflux disease) Diabetes Sleep apnea treated with continuous positive airway pressure (CPAP) Hyperlipidemia Hypertension Surgical History History of heart artery stent H/O left knee surgery (~06/20/15) History of colonoscopy History of cardiac cath History of cataract surgery Family History Father CAD (coronary artery disease) HTN (hypertension) Diabetes Hypercholesteremia Mother CAD (coronary artery disease) Lung disease Diabetes HTN (hypertension) Hypercholesteremia Social History Are you a primary dialysis patient care technician to a significant other at home: No Do you presently have visiting nurse or other home services: No Alcohol intake: current Alcohol intake frequency: does not drink Patient Tobacco Use Status: Never used Tobacco Review of Systems Const Denies daytime sleepiness, Denies difficulty sleeping, Denies snoring, Denies stops breathing during sleep and Denies weakness Card Denies chest pain, Denies rapid heart rate, Denies irregular heart rhythm, Denies claudication, Denies leg edema, Denies lightheadedness, Denies palpitations, Denies dyspnea, Denies dyspnea on exertion, Denies orthopnea, Denies paroxysmal nocturnal dyspnea and Denies slow heart rate Resp Denies cough, Denies dyspnea, Denies dyspnea on exertion and Denies snoring GI Reports no additional complaints, Denies hematochezia, Denies change in stool character and Denies dyspepsia Musc Denies abnormal gait, Denies muscle weakness and Denies numbness Neuro Denies abnormal gait, Denies numbness and Denies weakness Endo Denies palpitations Physical Exam Vital Signs: Last Vital Signs Pulse 85 06/18/25 13:33 BP 110/64 06/18/25 13:33 BMI result Body Mass Index 35.3 Const General: cooperative, healthy appearing, comfortable and no acute distress Orientation/consciousness: patient oriented x3 HEENT Head: Yes normal to inspection Neck Neck: Yes normal visual inspection, Yes trachea midline and Yes supple Chest Chest palpation & inspection: normal inspection of the chest Resp Effort & Inspection: normal respiratory effort Auscultation: clear to auscultation bilaterally, no crackles, no rales, no rhonchi and no wheezes Cardio Jugular venous distension: no JVD Palpation: normal PMI Rate: regular rate Rhythm: regular rhythm Heart sounds: S1 normal heart sound present, S2 normal heart sound present, no click, no gallops, no murmurs and no rubs Peripheral pulses: Peripheral pulses 2+ throughout GI Inspection: Yes normal to inspection Palpation (GI): Soft to palpation Auscultation: normal bowel sounds Skin General skin exam: no rashes or lesions noted Neuro General: patient oriented x3 Extrem General: Yes normal to inspection, No no pedal edema and No calf tenderness Psych Appearance: grossly normal Mental Status: mental status grossly normal Speech and movement: Normal speech and movement present Assessment & Plan Assessment & Plan (1) CAD (coronary artery disease): Code(s): I25.10 - Atherosclerotic heart disease of [place] coronary artery without angina pectoris Category: Medical Plan: 12/05/2024-patient underwent cardiac catheterization with Dr. Morrison at [facility] that showed patent PDA stent, patent circumflex stent, mild diffuse disease in the LAD, and severe stenosis in the PLV and ostial D2 which are both small size vessels, therefore being medically managed as per plan. Continue aspirin and Plavix therapy. No reported signs of bleeding or falls. Continue amlodipine, atenolol,hydralazine, isosorbide, lisinopril, spironolactone and hydrochlorothiazide combination therapy. Most recent LDL at 40. Continue statin therapy with an LDL goal less than 70. Continue with the cardiac rehab. (2) Status post cardiac catheterization: Code(s): Z98.890 - Other specified postprocedural states Category: Surgical Plan: As above. (3) Hypertension: Code(s): I10 - Essential (primary) hypertension Category: Medical Plan: History of labile blood pressures. Blood pressure today is well-controlled. Continue current regimen. Recently had a 24 hour BP monitor that showed an average blood pressure between 120/80. Followed by Nephrology. (4) Diabetes: Code(s): E11.9 - Type 2 diabetes mellitus without complications Category: Medical Plan: Continue diabetes management with an A1c goal less than 7%. Followed by PCP. (5) RADHA (obstructive sleep apnea): Code(s): G47.33 - Obstructive sleep apnea (adult) (pediatric) Category: Medical Plan: Continue CPAP therapy. Advised heart healthy diet, regular exercise, losing weight, med compliance, and management of vascular risk factors. Follow-up in 6 months. In the interim, patient will call the office with any concerns or change in symptoms. Advised seeking ER care in case of exertional chest pain not resolved with rest. This note was generated using voice recognition software. While every effort has been made to ensure accuracy and proper manager maritime, there may be occasional errors that could affect the content or meaning of the described symptoms. Medications: Changed From methylcellulose (laxative) (Citrucel) take it with full glass of water 500 mg PO DAILY 30 tabs 3RF K59.00 - Constipation, unspecified To methylcellulose (laxative) (Citrucel) take it with full glass of water 500 mg PO DAILY PRN K59.00 - Constipation, unspecified Coding Level of Care Code Est Pt Level 4 (11706) Complex EM visit Add On G2211 Diagnoses CAD (coronary artery disease) I25.10 Status post cardiac catheterization Z98.890 Hypertension I10 Diabetes E11.9 RADHA (obstructive sleep apnea) G47.33 Time Spent (min) 32 Comment Time spent in reviewing the chart, test results, assessment, counseling and documentation.
[2025-06-18 13:33] VITALS: BP 110/64; PULSE 85; BMI 35.3
== END 2025-06-18 14:01 | disposition home or self-care (01) ==
LOC: HO.HCS 13:13
PROVIDERS: PCP Internal Medicine
DX: I25.10 Atherosclerotic heart disease of native coronary artery without angina pectoris (principal); Z98.890 Other specified postprocedural states; I10 Essential (primary) hypertension; E11.9 Type 2 diabetes mellitus without complications; G47.33 Obstructive sleep apnea (adult) (pediatric)
CPT/HCPCS: 99214

== ENCOUNTER → 2025-06-18 13:12 | Outpatient (BNVA) | payer OTHER, SELFPAY | PROVIDERS: PCP Internal Medicine | DX: I25.10 Atherosclerotic heart disease of native coronary artery without angina pectoris (principal); I10 Essential (primary) hypertension; G47.33 Obstructive sleep apnea (adult) (pediatric); Z99.89 Dependence on other enabling machines and devices; E11.9 Type 2 diabetes mellitus without complications; Z98.890 Other specified postprocedural states; Z83.3 Family history of diabetes mellitus; Z82.49 Family history of ischemic heart disease and other diseases of the circulatory system | CPT/HCPCS: 99212 ==

== ENCOUNTER 2025-06-19 11:26 | Outpatient (AMB) | payer OTHER, SELFPAY ==
[2025-06-19 11:31] VITALS: BP 106/80; PULSE 87; O2SAT 96; BMI 34.9
--- NOTE | 2025-06-19 11:31 | HO.NEPHOV_ITS ---
Vital Signs 06/19/25 11:31 Height 5 ft 10 in Weight 243 lb BMI 34.9 BP 106/80 Blood Pressure Location Rt brachial Position Sitting Pulse 87 Pulse Source Pulse Oximeter Pulse Oximetry (%) 96 Oxygen Delivery Method Room Air Intake Visit Reasons: 6wks f/u Dishwasher Required: No Accompanied by: Self / Same As Patient Allergies No Known Allergies Allergy (Verified 06/19/25 11:34) Medication List - Last Reconciled 06/19/25 by Juan Alberto Cronin MD acetaminophen 650 mg PO Q6H PRN amlodipine 5 mg PO DAILY aspirin (Adult Low Dose Aspirin) 81 mg PO DAILY atenolol 100 mg PO DAILY atorvastatin 80 mg PO DAILY clopidogrel 75 mg PO DAILY docusate sodium 100 mg PO BEDTIME gabapentin 400 mg PO TID glipizide ER 2.5 mg PO DAILY hydralazine 25 mg PO BID isosorbide mononitrate ER 30 mg PO DAILY ketorolac 0.5% 1 drp ophthalmic (eye) TID lisinopril 40 mg PO DAILY metformin 1,000 mg PO DAILY methylcellulose (laxative) (Citrucel) 500 mg PO DAILY PRN ondansetron 4 mg PO Q8H PRN pantoprazole 40 mg PO DAILY spironolacton-hydrochlorothiaz 25-25 mg 1 tab PO DAILY tirzepatide (Mounjaro) 7.5 mg subcut QWEEK HPI Comments Details: Elan has HTN in a setting of obesity c/o leg pains ;Diagnosed with ;Neuropathy , Now on Neurontin 06/12/24 ;Overall doing OK.Has elevated blood sugar last night ;Uses CPAP regularly 11/28/24 ;Angiogram has been postponed ;Still ozempic and lost weight ;NO dyspnea;No edema 01/29/25 The patient is a 54-year-old male presenting with hypertension and coronary artery disease. He reports fluctuating blood pressure, with recent readings of 122/82 mmHg, but has experienced higher readings such as 149/90 mmHg. He has been on spironolactone, which he finds effective in managing his blood pressure. The patient has a history of coronary artery disease, with an angiogram performed in December revealing thin veins unsuitable for stenting. He experiences discomfort and has been advised that surgery might be necessary if the condition worsens. No blood tests were conducted post-angiogram, and he is advised to have one to ensure kidney function is unaffected by the contrast dye used during the procedure. The patient has been experiencing weight loss, attributed to the use of Ozempic, with a reduction from 268 pounds to 249 pounds. He is monitoring his diet, particularly salt intake, to manage his blood pressure and overall health. 05/01/25 - The patient is a 55-year-old male presenting with hypertension and sleep apnea. - Hypertension: Controlled with multiple medications; plan to reduce amlodipine dosage. - Sleep Apnea: Managed with CPAP; new sleep study planned. - Obesity: Weight loss ongoing with Mounjaro. 06/19/25 The patient is a 55-year-old male presenting for follow-up management of hypertension, coronary artery disease, and sleep apnea. He recently underwent cataract surgery with an intraocular lens implant. Regarding his hypertension, amlodipine was previously decreased from 10 mg to 5 mg. Despite this, his blood pressure remains low, with a recent reading of 106/80 mmHg in the office. He reports fluctuating blood pressure at home, with readings sometimes reaching 140 systolic, and experiences occasional dizziness or lightheadedness when standing up quickly. He takes hydralazine 25 mg three times daily. For his coronary artery disease, the patient was recently seen by cardiology and reports that his blockage is now at 70%, a condition that has been present for five to six years. The patient has lost approximately 23 pounds with Ozempic and now maunjaro and reports that the medication does not cause him to feel hungry. His primary care physician manages this medication and recently increased his Mounjaro dose to 7.5. [facility] Medical History History of COVID-19 CAD (coronary artery disease) GERD (gastroesophageal reflux disease) Diabetes Sleep apnea treated with continuous positive airway pressure (CPAP) Hyperlipidemia Hypertension Surgical History History of heart artery stent H/O left knee surgery (~06/20/15) History of colonoscopy History of cardiac cath History of cataract surgery Family History Father CAD (coronary artery disease) HTN (hypertension) Diabetes Hypercholesteremia Mother CAD (coronary artery disease) Lung disease Diabetes HTN (hypertension) Hypercholesteremia Social History Are you a primary acute care physical therapist to a significant other at home: No Do you presently have visiting nurse or other home services: No Alcohol intake: current Alcohol intake frequency: does not drink Patient Tobacco Use Status: Never used Tobacco Physical Exam Vital Signs: Last Vital Signs Pulse 87 06/19/25 11:31 BP 106/80 06/19/25 11:31 Pulse Ox 96 06/19/25 11:31 Oxygen Delivery Method Room Air 06/19/25 11:31 BMI result Body Mass Index 34.9 Assessment & Plan Assessment & Plan (1) Hypertension: Code(s): I10 - Essential (primary) hypertension Category: Medical Plan: BP is better controlled -Based on 24 hr ABPM Todays reading was low He has lost about 30 lb- now on Maunjaro Expect BP to drop further with weigh loss DECREASE Hydralazine to 25 mg BID TAper and DC as tolerated Renal function is stable. Keep SGLT-2 inhibitor for cardio renal protection (2) Diabetes: Code(s): E11.9 - Type 2 diabetes mellitus without complications Category: Medical Plan: Goal A1C < 7% Orders: Orders Basic Metabolic Panel 2 Months I10 - Essential (primary) hypertension Coding Level of Care Code Est Pt Level 4 (92778) Diagnoses Hypertension I10 Diabetes E11.9
--- OUTSIDE RECORDS SUMMARY | 2025-06-20 02:16 | XMS_ITS | Clinical Summary ---
Author Organization [facility] ity Address [address] [place] [address] Care Team Providers Care Child Welfare Specialist Name Role Phone Mary Ellen Montague [...] Depression Screening 08/02/2024 COVID-19 Vaccine (1 - 2024-2 6 season) 2025 Influenza Vaccine (#1) 2025 RSV [...] age to complete this topic Care Teams Child Welfare Specialist Relationship Specialty Start Date End Date Mary Ellen Montague MD [address] [place] [phone] PCP - General 01/28/24
--- OUTSIDE RECORDS SUMMARY | 2025-06-20 02:17 | XMS_ITS | Clinical Summary ---
Author Organization [facility] Address [address] [place] [address] Phone Care Team Providers Care Brewmaster Name Role Phone Mary Ellen Montague MD [...] 49 Years) Discontinued 02/22/2019 Insurance Care Teams Brewmaster Relationship Specialty Start Date End Date Mary Ellen Montague MD [address] [place] [phone] PCP - General Internal Medicine 12/22/21
== END 2025-06-19 11:49 | disposition home or self-care (01) ==
LOC: HO.HKA 11:27
PROVIDERS: PCP Internal Medicine; Visit Provider Internal Medicine Hypertension Specialist
DX: I10 Essential (primary) hypertension (principal); E11.9 Type 2 diabetes mellitus without complications
CPT/HCPCS: 99214

== ENCOUNTER → 2025-06-19 11:26 | Outpatient (BNVA) | payer OTHER, SELFPAY | PROVIDERS: PCP Internal Medicine; Visit Provider Internal Medicine Hypertension Specialist | DX: I10 Essential (primary) hypertension (principal); E11.9 Type 2 diabetes mellitus without complications; Z79.899 Other long term (current) drug therapy; Z79.84 Long term (current) use of oral hypoglycemic drugs | CPT/HCPCS: 99212 ==

== ENCOUNTER 2025-07-31 10:31 | Outpatient (REF) | payer OTHER, SELFPAY ==
--- NOTE | ~2025-07-31 | XR_ITS ---
EXAMINATION: XR THORACIC SPINE CLINICAL INFORMATION: PAIN x2 weeks, acute midline, no injury. COMPARISON: None available. TECHNIQUE: 3 views of the thoracic spine were obtained. FINDINGS: There is a very mild right convex scoliosis. There is mild straightening of the normal kyphosis. There is no fracture, compression deformity, or suspicious bone lesion. There are bulky ventral vertebral and disc osteophytes throughout the thoracic region, with relative preservation of disc spaces, findings suggestive of underlying DISH. Sagittal alignment demonstrates no subluxation. Facets are normally aligned. The paravertebral soft tissues, imaged lungs and mediastinal structures appear normal. XR/XR thoracic spine 2V IMPRESSION: 1. No acute finding involving the thoracic spine. 2. Findings as described above suspicious for DISH. Electronically signed by: Norm Key MD 07/31/2025 10:53 AM [facility]
--- OUTSIDE RECORDS SUMMARY | 2025-07-31 10:00 | XMS_ITS | Encounter Summary ---
Author Organization [employer] Address [address] [place] [address] [address] [place] [address] Care Team Providers Care Counter Cutter Name Role Phone Mary Ellen Montague MD Primary Care Provide r Reason for Visit * Reason Comments Back Pain Encounter Details Date Type Department Care Team (Late st Contact Info) Description 07/31/2025 10:00 AM EST Office Visit [facility] [address] [place] [id number] Mary Ellen Arias MD [address] [place] [id number] Acute midline thoracic back pain (Primary Dx); Essential hypertension; Acute bilateral thoracic back pain Social History Tobacco Use Types Packs/Day Years Used Date Smoking Tobacco: Former Cigarettes Passive Smoke Exposure: Past Smokeless Tobacco: Never Tobacco Cessation:Counseling Given: Not Answered Alcohol Use Standard Drinks/Week Comments Never 0 [...] Sign Reading Time Taken Comments Blood Pressure 139/91 07/31/2025 9:49 AM EST Pulse 84 07/31/2025 9:49 AM EST Temperature 36.4 C (97.6 F) 07/31/2025 9:49 AM EST Respiratory Rate 16 07/31/2025 9:49 AM EST Oxygen Saturation 95% 07/31/2025 9:49 AM EST Inhaled Oxygen Concentration - - Weight 110 kg (242 lb 12.8 oz) 07/31/2025 9:49 A M EST Height 177.8 cm (5' 10 ) 07/31/2025 9:49 AM EST Body Mass Index 34.84 07/31/2025 9:49 AM EST documented in this encounter Progress Notes * Mary Ellen Stanley MD - 07/31/2025 10:00 AM EST Subjective Patient ID: Rodrick Mayen is a 55 y.o. male who presents for Back Pain. HPI 55 y o M w PMX of CAD,hypertension,HLD,,Obesity ,DM2,,GERD,RADHA using CPAP Comes to [facility] Reports Back Pain - History of recurrent mid-back pain for years, episodes comes and go - Most recent episode started one week ago after getting wet while traveling and sleeping in an uncomfortable position - Pain described as fixed, located in the mid-back, worsens with prolonged sitting or inactivity, improves with movement - Denies trauma or injury to the back - Denies weakness in arms or legs - Denies urinary symptoms, abdominal pain, or colicky pain,denies history of nephrolithiasis - Denies fever, chills, cough, chest pain, or shortness of breath since onset - Pain partially relieved by acetaminophen (Tylenol) and (Salonpas) - Previous similar episodes evaluated in clinic, last visit for back pain approximately one year ago Review of Systems -thoracic back pain Objective BP (!) 139/91 (BP Location: Right arm, Patient Position: Sitting, BP Cuff Size: Large adult) Pulse 84 Temp 97.6 ??F (36.4 ??C) (Temporal) Resp 16 Ht 5' 10 (1.778 m) Wt 242 lb 12.8 oz (110 kg) SpO2 95% BMI 34.84 kg/m?? Physical Exam Constitutional: General: He is not in acute distress. Appearance: Normal appearance. He is not ill-appearing, toxic-appearing or diaphoretic. HENT: Head: Normocephalic. Cardiovascular: Rate and Rhythm: Normal rate and regular rhythm. Pulmonary: Effort: Pulmonary effort is normal. Breath sounds: Normal breath sounds. No wheezing or rhonchi. Abdominal: Palpations: Abdomen is soft. Tenderness: There is no abdominal tenderness. Musculoskeletal: Comments: There is Tenderness upon palpation of the thoracic paraspinal muscles, mild discomfort noted with movement. Neurological: Mental Status: He is alert. Assessment/Plan Problem List Items Addressed This Visit Essential hypertension - Monitors blood pressure at home, readings less than 140/90 per pt -BP elevated slight elevated here today likely due to pain Continue compliance w BP meds advised Acute bilateral thoracic back pain Acute midline thoracic back pain: - Acute midline thoracic back pain, recurrent episodes last a year ago, currently without associated neurological deficits or urinary symptoms. No recent trauma. Seems MSK in nature w reproduced pain w palpation ,normal abdominal exam -warm compresses advised QID -tylenol PRN - Prescribed diclofenac gel for topical use every eight hours as needed for pain. Pt thinks was told to avoid to take oral NSAIDS so prefers to hold - Prescribed muscle relaxant to be used every twelve hours PRN-explained to avoid ETOH,and to not drive or use heavy machinery after taking medication -Advised to continue current topical patches ,per pt his insurance did not covered lidocaine patches before -Ordered thoracic spine X-ray to r/o vertebral lesions for recurrence of symptoms -Offered Referral to physical therapy but pt states wants to hold for now given not as frequent ; advised to follow up with primary care provider if pain becomes frequent. Relevant Medications Diclofenac Sodium 1 % gel Other Visit Diagnoses Acute midline thoracic back pain - Primary Relevant Medications Diclofenac Sodium 1 % gel cyclobenzaprine (Flexeril) 5 MG tablet Other Relevant Orders XR Thoracic Spine 2 Views (Completed) This note was drafted using Ambient (ModuleQ) technology. The patient/patient's guardian has been informed and has consented to the use of this technology: Yes documented in this encounter Miscellaneous Notes * Assessment & Plan Note - Mary Ellen Stanley MD - 07/31/2025 12:44 PM ESTAssociated Problem(s): Acute bilateral thoracic back pain Acute midline thoracic back pain: - Acute midline thoracic back pain, recurrent episodes last a year ago, currently without associated neurological deficits or urinary symptoms. No recent trauma. Seems MSK in nature w reproduced pain w palpation ,normal abdominal exam -warm compresses advised QID -tylenol PRN - Prescribed diclofenac gel for topical use every eight hours as needed for pain. Pt thinks was told to avoid to take oral NSAIDS so prefers to hold - Prescribed muscle relaxant to be used every twelve hours PRN-explained to avoid ETOH,and to not drive or use heavy machinery after taking medication -Advised to continue current topical patches ,per pt his insurance did not covered lidocaine patches before -Ordered thoracic spine X-ray to r/o vertebral lesions for recurrence of symptoms -Offered Referral to physical therapy but pt states wants to hold for now given not as frequent ; advised to follow up with primary care provider if pain becomes frequent. * Assessment & Plan Note - Mary Ellen Stanley MD - 07/31/2025 12:43 PM ESTAssociated Problem(s): Essential hypertension - Monitors blood pressure at home, readings less than 140/90 per pt -BP elevated slight elevated here today likely due to pain Continue compliance w BP meds advised documented in this encounter Plan of Treatment Not on file documented as of this encounter Goals Goal Patient Goal Type Associated Problems Recent Progress Patient-Stated? Author Help patients manage their type 2 diabetes Care Plan Help patients manage their type 2 diabetes No Miriam Jarvis MA Weekly blood pressure task Care Plan Weekly blood pressure task No Miriam Jarvis MA Help patients manage their type 2 diabetes Care Plan Help patients manage their type 2 diabetes No Miriam Jarvis MA Patient has chronic kidney disease Care Plan Patient has chronic kidney disease No Miriam Jarvis MA Help patients manage their type 2 diabetes Care Plan Help patients manage their type 2 diabetes No Miriam Jarvis MA Patient has diabetic neuropathy Care Plan Patient has diabetic neuropathy No Miriam Jarvis MA Weekly blood pressure task Care Plan Weekly blood pressure task No Miriam Jarvis MA Weekly blood pressure task Care Plan Weekly blood pressure task No Miriam Jarvis MA Patient has chronic kidney disease Care Plan Patient has chronic kidney disease No Miriam Jarvis MA Patient has chronic kidney disease Care Plan Patient has chronic kidney disease No Miriam Jarvis MA Patient has diabetic neuropathy Care Plan Patient has diabetic neuropathy No Miriam Jarvis MA Patient has diabetic neuropathy Care Plan Patient has diabetic neuropathy No Miriam Jarvis MA Weekly blood pressure task Care Plan Weekly blood pressure task No Riya Bautista MA Weekly blood pressure task Care Plan Weekly blood pressure task No Riya Bautista MA Weekly blood pressure task Care Plan Weekly blood pressure task No Riya Bautista MA Patient has chronic kidney disease Care Plan Patient has chronic kidney disease No Riya Bautista MA Patient has chronic kidney disease Care Plan Patient has chronic kidney disease No Riya Bautista MA Patient has chronic kidney disease Care Plan Patient has chronic kidney disease No Riya Bautista MA Patient has diabetic neuropathy Care Plan Patient has diabetic neuropathy No Riya Bautista MA Patient has diabetic neuropathy Care Plan Patient has diabetic neuropathy No Riya Bautista MA Patient has diabetic neuropathy Care Plan Patient has diabetic neuropathy No Riya Bautista MA documented as of this encounter Procedures Procedure Name Priority Date/Time Associated Diagnosis Comments XR THORACIC SPINE 2 VIEWS Routine 07/31/2025 10:40 AM EST Acute midline thoracic back pain documented in this encounter Results * XR Thoracic Spine 2 Views (07/31/2025 10:40 AM EST) Anatomical Region Laterality Modality Spine, T-spine Radiographic Marilee ging 07/31/2025 10:4 0 AM EST Narrative 07/31/2025 10:56 AM EST [address] [address] XRay Report Signed Patient: Rodrick Mayen MR#: [id number] : 1970 Acct:[id number] Age/Sex: 55 / M ADM Date: 07/31/25 Loc: HO.HHCX Attending Dr: Mary Ellen Stanley MD Ordering Physician: Mary Ellen Arias MD Date of Service: 07/31/25 Procedure(s): XR thoracic spine 2V Accession Number(s): [id number] cc: Mary Ellen Montague MD; Mary Ellen Arias MD Reason for Exam: PAIN EXAMINATION: XR THORACIC SPINE CLINICAL INFORMATION: PAIN x2 weeks, acute midline, no injury. COMPARISON: None available. TECHNIQUE: 3 views of the thoracic spine were obtained. FINDINGS: There is a very mild right convex scoliosis. There is mild straightening of the normal kyphosis. There is no fracture, compression deformity, or suspicious bone lesion. There are bulky ventral vertebral and disc osteophytes throughout the thoracic region, with relative preservation of disc spaces, findings suggestive of underlying DISH. Sagittal alignment demonstrates no subluxation. Facets are normally aligned. The paravertebral soft tissues, imaged lungs and mediastinal structures appear normal. XR/XR thoracic spine 2V IMPRESSION: 1. No acute finding involving the thoracic spine. 2. Findings as described above suspicious for DISH. Electronically signed by: Norm Key MD 07/31/2025 10:53 AM EST RP Dictated By: Norm Key MD Signed By: <Electronically signed by Norm Key MD in OV> 07/31/25 1053 DD/ 1040 TD/TT: 07/31/25 1048 Framing Carpenter: Procedure Note Donotuseinterpreter, Image - 07/31/[address] [address] XRay Report Signed Patient: Perla Mayen#: [id number] : 1970Acct:[id number] Age/Sex: 55 / MADM Date: 07/31/25 Loc: HO.HHX Attending Dr: Mary Ellen Stanley MD Ordering Physician: Mary Ellen Arias MD Date of Service: 07/31/25 Procedure(s): XR thoracic spine 2V Accession Number(s): [id number] cc: Mary Ellen Montague MD; Mary Ellen Arias MD Reason for Exam: PAIN EXAMINATION: XR THORACIC SPINE CLINICAL INFORMATION: PAIN x2 weeks, acute midline, no injury. COMPARISON: None available. TECHNIQUE: 3 views of the thoracic spine were obtained. FINDINGS: There is a very mild right convex scoliosis. There is mild straightening of the normal kyphosis. There is no fracture, compression deformity, or suspicious bone lesion. There are bulky ventral vertebral and disc osteophytes throughout the thoracic region, with relative preservation of disc spaces, findings suggestive of underlying DISH. Sagittal alignment demonstrates no subluxation. Facets are normally aligned. The paravertebral soft tissues, imaged lungs and mediastinal structures appear normal. XR/XR thoracic spine 2V IMPRESSION: 1. No acute finding involving the thoracic spine. 2. Findings as described above suspicious for DISH. Electronically signed by: Norm Key MD 07/31/2025 10:53 AM EST RP Dictated By: Norm Key MD Signed By: <Electronically signed by Norm Key MD in OV> 07/31/25 1053 DD/ 1040 TD/TT: 07/31/25 1048 Framing Carpenter: Mary Ellen Stanley MD IMG XR PROCEDURES Final Result documented in this encounter Visit Diagnoses Diagnosis Acute midline thoracic back pain- Primary Essential hypertension Unspecified essential hypertension Acute bilateral thoracic back pain documented in this encounter Additional Health Concerns Active Problems Noted Date Diagnosed Date Help patients manage their type 2 diabetes 07/02 Weekly blood pressure task 07/02/2025 Help patients manage their type 2 diabetes 07/02 Patient has chronic kidney disease 07/02/2025 Help patients manage their type 2 diabetes 07/02 Patient has diabetic neuropathy 07/02/2025 Weekly blood pressure task 07/02/2025 Weekly blood pressure task 07/02/2025 Patient has chronic kidney disease 07/02/2025 Patient has chronic kidney disease 07/02/2025 Patient has diabetic neuropathy 07/02/2025 Patient has diabetic neuropathy 07/02/2025 Weekly blood pressure task 07/31/2025 Weekly blood pressure task 07/31/2025 Weekly blood pressure task 07/31/2025 Patient has chronic kidney disease 07/31/2025 Patient has chronic kidney disease 07/31/2025 Patient has chronic kidney disease 07/31/2025 Patient has diabetic neuropathy 07/31/2025 Patient has diabetic neuropathy 07/31/2025 Patient has diabetic neuropathy 07/31/2025 Assessment Noted Time PHQ-9 Depression Total Score: 0 05/29/20 24 11:15 AM EDT documented as of this encounter Care Teams Counter Cutter Relationship Specialty Start Date End Date Mary Ellen Montague MD [address] [place] [address] PCP - General Family Medicine 02/27/19 documented as of this encounter
--- OUTSIDE RECORDS SUMMARY | 2025-07-31 14:09 | XMS_ITS | Encounter Summary ---
Author Organization [employer] Address [address] [facility] [address] [place] [address] Care Team Providers Care Cylinder Loader Name Role Phone Mary Ellen Montague MD Primary Care Provide r Reason for Visit * Reason Comments Med Refill Encounter Details Date Type Department Care Team ([facility] st Contact Info) Description 02/21/2024 Refill [facility] [address] [place] [address] Teresa Coburn FNP Social History Tobacco Use [...] documented as of this encounter Care Teams Cylinder Loader Relationship Specialty Start Date End Date Mary Ellen Montague MD [address] [place] [address] PCP - General Family Medicine 02/27/19 documented as of this encounter
--- OUTSIDE RECORDS SUMMARY | 2025-07-31 14:09 | XMS_ITS | Clinical Summary ---
Author Organization [employer] Address [address] [facility] 7t [place] [address] Care Team Providers Care Natural History Collections Curator Name Role Phone Mary Ellen Montague MD [...] morning. 023 Active clopidogrel (Plavix) 75 MG tabletIndications :Stented coronary artery TAKE 1 TABLET BY MOUTH EVERY DAY 30 tablet 11 025 Active lisinopril 40 MG tabletIndications :Essential hypertension TAKE 1 TABLET BY MOUTH EVERY DAY 90 tablet 3 06/22/20 25 9:16 AM EST 025 Active Aspirin EC Adult Low Dose 81 MG EC tabletIndications :Coronary artery disease involving [place] coronary artery of [place] heart without angina pectoris TAKE 1 TABLET BY MOUTH EVERY DAY IN THE MORNING 90 tablet 3 07/16/20 25 10:46 AM EST 025 Active pantoprazole (ProtoNix) 40 MG EC tabletIndications :Gastroesophageal reflux disease, unspecified whether esophagitis present TAKE 1 TABLET BY MOUTH EVERY DAY BEFORE BREAKFAST, DO NOT BREAK, CRUSH, DISSOLVE OR CHEW 30 tablet 11 025 Active furosemide (Lasix) 20 MG tabletIndications :Essential hypertension Take 1 tablet (20 mg) by mouth Once per day. 30 tablet 3 025 Active gabapentin (Neurontin) 400 MG capsuleIndication s:Diabetic polyneuropathy associated with type 2 diabetes mellitus (HCC) Take 1 capsule (400 mg) by mouth 3 times daily. 90 capsule 11 025 2025 Active atenolol (Tenormin) 100 MG tabletIndications :HTN (hypertension), benign Take 1 tablet (100 mg) by mouth Once per day. 90 tablet 1 07/16/20 25 10:46 AM EST 025 Active Ozempic, 1 MG/DOSE, 4 MG/3ML solution pen-injector Inject 1 MG SUBCUTANEOUSLY EVERY 7 DAYS IN THE ABDOMEN, THIGHS OR UPPER ARM. ROTATE INJECTION SITES. 025 Active hydrALAZINE (Apresoline) 25 MG tabletIndications :HTN (hypertension), benign TAKE 1 TABLET BY MOUTH FOUR TIMES DAILY WITH FOOD 120 tablet 3 025 Active amLODIPine (Norvasc) 10 MG tabletIndications :HTN (hypertension), benign TAKE 1 TABLET BY MOUTH EVERY DAY 90 tablet 1 025 Active Tirzepatide (Mounjaro) 7.5 MG/0.5ML solution auto-injectorIndi cations:Type 2 diabetes mellitus with hyperglycemia, without long-term current use of insulin ([facility]) Inject 7.5 mg under the skin 1 (one) time per week. 2 mL 2 07/05/20 25 10:14 AM EST 025 Active atorvastatin (Lipitor) 80 MG tabletIndications :Dyslipidemia Take 1 tablet (80 mg) by mouth Once per day. 90 tablet 1 025 Active metFORMIN (Glucophage) 1000 MG tabletIndications :Type 2 diabetes mellitus with hyperglycemia, without long-term current use of insulin ([facility]) Take 1 tablet (1,000 mg) by mouth with breakfast and with evening meal. 60 tablet 11 025 Active glipiZIDE XL (Glucotrol XL) 2.5 MG 24 hr tabletIndications :Type 2 diabetes mellitus with hyperglycemia, without long-term current use of insulin ([facility]) TAKE 1 TABLET BY MOUTH THREE TIMES DAILY WITH MEALS NEEDED 90 tablet 2 07/05/20 25 10:14 AM EST 12/01/2 025 Active Diclofenac Sodium 1 % gelIndications:Ac [place] midline thoracic back pain Apply 1 Application topically if needed each day (back pain). 50 g 07/31/20 25 11:23 AM EST Active cyclobenzaprine (Flexeril) 5 MG tabletIndications :Acute midline thoracic back pain Take 1 tablet (5 mg) by mouth every 12 (twelve) hours if needed for muscle spasms. 10 tablet 07/31/20 25 11:23 AM EST 2025 Active glipiZIDE XL (Glucotrol XL) 2.5 MG 24 hr tabletIndications :Type 2 diabetes mellitus with hyperglycemia, without long-term current use of insulin (HCC) Take 2 tablets (5 mg) by mouth Once per day. TAKE 1 TABLET BY MOUTH THREE TIMES DAILY WITH MEALS NEEDED 90 tablet 2 2024 Discontinued Active Problems Problem Noted Date Diagnosed Date Acute bilateral thoracic back pain 07/31/2025 Assessment & Plan (07/31/2025 12:47 PM EST): Acute midline thoracic back pain: - Acute [...] primary care provider if pain becomes frequent. Bilateral leg pain 06/01/2025 Diabetes 06/01/2025 Diabetic neuropathy 06/01/2025 Dyspnea on exertion 06/01/2025 Insomnia 06/01/2025 Osteoarthritis of right knee 06/01/2025 Otitis externa 06/01/2025 Otitis media 06/01/2025 Screening for colon cancer 06/01/2025 Atypical chest pain 06/01/2025 Overview (06/01/2025): As above Stable angina 06/01/2025 Hypertension 06/01/2025 Esophagitis 06/01/2025 GERD (gastroesophageal reflux disease) Class 2 obesity 06/01/2025 RADHA (obstructive sleep apnea) 06/01/2025 Preop examination 06/01/2025 Assessment & Plan (06/01/2025 4:23 PM EDT): RCRI score is 1 which means he has a 1.1% risk I advise NPO after midnight before the procedure Stop GLP1 at least 1 week before the procedure Take blood pressure medications with a small sip of water the day of the procedure Surgery should proceed as schedule Diabetic polyneuropathy asso ciated with type 2 [...] the bed and take medications as prescribe Allergic contact dermatitis, unspecified cause 0 09/15/2022 Gastroesophageal reflux disease 12/12/2020 Assessment & Plan [...] 30-39.9) 11/24/2018 Coronary artery disease invo lving upper [place] coronary artery of [place] heart without angina pectoris 09/13/2018 Assessment & Plan (05/29/2024 12:08 PM EDT): Continue to follow with cardiology Assessment & Plan (07/16/2023 11:54 AM EST): Has remain stable with current regimen, continue to follow with cardiology Stented coronary artery 09/13/2018 Arteriosclerosis of coronary artery 09/13/2018 Overview (06/01/2025): He has known coronary artery disease. He underwent circumflex and RCA PCI. Any had moderate disease in the mid segment. Angina pectoris 08/09/2018 Essential hypertension 07/28/2018 Assessment & Plan (07/31/2025 12:43 PM EST): - Monitors blood pressure at home, readings less than 140/90 per pt -BP elevated slight elevated here today likely due to pain Continue compliance w BP meds advised Assessment & Plan (04/07/2025 6:48 PM EDT): [...] use of insulin 07/28/2018 Assessment & Plan (06/01/2025 4:25 PM EDT): Diabetes is: not controlled but improved - Lab Results Component Value Date HGBA1C 7.3 (A) 04/06/2025 HGBA1C 7.8 (A) 05/29/2024 HGBA1C 6.9 (A) 12/15/2023 - Lab Results Component Value Date MICROALBUR 27.0 05/30/2024 CREATININE 0.85 01/29/2025 -Changes: I increase his mounjaru to 7.5mg weekly (to be start after his surgery) - Diabetic eye exam:pending - Diabetic foot exam:pending - Continue lifestyle modifications - Follow up: 3 months Assessment & Plan (04/07/2025 6:51 PM EDT): [...] healthy diet (low calorie) and cardiovascular exercise Abnormal results of liver function studies 09/12 Resolved Problems Problem Noted Date Diagnosed Date Resolved Date Preop cardiovascular exam 06/01/2025 Encounters Date Type Department Care Team Description 07/31/2025 10:00 AM EST Office Visit [facility] [address] [place] [phone] Mary Ellen Arias MD Acute midline thoracic back pain (Primary Dx); Essential hypertension; Acute bilateral thoracic back pain 07/31/2025 Travel 07/02/2025 Telephone [facility] [address] [place] [phone] Mary Ellen Montague MD alex recall 06/28/[address] [address] Mary Ellen Montague MD Type 2 diabetes mellitus with hyperglycemia, without long-term current use of insulin (HCC) 06/01/2025 1:00 PM EDT Office Visit [address] [address] Mary Ellen Montague MD Preop examination (Primary Dx); Type 2 diabetes mellitus with hyperglycemia, without long-term current use of insulin (HCC); Dyslipidemia 06/01/2025 Travel 05/31/2025 Telephone [facility] [address] [place] [address] Mary Ellen Montague MD CHART PREP 05/25/2025 Travel 05/17/2025 Refill [facility] [address] [place] [address] Mary Ellen Montague MD HTN (hypertension), benign 05/15/2025 Refill [facility] [address] [place] [address] Mary Ellen Montague MD HTN (hypertension), benign 05/10/2025 Telephone [facility] [address] [place] [address] Mary Ellen Montague MD Preop 05/02/2025 Telephone [facility] [address] [place] [address] Mary Ellen Montague MD Dec recall from Last 3 Months Immunizations Immunization Administration Dates Next Due Influenza Injectable Quadriv alant Preservative Free IIV4 MDCK 04/14/2022,05/27/2020 Influenza injectable quadriv alent IIV4 with preservative 05/25/2019 Influenza injectable quadrivalent preservative f ree 05/22/2023,05/01/2021 Influenza, Injectable, MDCK, preservative free 1 Influenza, Recombinant, injectable, preservative free 05/03/2025 Pneumococcal Conjugate PCV 20 05/29/2024 Pneumococcal Polysaccharide PPSV23 02/22/2019 Tdap 09/29/2023 Zoster, Recombinant 08/04/2024,05/23/2024 Family History Medical History Relation Name Comments [...] Mass Index 34.84 07/31/2025 9:49 AM EST Plan of Treatment Health Maintenance Due Date Last Done Comments CT Colonography 1972 Colonoscopy 1972 Colorectal Cancer Screening 1972 Dental Oral Exam 1972 Dental Prophylaxis 1972 Dental X-Ray: Full Mouth 1972 FIT DNA/Cologuard 1972 FIT 1972 FOBT 1972 HIV Screening 1972 Sigmoidoscopy 1972 Diabetes: Foot Exam 1982 Alcohol/Substance Use Screening 1984 Hepatitis C Screening 1990 Hepatitis B Vaccines (1 of 3 - 19+ 3-dose series) 1991 RSV Patients and Patients Aged 60 years or older (1 - Risk 50-74 years 1-dose series) 2022 Dental X-Ray: Bitewings 08/19/2024 08/18/2023, 01/14 SDOH Screening 01/16/2025 01/17/2024 COVID-19 Vaccine ( season) 2025 04/17/2022, 07/02/2021, 11/01/2020, Additional history exists Depression Screening 05/29/2025 05/29/2024, 05/29/20 24 Diabetes: Urine Protein Screening 06/08/2025 06/08/2024, 05/30/2024, 01/20/2023, Additional history exists Diabetes: Hemoglobin A1C 07/06/2025 025, 05/29/2024, 12/15/2023, Additional history exists Lipid Panel 01/29/2026 01/29/2025, 05/03, 01/01/2021, Additional history exists Disability Screening 04/04/2026 04/04/2025 Tobacco Screening 07/31/2026 07/31/2025 Eye Exam 04/19/2027 04/19/2025, 04/02, 04/19/2025, Additional history exists DTaP/Tdap/Td Vaccines (2 - Td or Tdap) 09/29/2033 09/29/2023 Pneumococcal Vaccine: 50+ Years Completed 05/29/2024, 02/22/2019 Zoster Vaccines Completed 08/04/2024, 05/23/2024 Influenza Vaccine Completed 05/03/2025, , 05/22/2023, Additional history exists HIB Vaccines Aged Out No longer eligi [...] on patient's age to complete this topic Goals Goal Patient Goal Type Associated Problems [...] has diabetic neuropathy No Riya Bautista MA Procedures Procedure Name Priority Date/Time Associated Diagnosis Comments XR THORACIC SPINE 2 VIEWS Routine 07/31/2025 10:40 AM EST Acute midline thoracic back pain POCT GLUCOSE (CPT-90459) Routine 06/01/2025 1:14 PM EDT Type 2 diabetes mellitus with hyperglycemia, without long-term current use of insulin ([facility]) POCT GLYCATED HEMOGLOBIN, TOTAL Routine 04/06/2025 2:33 PM EDT Type 2 diabetes mellitus with hyperglycemia, without long-term current use of insulin ([facility]) LIPID PANEL, STANDARD Routine 01/29/2025 3:50 PM EDT CREATININE, RANDOM URINE Routine 06/08/2024 12:45 PM EST BITEWING - SINGLE RADIOGRAPHIC IMAGE Routine 08/18/2023 2:30 PM EST Pain due to dental trauma from Last 3 Months or Most Recently Relevant to Health Maintenance Results * XR Thoracic Spine 2 Views (07/31/2025 10:40 AM EST) Anatomical Region Laterality Modality Spine, T-spine Radiographic Marilee ging 07/31/2025 10:4 0 AM EST Narrative 07/31/2025 10:56 AM EST [address] [address] XRay Report Signed Patient: Rodrick Mayen MR#: [id number] : 1970 Acct:[id number] Age/Sex: 55 / M ADM Date: 07/31/25 [facility]: [facility]: Mary Ellen Stanley MD Ordering Physician: Mary Ellen Arias MD Date of Service: 07/31/25 Procedure(s): XR thoracic spine 2V Accession Number(s): [id number] cc: Mary Ellen Montague MD; Mary Ellen [...] by: Norm Key MD 07/31/2025 10:53 AM [facility] Dictated By: Norm Key MD Signed By: <Electronically signed by Norm Key MD in OV> 07/31/25 1053 DD/ 1040 TD/TT: 07/31/25 1048 Pacs Administrator: Procedure Note Donotuseinterpreter, Image - 07/31/[address] [address] XRay Report Signed Patient: Kelley MayenR#: [id number] : 1970Acct:[id number] Age/Sex: 55 / MADM Date: 07/31/25 Loc: [facility] Attending Dr: Mary Ellen Stanley MD Ordering Physician: Mary Ellen Arias MD Date of Service: 07/31/25 Procedure(s): XR thoracic spine 2V Accession Number(s): [id number] cc: Mary Ellen Montague MD; Mary Ellen [...] by: Norm Key MD 07/31/2025 10:53 AM [facility] Dictated By: Norm Key MD Signed By: <Electronically signed by Norm Key MD in OV> 07/31/25 1053 DD/ 1040 TD/TT: 07/31/25 1048 Pacs Administrator: Mary Ellen Stanley MD IMG XR PROCEDURES Final Result * POCT Glucose (06/01/2025 1:14 PM EDT) Glucose Blood, POC 167 60 - 200 mg/dL QC Media Lot # [id number] Lot# Expiration Date 31,126 Blood Capillary blood specimen / Unknown 06/01/2025 1:14 PM EDT Mary Ellen Mcgregor MD POINT OF CARE TEST EN TER/EDIT ORDERABLES Final Result * (ABNORMAL) POCT Hgb A1c (04/06/2025 2:33 PM EDT) Hemoglobin A1C 7.3(A) 4.0 - 5.7 % QC Media Lot # [id number] Lot# Expiration Date 41,627 Blood 04/06/2025 2:33 PM EDT us Mary Ellen Mcgregor MD POINT OF CARE TEST EN TER/EDIT ORDERABLES Final Result * (ABNORMAL) Lipid Panel, Standard (01/29/2025 3:50 PM EDT) Triglycerides 217(H) <150 mg/dL [facility] Comment:Desirable Triglyceri de: less than 150 mg/dLBorderline High Triglyceride 150-199 mg/dLHigh Triglyceride: 200-499 mg/dLVery High Triglyceride: greater than or equal to 5OO mg/dL Cholesterol 112 <200 mg/dL [facility] Comment:Desirable Cholestero l: less than 200 mg/dLBorderline High Cholesterol: 200-239 mg/dLHigh Cholesterol: greater than 239 mg/dL LDL Cholesterol Calculated 40 <100 mg/dL [facility] Comment:Desirable LDL: less than 100 mg/dLNear Optimal/Above Optimal LDL: 110- 129 mg/dLBorderline High LDL: 130-159 mg/dLHigh LDL: 160-189 mg/dLVery High LDL: greater than or equal to 190 mg/dL HDL Cholesterol 29(L) >40 mg/dL [facility] Comment:Desirable HDL: great er than 40 mg/dL Note: This HDL assay may give artificially low results in patients with liver disease. 01/29/2025 3:50 PM EDT 01/29/2025 3:50 PM EDT us Generic External Data Provider LAB BLOOD ORDERAB LES Final Result [facility] [address] [place] [phone] * Creatinine, Random Urine (06/08/2024 12:45 PM EST) Creatinine, Urine 137.59 mg/dL [facility] 06/08/2024 12:4 5 PM EST 06/08/2024 1:38 PM EST us Generic External Data Provider LAB URINE ORDERAB LES Final Result [facility] [address] [place] [address] [phone] from Last 3 Months or Most Recently Relevant to Health Maintenance Additional Health Concerns Active Problems Noted Date [...] neuropathy 07/31/2025 Patient has diabetic neuropathy 07/31/2025 Insurance [facility] 3 Care Teams Natural History Collections Curator Relationship Specialty Start Date End Date Mary Ellen Montague MD [address] [place] [phone] PCP - General Family Medicine 02/27/19
--- OUTSIDE RECORDS SUMMARY | 2025-07-31 14:09 | XMS_ITS | Encounter Summary ---
Author Organization [employer] Address [address] [place] [address] [address] [place] [address] Care Team Providers Care Finance Accounting Internship Name Role Phone Mary Ellen Montague MD Primary Care Provide r Reason for Visit * Reason Comments Med Refill Encounter Details Date Type Department Care Team (Late st Contact Info) Description 09/10/2022 Refill [facility] [address] [place], [place] [phone] Dunia Chandra MD [address] [place] [address] Dyslipidemia (Primary Dx); HTN (hypertension), benign Social [...] benign documented in this encounter Care Teams Finance Accounting Internship Relationship Specialty Start Date End Date Mary Ellen Montague MD [address] [place] [address] PCP - General Family Medicine 02/27/19 documented as of this encounter
--- OUTSIDE RECORDS SUMMARY | 2025-07-31 14:09 | XMS_ITS | Clinical Summary ---
Author Organization [facility] ity Address [address] [place] [address] Care Team Providers Care Ediscovery Project Manager Name Role Phone Mary Ellen Montague [...] age to complete this topic Care Teams [employer]discovery Project Manager Relationship Specialty Start Date End Date Mary Ellen Montague MD [address] [place] [phone] PCP - General 01/28/24
--- OUTSIDE RECORDS SUMMARY | 2025-07-31 14:09 | XMS_ITS | Encounter Summary ---
Author Organization [employer] Address [address] [facility] 7t [place] [address] Care Team Providers Care Product Safety Expert Name Role Phone Mary Ellen Montague MD Primary Care Provide r Reason for Visit * Reason Onset Date Comments Med Refill medication 08/21/2023 Encounter Details Date Type Department Care Team (Late st Contact Info) Description 08/21/2023 Refill [facility] [address] [place] [address] Rafael Aguirre, DDS [address] [place] [address] Social History Tobacco Use Types Packs/Day Years [...] documented as of this encounter Care Teams Product Safety Expert Relationship Specialty Start Date End Date Mary Ellen Montague MD [address] [place] [phone] PCP - General Family Medicine 02/27/19 documented as of this encounter
--- OUTSIDE RECORDS SUMMARY | 2025-07-31 14:09 | XMS_ITS | Clinical Summary ---
Author Organization [facility] Address [address] [facility] [address] [place] [address] Phone Care Team Providers Care Patient Relations Specialist Name Role Phone Mary Ellen Montague [...] 51 Years) Discontinued 02/22/2019 Insurance Care Teams Patient Relations Specialist Relationship Specialty Start Date End Date Mary Ellen Montague MD [address] [place] [phone] PCP - General Internal Medicine 12/22/21
--- OUTSIDE RECORDS SUMMARY | 2025-07-31 14:09 | XMS_ITS | Encounter Summary ---
Author Organization [employer] Address [address] [facility] 7t [place] [address] Care Team Providers Care Tile Grader Name Role Phone Mary Ellen Montague MD Primary Care Provide r Encounter Details Date Type Department Care Team (Latest Contact Info) Description 07/31/2025 Travel Social History Tobacco Use Types Packs/Day [...] Care Plan Patient has chronic kidney disease Riya Vela [place] Patient has diabetic neuropathy Care Plan Patient has diabetic neuropathy No Riya Bautista MA Patient has diabetic neuropathy Care Plan Patient has diabetic neuropathy No Riya Bautista MA Patient has diabetic neuropathy Care Plan Patient has diabetic neuropathy Riya Vela MA documented as of this encounter Visit Diagnoses Not on filedocumented in this encounter Additional Health Concerns Active [...] documented as of this encounter Care Teams Tile Grader Relationship Specialty Start Date End Date Mary Ellen Montague MD [address] [place] [phone] PCP - General Family Medicine 02/27/19 documented as of this encounter
--- OUTSIDE RECORDS SUMMARY | 2025-07-31 14:09 | XMS_ITS | Encounter Summary ---
Author Organization [employer] Address [address] [facility] 7t [place] [address] Care Team Providers Care Machine Hand Name Role Phone Mary Ellen Montague MD Primary Care Provide r Reason for Visit * Reason Comments Med Refill Encounter Details Date Type Department Care Team (Late st Contact Info) Description 08/27/2023 Refill [facility] [address] [place] [address] Rafael Aguirre DDS [address] [place] [address] Social History Tobacco Use Types Packs/Day Years [...] documented as of this encounter Care Teams Machine Hand Relationship Specialty Start Date End Date Mary Ellen Montague MD [address] [place] [phone] PCP - General Family Medicine 02/27/19 documented as of this encounter
--- OUTSIDE RECORDS SUMMARY | 2025-07-31 14:09 | XMS_ITS | Encounter Summary ---
Author Organization [employer] Address [address] [place] [address] [address] [place] [address] Care Team Providers Care Business Support Assistant Name Role Phone Mary Ellen Montague MD Primary Care Provide r Reason for Visit * Reason Onset Date Comments Med Refill 05/01/2024 Encounter Details Date Type Department Care Team (Late st Contact Info) Description 05/01/2024 Refill [facility] [address] [place] [address] Riya Alvarez, PharmD [address] [place] [address] Type 2 diabetes mellitus with hyperglycemia, without long-term current use of insulin ([facility]) Social History Tobacco Use Types Packs/Day Years [...] documented as of this encounter Care Teams Business Support Assistant Relationship Specialty Start Date End Date Mary Ellen Montague MD [address] [place] [address] PCP - General Family Medicine 02/27/19 documented as of this encounter
== END 2025-07-31 10:32 ==
LOC: HO.HHCX 10:31
PROVIDERS: PCP Internal Medicine; Visit Provider Student in an Organized Health Care Education/Training Program
DX: M54.6 Pain in thoracic spine (principal)
CPT/HCPCS: 72070

== ENCOUNTER → 2025-07-31 10:35 | Outpatient (BNV) | payer OTHER, SELFPAY | PROVIDERS: PCP Internal Medicine; Visit Provider Radiology Diagnostic Radiology | DX: M54.6 Pain in thoracic spine (principal) | CPT/HCPCS: 72070 ==